=== PATIENT | female | born 1990 | race Hispanic/Latino ===

== ENCOUNTER 2020-11-09 16:56 | Emergency (ER) | payer OTHER, SELFPAY ==
--- NOTE | ~2020-11-09 | US_ITS ---
EXAMINATION: US OB <=14 wk fetus w TV EXAM DATE: 11/09/2020 18:15 INDICATION: abd pain and vag bleeding, approx 6weeks . 1st trimester. TECHNIQUE: Pelvic obstetrical transabdominal and transvaginal sonogram was performed by a technologi . There are multiple grayscale and Doppler images available for interpretation. There are no rodger ier studies of this gestation for comparison. FINDINGS: Uterus measures 10.0 x 6.0 x 5.0 cm. There is intrauterine gestation sac. pole with heart rate confirmed at 123 beats per minute. The 6 mm crown-rump length corresponds to estimated g estational age by ultrasound of 6 weeks 3 days, estimated date of confinement 07/02/2021. Yolk sac is identified. There is no sonographic evidence of subchorionic hemorrhage. The ovaries were not ident ified. IMPRESSION: Early live intrauterine gestation, age by ultrasound 6 weeks 3 days. Reviewed, dictated and finalized at location A. IMPRESSION: Early live intrauterine gestation, age by ultrasound 6 weeks 3 day sDebo
[2020-11-09 17:13] VITALS: BP 140/65; PULSE 84; RESP 16; TEMP 36.7; O2SAT 100
[2020-11-09 17:28] LABS: Basophils Percent Auto 0.4 % (0.2-1.2); Eosinophils Absolute Auto 0.2 K/mm3 (0-0.3); Eosinophils Percent Auto 1.6 % (0-4.4); Hematocrit 34.8 % (37.0-47.0); Hemoglobin 11.1 g/dL (12.0-15.0); Immature Granulocyte Absolute 0.09 K/mm3 (0.00-0.031); Immature Granulocyte Percent A 0.9 % (0-0.5); Lymphocytes Absolute Auto 2.38 K/mm3 (0.9-3.2); Lymphocytes Percent Auto 23.4 % (18.3-44.2); Mean Corpuscular HGB Conc 31.9 g/dl (32-36); Mean Corpuscular Hemoglobin 28.6 pg (26-34); Mean Corpuscular Volume 89.7 fl (80-100); Mean Platelet Volume 9.4 fl (7.4-10.4); Monocytes Absolute Auto 0.5 K/mm3 (0.1-0.6); Monocytes Percent Auto 5.2 % (2.6-8.5); Neutrophils Percent Auto 68.5 % (45.5-73.1); Platelet Count Result 239 k/mm3 (150-375); Red Blood Count 3.88 M/mm3 (4.2-5.4); Red Cell Distribution Width 13.1 % (11.5-14.5); White Blood Count 10.2 K/mm3 (4.5-10.0)
[2020-11-09 18:37] VITALS: BP 137/60; PULSE 73; RESP 18; O2SAT 100
--- NOTE | 2020-11-09 19:25 | ED.FEMALEGU ---
HPI - Female Genitourinary General Chief complaint: Vaginal Bleeding Stated complaint: ABD PAIN 6WKS PREG Time Seen by Provider: 11/09/20 19:00 Source: patient and RN notes reviewed Mode of arrival: ambulatory Limitations: no limitations History of Present Illness HPI Narrative: Patient is 30 years old female presented to the ED with lower abdominal pain, later spread all over, associated with intermittent vaginal spotting. Last bleeding was yesterday, no active bleeding today. Patient is 2, para 1, 0. Patient went to [facility] at least twice over the last 10 days, and been to [facility] 1 week ago and was diagnosed of 6 weeks patient would like to get ultrasound for confirmation. And also would like to get an OFFICE COORDINATOR. Currently patient denies any fever, chills, shortness of breath, coughing, respiratory symptoms. Patient does not smoke or drink or uses drugs. History of depression Related Data Allergies Allergy/AdvReac Type Severity Reaction Status Date / Time No Known Allergies Allergy Verified 11/09/20 18:41 Review of Systems Review of Systems: Narrative: CONSTITUTIONAL: Denies fever, chills, or sweats. EYES: Denies visual changes, redness, or discharge. ENT: Denies rhinorrhea, congestion, sore throat, or otalgia. CARDIOVASCULAR: Denies chest pain, palpitations, or edema. RESPIRATORY: Denies cough or dyspnea. GASTROINTESTINAL: Denies abdominal pain, nausea, vomiting, or diarrhea. GENITOURINARY: Denies dysuria or hematuria. SKIN: Denies rash or itching. MUSCULOSKELETAL: Denies back pain, joint pain, or myalgia. NEUROLOGIC: Denies headache, numbness, or weakness. PSYCHIATRIC: Denies anxiety or depression. Exam Narrative: Exam Narrative: General appearance: Well-developed, well-nourished Skin: Normal color Head: Normocephalic, nontraumatic Eyes: Clear conjunctiva ENT: Oropharynx normal, ears normal, nose normal Neck: Supple, nontender Chest and respiratory: Airway patent, no respiratory distress, no accessory muscle use Heart: Regular rate/rhythm Abdomen: Soft, nontender, no organomegaly, quiet bowel sounds Vascular: Normal peripheral pulses, normal capillary refill. Musculoskeletal: Normal range of motion, nontender back Neurologic: Alert and oriented ?3, SENIOR ESTIMATOR is normal as tested, no gross motor deficit Course Course Emergency Course: Stable Vital Signs Vital signs: Vital Signs Temperature 36.7 C 11/09/20 17:13 Pulse Rate 84 11/09/20 17:13 Respiratory Rate 16 11/09/20 17:13 Blood Pressure 140/65 11/09/20 17:13 Pulse Oximetry 100 11/09/20 17:13 Temperature 36.7 C 11/09/20 17:13 Pulse Rate 73 11/09/20 18:37 Respiratory Rate 18 11/09/20 18:37 Blood Pressure 137/60 11/09/20 18:37 Pulse Oximetry 100 11/09/20 18:37 MDM - Female Genitourinary Differential Diagnosis Differential diagnosis: Likely urinary tract infection, cystitis and other (Threatened , ectopic ) Lab Data Result diagrams: 11/09/20 17:21 Labs: Lab Results 11/09/20 11/09/20 11/09/20 Range/Units 17:21 17:21 17:21 WBC 10.2 H (4.5-10.0) K/mm3 RBC 3.88 L (4.2-5.4) M/mm3 Hgb 11.1 L (12.0-15.0) g/dL Hct 34.8 L (37.0-47.0) % MCV 89.7 (80-100) fl MCH 28.6 (26-34) pg MCHC 31.9 L (32-36) g/dl RDW 13.1 (11.5-14.5) % Plt Count 239 (150-375) k/mm3 MPV 9.4 (7.4-10.4) fl Immature Gran % (Auto) 0.9 H (0-0.5) % Neut % (Auto) 68.5 (45.5-73.1) % Lymph % (Auto) 23.4 (18.3-44.2) % Faulk % (Auto) 5.2 (2.6-8.5) % Eos % (Auto) 1.6 (0-4.4) % Baso % (Auto) 0.4 (0.2-1.2) % Lymph # (Auto)
[2020-11-09 19:45] LABS: Add Urine Microscopic? YES; Appearance Urine Clear (Clear); Bilirubin Urine Negative (Negative); Blood Urine Negative (Negative); Color Urine Yellow (Yellow); Glucose Urine UA Negative (Negative); Ketones Urine Negative (Negative); Leukocyte Esterase Ur Negative LEU/UL (Negative); Mucus Urine Rare /lpf; Nitrate Urine Negative (Negative); Protein Urine Negative (Negative); RBC Urine 0-2 /hpf (0-2); Specific Grav Ur 1.024 (1.001-1.035); Squamous Epithelial Cell Urine Few /hpf (Few); WBC Urine 0-3 /hpf
[2020-11-09 19:53] LABS: Alanine Aminotransferase 18 U/L (4-35); Albumin Level 3.9 g/dL (3.5-5.1); Alkaline Phosphatase 65 U/L (38-126); Anion Gap 10 mmol/L (8-16); Aspartate Amino Transferase 44 U/L (14-36); Bilirubin,Total 0.4 mg/dL (0.2-1.3); Blood Urea Nitrogen 16 mg/dL (7-17); Calcium 9.3 mg/dL (8.4-10.2); Carbon Dioxide 24 mmol/L (22-30); Chloride 103 mmol/L (98-107); Estimated CRCL calculation 196 ml/min; Estimated Glomerular Filt Rate > 60; Glucose 71 mg/dL (65-105); Lipase 50 U/L (23-300); Potassium 4.1 mmol/L (3.4-5.0); Sodium 137 mmol/L (137-145)
[2020-11-09 20:34] VITALS: BP 150/75; PULSE 78; RESP 20; O2SAT 98
== END 2020-11-09 20:32 | disposition home or self-care (01) ==
PROVIDERS: Emergency Medicine; Physician Assistant; Emergency Provider Emergency Medicine; PCP Registered Nurse
DX: O20.0 Threatened abortion (principal); Z3A.01 Less than 8 weeks gestation of pregnancy
CPT/HCPCS: 36415; 76801; 76817; 80053; 81001; 81025; 83690; 84702; 85025; 85461; 99284

== ENCOUNTER 2020-12-01 13:14 | Outpatient (CLI) | payer OTHER, SELFPAY ==
--- NOTE | ~2020-12-01 | US_ITS ---
EXAMINATION: US OB <= 14 weeks fetus DATE: 12/01/2020 13:56 INDICATION: Encounter for supervision of normal . TECHNIQUE: Real-time transabdominal pelvic ultrasound was performed. COMPARISON: Ultrasound 11/09/2020 FINDINGS: The uterus measures 12.3 x 9.1 x 7.0 cm. There is an intrauterine gestational sac. A yolk sac is iden tified. The crown rump length measures 2.7 cm, which correlates with an estimated gestational age of 9 weeks and 4 day(s) (+/-) 6 day(s). heart motion is identified measuring 161 beats per minute (bpm) by M-mode Doppler. The ovaries are not visualized. There is no free fluid in the pelvis. IMPRESSION: 1. Single living intrauterine gestation with estimated date of delivery of 07/02/2021 based on the ult rasound from 11/09/2020. Reviewed, dictated and finalized at location A. IMPRESSION: 1. Single living intrauterine gestation with estimated date of delivery of 07/02 based on the ultrasound from 11/09/2020.
== END 2020-12-01 13:15 | disposition home or self-care (01) ==
PROVIDERS: PCP Registered Nurse; Visit Provider Physician Assistant
DX: Z34.90 Encounter for supervision of normal pregnancy, unspecified, unspecified trimester (principal)
CPT/HCPCS: 76801

== ENCOUNTER 2021-05-05 19:28 | Observation (INO) | payer OTHER, SELFPAY ==
--- NOTE | 2021-05-05 19:28 | OBADM ---
This patient, Bren Lee, admitted to the OB room [facility] Post [facility] for observation. Patient/family oriented to hospital policies and general routines including ID bracelet, bed and alarms, visiting hours, pain management, procedures, bathroom and other care routines, personal items, smoking policy, room service/diet, and visiting hours. Patient/Family are encouraged to report perceived risks to care and to ask questions if they do not understand what they are told or what they should do.
--- NOTE | 2021-05-05 20:02 | PC.NURSE ---
pt reporting back pain and abdominal pain that has become more constant than earlier in the day. Pt reports having her glucose test this AM and the pain starting around 0830.
[2021-05-05 20:16] VITALS: BP 149/80; PULSE 90
[2021-05-05 20:39] VITALS: BMI 70.4
--- NOTE | 2021-05-05 20:42 | PC.NURSE ---
pt reports UTI being diagnosed yesterday at the doctors office but has not picked up her prescription yet.
[2021-05-05 20:48] LABS: Hemoglobin 10.6 g/dL (12.0-15.0); Mean Corpuscular HGB Conc 33.1 g/dl (32-36); Mean Corpuscular Hemoglobin 28.7 pg (26-34); Mean Corpuscular Volume 86.7 fl (80-100); Platelet Count Result 171 k/mm3 (150-375); Red Blood Count 3.69 M/mm3 (4.2-5.4); Red Cell Distribution Width 13.1 % (11.5-14.5); White Blood Count 5.1 K/mm3 (4.5-10.0)
--- NOTE | 2021-05-05 20:53 | PM.OBTRLD ---
OB - Triage/Final Diagnosis Visit Information Date of evaluation: 05/05/21 Reason for evaluation: other (back pain) Comments/Additional reasons for admission: I have assessed the risk for this patient, Bren Lee, and determined that she would benefit from observation care. Evaluation Vital signs: Vital Signs - 24 hr 05/05/21 20:16 Pulse Rate 90 Blood Pressure 149/80 H
[2021-05-05 20:59] LABS: Add Urine Microscopic? YES; Appearance Urine Clear (Clear); Bacteria Urine 2+ /hpf; Bilirubin Urine Negative (Negative); Blood Urine Negative (Negative); Color Urine Amber (Yellow); Glucose Urine UA Negative (Negative); Ketones Urine 2+ mg/dL (Negative); Leukocyte Esterase Ur Negative LEU/UL (NEGATIVE); Mucus Urine Rare /lpf; Nitrate Urine Negative (Negative); Protein Urine 1+ mg/dL (Negative); RBC Urine 0-2 /hpf (0-2); Specific Grav Ur 1.029 (1.001-1.035); Squamous Epithelial Cell Urine Few /hpf (Few); WBC Urine 0-3 /hpf (0-3)
[2021-05-05 21:06] VITALS: BP 147/77; PULSE 89
--- NOTE | 2021-05-05 21:14 | PC.NURSE ---
Dr. Rico updated on pt lab results and VS. Also updated on pt now stating she has UTI and hasnt started her medication yet. Order received for pt to receive 100mg of Macrobid x 1 and discharge pt home.
--- NOTE | 2021-05-05 21:23 | PC.NURSE ---
100mg Macrobid given x 1. Medication unable to be scanned. 05/05/20212122
== END 2021-05-05 21:27 | disposition home or self-care (01) ==
PROVIDERS: Admitting Provider Student in an Organized Health Care Education/Training Program; PCP Registered Nurse; Visit Provider Student in an Organized Health Care Education/Training Program
DX: O99.891 Other specified diseases and conditions complicating pregnancy (principal); M54.9 Dorsalgia, unspecified; Z3A.00 Weeks of gestation of pregnancy not specified
CPT/HCPCS: 36415; 81001; 85027; 87077; 87086; 87088; 87186; G0378; G0379

== ENCOUNTER 2022-11-01 12:13 | Emergency (ER) | payer OTHER, SELFPAY ==
[2022-11-01 12:23] VITALS: BP 143/99; PULSE 82; RESP 18; TEMP 36.6; O2SAT 99
[2022-11-01 13:22] LABS: Strep Group A RT-PCR DETECTED (Negative)
--- NOTE | 2022-11-01 13:40 | ED.EAR ---
HPI - Ear Problem General Chief complaint: Ear Stated complaint: sorethroat, ears hurting Time Seen by Provider: 11/01/22 13:03 History of Present Illness HPI Narrative: Patient is a 32-year-old female who presents ER with concerns for strep throat. Reports she has had sore throat for last 2 days. Associated with sinus congestion and cough. She is also had fever. She reports her exudates on her tonsils yesterday but no longer today. Related Data Home Medications Medication Instructions Recorded Confirmed vits no.126-ferrous fum 1 tablet PO DAILY 05/05/21 05/05/21 28 mg iron-folic acid 800 mcg tablet (Classic ) Allergies Allergy/AdvReac Type Severity Reaction Status Date / Time No Known Allergies Allergy Verified 11/01/22 12:22 Review of Systems Constitutional: Constitutional: Denies chills and Reports fever(s) ENT: Reports nasal congestion and Reports sore throat Respiratory: Respiratory: Reports cough and Denies dyspnea PMFSH Past Medical History Medical History (Updated 11/01/22 @ 18:29 by Chun Mcelroy MD) Healthy female adult Surgical History Surgical History (Updated 11/01/22 @ 18:29 by Chun Mcelroy MD) No history of previous surgery Exam Narrative: GENERAL: Well-appearing, well-nourished, and in no acute distress. HEAD: Normocephalic, atraumatic. EYES: PERRL and EOMI. ENT: Mucous membranes moist. Tonsillar hypertrophy without exudate, mild with erythema of posterior oropharynx. Neck: Tender lymphadenopathy of the anterior cervical chain. EXTREMITIES: Normal range of motion. No edema. NEURO: Alert and oriented x3. PSYCH: Normal mood and affect. Course Course Emergency Course: Patient informed of results. D/c home with augmentin. Vital Signs Vital signs: Vital Signs Temperature 98 F 11/01/22 12:23 Pulse Rate 82 11/01/22 12:23 Respiratory Rate 18 11/01/22 12:23 Blood Pressure 143/99 H 11/01/22 12:23 Pulse Oximetry 99 11/01/22 12:23 Temperature 98 F 11/01/22 12:23 Pulse Rate 82 11/01/22 12:23 Respiratory Rate 18 11/01/22 12:23 Blood Pressure 143/99 H 11/01/22 12:23 Pulse Oximetry 99 11/01/22 12:23 Medical Decision Making Vital Signs Vital Signs: Vital Signs Temperature 98 F 11/01/22 12:23 Pulse Rate 82 11/01/22 12:23 Respiratory Rate 18 11/01/22 12:23 Blood Pressure 143/99 H 11/01/22 12:23 Pulse Oximetry 99 11/01/22 12:23 Temperature 98 F 11/01/22 12:23 Pulse Rate 82 11/01/22 12:23 Respiratory Rate 18 11/01/22 12:23 Blood Pressure 143/99 H 11/01/22 12:23 Pulse Oximetry 99 11/01/22 12:23 Lab Data Labs: Lab Results 11/01/22 Range/Units 12:25 Group A Strep (PCR) Detected A (Negative) Discharge Plan Discharge Clinical Impression: Strep throat Patient Disposition: Home, Self-Care Condition: Stable Instructions: Antibiotic Form, Strep Throat (ED) Additional Instructions: Return the ER if you cannot breathe, cannot swallow, you cannot keep down food or water, you have additional concerns. Prescriptions: New amoxicillin-pot clavulanate 875-125 mg tablet 1 tablet PO Q12H Qty: 20 0RF No Action Classic 28 mg iron- 800 mcg Tablet 1 tablet PO DAILY Follow-up/Referrals: Imelda,MEME Gibson [Primary Care Provider] - 1 Week
== END 2022-11-01 13:54 | disposition home or self-care (01) ==
PROVIDERS: Emergency Provider Emergency Medicine; PCP Registered Nurse
DX: J02.0 Streptococcal pharyngitis (principal)
CPT/HCPCS: 87651; 99283

== ENCOUNTER 2024-02-05 14:39 | Emergency (ER) | payer OTHER, SELFPAY ==
--- NOTE | ~2024-02-05 | CT_ITS ---
CT abdomen pelvis w con Ordering provider: Mlaina Jones PA-C History: 34 years Female with . diffuse pain, N/V/D . Comparison: None. Technique: CT abdomen and pelvis with IV and without oral contrast. Automated exposure control and it erative reconstruction technique were employed. The dose-length product was 1742.49 mGy-cm. 100 mL Om nipaque 350 was given IV. Findings: VISUALIZED LOWER CHEST: Normal. UPPER ABDOMINAL ORGANS: Liver: Hepatomegaly. Gallbladder: Normal. Spleen: Normal. Stomach/duodenum: Slightly thickened wall of the stomach which may indicate gastritis. Pancreas: Normal. Adrenals: Normal. Kidneys: Normal. PELVIC ORGANS: The bladder is underfilled.. BOWEL AND MESENTERY: Colon: No evidence of diverticulitis. Normal appendix. Small Bowel: Normal. No obstruction. Peritoneum/mesentery: No free air or free fluid. No mesenteric lymphadenopathy. RETROPERITONEUM: Normal aorta. No retroperitoneal lymphadenopathy. MUSCULOSKELETAL: Superficial soft tissues: Thickened skin in the area of the vulva on the right side. Clinical evaluat ion advised. Small fat-containing umbilical hernia. Bilateral borderline inguinal lymph nodes are not ed Otherwise, The superficial soft tissues are normal. Bones: Age appropriate degenerative changes of the spine. Bilateral sacroiliitis. IMPRESSION: 1. No evidence of appendicitis, diverticulitis or intestinal obstruction. 2. Small fat-containing umbilical hernia. Thickened skin in the right vulva area. Clinical evaluatio n advised. 3. Slightly thickened wall of the stomach which may indicate gastritis. Clinical correlation is advi sed. 4. Hepatomegaly Reviewed, dictated and finalized at location A. IMPRESSION: 1. No evidence of appendicitis, diverticulitis or intestinal obstruction. 2. Small fat-containing umbilical hernia. Thickened skin in the right vulva ar ea. Clinical evaluation advised. 3. Slightly thickened wall of the stomach which may indicate gastritis. Clinic al correlation is advised. 4. Hepatomegaly
[2024-02-05 14:46] VITALS: BP 159/100; PULSE 104; RESP 20; TEMP 36.5; O2SAT 98
--- NOTE | 2024-02-05 17:12 | ED.NAVMDI ---
HPI - Nausea/Vomiting/Diarrhea General Chief complaint: Nausea/Vomiting/Diarrhea <JERROD Mcdonald Last Filed: 02/05/24 19:18> Stated complaint: vomiting, diarrhea <JERROD Mcdonald Last Filed: 02/05/24 19:18> Time Seen by Provider: 02/05/24 17:12 <JERROD Mcdonald Last Filed: 02/05/24 19:18> Focused HPI: Patient is a 34 y/o female who presents to the ED with c/o N/V/D. Patient reports she first developed N/V around 5pm after eating dinner on Monday. Denies any bad food exposure. She has since had persistent N/V, unable to keep down food or drink. Also reports diarrhea, diffuse pain in her abdomen, radiating through to her back. She tried taking pepto bismol today w/o improvement. Has not taken anything else for the pain. Denies fevers, rectal bleeding, melena, family members with similar sx's. GENERAL: Well-appearing, morbidly obese with BMI of 69.9, and in no acute distress. HEAD: Normocephalic, atraumatic. CHEST: Clear to auscultation. ?No respiratory distress. HEART: Regular rate and rhythm.? ABD: Diffuse nonfocal TTP, worst in epigastric region. Normoactive BS. NEURO: ?Alert and oriented x3. Patient screened in triage and initial orders placed.? ?Additional care and disposition to be based upon?diagnostic testing and treatment. <JERROD Mcdonald Last Filed: 02/05/24 19:18> Source: patient <JERROD Mcdonald Last Filed: 02/05/24 19:18> Mode of arrival: ambulatory <JERROD Mcdonald Last Filed: 02/05/24 19:18> Limitations: no limitations <JERROD Mcdonald Last Filed: 02/05/24 19:18> History of Present Illness HPI Narrative: Agree with HPI. Of note patient does report mild depression. She has been on antidepressants in the past was not been on them recently for a she is having stress because her daughter and will not listen to her home. She has no thoughts of harm to self or others. <Chun Mcelroy MD - Last Filed: 02/05/24 19:20> Related Data Home medications: Home Medications Medication Instructions Recorded Confirmed vits no.126-ferrous fum 1 tablet PO DAILY 05/05/21 05/05/21 28 mg iron-folic acid 800 mcg tablet (Classic ) <Malina Jones PA-C - Last Filed: 02/05/24 19:18> Allergies/Adverse reactions: Allergies Allergy/AdvReac Type Severity Reaction Status Date / Time No Known Allergies Allergy Verified 11/01/22 12:22 <Malina Jones PA-C - Last Filed: 02/05/24 19:18> Review of Systems Review of Systems: All systems reviewed & are unremarkable except as noted in HPI and below <Chun Mcelroy MD - Last Filed: 02/05/24 19:20> Constitutional: Constitutional: Reports no additional constitutional complaints <Chun Mcelroy MD - Last Filed: 02/05/24 19:20> Cardiovascular: Cardiovascular: Reports no additional cardiovascular complaints <Chun Mcelroy MD - Last Filed: 02/05/24 19:20> Respiratory: Respiratory: Reports no additional respiratory complaints <Chun Mcelroy MD - Last Filed: 02/05/24 19:20> Gastrointestinal: Gastrointestinal: Reports no additional gastrointestinal complaints <Chun Mcelroy MD - Last Filed: 02/05/24 19:20> Musculoskeletal: Musculoskeletal: Reports no additional musculoskeletal complaints <Chun Mcelroy MD - Last Filed: 02/05/24 19:20> Psychiatric: Psychiatric: Reports depression, Denies homicidal ideation and Denies suicidal ideation <Chun Mcelroy MD - Last Filed: 02/05/24 19:20> PMFSH Past Medical History Medical History: Medical History Healthy female adult <Malina Jones PA-C - Last Filed: 02/05/24 19:18> Surgical History Surgical History: Surgical History No history of previous surgery <Malina Jones P
[2024-02-05] MEDS: ONDANSETRON INJ 4 MG/2 ML VIAL IV PUSH (17:23)
[2024-02-05] MEDS: FAMOTIDINE 20 MG/2 ML VIAL IV PUSH (17:23)
[2024-02-05 17:26] LABS: Basophils Absolute Auto 0.1 K/mm3 (0.0-0.1); Basophils Percent Auto 0.5 % (0.2-1.2); Eosinophils Absolute Auto 0.2 K/mm3 (0-0.3); Eosinophils Percent Auto 1.4 % (0-4.4); Hematocrit 41.2 % (37.0-47.0); Hemoglobin 13.3 g/dL (12.0-15.0); Immature Granulocyte Absolute 0.06 K/mm3 (0.00-0.031); Immature Granulocyte Percent A 0.6 % (0-0.5); Mean Corpuscular HGB Conc 32.3 g/dl (32-36); Mean Corpuscular Hemoglobin 28.7 pg (26-34); Mean Corpuscular Volume 88.8 fl (80-100); Mean Platelet Volume 9.5 fl (7.4-10.4); Monocytes Absolute Auto 0.7 K/mm3 (0.1-0.6); Monocytes Percent Auto 6.2 % (2.6-8.5); Neutrophils Absolute Auto 6.3 K/mm3 (1.3-6.7); Neutrophils Percent Auto 59.3 % (45.5-73.1); Platelet Count Result 278 k/mm3 (150-375); Red Blood Count 4.64 M/mm3 (4.2-5.4); White Blood Count 10.6 K/mm3 (4.5-10.0)
[2024-02-05 17:39] LABS: BEDSIDEPREGUCG Negative (Negative)
[2024-02-05 18:01] LABS: Alanine Aminotransferase 18 U/L (6-35); Albumin Level 4.1 g/dL (3.5-5.1); Alkaline Phosphatase 81 U/L (38-126); Anion Gap 8 mmol/L (4-12); Aspartate Amino Transferase 28 U/L (14-36); Bilirubin,Total 0.3 mg/dL (0.2-1.3); Blood Urea Nitrogen 6 mg/dL (7-17); Calcium 8.9 mg/dL (8.4-10.2); Carbon Dioxide 27 mmol/L (22-30); Chloride 104 mmol/L (98-107); Estimated CRCL calculation 184 ml/min; Estimated Glomerular Filt Rate > 60; Glucose 80 mg/dL (65-110); Lipase 46 U/L (23-300); Magnesium 1.8 mg/dL (1.6-2.3); Potassium 3.9 mmol/L (3.4-5.0); Sodium 139 mmol/L (137-145)
[2024-02-05 18:08] LABS: Add Urine Microscopic? NO; Appearance Urine Clear (Clear); Bilirubin Urine Negative (Negative); Blood Urine Negative (Negative); Color Urine Yellow (Yellow); Glucose Urine UA Negative (Negative); Ketones Urine Negative (Negative); Leukocyte Esterase Ur Negative LEU/UL (Negative); Nitrate Urine Negative (Negative); Protein Urine Negative (Negative); Specific Grav Ur 1.007 (1.001-1.035); Urobilinogen Urine 0.2 mg/dL (<2.0); pH Urine 6.5 (5.0-9.0)
[2024-02-05 18:44] VITALS: BP 126/66; PULSE 88; RESP 16; TEMP 36.6; O2SAT 100
== END 2024-02-05 19:32 | disposition home or self-care (01) ==
LOC: ANHED 19:28
PROVIDERS: Physician Assistant; Emergency Provider Emergency Medicine; PCP Registered Nurse
DX: K52.9 Noninfective gastroenteritis and colitis, unspecified (principal); F32.A Depression, unspecified; E66.01 Morbid (severe) obesity due to excess calories; Z68.44 Body mass index [BMI] 60.0-69.9, adult; R16.0 Hepatomegaly, not elsewhere classified
CPT/HCPCS: 36415; 74177; 80053; 81003; 81025; 83690; 83735; 85025; 96374; 96375; 99284; J2405; Q9967

== ENCOUNTER 2024-04-27 11:01 | Emergency (ER) | payer OTHER, SELFPAY ==
[2024-04-27 11:40] VITALS: BP 149/101; PULSE 83; RESP 18; TEMP 37; O2SAT 99
[2024-04-27 14:01] VITALS: BP 147/92; PULSE 91; RESP 11; TEMP 36.8; O2SAT 99
--- NOTE | 2024-04-27 15:12 | ED_ITS ---
HPI - General Adult General Chief complaint: Eye Problems Stated complaint: eye pain Time Seen by Provider: 04/27/24 14:31 History of Present Illness HPI narrative: 34-year-old female presenting to the emergency department for evaluation for worsening pain got eye symptoms. Patient states she did have the diagnosis of pinkeye and was started on antibiotics. Patient reports that she has had improvement of the redness of the conjunctivis but states she is having increased pain in the eye. Patient denies any prior history of hypertension or pseudotumor cerebri. Related Data Home Medications ?Medication ?Instructions ?Recorded ?Confirmed ?Last Taken ?Type vits no.126-ferrous fum 1 tablet PO DAILY 05/05/21 05/05/21 Unknown History 28 mg iron-folic acid 800 mcg tablet (Classic ) Allergies Allergy/AdvReac Type Severity Reaction Status Date / Time No Known Allergies Allergy Verified 04/27/24 11:43 Review of Systems Review of Systems: All systems reviewed & are unremarkable except as noted in HPI and below PMFSH Past Medical History Medical History Healthy female adult Surgical History Surgical History No history of previous surgery Exam Narrative: APPEARANCE: Well appearing, no pain, no distress, well-nourished. HEAD: normocephalic, atraumatic. EYES: PERRLA/EOMI, conjunctivae clear. Tender pressures were 17 and 18 for left and right. Normal fundus exam. Normal cornea exam NOSE: Normal no drainage EARS:TMS clear with good light reflex. THROAT: Pharynx clear, no exudate. NECK: Supple. No adenopathy, no masses. RESPIRATORY: Airway patent, respirations nonlabored. Clear to auscultation bilaterally, no rales, rhonchi, wheezing. CARDIOVASCULAR: Regular rate and rhythm without murmurs rubs or gallops. ABDOMINAL: Soft, nontender, nondistended, normal bowel sounds MUSCULOSKELETAL: Moves all extremities. Strength/ROM intact, No edema, No calf tenderness. NEURO: Alert. Cranial nerves II through XII intact. Good gait. Good coordination SKIN: Warm, dry. Normal Color PSYCHIATRIC: Normal affect/mood. Course Vital Signs Vital signs: Vital Signs Temperature 98.6 F 04/27/24 11:40 Pulse Rate 83 04/27/24 11:40 Respiratory Rate 18 04/27/24 11:40 Blood Pressure 149/101 H 04/27/24 11:40 Pulse Oximetry 99 04/27/24 11:40 Oxygen Delivery Room Air 04/27/24 11:40 Temperature 98.3 F 04/27/24 14:01 Pulse Rate 91 04/27/24 14:01 Respiratory Rate 11 L 04/27/24 14:01 Blood Pressure 147/92 H 04/27/24 14:01 Pulse Oximetry 99 04/27/24 14:01 Oxygen Delivery Room Air 04/27/24 11:40 Medical Decision Making MDM Narrative Medical decision making narrative: 34-year-old female present to the emergency department for evaluation for eye pain after continue to use her poly my sign eye drops. Patient's conjunctivitis is resolved. She was advised to stop the eyedrops and see if this helps her symptoms. Patient did not have elevated eye pressures bilaterally. Normal fundus exam bilaterally. Patient was advised to have close follow-up with Ophthalmology. All questions concerns were addressed patient was well-appearing at time of discharge. Vital Signs Vital Signs: Vital Signs Temperature 98.6 F 04/27/24 11:40 Pulse Rate 83 04/27/24 11:40 Respiratory Rate 18 04/27/24 11:40 Blood Pressure 149/101 H 04/27/24 11:40 Pulse Oximetry 99 04/27/24 11:40 Oxygen Delivery Room Air 04/27/24 11:40 Temperature 98.3 F 04/27/24 14:01 Pulse Rate 91 04/27/24 14:01 Respiratory Rate 11 L 04/27/24 14:01 Blood Pressure 147/92 H 04/27/24 14:01 Pulse Oximetry 99 04/27/24 14:01 Oxygen Delivery Room Air 04/27/24 11:40 Discharge Plan Discharge Clinical Impression: Eye pain Patient Disposition: Home, Self-Care Condition: Stable Instructions: Antibiotic Form Additional Instructions: Stop the polymycin eyedrops. Have close follow-up with Ophthalmology. If you have any worsening symptoms please call or return to the emergency department Patient Language: French Prescriptions: No Action Classic 28 mg iron- 800 mcg Tablet 1 tablet PO DAILY amoxicillin-pot clavulanate 875-125 mg tablet 1 tablet PO Q12H Qty: 20 0RF ondansetron 4 mg tablet,disintegrating 4 mg PO Q6H PRN (Reason: nausea and vomiting) Qty: 10 0RF famotidine 20 mg tablet 20 mg PO DAILY Qty: 14 0RF Follow-up[facility]Referrals[facility]] UNKNOWN,DOCTOR [Primary Care Provider] -
[2024-04-27 15:17] VITALS: BP 136/76; PULSE 82; RESP 18; TEMP 36.6; O2SAT 98
--- OUTSIDE RECORDS SUMMARY | 2024-05-04 14:54 | XMS_ITS | Data Portability ---
Author Organization CHRISTO Thao CROWE Address [address] [place] [address] Care Team Providers Care Supervisor [employer] Anne[employer] Name Role Phone PAIGE MATIAS Primary Care Provider SHIV Nieto Circular Stuffer Assessment No assessment recorded. Plan of Treatment Reminders Order Date Submit Date Provider Last Modified By Organization Details Last Modified Time Details Appointments None recorded. Lab test, urine 2022 023 SYLVIA In-Office Order, Internal Use Only DO Not Attach Compendium DO Not Attach Compendium, Do Not Delete/merge, [id number] 3 13:32:07 prolactin, serum 2022 023 SYLVIA ARCHER, [facility], [address], [place], [address], 3 08:23:12 TSH + free T4, serum 2022 023 SYLVIA ARCHER, [address] [place] [address], [address], [place], [address], 3 08:23:11 RPR (rapid plasma reagin), serum 2022 023 SYLVIA ARCHER, [address] [place] [address], [address], [place], [address], 3 22:07:34 HIV 1 + 2, meaningful use set 2022 023 SYLVIA PETERSON, [address] [facility], [address], [place], [address], 3 22:07:35 chlamydia trachomati s + neisseria gonorrhoea e + trichomona s vaginalis DNA panel, JARRELL+probe, unspecifie d specimen 2022 023 [facility], [address] [place] [address], [address], [place], [address], 3 22:07:32 HBsAg (hepatitis B surface Ag), EIA, serum 2022 023 [facility], [address] [place] [address], [address], [place], [address], 3 22:07:33 Referral physical therapist referral 2023 024 [facility], [address] [place], [address], 4 10:53:45 Procedures None recorded. Surgeries None recorded. Imaging US, abdomen - Bulge above belly button [facility]22 [facility]23 [facility], [address] [place], [address], 4 12:31:49 US, breast, bilateral 2022 023 [facility], [address] [place], [address], 3 09:44:58 XR, ankle - L ankle pain for 4 months 2023 024 [facility], [address] [place], [address], 4 13:53:56 XR, knee, 3 view 2023 024 [facility], [address] [facility], [place], [address], 4 10:06:15 Medication Orders ibuprofen 400 mg tablet 2022 023 [facility] #[id number], [address], [place], [place], [id number], 3 13:21:11 cephalexin 500 mg capsule 2022 023 arturel[facility] #68052, [address], [place], [place], [id number], 4 17:43:29 acyclovir 400 mg tablet 2022 023 [facility] #62603, [address], [place], [place], [id number], 3 13:13:37 meloxicam 15 mg tablet 2023 024 [facility] #02230, [address], [place], [place], [id number], 4 12:33:06 Medrol (Ry) 4 mg tablets in a dose pack 2023 024 [facility] #27497, [address], [place], [place], [id number], 4 17:34:14 meloxicam 15 mg tablet 2023 024 [facility] #[id number], [address], [place], [place], [id number], 4 17:44:52 Patient TargetsNo targets recorded. Patient Instructions Encounter Date Encounter Id Patient Instructions Last Modified By Organization Details Last Modified Time 06/08/2022 [id number] When You Want to Lose Weight: Care Instructions juan a Not available 06/08/2022 11:59:10 A healthy lifestyle: care instructions yarauz Not available 06/08/2022 11:59:10 continue fluoxetine and f/u as directed yarauz Not available 06/08/2022 16:54:41 get abd u/s as directed possible hernia yarauz Not available 06/08/2022 16:55:04 06/16/2022 [id number] galactorrhea: care instructions yarauz Not available 06/16/2022 13:23:32 When You Want to Lose Weight: Care Instructions yarauz Not available 06/16/2022 13:21:05 A healthy lifestyle: care instructions yarauz Not available 06/16/2022 13:21:05 get breast u/s yarauz Not available 0 06/16/2022 13:20:56 08/30/2022 [id number] genital herpes: care instructions yarauz Not available 08/30/2022 13:13:30 std risks condoms with every sexual act no sex during treatment yarauz Not available 08/30/2022 13:12:23 09/01/2023 [id number] ankle sprain: rehab exercises yarauz Not available 09/01/2023 14:28:14 learning about rice (rest, ice, compression, and elevation) yarauz Not available 09/01/2023 14:28:14 When You Want to Lose Weight: Care Instructions yarauz Not available 09/01/2023 12:35:21 Prop up your alfred t on pillows as much as possible for the next 3 days. Try to keep your ankle above the level of your heart. This will help reduce the swelling. Follow your doctor's directions for wearing a splint or elastic bandage. Wrapping the ankle may help reduce or prevent swelling. Your doctor may give you a splint, a brace, an air stirrup, or another form of ankle support to protect your ankle until it is healed. Wear it as directed while your ankle is healing. Do not remove it unless your doctor tells you to. After your ankle has healed, ask your doctor whether you should wear the brace when you exercise. Put ice or cold packs on your injured ankle for 10 to 20 minutes at a time. Try to do this every 1 to 2 hours for the next 3 days (when you are awake) or until the swelling goes down. Put a thin cloth between the ice and your skin. You may need to use crutches until you can walk without pain. If you do use crutches, try to bear some weight on your injured ankle if you can do so without pain. This helps the ankle heal. Take pain medicines exactly as directed. Do ROM ankle exercises to do at home, do them exactly as instructed. These can promote healing and help prevent lasting weakness. juan a Not available 09/01/2023 14:27:52 01/31/2024 [id number] When You Want to Lose Weight: Care Instructions juan a Not available 01/31/2024 17:34:07 ? ? Rest your leg while you have pain, and avoid standing for long periods of time. ? ? Prop up your leg at or above the level of your heart when possible. ? ? Make sure you are eating a balanced diet that is rich in calcium, potassium, and magnesium, especially if you are . ? ? Put ice or a cold pack on the area for 10 to 20 minutes at a time. Put a thin cloth between the ice and your skin. ? ? Your leg may be in a splint, a brace, or an elastic bandage, and you may have crutches to help you walk. juan a Not available 01/31/2024 17:33:27 Reason for Referral Physical Therapist Referral for Osteoarthritis of knee Referring Physician: Paige Matias, Family Medicine, Encounter Date: 01/31/2024 Results Created Date Observation Date Name Description Value Unit Range Abnormal Flag Note LastModifiedBy Organization Detail LastModifiedTime 06/16/1906/17/2022 TSH+F REE T4 TSH 1.750 uIU/m L 0.450- 4.500 Not Available [facility] ([facility]) [address] [place], [address], 06/17/2022 08:23:11 06/16/1906/17/2022 TSH+F REE T4 T4,free(dire ct) 1.39 NG/dL 0.82-1 .77 Not Available [facility] ([facility]) [address] [place], [address], 06/17/2022 08:23:11 06/16/19 23 06/17/2022 PROLA CTIN prolactin 8.0 NG/mL 4.8-23 .3 Not Available [facility] ([facility]) [address] [place], [address], 06/17/2022 08:23:12 06/16/19 23 06/16/2022 pregn kimmie test, urine HCG negati ve Not Available In-Office Order Internal Use Only DO Not Attach Compendium DO Not Attach Compendium, Do Not Delete/merge, [id number] 06/16/2022 13:23:26 08/31/19 23 08/31/2022 CT, NG, TRICH VAG BY JARRELL chlamydia by JARRELL Negati ve negati ve Not Available [facility] ([facility]) [address] [place], [address], 08/31/2022 22:07:32 08/31/19 23 08/31/2022 CT, NG, TRICH VAG BY JARRELL gonococcus by JARRELL Negati ve negati ve Not Available [facility] ([facility]) [address] [place], [address], 08/31/2022 22:07:32 08/31/19 23 08/31/2022 CT, NG, TRICH VAG BY JARRELL trich vag by JARRELL Negati ve negati ve Not Available [facility] ([facility]) [address] [place], [address], 08/31/2022 22:07:32 08/31/19 23 08/31/2022 HBSAG SCREE N HBsAg screen Negati ve negati ve Not Available [facility] ([facility]) [address] [place], [address], 08/31/2022 22:07:33 08/31/19 23 08/31/2022 RPR, RFX QN RPR/C ONFIR M TP RPR Non Reacti ve nonrea ctive Not Available [facility] ([facility]) [address] [facility], [place], [address], 08/31/2022 22:07:34 08/31/19 23 08/31/2022 HIV AB/P2 4 AG WITH REFLE X HIV Ab/P24 Ag screen Non Reacti ve nonrea ctive HIV Negat yessy HIV-1 /HIV- 2 antib odies and HIV-1 p24 antig en were NOT detec bisi. There is no labor atory evide nce of HIV infec tion. Not Available [facility] ([facility]) [address] [facility], [place], [address], 08/31/2022 22:07:35 09/08/19 24 09/08/2023 XR, ankle No observ ation record ed. [facility] [address] [place], [address], 01/31/2024 17:29:21 12/21/19 24 12/20/2023 XR, chest , 2 view No observ ation record ed. [facility] [address] [place], [address], 01/31/2024 17:29:21 02/05/20 24 02/05/2024 CT, abdom en + pelvi s, w/ contr ast No observ ation record ed. [facility] [address], [place], [address], 02/06/2024 14:23:17 04/28/20 24 04/28/2024 imagi ng/di agnos tic resul t No observ ation record ed. [facility] [address] [place], [address], 04/28/2024 15:44:40 Result Notes None recorded. Problems Name Problem SNOMED Code Status Onset Date Resolution Date Notes Provider Name and Address Organization Details Recorded Time Axillary hidraden itis suppurat roger 194765570 Active 2017 Dena Blevins [place] [facility], [place] - [facility] 1 12:26:44 Degenera tion of lumbar interver tebral disc 40077033 Active 2015 [facility] Attn: Michael jones,[address] [facility], [place], [address], [place] [facility] 2 13:37:43 Genital herpes simplex 40537127 Active 2019 Will need order for suppress yessy therapy. KEANU Patel Attn: Michael jones,[address] [facility], [place], [address], [place] [facility] 2 13:37:27 Migraine without aura 91875652 Active 2020 [facility] Attn: Michael jones,[address] [facility], [place], [address], [place] [facility] 2 13:37:43 Initial prescrip tion of oral contrace ption Completed 202011/03/2021 [facility] Attn: Michael jones,[address] [facility], [place], [address], [place] [facility] 2 13:37:05 Abnormal progeste rebekah 558422654 Active 2020 [facility] Attn: iMchael jones,[address] [facility], [place], [address], [place] [facility] 2 13:37:42 Pregnanc y 73857409 Completed 202007/12/2021 Vangie Lawrence LPN null, [place] [facility] 2 12:36:01 Morbid obesity 742014326 Completed Transfer of care initiate d by previous provider in process. Vangie [place] LPN [place], [place] [facility] 2 12:35:53 Depressi ve disorder 43100053 Completed 2020 Vangie [place] LPN [place], [place] [facility] 2 12:35:53 Genital herpes simplex 62172960 Completed 2019 Will need order for suppress yessy therapy. 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 Will need 3rd tri testing. 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 2nd recurren ce - plans for suppress yessy therapy to follow. Vangie Lawrence LPN [place], [place] [facility] 2 12:35:53 Anemia 676526584 Completed 202001/31/2024 Hgb 10.2 05/05/21. Oral iron encourag ed. KEANU Patel Attn: Michael jones,[address] [facility], [place], [address], [place] [facility] 4 17:31:34 Anemia 208006650 Completed 2020 Hgb 10.2 05/05/21. Oral iron encourag ed. 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 KEANU Patel Attn: Michael jones,[address] [facility], [place], [address], [place] [facility] 2 13:36:53 Subcutan eous contrace ptive implant present 426950060 Completed 2020 Plans for removal attempt at next appointm ent. Vangie [place] LPN [place] [facility] 2 12:35:53 Urinary tract infectio n in pregnanc y 840102372 Completed Polo Bowman naveen [place], [place] [facility] 2 13:21:08 Postpart um depressi on 87537287 Completed 202101/31/2024 [facility] Attn: Michael jones,[address] [place], [address], [place] [facility] 4 17:31:34 Obesity 718750126 Completed 09/25/2018 Sheri Arevalo RN null, [place] [facility] 9 10:11:35 Upper respirat ory infectio n 14241387 Completed 07/21/2016 Sheri Areval[place] RN [place] [facility] 7 11:52:23 Depressi ve disorder 28382167 Completed 09/12/2019 Sheri Areval[place] RN [place] [facility] 2 10:17:24 Morbid obesity 029481855 Active Transfer of care initiate d by previous provider in process. [facility] Attn: Michael jones,[address] [facility], [place], [address], [place] [facility] 2 13:37:43 Group B Streptoc occus carrier [id number] 03 Completed 201607/21/2016 Sheri [place] [facility] 2 10:16:06 Bacteria l vaginosi s 905692472 Completed 201607/21/2016 Sheri [place]val[place] [facility] 7 11:52:18 Cholelit hiasis without obstruct ion 49833605 Completed 201609/12/2019 Sheri Arevalo RN [place], [place] 0 16:22:55 Hyperlip idemia 63820633 Active 2016 KEANU Patel Attn: Michael jones,[address], [place], [address], [place] - [place] 2 13:37:43 Problem Notes None recorded. Procedures Surgical History Date Name Laterality Status Provider Name and Address Organization Details Recorded Time 06/28/19 22 delivery completed Ailyn Cota [place] 12/01/2021 11:13:56 05/13/19 22 Control Implant Removal completed Polo Cristobal [place] 05/23/2021 17:41:06 08/19/19 21 Date of Last Pap Smear completed Merari Ferreira [place] 11/19/2020 08:59:02 07/16/19 16 Control Implant Removal completed KEANU Patel Attn: Sally,[address] [facility], [place], [address], [facility] - [place] 07/17/2015 12:51:33 05/22/19 13 Caesarean Section completed Sheri Arevalo RN [place] - [place] 06/01/2015 12:02:09 Imaging Results Imaging Date Name Status LastModified by Organiz ation Details LastModified Time 09/08/2023 XR, ankle completed [facility] [address] [place], [address], 01/31/2024 17:29:21 12/20/2023 XR, chest, 2 view completed [facility] [address] [place], [address], 01/31/2024 17:29:21 02/05/2024 CT, abdomen + pelvis, w/ contrast completed [address] [place] [address], [address], 02/06/2024 14:23:17 04/28/2024 imaging/diagn ostic result active [facility] [address] [place], [address], 04/28/2024 15:44:40 Procedure Notes None recorded. Medical Equipment None Reported. Allergies No known drug allergies Medications Name Sig Start Date Stop Date Status Note LastModified by Organization Details LastModified Time smz/tmp ds tab 800-160su lfamethox azole/tri methoprim ds 06/24 completed Not Available Not Available Not Available metronida zol tab 500mgmetr onidazole 06/24 completed Not Available Not Available Not Available but/apap/ caf tabbutalb ital/acet aminophen /caffeine 03/30 completed Not Available Not Available Not Available tramadol hcl tab 50mgtrama dol hcl 03/10 completed Not Available Not Available Not Available tetracycl ine 500 mg capsule TAKE 1 CAPSULE BY MOUTH TWICE DAILY 06/24 completed Not Available Not Available Not Available cyclobenz aprine 10 mg tablet 08/11 completed Not Available Not Available Not Available amoxicill in 500 mg capsule Take 2 capsules every 12 hours by oral route for 10 days. 09/20 completed Not Available Not Available Not Available hydrocodo ne 7.5 mg-ibupro fen 200 mg tablet 06/20 completed Not Available Not Available Not Available bupropion HCl SR 150 mg tablet,12 hr sustained -release TAKE ONE TABLET BY MOUTH TWICE DAILY 06/20 completed Not Available Not Available Not Available neomycin- polymyxin -hydrocor t 3.5 mg/mL-10, 000 unit/mL-1 % ear solution 08/11 completed Not Available Not Available Not Available prednison e 10 mg tablet 06/20 completed Not Available Not Available Not Available Vitamin B-6 25 mg tablet TAKE 1 TABLET BY MOUTH THREE TIMES DAILY NEEDED 11/03 completed Not Available Not Available Not Available clindamyc in HCl 300 mg capsule TAKE 1 CAPSULE BY MOUTH EVERY 6 HOURS FOR 10 DAYS 08/30 completed Not Available Not Available Not Available albuterol sulfate 2.5 mg/3 mL (0.083 %) solution for nebulizat ion Inhale 3 mL 3 times a day by nebuliza tion route. 07/15 completed 98% before treatmen t 99% after treatmen t Not Available Not Available Not Available citalopra m 40 mg tablet TAKE 1 TABLET BY MOUTH EVERY DAY active Not Available Not Available No t Available cetirizin e 10 mg tablet TAKE 1 TABLET BY MOUTH EVERY DAY 11/03 completed Not Available Not Available Not Available azithromy nabila 250 mg tablet 09/25 completed Not Available Not Available Not Available ibuprofen 800 mg tablet 08/11 completed Not Available Not Available Not Available tizanidin e 4 mg tablet 08/11 completed Not Available Not Available Not Available fluconazo le 150 mg tablet Take 1 tablet every day by oral route for 1 day. 04/12 completed Not Available Not Available Not Available clarithro mycin 500 mg tablet Take 1 tablet every 12 hours by oral route for 10 days. 09/20 completed Not Available Not Available Not Available hydrocodo ne 5 mg-acetam inophen 325 mg tablet TAKE 1 TABLET BY MOUTH EVERY 6 HOURS NEEDED FOR PAIN 09/15 completed Not Available Not Available Not Available meloxicam 15 mg tablet TAKE 1 TABLET BY MOUTH DAILY FOR KNEE PAIN active Not Available Not Available No t Available phenazopy ridine 200 mg tablet Take 1 tablet 3 times a day by oral route. 04/12 completed Not Available Not Available Not Available polysacch aride iron complex 150 mg iron capsule TAKE 1 CAPSULE BY MOUTH EVERY DAY 12/01 completed Not Available Not Available Not Available sumatript an 25 mg tablet Take one tablet at onset of headache , may repeat if no relief in one hour. Max 4 tabs in one week. 08/11 completed Not Available Not Available Not Available metronida zole 0.75 % (37.5 mg/5 gram) vaginal gel Insert 1 applicat orful every day by vaginal route. 10/29 completed Not Available Not Available Not Available ondansetr on HCl 4 mg tablet TAKE 1 TABLET BY MOUTH EVERY 8 HOURS 02/11 completed 02/11/21 Makes patient sleepy, Would like salud quinteros. DG RMA Not Available Not Available Not Available clindamyc in HCl 150 mg capsule TAKE 1 CAPSULE BY MOUTH EVERY 6 HOURS FOR 10 DAYS 08/30 completed Not Available Not Available Not Available penicilli n V potassium 500 mg tablet Take 1 tablet twice a day by oral route for 10 days. 07/21 completed Not Available Not Available Not Available topiramat e 25 mg tablet Take one tablet by mouth daily for one week, then increase to twice daily. 09/25 completed Not Available Not Available Not Available metronida zole 500 mg tablet Take 1 tablet twice a day by oral route for 10 days. 07/21 completed Not Available Not Available Not Available acyclovir 400 mg tablet TAKE 1 TABLET BY MOUTH TWICE DAILY active Not Available Not Available No t Available sulfameth oxazole 800 mg-trimet hoprim 160 mg tablet Take 1 tablet every 12 hours by oral route for 10 days. 09/11 completed Not Available Not Available Not Available aspirin 81 mg tablet,de layed release TAKE 1 TABLET BY MOUTH EVERY DAY 04/12 completed Not Available Not Available Not Available tramadol 50 mg tablet 09/25 completed Not Available Not Available Not Available Vitamin tablet Take 1 tablet every day by oral route as directed for 90 days. 04/12 completed Not Available Not Available Not Available meloxicam 7.5 mg tablet TAKE 2 TABLETS BY MOUTH ONCE DAILY 05/19 completed Not Available Not Available Not Available amoxicill in 875 mg tablet Take 1 tablet every 12 hours by oral route. 07/15 completed Not Available Not Available Not Available citalopra m 20 mg tablet Take 1 tablet every day by oral route. 07/21 completed Not Available Not Available Not Available famotidin e 20 mg tablet TAKE 1 TABLET BY MOUTH DAILY active Not Available Not Available No t Available clindamyc in 1 % topical gel APPLY THIN LAYER EXTERNAL LY TO THE AFFECTED AREA TWICE DAILY 08/11 completed Not Available Not Available Not Available dicyclomi ne 20 mg tablet 09/20 completed Not Available Not Available Not Available hydrocodo ne 7.5 mg-acetam inophen 325 mg tablet 06/20 completed Not Available Not Available Not Available cephalexi n 500 mg capsule Take 1 capsule 4 times a day by oral route for 10 days. 01/30 completed Not Available Not Available Not Available cyanocoba flor (vit B-12) 1,000 mcg/mL injection solution Inject 1 mL every month by subcutan eous route. 11/03 completed Not Available Not Available Not Available ranitidin e 150 mg tablet Take 1 tablet twice a day by oral route. 06/20 completed Not Available Not Available Not Available ibuprofen 400 mg tablet Take 1 tablet 3 times a day by oral route. active Not Available Not Available No t Available progester one micronize d 200 mg capsule TAKE 1 CAPSULE BY MOUTH TWICE DAILY active Not Available Not Available No t Available fluoxetin e 10 mg capsule TAKE ONE CAPSULE BY MOUTH EVERY DAY FOR 30 DAYS 06/08 completed Not Available Not Available Not Available gabapenti n 300 mg capsule Take 1 capsule 3 times a day by oral route. 08/11 completed Not Available Not Available Not Available omeprazol e 20 mg capsule,d elayed release Take 1 capsule twice a day by oral route for 10 days. 06/20 completed 11/21/14: called refill x1 into [facility] . Not Available Not Available Not Available Banophen 25 mg capsule 06/20 completed Not Available Not Available Not Available folic acid 1 mg tablet TAKE 2 TABLETS BY MOUTH TWICE DAILY DIRECTED active Not Available Not Available No t Available gabapenti n 100 mg capsule TAKE 1 CAPSULE BY MOUTH THREE TIMES DAILY active Not Available Not Available No t Available ibuprofen 600 mg tablet TAKE 1 TABLET BY MOUTH EVERY 6 HOURS NEEDED FOR PAIN 12/01 completed Not Available Not Available Not Available scopolami ne 1 mg over 3 days transderm al patch APPLY 1 PATCH TOPICALL Y TO THE SKIN EVERY 72 HOURS 11/03 completed Not Available Not Available Not Available methylpre dnisolone 4 mg tablets in a dose pack FOLLOW PACKAGE DIRECTIO NS active Not Available Not Available No t Available albuterol sulfate HFA 90 mcg/actua tion aerosol inhaler INHALE 2 PUFFS BY MOUTH EVERY 4 HOURS NEEDED active Not Available Not Available No t Available SSD 1 % topical cream APPLY A 1/16 INCH (1.5 MM) THICK LAYER TO ENTIRE BURN AREA BY TOPICALR OUTE 2 TIMES PER DAY 11/03 completed Not Available Not Available Not Available ondansetr on 4 mg disintegr ating tablet DISSOLVE 1 TABLET UNDER THE TONGUE EVERY 6 HOURS NEEDED active Not Available Not Available No t Available fluoxetin e 20 mg capsule Take 1 capsule every day by oral route. 2022 active Not Available Not Available Not Avai lable fluticaso ne propionat e 50 mcg/actua tion nasal spray,yeny pension 06/20 completed Not Available Not Available Not Available loratadin e 10 mg tablet 06/20 completed Not Available Not Available Not Available naproxen 500 mg tablet TAKE 1 TABLET BY MOUTH TWICE DAILY 08/18 completed Not Available Not Available Not Available amoxicill in 875 mg-potass ium clavulana te 125 mg tablet TAKE 1 TABLET BY MOUTH EVERY 12 HOURS 01/30 completed Not Available Not Available Not Available oxycodone 5 mg tablet TAKE 1 TABLET BY MOUTH EVERY 6 HOURS NEEDED FOR PAIN 12/01 completed Not Available Not Available Not Available escitalop alondra 10 mg tablet TAKE 1 TABLET BY MOUTH EVERY DAY 04/12 completed Not Available Not Available Not Available escitalop alondra 20 mg tablet TAKE 1 TABLET BY MOUTH EVERY DAY 04/12 completed Not Available Not Available Not Available guaifenes in 400 mg tablet Take 1 tablet every 4 hours by oral route. 07/15 completed Not Available Not Available Not Available nitrofura ntoin monohydra te/macroc rystals 100 mg capsule TAKE 1 CAPSULE BY MOUTH EVERY DAY 04/12 completed Not Available Not Available Not Available apple cider vinegar 300 mg tablet Take by oral route. 05/19 completed Not Available Not Available Not Available FeroSul 325 mg (65 mg iron) tablet TAKE 1 TABLET BY MOUTH EVERY DAY active Not Available Not Available No t Available omeprazol e 20 mg tablet,de layed release Take 1 tablet every day by oral route as needed. 06/20 completed Not Available Not Available Not Available Antisepti c Skin Cleanser (chlorhex idine) 4 % liquid Apply 1 applicat ion every day by topical route. 09/25 completed Not Available Not Available Not Available OneTouch Verio test strips TEST BLOOD GLUCOSE FOUR TIMES DAILY. FASTING AND 1 HOUR AFTER MEALS 12/01 completed Not Available Not Available Not Available calcium 600 mg (as carbonate )-vitamin D3 20 mcg (800 unit) tablet TAKE 1 TABLET BY MOUTH TWICE DAILY 11/19 completed Not Available Not Available Not Available Contrave 8 mg-90 mg tablet,ex tended release Take 2 tablets twice a day by oral route. 06/20 completed Not Available Not Available Not Available OneTouch Delica Plus Lancet 33 gauge 12/01 completed Not Available Not Available Not Available Aurovela Fe 1.5/30 (28) 1.5 mg-30 mcg (21)/75 mg (7) tablet TAKE 1 TABLET BY MOUTH EVERY DAY 11/03 completed Not Available Not Available Not Available Se-Tayla- 19 29 mg iron-1 mg tablet TAKE 1 TABLET BY MOUTH EVERY DAY 12/01 completed Not Available Not Available Not Available BinaxNOW COVID-19 Ag Self Test kit TEST DIRECTED TODAY active Not Available Not Available No t Available Vitals Date Recorded Body height Body mass index (BMI) Body weight Body temperature Oxygen saturation Oxygen saturation in Arterial blood by Pulse oximetry Heart rate Systolic blood pressure Diastolic blood pressure Provider Name and Address Organization Details Last Updated DateTime 3 163.83 cm 62.1 kg/m2 013267. 2 g 98.3 [degF] 98 % 98 % 68 /min 130 mm[Hg] 90 mm[Hg] Janene monroy MA [facility] 3 11:41:39 Date Recorded Body height Provider Name an d Address Organization Details Last Updated DateTime 06/16/2022 163.83 cm Ailyn farris MA [facility] 06/16/2022 12:38:13 Date Recorded Body mass index (BMI) Body weight Body temperature Heart rate Oxygen saturation Oxygen saturation in Arterial blood by Pulse oximetry Systolic blood pressure Diastolic blood pressure Provider Name and Address Organization Details Last Updated DateTime 3 62 kg/m2 014537. 4 g 98.1 [degF] 70 /min 98 % 98 % 128 mm[Hg] 86 mm[Hg] Janene monroy MA [facility] 3 12:45:36 Date Recorded Body height Provider Name an d Address Organization Details Last Updated DateTime 08/30/2022 163.83 cm Sheri Arevalo RN [facility] 2022 12:06:46 Date Recorded Body mass index (BMI) Body weight Oxygen saturation Oxygen saturation in Arterial blood by Pulse oximetry Heart rate Body temperature Systolic blood pressure Diastolic blood pressure Provider Name and Address Organization Details Last Updated DateTime 3 63 kg/m2 647644. 95 g 99 % 99 % 72 /min 98.2 [degF] 126 mm[Hg] 82 mm[Hg] Janene monroy MA [facility] 3 12:24:06 Date Recorded Body weight Body mass index (BMI) Body height Provider Name and Address Organization Details Last Updated DateTime 09/01/2023 138581.5 g 68.6 kg/m2 163.83 cm KEANU Patel Attn: Accounting,[address] [place] [address], [address], [facility] 09/01/2023 12:33:38 Date Recorded Heart rate Systolic blood pressure Diastolic blood pressure Provider Name and Address Organization Details Last Updated DateTime 09/01/2023 72 /min 110 mm[Hg] 77 mm[Hg] Sheri Arevalo RN [facility] 09/01/2023 12:38:14 Date Recorded Body height Body mass index (BMI) Body weight Oxygen saturation Oxygen saturation in Arterial blood by Pulse oximetry Heart rate Body temperature Systolic blood pressure Diastolic blood pressure Provider Name and Address Organization Details Last Updated DateTime 4 163.83 cm 66.1 kg/m2 794990. 62 g 98 % 98 % 88 /min 98.6 [degF] 114 mm[Hg] 80 mm[Hg] Jaenne monroy MA [facility] 4 17:17:37 Social History Question Answer Notes LastModified by Organizat ion Details LastModified Time Tobacco Smoking Status Never Smoker Not Available [facility] 03/03/2020 03:43:22 Do You Have An Advance Directive? No [id number] Information not available 03/03/2020 What Is Your Level Of Alcohol Consumption? None Information not available 06/24/2020 Are You Blind Or Do You Have Difficulty Seeing? No Information not available 06/24/2020 Is Blood Transfusion Acceptable In An Emergency? Yes [id number] Information not available 03/03/2020 What Is Your Level Of Caffeine Consumption? Occasional Information not available 06/24/2020 How Much Tobacco Do You Chew? None [id number] Information not available 03/03/2020 In The 14 Days Before Symptom Onset, Have You Had Close Contact With A Laboratory-confir med COVID-19 While That Case Was Ill? No Information not available 06/24/2020 In The 14 Days Before Symptom Onset, Have You Had Close Contact With A Person Who Is Under Investigation For COVID-19 While That Person Was Ill? No Information not available 06/24/2020 Have You Been To An Area Known To Be High Risk For COVID-19? No Information not available 06/24/2020 Are You Currently Employed? No [id number] Information not available 03/03/2020 Are You Deaf Or Do You Have Serious Difficulty Hearing? No Information not available 06/24/2020 What Type Of Diet Are You Following? REGULAR [id number] Information not available 03/03/2020 Which Illicit Or Recreational Drugs Have You Used? None [id number] Information not available 03/03/2020 Do You Or Have You Ever Used E-cigarettes Or Vape? Never Used Electronic Cigarettes [id number] Information not available 03/03/2020 Education 10 Information no t available 06/01/2015 What Is Your Occupation? Unemployed [id number] Information not available 03/03/2020 Are There Any Guns Present In Your Home? No [id number] Information not available 03/03/2020 Hard Of Hearing Or Deaf In One Or Both Ears? No Information not available 06/01/2015 Legally Blind In One Or Both Eyes? No Information no t available 06/01/2015 Live Alone Or With Others? With Others [email or web address] Information not available 06/09/2016 Marital Status Single Informatio n not available 06/01/2015 What Was The Date Of Your Most Recent Tobacco Screening? 01/31/2024 [email or web address] Information not available 01/31/2024 How Many Children Do You Have? 1 [id number] Information not available 03/03/2020 Performs Monthly Self-breast Exam? No Information no t available 06/01/2015 Do You Use Protection During Sex? Always [id number] Information not available 03/03/2020 What Is Your Relationship Status? Single [id number] Information not available 03/03/2020 Do You Use Your Seat Belt Or Car Seat Routinely? Yes Information not available 06/24/2020 Seat Belts Used Routinely Yes Information not available 06/01/2015 Are You Sexually Active? Yes [id number] Information not available 03/03/2020 Smoke Alarm In Home Yes Information not available 06/01/2015 Do You Have Smoke And Carbon Monoxide Detectors In Your Home? Yes Information not available 06/24/2020 Are You Passively Exposed To Smoke? No Information no t available 06/24/2020 Do You Or Have You Ever Used Smokeless Tobacco? Never Used Smokeless Tobacco [id number] Information not available 03/03/2020 How Much Tobacco Do You Smoke? No [id number] Information not available 03/03/2020 General Stress Level High Information not available 06/01/2015 Do You Feel Stressed (tense, Restless, Nervous, Or Anxious, Or Unable To Sleep At Night)? [id number] Information not available 06/24/2020 Do You Use Any Illicit Or Recreational Drugs? No Information not available 06/24/2020 Do You Use Sunscreen Routinely? Yes [id number] Information not available 03/03/2020 Has Tobacco Cessation Counseling Been Provided? No [email or web address] Information not available 12/17/2020 Do You Or Have You Ever Used Any Other Forms Of Tobacco Or Nicotine? No Information not available 06/24/2020 Sex: Female Functional Status Question Answer Note LastModified by Organizat ion Details LastModified Time Are you able to care for yourself? Yes Information not available 06/24/2020 What is your exercise level? Occasional [id number] Information not available 03/03/2020 Mental Status None recorded. Family History Relationship Description Onset Age of this Age Resolved Age Notes LastModified by Organization Details LastModified Time Mother Diabetes mellitus 41 [email or web address] Not available 11:13:34 Mother Chronic renal failure 41 [email or web address] Not available 11:13:34 Mother Hypertensive disorder [email or web address] Not available 2016 11:08:04 Mother Malignant tumor of breast [email or web address] Not available 2016 11:08:30 Father Alive [email or web address] Not availab le 07/16/2015 11:13:34 Sister Diabetes mellitus 21 [email or web address] Not available 2018 15:09:45 Sister Diabetes mellitus 24 [email or web address] Not available 2018 15:10:04 Sister Hypertensive disorder [email or web address] Not available 2018 15:10:18 Sister Allergic rhinitis [email or web address] Not available 2018 15:10:44 Medical History Condition Response Other N High Blood Pressure N Breast Cancer N Thyroid Problems N Kidney or Bladder Problems N GI Problems N Lung Disease N Depression Y Blood Clots N Acne N Breast Problem N Skin Problems Y Eating Disorder N Anemia N Anesthesia Complications N Headaches/Migraines Y Anxiety Disorder N Diabetes N Ovarian Cancer N Muscle, Joint, or Bone Problems N Blood Transfusions N Seizures/Epilepsy N Polyps N Infertility N Acid Reflux (GERD) Y Cancer N Abuse/Domestic Violence N Asthma N Allergies Y Endometriosis N High Cholesterol N Hepatitis N Liver Disease N Heart Disease N Headaches Y Pre-Eclampsia N Osteoporosis N Gynecological History Statement/Question Response Abnormal Pap N Date of LMP 12/31/2023 On BCP's at Conception? N STIs/STDs Y HPV Vaccine Y Duration of Flow (days) 5 Age at Menarche 12 Current Control Method None Age at First Child 22 Sexually Active? Y Menses Monthly N Date of Last Pap Smear 08/18/2020 Sexual Problems? N LMP Approximate Desired Control Method BCPs Obstetrics History GPAL:G 2 P 2 0 0 2 Type Value Multiple Births 0 Full Term 2 Induced 0 Spontaneous 0 Premature 0 Living 2 Ectopics 0 Total 2 Immunizations Vaccine Type Date Status Note Provider Nam e and Address Organization Details Recorded Time Tdap 3 completed Not Available [facility] 07/22/[facility]22 17:32:02 COVID-19, mRNA, LNP-S, PF, 30 mcg/0.3 mL dose 1 completed Not Available [facility] 07/22/2022 17:32:02 COVID-19, mRNA, LNP-S, PF, 30 mcg/0.3 mL dose 1 completed Not Available [facility] 07/22/2022 17:32:02 HPV, quadrivalent 8 completed Not Available [facility] 07/22/2022 17:32:02 Tdap 7 completed Not Available [facility] 07/22/2022 17:32:02 Hep B, adolescent or pediatric 7 completed Not Available [facility] 07/22/2022 17:32:02 DTaP 3 completed Not Available [facility] 07/22/2022 17:32:03 IPV 3 completed Not Available [facility] 07/22/2022 17:32:02 DTaP 2 completed Not Available [facility] 07/22/2022 17:32:03 IPV 5 completed Not Available [facility] 07/22/2022 17:32:02 DTaP 2 completed Not Available [facility] 07/22/2022 17:32:03 IPV 2 completed Not Available [facility] 07/22/2022 17:32:02 MMR 7 completed Not Available [facility] 07/22/2022 17:32:02 Hib (PRP-T) 3 completed Not Available [facility] 07/22/2022 17:32:02 DTaP 5 completed Not Available [facility] 07/22/2022 17:32:03 Hep B, adolescent or pediatric 9 completed Not Available [facility] 07/22/2022 17:32:02 MMR 7 completed Not Available [facility] 07/22/2022 17:32:02 meningococcal MCV4, unspecified formulation 7 completed Not Available [facility] 07/22/2022 17:32:03 IPV 2 completed Not Available [facility] 07/22/2022 17:32:02 IPV 8 completed Not Available [facility] 07/22/2022 17:32:02 Hep B, adolescent or pediatric 7 completed Not Available [facility] 07/22/2022 17:32:02 DTaP 7 completed Not Available [facility] 07/22/2022 17:32:03 IPV 7 completed Not Available [facility] 07/22/2022 17:32:02 HPV, quadrivalent 7 completed Not Available [facility] 07/22/2022 17:32:02 Hib (PRP-T) 2 completed Not Available [facility] 07/22/2022 17:32:03 Influenza, split virus, quadrivalent, preservative 0 completed KATE Moss null, [place] - [facility] 02/28/2020 16:11:26 HPV9 1 completed Paige Matias [facility] Attn: Accounting,[address] [facility], [place], [address], [facility] - [facility] 08/19/2020 12:18:48 Influenza, split virus, quadrivalent, preservative 1 completed Merari Ferreira [place] null, [place] - [facility] 02/11/2021 18:09:05 Tdap 2 completed Polo Cristobal null, [place] - [facility] 05/04/2021 18:30:00 Past Encounters Encounter ID Performer Location Encounter Start Date Encounter Closed Date Diagnosis/Indication Diagnosis SNOMED-CT Code Diagnosis ICD10 Code [id number] Paige Matias [facility] [address] [place] [address] 06/01/2015 11:38:10 06/03/2015 16:58:35 Adult health examination 303166710 Z00.00 Obesity 081894719 E66.9 Upper resp iratory infection 63412047 J06.9 Depressive disorder 3548 9007 F32.9 Subcutaneo us contraceptive implant present 237534326 Z30.42 [id number] Paige Matias [facility] [address] [place] [address] 07/16/2015 10:45:37 07/16/2015 17:01:14 Subcutaneous contraceptive implant present 038523196 Z97.8 Family sophia nning surveillance 134587831 Z30.09 Morbid obesity 921900029 E66.01 [id number] Killian Gill (CONTINUOUS IMPROVEMENT CONSULTANT) [address] [place] [address] 06/09/2016 10:38:20 06/09/2016 16:12:01 Gynecologic examination 41746228 Z01.419 Morbid obesity 650673238 E66.01 Subcutaneo us contraceptive implant palpable 407309511 Z30.49 Depressive disorder 3548 9007 F32.9 Family sophia nning surveillance 896351170 Z30.09 [id number] [facility] [address] [place] [address] 4 07/21/2016 11:42:44 08/02/2016 15:53:27 Chronic abdominal pain 179902517 R10.9 Morbid obesity 212053156 E66.01 [id number] [facility] [address] [place] [address] 4 07/28/2016 16:04:15 07/31/2016 15:09:34 Helicobacter pylori gastrointestinal tract infection 814800598 B96.81 Upper resp iratory infection 93751958 J06.9 Axillary h idradenitis suppurativa 500180480 L73.2 [id number] [facility] [address] [place], [place] [address] 09/20/2016 15:56:30 09/23/2016 15:02:49 Chronic abdominal pain 302926831 R10.9 Morbid obesity 759244944 E66.01 Helicobact er pylori gastrointestinal tract infection 242404305 B96.81 Cholelithi asis without obstruction 13423065 K80.20 Hyperlipidemia 00066684 E78.5 Chronic gastritis 725637 9 K29.50 [id number] [facility] [address] [place] [address] 4 06/20/2017 12:22:42 06/21/2017 12:25:05 Pain in left knee 3460585169 08050 M25.562 Pain in lower limb 51458 006 M79.605 Follow-up visit 59395965 9 Z09 [id number] [facility] [address] [place] [address] 08/07/2017 13:57:27 08/10/2017 12:29:55 Migraine 11367930 G43.909 Anirudh 592932508 L70.0 Body mass index 40+ - severely obese 423611439 Z68.44 [id number] MACHO MONTGOMEYR [facility] [address] [place] [address] 08/15/2017 10:42:37 08/17/2017 17:52:03 Axillary hidradenitis suppurativa 033263096 L73.2 [id number] Paige Matias [facility] [address] [place] [address] 01/09/2018 12:34:10 01/10/2018 17:34:43 Follow-up visit 618778434 Z09 Axillary h idradenitis suppurativa 394685053 L73.2 Hidradenit is suppurativa 47420359 L73.2 [id number] Paige Matias [facility] [address] [place] [address] 09/25/2018 10:07:18 09/26/2018 09:34:59 Axillary hidradenitis suppurativa 947867114 L73.2 Subcutaneo us contraceptive implant present 299834542 Z97.8 [facility] 393747653 Z30.09 Morbid obesity 172425405 E66.01 Degenerati on of lumbar intervertebral disc 00087293 M51.36 [id number] [facility] [address] [place] [address] 08/12/2019 12:09:18 08/14/2019 15:37:26 Discharge from nipple 32891681 N64.52 Unilateral mastalgia 315 139115 N64.4 Subcutaneo us contraceptive implant present 746478281 Z97.8 Morbid obesity 877753402 E66.01 [id number] [facility] [address] [place] [address] 09/12/2019 15:53:40 09/13/2019 08:05:11 Discharge from nipple 31443158 N64.52 Unilateral mastalgia 315 975356 N64.4 Morbid obesity 965846295 E66.01 Mass of right breast 392 9439914 2737432 N63.10 Secondary amenorrhea 156 801325 N91.1 [id number] [place] [address] [place] [address] 01/15/2020 11:53:34 01/16/2020 06:47:14 Venereal disease screening 292866390 Z11.3 High risk sexual behavior 916649569 Z72.51 Morbid obesity 217639901 E66.01 [id number] [facility] [place] [address] [place] [address] 01/21/2020 12:03:49 01/22/2020 07:01:28 Genital herpes simplex 12774040 A60.9 [id number] [place] [address] [address] 02/28/2020 15:10:03 03/02/2020 06:47:15 Genital herpes simplex 16897945 A60.9 Administra tion of influenza vaccine 99304914 Z23 [id number] SHIV CORDOVA [facility] [address] [place] [address] 05/19/2020 10:04:38 05/20/2020 15:33:55 Family planning surveillance 667842380 Z30.09 Subcutaneo us contraceptive implant present 569382830 Z97.8 Morbid obesity 509941019 E66.01 [id number] [facility] [address] [place] [address] 08/18/2020 12:10:25 08/19/2020 18:39:48 Gynecologic examination 74840256 Z01.419 Morbid obesity 393466037 E66.01 Depressive disorder 3548 9007 F32.9 Family sophia nning surveillance 386935223 Z30.09 Genital he rpes simplex 24489502 A60.9 Initial pr escription of oral contraception 006623709 Z30.011 Administra tion of viral vaccine 69390003 Z23 Migraine without aura 56 855845 G43.473 [id number] [facility] [address] [place] [address] 08/26/2020 15:17:04 08/27/2020 15:45:06 Bacterial vaginosis 715988505 N76.0 [id number] [facility] [address] [place] [address] 09/15/2020 11:36:45 09/16/2020 15:24:14 Depressive disorder 96071377 F32.9 [id number] ANU MATTA (CONTINUOUS IMPROVEMENT CONSULTANT) [address] [place] [address] 11/19/2020 08:36:23 11/26/2020 14:46:11 Genital herpes simplex 50868328 A60.9 Depressive disorder 3548 9007 F32.9 Morbid obesity 140530650 E66.01 Routine an tenatal care 069332854 Z34.90 Venereal d isease screening 516388185 Z11.3 screening 2437 88218 Z36.85 Past pregn kimmie history of section 644006413 Z98.890 Subcutaneo us contraceptive implant present 035742501 Z97.8 [id number] ANU MATTA (CONTINUOUS IMPROVEMENT CONSULTANT) [address] [place] [address] 12/17/2020 13:57:15 12/30/2020 13:07:26 Routine care 572727029 Z34.90 Morbid obesity 513578647 E66.01 Genital he rpes simplex 63829038 A60.9 Depressive disorder 3548 9007 F32.9 Past pregn kimmie history of section 952076873 Z98.890 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 Anxiety 26324753 F41.9 [id number] ANU MATTA (CONTINUOUS IMPROVEMENT CONSULTANT) [address] [place] [address] 01/14/2021 12:11:44 01/18/2021 08:25:29 Routine care 051503071 Z34.92 screening 2437 78964 Z36.0 Homozygous methylenetetrahydrofo late reductase mutation 6285653913 95367 E72.12 Morbid obesity 409143238 E66.01 Past pregn kimmie history of section 950368315 Z98.890 Viral syndrome 150709811 B34.9 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 [id number] ANU MATTA [facility] (CONTINUOUS IMPROVEMENT CONSULTANT) [address] [place] [address] 02/11/2021 11:15:05 02/15/2021 09:19:24 Routine care 185019590 Z34.92 Homozygous methylenetetrahydrofo late reductase mutation 0643050525 56892 E72.12 Administra tion of influenza vaccine 87398518 Z23 Depressive disorder 3548 9007 F32.9 Morbid obesity 322653911 E66.01 Nausea and vomiting 1693 1999 R11.2 Pain of le ft shoulder joint 6917624733 3373318 M25.697 [id number] Killian Gill (CONTINUOUS IMPROVEMENT CONSULTANT) [address] [place] [address] 02/25/2021 10:27:39 02/26/2021 09:20:23 Routine care 118802842 Z34.92 Homozygous methylenetetrahydrofo late reductase mutation 9750027022 34297 E72.12 Past pregn kimmie history of section 380887555 Z98.[address] reptococcus carrier 5893705085 103 Z22.330 Depressive disorder 3548 9007 F32.9 Nausea and vomiting 1693 1999 R11.2 Burn of skin 180299799 T 30.0 [id number] Polo Gill (CONTINUOUS IMPROVEMENT CONSULTANT) [address] [place] [address] 05/04/2021 16:54:12 05/10/2021 08:15:41 Routine care 641563069 Z34.83 Urinary tr act infection in 560106987 O23.43 [id number] Polo Gill (CONTINUOUS IMPROVEMENT CONSULTANT) [address] [place] [address] 05/13/2021 17:10:39 05/24/2021 08:23:17 Normal 53762752 Z34.90 [id number] Jayy Mercado MD [facility] [address] [place] [address] 11/03/2021 13:10:03 11/04/2021 15:18:24 depression 62343925 F53.0 Morbid obesity 910402556 E66.01 [id number] [facility] [address] [place] [address] 12/01/2021 11:03:18 12/02/2021 14:22:44 depression 95585607 F53.0 Morbid obesity 446142245 E66.01 Pain of le ft shoulder joint 4586540980 7677335 M25.512 Cervical radiculopathy 27736607 M54.12 Venereal d isease screening 009302623 Z11.3 Adult heal th examination 703833429 Z00.01 Lumbosacra l radiculopathy 5554657 M54.17 [id number] [facility] [address] [place] [address] 01/11/2022 12:24:04 01/12/2022 09:14:39 Vaginitis 30948809 N76.0 Acute urin mayra tract infection 423987871 N39.0 [id number] ANU ZHONG [facility] [address] [place] [address] 04/12/2022 10:09:19 04/15/2022 11:43:42 depression 27821817 F53.0 Morbid obesity 336216868 E66.01 [id number] Paige Matias [facility] [address] [place] [address] 05/30/2022 11:20:08 05/31/2022 11:47:03 depression 78659088 F53.0 Morbid obesity 586335666 E66.01 Depression screening 171 974004 Z13.31 Mental hea lth screening 373437529 Z13.39 [id number] [facility] [address] [address] 4 06/08/2022 11:16:03 06/09/2022 14:10:33 Morbid obesity 950263700 E66.01 Mass of ariza bcutaneous tissue of abdominal wall 9033920776 8123181 R22.2 Depression screening 171 865678 Z13.31 Mental hea lth screening 559856933 Z13.39 [id number] [facility] [address] [place] [address] 4 06/16/2022 12:28:05 06/17/2022 14:31:37 Morbid obesity 519118208 E66.01 Mass of right breast 691 4127925 3275430 N63.10 Galactorrh ea not associated with childbirth 74100806 N64.3 [id number] [facility] [address] [place] [address] 4 08/30/2022 12:01:06 08/31/2022 11:56:06 Venereal disease screening 925308971 Z11.3 Genital he rpes simplex 15393711 A60.9 Depression screening 171 976468 Z13.31 Mental hea lth screening 643736860 Z13.39 [id number] [facility] [address] [address] [address] 4 09/01/2023 12:24:47 09/04/2023 15:48:41 Pain of left ankle joint [id number] M25.572 Morbid obesity 974720596 E66.01 Depression screening 171 197204 Z13.31 Mental hea lth screening 882820736 Z13.39 [id number] [facility] [address] [address] 01/31/2024 17:05:01 02/02/2024 14:48:43 Osteoarthritis of knee 477519412 M17.12 Morbid obesity 788702429 E66.01 Degenerati on of lumbar intervertebral disc 47552241 M51.369 Health Concerns Section Related Observation LastModified by Organization Detai ls LastModified Time None Recorded Concern Status LastModified by Organization Details LastModified Time None Recorded Advance Directives Directive N: Payers Encounter Date Sequence Insurance Name Policy Number Policy Quach Covered Member ID Quach Member ID Guarantor Name 06/08/2022 1 [facility] ON OR AFTER 10/29/20 (MEDICAID REPLACEMENT - HMO) Bren [place] [id number] Bren Jesus 06/16/2022 1 [facility] ON OR AFTER 10/29/20 (MEDICAID REPLACEMENT - HMO) Bren Jesus [id number] Bren Jesus 08/30/2022 1 [facility] ON OR AFTER 10/29/20 (MEDICAID REPLACEMENT - HMO) Bren Jesus [id number] Bren Jesus 09/01/2023 1 [facility] ON OR AFTER 10/29/20 (MEDICAID REPLACEMENT - HMO) Bren [place] [id number] Bren Jesus 01/31/2024 1 [facility] ON OR AFTER 10/29/20 (MEDICAID REPLACEMENT - HMO) Bren [place] [id number] Bren Jesus Notes Date Note Type Note Provider Name and Address Organization Details Recorded Time 06/08/2022 text/html Abdominal PainReported bypatient.Location:[facility] Quality:aching Severity:moderate Duration:intermittent ; started: Onset/Timing:better; sudden Modifying Factors:nothing gives relief; nothing makes it worse Associated Symptoms:no fever; no chills; no blood in the urine; no heartburn; no shortness of breath Other:denies possible ; sexually active; LMP05/26/2022nxiety/ DepressionReported bypatient.Quality:sym ptoms improved Severity:denies suicidal ideations; able to maintain relationships;interfe rence with sleep Duration:symptoms lasting over 2 weeks Onset/Timing:sudden Context:major life stressors;family problems;relationship stress Modifying Factors:medications as directed Associated Symptoms:denies homicidal ideations; no significant weight gain; no significant weight loss; no visual/auditory hallucinations; no delusions; no shortness of breath; mood good; no anxiety; no crying spells; no panic; no isolation; appetite good; energy good; no apathy; maintaining functionality;sleep disturbances 32 y/o HF HF presents for c/o upper umbilical area mass tender to touch. She reports tenderness worse with straining. She is taking her fluoxetine for her mood disorder feels a little better.Currently gets 2-3 hours per night. was not sleeping well on medication. It did help me come down and stop worrying. endorses low energy, motivation, mood is down 2-3 days of the week.she has been exercising more but has not last two weeks due to sick baby. KEANU Patel Attn: Accounting[address] [place], [address], [facility] 06/08/2022 16:57:25 06/16/2022 text/html Breast MassRepor bisi bypatient.Location:[facility] Onset/Timin-2 weeks Quality:size 1 cm; painful; localized; soft Severity:moderate Duration:persistent Context:performs breast self examination; 0 prior biopsies Modifying Factors:touch; pressure Associated Symptoms:no fever; no skin redness; no breast swelling; no arm pain; no arm swelling; no chest pain;nipple discharge; Has milky discharge from L breast 32 y/o HF presents for c/o R breast mass behind nipple and very tender-noted for 5 daysBehind R nipple tender mass approx 1 cm no nipple discharge noted with palpationHas noted for 5 daysvery tender to touchno family history of breast cancerAlso voices L breast nipple milky discharge-had baby a year ago not breast feeding KEANU Patel Attn: Accounting[address] [place], [address], [facility] 06/16/2022 13:27:49 08/30/2022 text/html Vaginal/Vulvar ProblemReported bypatient.Location[facility] Onset/Timing:started: ; after unprotected intercourse; abrupt Duration:present for 1-7 days Quality:itching; irritation Severity:moderate Context:sexually active; multiple sexual partners; condom use: inconsistent; premenopausal; history of STD/PID; history of recurrent vaginal infections; recent antibiotic use Alleviating Factors:none Associated Symptoms:no vaginal pain; no vulvar swelling/erythema; no vulvar pain; no vulvar lesions; no pelvic pain; no dyspareunia; no dyruria; no fever; no abdominal pain;vaginal itching;vaginal irritation;vulvar itching/irritation 32 y/o HF with c/o vaginal irritation, itching and burning no discharge. Patient just completed antibiotic for uti infection. KEANU Patel Attn: Accounting[address] [place], [address], [facility] 08/30/2022 17:30:28 09/01/2023 text/html 33 y/o HF presen for walk in appointment for ankle pain for 4 months on . She denies injury. She has been taking a friend's hydrocodone which helps with pain but symptoms return. She voices no numbness or tingling. She has gained quite a lot of weight since last visit. KEANU Patel Attn: Accounting[address] [place], [address], [facility] 09/01/2023 14:29:55 01/31/2024 text/html KneeReported bypatient.Location:le ft; medial; deep Quality:aching; sharp; deep; constant; worsening Severity:severe; pain level 7/10; worst pain 10/10 Duration:2 years Timing:chronic; gradual; morning; nighttime; recurrent; intermittent episodes lasting: (it lasts 1-2 hours) Context:fall (fell on L ankle 3 years ago); overuse Alleviating Factors:ice; rest; limited weight bearing Aggravating Factors:walking; weight bearing; getting out of bed; going from sit to stand; upstairs; downstairs; daytime; nighttime; cold weather Associated Symptoms:no weakness; no numbness; no tingling; no swelling; no redness; no warmth; no ecchymosis; no radiation down leg; no drainage; no fever; no chills; no weight loss; no change in bowel/bladder habits;catching/locki ng;popping/clicking;b uckling;grinding;inst ability Previous Surgery:none Prior Imaging:none Previous Injections:none 34 y/o HF presents for c/o bad knee pain for a few years progressively getting worse. SHe has been seen at [facility] and has been told her knee pain is secondary to her obesity. However, the patient voices that her knee locks sometimes with dorsiflexion or extension. Paige Matias, [employer]- Attn: Accounting[address] [facility], [place], [address], [place] [facility] 02/01/2024 16:22:21 OBGyn Episode Ob Episode Information Episode Created Date Number of Fetuses Patient Bloodtype Patient rh Status Prepregnancy Weight lbs Domestic Partner Domestic Partner Phone Father Name Lumber Sorter Machine Status 11/20/19 21 1 O Positive 396 CLOSED Fetus Data First Name Last Name Admitted to NICU Weight (g) Sex Living Outcome Pediatric Complications Fetus ID Race Codes Race Delivery Type false 3430.28 95 F Full Term : 7/9 77075 2106-3 White Repeat Problems Problem Notes plan undecided, undeci ded on circum if boy, breast and bottle feed, PPBC undecided, has patent leather sorter - girl per labs Problem Name Start Date End Date Resolution Snomed Code Not e Genital herpes simplex 02/28/2020 [id number] Will need order for suppressive therapy. Depressive disorder 08/18/2020 58222729 Requires varicella vaccination 11/25/2020 950346587 Past history of section 11/19/2020 979687716 Morbid obesity 706143745 Trans lisa of care initiated by previous provider in process. Group B Streptococcus carrier 11/25/2020 [id number] Early test com plete by previous provider. Will need 3rd tri testing. Subcutaneous contraceptive implant present 12/17/2020 937242508 Plans for remov al attempt at next appointment. Anemia 11/25/2020 769255657 Hgb 10.2 05/05/21. Oral iron encouraged. Acute urinary tract infection 11/25/2020 [id number] 05/05/21 Treating with Macrobid. 2nd recurrence - plans for suppressive therapy to follow. Alyssa Calculation ALYSSA Calculation Method Initial Alyssa Date Initial Exam Date Initial Exam Provider Initial Ultrasound Date Last Menstrual Period Date Ultra Sound Weeks Gestation Conception by IVF Embryo Age at Transfer Date of Transfer 07/03/1911/20/19 21 [email or web address] 12/01/2020 09/14/2020 9 Eighteen To Twenty Week Alyssa Update Ultra Sound Date Fundal Height At Umbil Quickening Date Ultra Sound Latest Weeks Gestation Final Alyssa Confirmed By Final Alyssa Confirmed Date Final Alyssa Date Ultra Sound Latest Days Gestation 12/02/19 21 9 [email or web address] 12/04/2020 07/03/19 22 4 Pre- Flowsheet Flowsheet Date 11/19/2020 Cramer Score Blood Edema Fundus Height Fundus Units Glucose Ketones Leukocytes Nitrite Labor Signs Protein Cervic Dilation Cervic Effacement Cervic Station neg none 8 wks none negative neg Type Weight in lbs Pre/Post Dialysis Refused With clothes 396.518178634896 BP Diastolic BP Location Tested BP Systolic BP Type 70 120 sitting Fetus Heart Rate Present A Absent Fetus Movement Comments 30yo F presents for NOB at approx 9w3d. complicated by HSV, depression, and morbid obesity, possible Nexplanon implant retained in LUE (inserted 2012). NOB labs today. OB educational packet reviewed and provided to patient. Order for first trimester US given. Referral to MFM. Flowsheet Date 12/17/2020 Cramer Score Blood Edema Fundus Height Fundus Units Glucose Ketones Leukocytes Nitrite Labor Signs Protein Cervic Dilation Cervic Effacement Cervic Station neg none 11 wks none negative none neg Type Weight in lbs Pre/Post Dialysis Refused With clothes 406.49161985657 BP Diastolic BP Location Tested BP Systolic BP Type 78 124 sitting Fetus Heart Rate Present Fetus Movement Comments SHAHRZAD at 11w6d. US 12/01/20 with viable IUP, EDC 07/02/20. Has not followed up with MFM yet. Flowsheet Date 01/14/2021 Cramer Score Blood Edema Fundus Height Fundus Units Glucose Ketones Leukocytes Nitrite Labor Signs Protein Cervic Dilation Cervic Effacement Cervic Station neg none 16 wks none negative none neg Type Weight in lbs Pre/Post Dialysis Refused With clothes 405.759098512657 BP Diastolic BP Location Tested BP Systolic BP Type 76 122 sitting Fetus Heart Rate Present A 161 Present Fetus Movement Comments SHAHRZAD at 15w6d. NIPT and AFP d rawn. anatomy US ordered. B12 updated. Referred for COVID testing due to mild URI symptoms (she is vaccinated). Flowsheet Date 02/11/2021 Cramer Score Blood Edema Fundus Height Fundus Units Glucose Ketones Leukocytes Nitrite Labor Signs Protein Cervic Dilation Cervic Effacement Cervic Station neg none 19 wks trace trace none trace Type Weight in lbs Pre/Post Dialysis Refused With clothes 407.929167261583 BP Diastolic BP Location Tested BP Systolic BP Type 68 112 sitting Fetus Heart Rate Present A 143 Present Fetus Movement A Yes Comments SHAHRZAD at 19w6d. Has US schedul ed with [facility] on 02/17. B12 updated. Flowsheet Date 02/25/2021 Cramer Score Blood Edema Fundus Height Fundus Units Glucose Ketones Leukocytes Nitrite Labor Signs Protein Cervic Dilation Cervic Effacement Cervic Station neg none 21 cm none negative Cramping neg Type Weight in lbs Pre/Post Dialysis Refused With clothes 405.604167729070 BP Diastolic BP Location Tested BP Systolic BP Type 70 120 sitting 72 120 sitting Fetus Heart Rate Present A 135 Present Fetus Movement A Yes Comments Apply Silvadene cream to abd omen. Start scopolamine patch.Discussed - would need to be done in [place]. Referral to [facility]. Flowsheet Date 05/04/2021 Cramer Score Blood Edema Fundus Height Fundus Units Glucose Ketones Leukocytes Nitrite Labor Signs Protein Cervic Dilation Cervic Effacement Cervic Station 40 none Type Weight in lbs Pre/Post Dialysis Refused With clothes 420.928095751410 BP Diastolic BP Location Tested BP Systolic BP Type Fetus Heart Rate Present A 145 Fetus Movement Comments Patient has not been seen fo r 9 weeks. No VB, VD, LOF, regular contractions, or decreased movement. Seen multiple times at [facility] since 02/17. Records requested. BMI 71 today. [facility] referral/transfer of care previously placed by another provider. Nexplanon In-situ since 2012. Possibly able to palpate. Patient amenable to attempted removal in office next week. Given Patient's BMI and possible consideration of , plans to follow through with complete transfer of care to [facility]. RTC tomorrow for 24-28 week labs. RTC in 1 week for SHAHRZAD and Nexplanon removal attempt. TDAP today. Treating recurrent UTI today with suppressive therapy to follow. Flowsheet Date 05/13/2021 Cramer Score Blood Edema Fundus Height Fundus Units Glucose Ketones Leukocytes Nitrite Labor Signs Protein Cervic Dilation Cervic Effacement Cervic Station neg none 41 none trace none trace Type Weight in lbs Pre/Post Dialysis Refused Weight 415.11470336401 BP Diastolic BP Location Tested BP Systolic BP Type 86 134 sitting Fetus Heart Rate Present A 155 Fetus Movement A Yes Comments No VB, VD, LOF, regular cont ractions, or decreased movement. Nexplanon removed today with two stitches placed to close extended incision needed for device location and removal. Reiterated plans for complete transfer care of patient due to BMI and desire for attempted TOLAC. Documentation given for clinic location and phone number given limited comprehension of this in the past. Patient expressed understanding today. Patient to RTC in 1 week for stitch removal. Menstrual History Last Menstrual Date Menses Monthly On Bcp Conception Prior Menses Frequency Hcg Plus Date Menarche Onset Age 0509/14/2020 false false 10 Genetic Screening And Infection History Question Response Note Patient's Age Will Be 35 Years Or Older At Estim ated Date of Delivery false Thalassemia (Azerbaijani, Haitian, Mediterranean, Or Background): MCV < 80 false Neural Tube Defect (Meningomyelocele, Spina Bifi da, Or Anencephaly) false Congenital Heart Defect false Down Syndrome false Lane-Sachs (eg, Methodist, Cajun, Urdu-Puerto Rican) f alse Pia Disease false Sickle Cell Disease Or Trait () false Hemophilia Or Other Blood Disorders false Muscular Dystrophy false Cystic Fibrosis false [place]'s Chorea false Mental Retardation/Autism false If Yes, Was Person Tested For Fragile X? false Other Inherited Genetic Or Chromosomal Disorder false Maternal Metabolic Disorder (eg, Type 1 Diabetes , PKU) false Patient Or Baby's Father Had A Child With Defects Not Listed Above false Recurrent Loss, Or A Stillbirth false Medications (including Suppl ements, Vitamins, Herbs, OTC Drugs), Illicit/Recreational Drugs, Alcohol false If Yes, Agent(s) And Strength/Dosage false Any Other Genetic History false Live With Someone With TB Or Exposed To TB false Patient Or Partner Has History Of Genital Herpes true pt Rash Or Viral Illness Since Last Menstrual Perio d false History Of STD, Gonorrhea, Chlamydia, HPV, Syphi lis false Other Infection History false History of HIV false History of Hepatitis false Prior GBS-infected child false Plans and Education First Trimester Discussed Date Discussion Item Discussion Note Discuss ed By 11/19/2020 Anticipated course of care [email or web address] 11/19/2020 Alcohol [email or web address] 11/19/2020 Intimate partner violence jorge alberto [email or web address] 11/19/2020 [facility] Screening for aneuploidy jco [email or web address] 11/19/2020 Nutrition counseling ; special diet; dietary precautions (mercury, listeriosis) [facility] 11/19/2020 [facility] classes/[facility] facilities [facility] 11/19/2020 [place] [address] 11/19/2020 Risk factors identif ied by history [email or web address] 11/19/2020 Weight gain counseling jcort [email or web address] 11/19/2020 [facility] 11/19/2020 Teratogens [place] [address] 11/19/2020 Use of any medicatio ns (including supplements, vitamins, herbs, or OTC drugs) [place] [address] 11/19/2020 [facility] 11/19/2020 Sexual [place] [address] 11/19/2020 Tobacco/smoking cess ation counseling (ask, advise, assess, assist, and arrange) [place] [address] 11/19/2020 Illicit/recreational drugs [place] [address] 11/19/2020 Dental care [place] [address] 11/19/2020 Travel [place] [address] 11/19/2020 [facility]at belt [facility] 11/19/2020 Indications for ultrasonography [place] [address] 11/19/2020 Avoidance of saunas or hot tubs [place] [address] 11/19/2020 Toxoplasmosis precautions (cats/raw meat) [place] [address] Second Trimester Discussed Date Discussion Item Discussion Note Discuss ed By 01/14/2021 [facility]ing a care provider [facility] 01/14/[address] anning/tubal sterilization [email or web address] 01/14/2021 Depression screening (when indicated) [facility] 01/14/2021 Abnormal lab values [facility]ortopa [facility] 01/14/2021 Signs and symptoms of labor [email or web address] 01/14/2021 Intimate partner violence jorge alberto [email or web address] 01/14/2021 Tobacco/smoking cess ation counseling (ask, advise, assess, assist, and arrange) [email or web address] Third Trimester Discussed Date Discussion Item Discussion Note Discuss ed By Delivery Information Delivery Date Delivery Type Labor Anesthesia Weeks Gestation Incision Type Labor Labor Length Hrs Delivered By Post Complications Tubal Sterilization Discharge Date Comments 2 None Regional-Sp inal 39.3 Low Transvers e false Azra Dewitt None false 07/01/2021 Discharge Information Feeding Method Contraceptive Method Maternal HG B and HCT Levels Combination PPBC Undecided 10.3/32.9 Ob Episode Information Episode Created Date Number of Fetuses Patient Bloodtype Patient rh Status Prepregnancy Weight lbs Domestic Partner Domestic Partner Phone Father Name Lumber Sorter Machine Status 06/01/19 16 1 CLOSED Fetus Data First Name Last Name Admitted to NICU Weight (g) Sex Living Outcome Pediatric Complications Fetus ID Race Codes Race Delivery Type 2579.57 7704 F Full Term [id number] Alyssa Calculation ALYSSA Calculation Method Initial Alyssa Date Initial Exam Date Initial Exam Provider Initial Ultrasound Date Last Menstrual Period Date Ultra Sound Weeks Gestation Conception by IVF Embryo Age at Transfer Date of Transfer 0 Eighteen To Twenty Week Alyssa Update Ultra Sound Date Fundal Height At Umbil Quickening Date Ultra Sound Latest Weeks Gestation Final Alyssa Confirmed By Final Alyssa Confirmed Date Final Alyssa Date Ultra Sound Latest Days Gestation 0 0 Menstrual History Last Menstrual Date Menses Monthly On Bcp Conception Prior Menses Frequency Hcg Plus Date Menarche Onset Age Delivery Information Delivery Date Delivery Type Labor Anesthesia Weeks Gestation Incision Type Labor Labor Length Hrs Delivered By Post Complications Tubal Sterilization Discharge Date Comments 3 Regional-Ep idural 37 false Discharge Information Feeding Method Contraceptive Method Maternal HG B and HCT Levels
--- OUTSIDE RECORDS SUMMARY | 2024-05-04 14:55 | XMS_ITS | Encounter Summary ---
Author Organization [facility] Health Address [address] [place] [address] Care Team Providers Care Quarry Manager Name Role Phone Unavailable Primary Care Provider Unavailabl e Reason for Visit * Reason Comments Scheduled C Section * Auth/Cert Specialty Diagnoses / Procedures Referred By Contac t Referred To Contact Referral ID Status Reason Start Date Expiration Date Visits Re quested Visits Authorized [id number] 1 1 Encounter Details Date Type Department Care Team (Late st Contact Info) Description 06/28/2021 2:30 PM POWERSAW SUPERVISOR - 06/28/2021 4:20 PM [facility] Surgery [facility] [address] [place] [address] Meir Reese DO [address] [address] SECTION (EMERGENCY) Surgery Details Date/Time Status Location OR Service Patient Class Case Class Case Type Trauma Case? 06/28/2021 2:30 PM Posted [facility] LABOR AND DELIVERY LD OR 2 Obstetrics Inpatient Panel 1 Procedure LRB Anes Op Region Wound Class Comments SECTION (EMERGENCY) N/A Epidural Abdomen C lean Contaminated Surgeon Surgeon Role Service Panel Azra Dewitt MD Resident - Assisting Obstetri cs 1 eMir Reese DO Primary Obstetrics 1 Twila Rodriguez MD Fellow Obstetrics 1 Melody Dyer MD Resident - Assisting Obstetrics 1 documented in this encounter Social History Tobacco Use Types Packs/Day Years Used Date Smoking Tobacco: Never Smokeless Tobacco: Never Alcohol Use Standard Drinks/Week Comments No 0 (1 standard drink = 0.6 oz pur e alcohol) Sex and Gender Information Value Date Recorded Sex Assigned at Not on file Gender Identity Not on file Sexual Orientation Not on file documented as of this encounter Last Filed Vital Signs Vital Sign Reading Time Taken Comments Blood Pressure 121/58 06/28/2021 4:20 PM POWERSAW SUPERVISOR Pulse - - Temperature 36.8 ??C (98.3 ??F) 06/28/2021 4:20 PM CS T Respiratory Rate 16 06/28/2021 4:20 PM POWERSAW SUPERVISOR Oxygen Saturation 99% 06/28/2021 4:20 PM POWERSAW SUPERVISOR Inhaled Oxygen Concentration - - Weight 189.1 kg (417 lb) 06/28/2021 12:42 PM POWERSAW SUPERVISOR Height 163.8 cm (5' 4.5 ) 06/28/2021 12:42 PM CS T Body Mass Index 70.47 06/28/2021 12:42 PM POWERSAW SUPERVISOR documented in this encounter Functional Status Functional Status Response Date of Assess ment Is person deaf or have serious hearing difficult y? No 06/28/2021 Is person blind or have serious difficulty seein g? No 06/28/2021 Does person have serious dif ficulty walking/climbing stairs? No 06/28/2021 Does person have difficulty dressing/bathing? No 06/28/2021 Does person have difficulty doing errands alone? No 06/28/2021 Cognitive Status Response Date of Assessm ent Does person have difficulty concentrating/remembering/making decisions? No 06/28/2021 documented as of this encounter Discharge Summaries * Gloria Thacker, FRACISCO-MANAGER PEST - 07/01/2021 12:49 PM CST performance reporter Discharge Summary 07/01/2021, 12:47 PM Date of Admission: 06/28/2021 Date of Discharge: 07/01/2021 Admission Diagnosis: 31 year old at 39w3d for section Discharge Diagnosis: s/p Section Service: Maternal Medicine Consults: social work HPI: Jackie Lee is a 31 year old at 39w3d who received her care with high risk [facility]. She presented for repeat section in the setting of breech presentation. was complicated by: Patient Active Problem List Diagnosis Date Noted ??? Hyperlipidemia 05/24/2021 Priority: Not Prioritized ??? Meralgia paresthetica 05/24/2021 Priority: Not Prioritized ??? Depression Priority: Not Prioritized Denies SI/HI ??? Migraine Priority: Not Prioritized ??? Previous delivery, antepartum condition or complication 02/24/2021 Priority: Not Prioritized Desires repeat. ??? Genital herpes simplex 02/16/2021 Priority: Not Prioritized Is on acyclovir currently, will change to TID for remainder of ??? Morbid obesity with body mass index (BMI) of 60.0 to 69.9 in adult 02/15/2021 Priority: Not Prioritized BPP 12/06 today ??? 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 Orthopnea 05/24/2021 Echo ordered Heart and lung exam today Plan: consider PP sleep study ??? Abnormal O'Juarez glucose challenge test, antepartum 05/24/2021 GCT 130 Met with diabetes education today. Plan: Will try to measure her blood sugars 4x per day for 1 week. If unable to keep up with this will call clinic and ask to 3hr GTT lab. Hospital Course: Patient was admitted for repeat section. She had suspected GDM - normal glucose levels were noted upon spot accuchecks x2. Delivery: For full details of delivery, please refer to operative note or delivery summary. Delivery Type: Section Information for the patient's : Jesus, Baby Girl Jackie [[id number]] Date of 06/28/2021 Time of : 3:29 PM Sex: Female Weight: 3430 g (7 lb 9 oz) (1 min): 7 (5 min): 9 (10 min): Course: Her course was uncomplicated. She had a provena wound vac placed intraoperatively which remained in place and on during her course. She was started on weight based Lovenox during her course due to BMI of 70. She continued her Lexapro during her course and per patient mood was good upon discharge day. She was diagnosed with gHTN duringher hospitalization. She did not require any antihypertensive medications. She was discharged home with BP cuff. Patient is breast and bottle feeding. Disposition: Home on day # 3. To follow up 3/ for blood pressure and mood check and removal of provena wound vac/incision check. Results: Recent Labs Component Name 06/28/21 1405 ABORH O POS Recent Labs Component Name 06/29/21 0421 06/28/21 1326 05/24/21 1039 WBC 8.6 8.3 10.1 HGB 10.3* 11.6* 11.7* HCT 32.9* 36.9 36.6 PLTCOUNT 203 239 250 Discharge Vitals: BP 147/78 Pulse 91 Temp 98.6 ??F (37 ??C) (Oral) Resp 18 Ht 5' 4.5 (1.638 m) Wt 417 lb (189.1 kg) SpO2 98% BMI 70.47 kg/m2 Continue these medications at home: Current Discharge Medication List START taking these medications Instructions Authorizing Provider docusate sodium 100 MG capsule Commonly known as: Colace Quantity Dispensed: 45 capsule Take 1 (one) capsule by mouth 2 times daily as needed for Constipation RACHELLE Mauricio ibuprofen 600 MG tablet Commonly known as: Motrin Quantity Dispensed: 45 tablet Take 1 (one) tablet by mouth every 6 hours as needed for Pain RACHELLE Mauricio iron polysaccharides 150 MG capsule Commonly known as: Niferex 150 Quantity Dispensed: 30 capsule Take 1 (one) capsule by mouth once daily RACHELLE Mauricio oxyCODONE (immediate release) 5 MG tablet Commonly known as: Roxicodone Quantity Dispensed: 10 tablet Take 1 (one) tablet by mouth every 6 hours as needed for Pain Astrid Antonio MD CONTINUE taking these medications which have NOT CHANGED Instructions Authorizing Provider acyclovir 400 MG tablet Commonly known as: Zovirax Quantity Dispensed: 90 tablet Take 1 (one) tablet by mouth 3 times daily Alanna Andrea MD cetirizine 10 MG tablet Commonly known as: ZyrTEC Take 10 mg by mouth once daily Reasons: Hayfever cyanocobalamin injection Commonly known as: Vitamin B-12 Inject 1,000 mcg into muscle every 30 days escitalopram 10 MG tablet Commonly known as: Lexapro Take 10 mg by mouth once daily vitamin with iron tablet Take 1 tablet by mouth once daily STOP taking these medications aspirin 81 MG chew tablet Commonly known as: Aspirin ferrous sulfate 325 (65 FE) MG tablet folic acid 1 MG tablet Commonly known as: Folvite ondansetron 4 MG tablet Commonly known as: Zofran ONETOUCH DELICA PLUS 33G EXTRA FINE LANCET OneTouch Verio test strip Generic drug: blood glucose Progesterone 100 MG capsule Discharge Instructions: Discharge Instructions for: Jackie Lee Discharge Procedure Orders Why you were hospitalized Order Specific Question Answer Comments Your discharge diagnosis is: care following delivery [[id number]] No special diet needed Resume your normal home diet as tolerated. Eat well-balanced meals that include foods from all of the food groups. Drink plenty of fluids It is important that you stay well hydrated. You should drink at least eight to ten 8-ounce glassesof water per day. Nothing per vagina For 6 weeks Light activity While on narcotics (Percocet or [place]) Do not drive Until able to slam on the brakes comfortably and completely off narcotic pain medication (Percocet or [place]) No heavy lifting Do not lift anything over 15 pounds (i.e your baby in a carrier) until cleared by your OBGYN. When to call your provider and patient information Depression (PPD): This is a type of depression that occurs after childbirth. PPD can occur as early as one week up toone year after giving . Signs could include: -Thinking of hurting yourself or your baby -Feeling out of control, unable to care for self or baby -Feeling depressed or sad most of the day every day -Having trouble sleeping or sleeping too much -Having trouble bonding with your baby Call 911 or go to the nearest emergency room if you feel you might harm yourself or your baby. Callclinic immediately for other signs of depression (sadness, withdrawn, difficulty coping with parenting) Venous Thromboembolism: Development of a blood clot usually in your leg (calf area). Signs can include: -Leg pain, tender to touch, burning or redness, particularly in the calf area -Swelling of one leg more than the other Infection: An infection is an invasion of bacteria or viruses that enter and spread through your body, making you ill. Signs can include: -Temp>/= 100.4 F (>/= 38 C) -Bad smelling blood or discharge from vagina -Increase in redness or discharge from episiotomy or open wound not healing Call clinic immediately for above signs. If symptoms worsen or no response from provider/clinic, call 911 or go to the nearest emergency room. Preeclampsia and High Blood Pressure: Hypertension is when your blood pressure is much higher than it should be. A severe and constant headache that does not respond to over the counter medications could be something more serious. Preeclampsia is a complication of that includes high blood pressures and signs of damage to other organs. Eclampsia is the compulsive phase of preeclampsia, characterized by seizures. Worrisome signs include: -Severe constant headache that does not respond to pain medications -Changes in vision, seeing spots or flashing lights -Pain in the upper right abdominal area -Swelling of face, hands and or legs more than what you would expect -Changes in level of consciousness Call 911 for seizures. Call the clinic immediately for any other signs. If symptoms worsen or no response from clinic, call 911 or go to the nearest emergency room. Obstetric Hemorrhage: Obstetric hemorrhage is when you have an excessive amount of bleeding after you have delivered yourbaby. Signs include: -Bleeding through more than 1 sanitary pad per hour -Passing 1 or more clots the size of an egg or bigger -Character of clots goes from dark red/brown with clots to bright red bleeding Call clinic immediately for signs of hemorrhage. If symptoms worsen, call 911 or go to the nearest emergency room. Cardiac (Heart) Disease: Cardiac disease is when your heart is not working well. Signs can include: -Shortness of breath, or difficulty breathing -Feeling that your heart is racing -Chest pain or pressure You must obtain immediate care by calling 911 or going to the nearest emergency room RIGHT AWAY. Shower and bathing instructions May shower any time. May have tub bath after 4 weeks if cleared by OBGYN. For relief of pain Take ibuprofen 600mg every 6 hours as needed for relief of pain or discomfort. If additional help is needed you can take Percocet 5-325mg every 6 hours as needed. Stool softeners Take Colace for relief of difficult bowel movements. For relief of constipation Take Miralax for relief of constipation. For relief of itching Take Benadryl for relief of itching. Hrgn-tho-fqgiuze medication Use an abdominal binder or belly band for comfort as needed and use compression stockings (available at pharmacies or online) for leg swelling. Follow up instructions Hypertension, Preeclampsia and Eclampsia - Prior to Discharge, please make a follow up appointment with your OB Provider Monday07/05/21 Follow up with provider Order Specific Question Answer Comments Follow Up Instructions: follow up with high risk clinic on Monday07/05/21 for BP check, Provena removal and incision check and mood check, and 6 weeks for routine visit RACHELLE Mauricio 07/01/2021 12:47 PM RSAW SUPERVISOR documented in this encounter Discharge Instructions * Discharge Instructions* Mary Jane Hudson RN - 07/01/2021 1:45 PM POWERSAW SUPERVISOR DELIVERED MOTHER DISCHARGE INSTRUCTIONS Refer to the Booklet given during your stay for more information. Please contact your operations manager/coordinator for the followin. Any burning or itching when urinating. . 2. Any significant increase or change in color or odor of vaginal discharge and/or any pus drainingfrom vaginal area 3. Any significant increase in pain, tenderness, or redness in vaginal area 4. Any increased vaginal bleeding that may contain clots. 5. Temperature greater than 101 degrees or as instructed by your care provider. 6. Any pus or blood draining from nipples. Remember to collect all your belongings kept at the bedside, for example: your cell phone and cell phone forming process worker. PLEASE REMEMBER: 1. Always place your on his/her back to sleep. 2. Always use a car safety seat when transporting your child. RSAW SUPERVISOR documented in this encounter Medications at Time of Discharge Medication Sig Dispensed Refills Start Date End Date acyclovir (ZOVIRAX) 400 MG tablet Take 1 (one) tablet by mouth 3 times daily 90 tablet 2 05/24/2021 cetirizine (ZYRTEC) 10 MG tabletIndications:Season al Allergic Rhinitis Take 10 mg by mouth once daily Reasons: Hayfever cyanocobalamin (VITAMIN B-12) injection Inject 1,000 mcg into muscle every 30 days docusate sodium (COLACE) 100 MG capsule Take 1 (one) capsule by mouth 2 times daily as needed for Constipation 45 capsule 07/01/2021 escitalopram (LEXAPRO) 10 MG tablet Take 10 mg by mouth once daily ibuprofen (MOTRIN) 600 MG tablet Take 1 (one) tablet by mouth every 6 hours as needed for Pain 45 tablet 07/01/2021 iron polysaccharides (NIFEREX 150) 150 MG capsule Take 1 (one) capsule by mouth once daily 30 capsule 07/02/2021 oxyCODONE, immediate release, (ROXICODONE) 5 MG tablet Take 1 (one) tablet by mouth every 6 hours as needed for Pain 10 tablet 07/01/2021 Vit-DSS-Fe Fum-FA ( VITAMIN WITH IRON) tablet Take 1 tablet by mouth once daily documented as of this encounter Progress Notes * Mary Jane Hudson RN - 07/01/2021 4:20 PM CST Discharge summary: Patient discharged home today after being seen by attending. Assessment WNL. Ambulating without difficulty. Lochia WNL, pain controlled. Discharge instructions given to and reviewed with the patient. She was also given a blood pressure cuff and shown how to use it. All questions answered and concerns addressed. Reviewed with patient s/s of pre-e to immediately report to physician. Save your life handout given to patient to take home. Extra supplies given. Paper work for certificate filled out and turned in. She will follow up with provider on Monday for blood pressure check. RSAW SUPERVISOR * Mary Jane Hudson RN - 07/01/2021 2:52 PM CST Problem: Fall Risk Goal: Fall risk and fall related injury risk are minimized (Interventions related to the fall risk can be found in the flowsheet documentation) 07/01/20211451 by Mary Jane Hudson RN Outcome: Completed 07/01/2021746 by Mary Jane Hudson RN Outcome: Progressing Problem: Goal: Maternal assessment is within expected range. 07/01/20211451 by Mary Jane Hudson RN Outcome: Completed 07/01/2021746 by Mary Jane Hudson RN Outcome: Progressing Goal: Patient will return to baseline GI status Description: As evidenced by: a) Tolerating preoperative diet without nausea or vomiting b) Passing flatus without difficulty c) Free from signs & symptoms of post-operative ileus formation 07/01/20211451 by Mary Jane Hudson RN Outcome: Completed 07/01/2021746 by Mary Jane Hudson RN Outcome: Progressing Goal: Respiratory effort without distress or complications 07/01/20211451 by Mary Jane Hudson RN Outcome: Completed 07/01/2021746 by Mary Jane Hudson RN Outcome: Progressing Goal: Incision site is free of redness, swelling and/or warmth and is well approximated 07/01/20211451 by Mary Jane Hudson RN Outcome: Completed 07/01/2021746 by Mary Jane Hudson RN Outcome: Progressing Problem: Pain/Discomfort Goal: Patient exhibits reduced pain/discomfort as evidenced by pain scores Outcome: Completed Goal: Patient uses pharmacological and non-pharmacological pain management strategies. Outcome: Completed Goal: Patient verbalizes acceptable level of pain relief and ability to engage in desired activity. Outcome: Completed Problem: Infection Goal: Signs and symptoms of infections are decreased or avoided Outcome: Completed Problem: Potential for Urinary Catheter-Associated Infection Goal: Signs and Symptoms of urinary catheter-associated infection are avoided Outcome: Completed Goal: Normal urinary patterns are established within parameters of age and disease process Outcome: Completed Problem: Emotional Well-Being Goal: Patient participates in decision-making and choices for care. Outcome: Completed Goal: Parent- bonding occurs Outcome: Completed RSAW SUPERVISOR * Gloria Thacker, FRACISCO-LINDSAY - 07/01/2021 11:50 AM CST [facility] Progress Note Subjective: Patient without complaints. Resting in bed holding baby. Pain is controlled with PO meds. Lochia isnormal in amount. Patient has passed flatus, is tolerating a regular diet, without nausea/vomiting.She denies headache, fever, chest pain, shortness of breath, and leg pain. She has ambulated and denies light- headedness. Huang is absent. Patient is voiding without difficulty. Desires discharge home today. Agreeable to going home with BP cuff to follow up on Monday07/05/21. Objective: Temp (36hrs) Max:98.8 ??F (37.1 ??C) Patient Vitals for the past 24 hrs: Temp Pulse Resp BP SpO2 06/30/21 2310 98 ??F (36.7 ??C) -- 18 150/74 98 % 06/30/21 1505 98.8 ??F (37.1 ??C) 82 18 150/88 98 % 06/30/21 0930 98.6 ??F (37 ??C) 85 16 135/83 97 % No intake or output data in the 24 hours ending 07/01/21 0837 Patient Active Problem List: Morbid obesity with body mass index (BMI) of 60.0 to 69.9 in adult Second Genital herpes simplex Previous delivery, antepartum condition or complication Depression Migraine Positive GBS test Hyperlipidemia Orthopnea Abnormal O'Juarez glucose challenge test, antepartum Nausea and vomiting Meralgia paresthetica PE: General: alert, cooperative in no acute distress Lungs: nonlabored respirations, clear to auscultation Heart: regular rate and rhythm Abdomen: Soft, appropriately tender; fundus firm below umbilicus. Incision: provena wound vac in place and on Lower Extremities: no calf tenderness, trace bilateral LE edema Data: Recent Labs Component Name 06/29/21 0421 06/28/21 1326 05/24/21 1039 WBC 8.6 8.3 10.1 HGB 10.3* 11.6* 11.7* HCT 32.9* 36.9 36.6 PLTCOUNT 203 239 250 Recent Labs Component Name 06/28/21 1405 ABORH O POS Assessment/Plan: 31 year old year old S/p section, POD # 3 1. complicated by: 1. rCS, breech presentation 2. Provena wound vac in place and on, to be removed at office visit 07/05/21 3. Morbid obesity 1. BMI 70.47 2. Continue PP weight based pLov while inpatient 4. Depression 1. Continue Lexapro 10mg daily 2. Reports mood is good today, denies any HI/SI 3. S/p financial services professional consult 5. Hx HSV 6. gHTN 1. 24 hour BP range: 135-150/74-88 2. 3/1: AST/ALT 36/34, Cr 0.62, platelets 203 3. Will d/c home with BP cuff and packet, to follow up in clinic 07/05/21 7. Elevated GCT of 130, GTT not performed 1. Spot accucheck 06/28: 74, 70 2. AFVSS 3. Pain is well controlled with current medications 4. : Urinary output is spontaneous 5. GI: tolerating regular diet, passed flatus 6. MOF/MOC: breast and bottle feeding/to be discussed at 6 week PP visit 7. Hematologic: acute blood loss anemia 1. Asymptomatic 2. Continue PO iron upon discharge home 8. Blood type: O+ 9. girl at bedside 10. DVT/PE prophylaxis 1. Risk Factors: major surgery, Body mass index is 70.47 kg/m??., state 2. No worrisome physical exam findings; VSS 3. SCD's while in bed until ambulating, encourage ambulation 4. Continue pLov 0.5mg/kg BID while inpatient 11. Disposition: continue routine post- care; anticipate discharge home POD 3; follow up 07/05/21 for BP, mood and incision check and 6 weeks for routine care. RACHELLE Mauricio 07/01/21 8:37 AM RSAW SUPERVISOR * Mary Jane Hudson RN - 07/01/2021 7:47 AM CST Problem: Fall Risk Goal: Fall risk and fall related injury risk are minimized (Interventions related to the fall risk can be found in the flowsheet documentation) Outcome: Progressing Problem: Goal: Maternal assessment is within expected range. Outcome: Progressing Goal: Patient will return to baseline GI status Description: As evidenced by: a) Tolerating preoperative diet without nausea or vomiting b) Passing flatus without difficulty c) Free from signs & symptoms of post-operative ileus formation Outcome: Progressing Goal: Respiratory effort without distress or complications Outcome: Progressing Goal: Incision site is free of redness, swelling and/or warmth and is well approximated Outcome: Progressing RSAW SUPERVISOR * Vangie Weinstein LPN - 07/01/2021 4:33 AM CST Vital signs stable. Pain controlled with motrin and tylenol. Bonding well with baby. RSAW SUPERVISOR * Vangie Weinstein LPN - 06/30/2021 10:06 PM CST Problem: Fall Risk Goal: Fall risk and fall related injury risk are minimized (Interventions related to the fall risk can be found in the flowsheet documentation) Outcome: Progressing Problem: Goal: Maternal assessment is within expected range. Outcome: Progressing Goal: Patient will return to baseline GI status Description: As evidenced by: a) Tolerating preoperative diet without nausea or vomiting b) Passing flatus without difficulty c) Free from signs & symptoms of post-operative ileus formation Outcome: Progressing Goal: Respiratory effort without distress or complications Outcome: Progressing Goal: Incision site is free of redness, swelling and/or warmth and is well approximated Outcome: Progressing Problem: Pain/Discomfort Goal: Patient exhibits reduced pain/discomfort as evidenced by pain scores Outcome: Progressing Goal: Patient uses pharmacological and non-pharmacological pain management strategies. Outcome: Progressing Goal: Patient verbalizes acceptable level of pain relief and ability to engage in desired activity. Outcome: Progressing RSAW SUPERVISOR * Mary Jane Hudson RN - 06/30/2021 7:56 PM CST Shift summary: VSS. Fundus and lochia WDL. Assessment WDL. Voiding spontaneously. Ambulating ad amanda. Tolerating regular diet. Reports adequate pain control with scheduled medications. See MAR. Infantrooming in. Safe sleep reviewed. Formula feeding per mothers informed decision. Also breastfeeds. Call light within reach. Will continue to monitor. RSAW SUPERVISOR * Mary Jane Hudson RN - 06/30/2021 11:01 AM CST Problem: Fall Risk Goal: Fall risk and fall related injury risk are minimized (Interventions related to the fall risk can be found in the flowsheet documentation) Outcome: Progressing Problem: Goal: Maternal assessment is within expected range. Outcome: Progressing Goal: Patient will return to baseline GI status Description: As evidenced by: a) Tolerating preoperative diet without nausea or vomiting b) Passing flatus without difficulty c) Free from signs & symptoms of post-operative ileus formation Outcome: Progressing RSAW SUPERVISOR * Gloria Thacker APRN-LINDSAY - 06/30/2021 8:20 AM CST [facility] Progress Note Subjective: Patient without complaints. Pain is controlled with PO meds. Lochia is normal in amount. Patient has passed flatus, is tolerating a regular diet, without nausea/vomiting. She denies headache, fever, chest pain, shortness of breath, and leg pain. She has ambulated and denies light-headedness. Huang is absent. Patient is voiding without difficulty. Objective: Temp (36hrs) Max:98.7 ??F (37.1 ??C) Patient Vitals for the past 24 hrs: Temp Pulse Resp BP SpO2 06/29/21 2315 98 ??F (36.7 ??C) 75 18 146/94 100 % 06/29/21 1725 98.6 ??F (37 ??C) 69 20 132/90 97 % 06/29/21 1200 98.6 ??F (37 ??C) 65 18 140/92 -- 06/29/21 0815 98.7 ??F (37.1 ??C) 70 20 121/87 98 % No intake or output data in the 24 hours ending 06/30/21 0716 Patient Active Problem List: Morbid obesity with body mass index (BMI) of 60.0 to 69.9 in adult Second Genital herpes simplex Previous delivery, antepartum condition or complication Depression Migraine Positive GBS test Hyperlipidemia Orthopnea Abnormal O'Juarez glucose challenge test, antepartum Nausea and vomiting Meralgia paresthetica PE: General: alert, cooperative in no acute distress Lungs: nonlabored respirations, clear to auscultation Heart: regular rate and rhythm Abdomen: Soft, appropriately tender; fundus firm below umbilicus. Incision: provena wound vac in place Lower Extremities: no calf tenderness, trace bilateral LE edema Data: Recent Labs Component Name 06/29/21 0421 06/28/21 1326 05/24/21 1039 WBC 8.6 8.3 10.1 HGB 10.3* 11.6* 11.7* HCT 32.9* 36.9 36.6 PLTCOUNT 203 239 250 Recent Labs Component Name 06/28/21 1405 ABORH O POS Assessment/Plan: 31 year old year old S/p section, POD # 2 1. complicated by: 1. rCS, breech presentation 2. Morbid obesity 1. BMI 70.47 2. Continue PP weight based pLov 3. Depression 1. Continue Lexapro 10mg daily 2. Reports mood is better today, denies any HI/SI 3. S/p financial services professional consult 4. Hx HSV 5. gHTN 1. 24 hour BP range: 121-146/84-94 2. 3/1: AST/ALT 36/34, Cr 0.62, platelets 203 6. Elevated GCT of 130, GTT not performed 1. Spot accucheck 06/28: 74, 70 2. AFVSS 3. Pain is well controlled with current medications 4. : Urinary output is spontaneous 5. GI: tolerating regular diet, passed flatus 6. MOF/MOC: breast and bottle feeding/to be discussed at 6 week PP visit 7. Hematologic: acute blood loss anemia 1. Asymptomatic 2. Continue PO iron 8. Blood type: O+ 9. girl infant at bedside 10. DVT/PE prophylaxis 1. Risk Factors: major surgery, Body mass index is 70.47 kg/m??., state 2. No worrisome physical exam findings; VSS 3. SCD's while in bed until ambulating, encourage ambulation 4. Continue pLov 0.5mg/kg BID 11. Disposition: continue routine post- care; anticipate discharge home POD 3-4; follow up 48-72 hours for BP, mood and incision check and 6 weeks for routine care. RACHELLE Mauricio 06/30/21 7:16 AM RSAW SUPERVISOR * Jojo Baker RN - 06/30/2021 5:06 AM CST Shift Summary: VSS and assessments WNL. Fundal/lochia checks WNL. Up ad amanda. Voiding without difficulty. Vacuum dressing remains WNL. Pain managed. Breast and formula feeding per informed choice. Rooming in and bonding with . Call light in reach. No further concerns. RSAW SUPERVISOR * Jojo Baker RN - 06/29/2021 8:27 PM CST Problem: Fall Risk Goal: Fall risk and fall related injury risk are minimized (Interventions related to the fall risk can be found in the flowsheet documentation) Outcome: Progressing Problem: Goal: Maternal assessment is within expected range. Outcome: Progressing Goal: Patient will return to baseline GI status Description: As evidenced by: a) Tolerating preoperative diet without nausea or vomiting b) Passing flatus without difficulty c) Free from signs & symptoms of post-operative ileus formation Outcome: Progressing Goal: Respiratory effort without distress or complications Outcome: Progressing Goal: Incision site is free of redness, swelling and/or warmth and is well approximated Outcome: Progressing Problem: Pain/Discomfort Goal: Patient exhibits reduced pain/discomfort as evidenced by pain scores Outcome: Progressing Goal: Patient uses pharmacological and non-pharmacological pain management strategies. Outcome: Progressing Goal: Patient verbalizes acceptable level of pain relief and ability to engage in desired activity. Outcome: Progressing Problem: Infection Goal: Signs and symptoms of infections are decreased or avoided Outcome: Progressing Problem: Potential for Urinary Catheter-Associated Infection Goal: Signs and Symptoms of urinary catheter-associated infection are avoided Outcome: Progressing Goal: Normal urinary patterns are established within parameters of age and disease process Outcome: Progressing Problem: Emotional Well-Being Goal: Patient participates in decision-making and choices for care. Outcome: Progressing Goal: Parent- bonding occurs Outcome: Progressing Note: Rooming in with , skin to skin, , active in infants care, bonding occurring. RSAW SUPERVISOR * Danay Boston RN - 06/29/2021 5:57 PM CST VSS, assessment WNL, pain well controlled with medication. Patient encouraged to move around room and sit up in chair. RSAW SUPERVISOR * Danay Boston RN - 06/29/2021 12:25 PM CST Jhon Thacker [employer] notified of depression screen and recent B/P, order placed for SS Consult. RSAW SUPERVISOR * Gloria Thacker APRN-MANAGER PEST - 06/29/2021 12:15 PM CST [facility] Progress Note Subjective: Patient without complaints. Sitting up in bed holding during my visit. Pain is controlled with ordered meds. Lochia is normal in amount. Patient has passed flatus, is tolerating a regular diet, without nausea/vomiting. She denies headache, fever, chest pain, shortness of breath, and leg pain. She has ambulated and denies light-headedness. Huang is absent. Patient is voiding without difficulty. Objective: Temp (36hrs) Max:98.7 ??F (37.1 ??C) Patient Vitals for the past 24 hrs: Temp Pulse Resp BP SpO2 06/29/21 0815 98.7 ??F (37.1 ??C) 70 20 121/87 98 % 06/29/21 0326 98.2 ??F (36.8 ??C) 72 17 145/84 100 % 06/28/21 2305 97.9 ??F (36.6 ??C) 73 18 139/64 98 % 06/28/21 1930 98.3 ??F (36.8 ??C) 76 18 122/62 99 % 06/28/21 1830 97.5 ??F (36.4 ??C) -- 18 124/56 100 % 06/28/21 1820 97.3 ??F (36.3 ??C) -- 16 129/57 -- 06/28/21 1805 -- -- -- -- 99 % 06/28/21 1750 -- -- 16 110/56 98 % 06/28/21 1735 -- -- 17 110/56 98 % 06/28/21 1720 -- -- 15 108/55 98 % 06/28/21 1705 -- -- 15 125/55 98 % 06/28/21 1650 -- -- 14 123/55 100 % 06/28/21 1635 -- -- 17 130/56 100 % 06/28/21 1620 98.3 ??F (36.8 ??C) -- 16 121/58 99 % 06/28/21 1241 97.9 ??F (36.6 ??C) -- 15 136/83 -- 06/28/21 1237 -- -- -- -- 97 % Intake/Output Summary (Last 24 hours) at 06/29/2021 1050 Last data filed at 06/29/2021 0605 Gross per 24 hour Intake 5900 ml Output 1895 ml Net 4005 ml Patient Active Problem List: Morbid obesity with body mass index (BMI) of 60.0 to 69.9 in adult Second Genital herpes simplex Previous delivery, antepartum condition or complication Depression Migraine Positive GBS test Hyperlipidemia Orthopnea Abnormal O'Juarez glucose challenge test, antepartum Nausea and vomiting Meralgia paresthetica PE: General: alert, cooperative in no acute distress Lungs: nonlabored respirations, clear to auscultation Heart: regular rate and rhythm Abdomen: Soft, appropriately tender; fundus firm below umbilicus. Incision: provena wound vac in place Lower Extremities: no calf tenderness, trace bilateral LE edema Data: Recent Labs Component Name 06/29/21 0421 06/28/21 1326 05/24/21 1039 WBC 8.6 8.3 10.1 HGB 10.3* 11.6* 11.7* HCT 32.9* 36.9 36.6 PLTCOUNT 203 239 250 Recent Labs Component Name 06/28/21 1405 ABORH O POS Assessment/Plan: 31 year old year old S/p section, POD # 1 1. complicated by: 1. rCS, breech presentation 2. Morbid obesity 1. BMI 70.47 2. Continue PP weight based pLov 3. Depression 1. Continue Lexapro 10mg daily 2. Reports some anxiety this morning but dealing with issues at home, denies HI/SI, encouraged to notify if she desires to increase Lexapro 3. financial services professional consult placed 4. Hx HSV 5. gHTN 1. Two mild range BP greater than 4 hours apart since admission 2. 24 hour BP range: 108-145/55-92 3. CMP ordered 6. Elevated GCT of 130, GTT not performed 1. Spot accucheck 06/28: 74, 70 2. AFVSS 3. Pain is well controlled with current medications 4. : Urinary output is spontaneous 5. GI: tolerating regular diet, passed flatus 6. MOF/MOC: breast and bottle feeding/to be discussed at 6 week PP visit 7. Hematologic: acute blood loss anemia 1. Asymptomatic 2. PO iron ordered this AM 8. Blood type:O+ 9. girl at bedside 10. DVT/PE prophylaxis 1. Risk Factors: major surgery, Body mass index is 70.47 kg/m??., state 2. No worrisome physical exam findings; VSS 3. SCD's while in bed until ambulating, encourage ambulation 4. Continue pLov 0.5mg/kg BID 11. Disposition: continue routine post- care; anticipate discharge home POD 3-4; follow up 48-72 hours for BP, mood and incision check and 6 weeks for routine care. RACHELLE Mauricio 06/29/21 10:50 AM RSAW SUPERVISOR * Chelita Arias I - 06/29/2021 10:39 AM CST CLINICAL NUTRITION Pt screened per nutrition Leveling of Care protocol: delivery by and BMI >40 . Body mass index is 70.47 kg/m??. Pt is screened 2/2 BMI >40 a potential health risk , she could benefit from weight loss and diet education once she is no longer . She had a repeat C- sectionand could benefit from Darian to promote wound healing 2/2 MO. Darian (Wound Healing Supplement) provides 90 calories, 14 grams amino acid (7 gm L-arginine & 7 gm L- glutamine), 2.5 grams protein (hydrolyzed collagen), 8 grams of carb per serving along with 9.5mg Zinc, 300mg Vit C, 15 mg Vitamin E, and 1.2 mcg Vitamin B12 ,a low calorie , low carb and high protein drink. Diet was advanced to Regular diet , no flatus post op yet , BM yesterday . Bowel regimen Colace andMiralax . She has an elevated GCT and no GTT , accu-checks WNL. Low H&H , agree with PNV + and could benefit from adding Niferex. She is breast and bottle feeding . She agreed to try both flavorsof Darian to promote wound healing , sending Darian vary flavors on L&D trays. Gestational Age: 39w3d Med/Surg History and Clinical Diagnoses: POD # 1 s/p Repeat , MO , breast and bottle feeding Height: 5' 4.5 (163.8 cm) Weight: (!) 417 lb (189.1 kg) Pre- Weight: (unknown ) Patient Vitals for the past 30 hrs: Glucose Bedside (mg/dL) 06/28/21 1308 70 mg/dL Recent Labs Component Name 06/29/21 0421 06/28/21 1326 05/24/21 1039 HGB 10.3* 11.6* 11.7* HCT 32.9* 36.9 36.6 Agree with supplementation of PNV + and could benefit from Niferex. A woman admitted at 39w3d with Estimated Date of Delivery: 07/02/21. Weight gain of unknown amount , ideal for GA and BMI is 11-20 # Prepregnancy BMI indicates : Mo class 3 currently . Appetite : good per pt no meals documented Diet Order:Current diet order: Regular Food Allergies: No known food allergies P.O.intake for past 48 hours: No data recorded Skin/Wound: incison Stools: no flatus yet post op, BM yesterday Last BM (Date): 06/28/21 Nutrition recommendation: agree with current nutrition order Education needed: ;Supplements;Wound Healing Education provided: Education was provided on nutrition and wound healing. Discussed protein, vitamin A and vitamin C food sources to include at meal times. Reviewed importance of good BG control & adequate hydration. Educated patient on the benefits of Darian and wound healing and encouraged toconsume 2 servings daily. Darian nutrition supplement contains conditionally essential nutrients to support wound healing by enhancing collagen production. Darian (Wound Healing Supplement) provides 90calories, 14 grams amino acid (7 gm L- arginine & 7 gm L-glutamine), 2.5 grams protein (hydrolyzed collagen), 8 grams of carb per serving along with 9.5mg Zinc, 300mg Vit C, 15 mg Vitamin E, and 1.2 mcg Vitamin B12. Pt encouraged to continue with Darian BID for 28 days post discharge to optimize healing. Reviewed Darian can be purchased at [facility] for a reduced cost by calling [phone] (this can be delivered to bedside or to the home). Provided pt with [facility] Your [facility] Nutrition Plan handout. Encouraged for 6 months to 1 year and discussed benefits to mother and baby. Discussed requirement for an additional 500 kcal daily compared to non- intake for adequate milk supply. Encouraged obtaining additional kcal from whole grains, fruits, vegetables, proteins, and dairy. Additionally encouraged adequate fluid intake for milk supply - potentially8-12 or more cups of fluid daily. Encouraged obtaining fluid from non-carbohydrate sources including water and sugar free beverages. Discussed importance of eating 3-4 servings of calcium rich foods to prevent bone density loss and reviewed high calcium food options. Encouraged choosing nutrient rich foods and continuing vitamin use while if indicated. Expected level of compliance: Good Will follow per low nutritional risk protocol. Chelita Lazaro DTR 06/29/2021 10:45 AM Ascom [id number] RSAW SUPERVISOR * Danay Boston RN - 06/29/2021 10:15 AM CST Problem: Fall Risk Goal: Fall risk and fall related injury risk are minimized (Interventions related to the fall risk can be found in the flowsheet documentation) Outcome: Progressing Problem: Goal: Maternal assessment is within expected range. Outcome: Progressing Goal: Patient will return to baseline GI status Description: As evidenced by: a) Tolerating preoperative diet without nausea or vomiting b) Passing flatus without difficulty c) Free from signs & symptoms of post-operative ileus formation Outcome: Progressing Goal: Respiratory effort without distress or complications Outcome: Progressing Goal: Incision site is free of redness, swelling and/or warmth and is well approximated Outcome: Progressing Problem: Pain/Discomfort Goal: Patient exhibits reduced pain/discomfort as evidenced by pain scores Outcome: Progressing Goal: Patient uses pharmacological and non-pharmacological pain management strategies. Outcome: Progressing Goal: Patient verbalizes acceptable level of pain relief and ability to engage in desired activity. Outcome: Progressing Problem: Infection Goal: Signs and symptoms of infections are decreased or avoided Outcome: Progressing Problem: Potential for Urinary Catheter-Associated Infection Goal: Signs and Symptoms of urinary catheter-associated infection are avoided Outcome: Progressing Goal: Normal urinary patterns are established within parameters of age and disease process Outcome: Progressing Problem: Emotional Well-Being Goal: Patient participates in decision-making and choices for care. Outcome: Progressing Goal: Parent- bonding occurs Outcome: Progressing RSAW SUPERVISOR * Azra Dewitt MD - 06/29/2021 6:40 AM CST PGY2 OB Post- Note 06/29/2021, 6:40 AM Subjective: Pain is controlled. Lochia is normal in amount. She reports no flatus passed. Tolerating regular diet. She denies headache, fever, chest pain, shortness of breath, and leg pain. She has ambulated anddenies light-headedness. Huang is absent. Patient is voiding spontaneously. Reports back pain which she believes is related to how she slept - improving with her scheduled motrin/tylenol. Objective: Temp (36hrs) Max:98.3 ??F (36.8 ??C) Patient Vitals for the past 24 hrs: Temp Pulse Resp BP SpO2 06/29/21 0326 98.2 ??F (36.8 ??C) 72 17 145/84 100 % 06/28/21 2305 97.9 ??F (36.6 ??C) 73 18 139/64 98 % 06/28/21 1930 98.3 ??F (36.8 ??C) 76 18 122/62 99 % 06/28/21 1830 97.5 ??F (36.4 ??C) -- 18 124/56 100 % 06/28/21 1820 97.3 ??F (36.3 ??C) -- 16 129/57 -- 06/28/21 1805 -- -- -- -- 99 % 06/28/21 1750 -- -- 16 110/56 98 % 06/28/21 1735 -- -- 17 110/56 98 % 06/28/21 1720 -- -- 15 108/55 98 % 06/28/21 1705 -- -- 15 125/55 98 % 06/28/21 1650 -- -- 14 123/55 100 % 06/28/21 1635 -- -- 17 130/56 100 % 06/28/21 1620 98.3 ??F (36.8 ??C) -- 16 121/58 99 % 06/28/21 1241 97.9 ??F (36.6 ??C) -- 15 136/83 -- 06/28/21 1237 -- -- -- -- 97 % Intake/Output Summary (Last 24 hours) at 06/29/2021 0640 Last data filed at 06/29/2021 0605 Gross per 24 hour Intake 5900 ml Output 1895 ml Net 4005 ml PE: General: alert, cooperative in no acute distress Lungs: nonlabored respirations, clear to auscultation Heart: regular rate and rhythm Abdomen: BS+. Soft, appropriately tender; fundus firm below umbilicus. Incision: incision clean/dry/intact - prevena wound vac in place with no output Lower Extremities: no calf tenderness, trace edema Data: Recent Labs Component Name 06/29/21 0421 06/28/21 1326 05/24/21 1039 WBC 8.6 8.3 10.1 HGB 10.3* 11.6* 11.7* HCT 32.9* 36.9 36.6 PLTCOUNT 203 239 250 Recent Labs Component Name 06/28/21 1405 ABORH O POS Assessment/Plan: 31 year old year old S/p repeat section, POD # 1 1. complicated by: 1. rCS #2 - breech presentation 2. MO - BMI 70.4; PP pLov ordered 3. Hx HSV 4. Depression - continue lexapro, mood stable 5. UTI in , s/p treatment 6. Elevated GCT: 130, blood glucose appropriate on spot checks 7. Mild range BP x1 2. AFVSS 3. Pain is well controlled with current medications. 4. : Urinary output is adequate, 0.48ml/kg/hr 5. GI: tolerating regualar diet, no flatus, continue to monitor 6. MOF/MOC: breast and bottle/IUD 7. Hematologic: Hgb pre-op 11.6 > Post-op Hgb 10.3 8. O+/I/-/-, HIV NR 9. DVT/PE prophylaxis: 1. Risk factors: major surgery, Body mass index is 70.47 kg/m??., state, 2. No worrisome physical exam findings; VSS 3. SCDs in bed until ambulating, encourage ambulation 4. pLov 0.5mg/kg BID Dispo: continue routine post- care, d/c POD 3-4 after seen by attending, follow up in 2 weeksfor mood check. The patient had a female . Arza Dewitt MD 06/29/2021 6:40 AM RSAW SUPERVISOR * Jojo Baker RN - 06/29/2021 5:15 AM CST Shift Summary: VSS and assessments WNL. Patient fundal/lochia checks WNL. Pain managed. Huang removed. Voiding without difficulty. Up ad amanda. Prevena wound vac dressing remains in place. Patient reported that sleeping on her arm made her IV come out. Residents notified and ordered that Toradol could be switched to motrin and another IV did not need to be placed at this time. and formula feeding infant per informed choice. Rooming in and bonding with . Call light within reach. No further concerns. RSAW SUPERVISOR * Jojo Baker RN - 06/28/2021 8:39 PM CST Problem: Fall Risk Goal: Fall risk and fall related injury risk are minimized (Interventions related to the fall risk can be found in the flowsheet documentation) Outcome: Progressing Problem: Goal: Maternal assessment is within expected range. Outcome: Progressing Goal: Patient will return to baseline GI status Description: As evidenced by: a) Tolerating preoperative diet without nausea or vomiting b) Passing flatus without difficulty c) Free from signs & symptoms of post-operative ileus formation Outcome: Progressing Goal: Respiratory effort without distress or complications Outcome: Progressing Goal: Incision site is free of redness, swelling and/or warmth and is well approximated Outcome: Progressing Problem: Pain/Discomfort Goal: Patient exhibits reduced pain/discomfort as evidenced by pain scores Outcome: Progressing Goal: Patient uses pharmacological and non-pharmacological pain management strategies. Outcome: Progressing Goal: Patient verbalizes acceptable level of pain relief and ability to engage in desired activity. Outcome: Progressing Problem: Infection Goal: Signs and symptoms of infections are decreased or avoided Outcome: Progressing Problem: Potential for Urinary Catheter-Associated Infection Goal: Signs and Symptoms of urinary catheter-associated infection are avoided Outcome: Progressing Goal: Normal urinary patterns are established within parameters of age and disease process Outcome: Progressing Problem: Emotional Well-Being Goal: Patient participates in decision-making and choices for care. Outcome: Progressing Goal: Parent- bonding occurs Outcome: Progressing Note: Rooming in with , doing skin to skin, well, bonding occurring. RSAW SUPERVISOR * Gloria Haider RN - 06/28/2021 6:55 PM CST Problem: Fall Risk Goal: Fall risk and fall related injury risk are minimized (Interventions related to the fall risk can be found in the flowsheet documentation) Outcome: Progressing Problem: Goal: Maternal assessment is within expected range. Outcome: Progressing Goal: Patient will return to baseline GI status Description: As evidenced by: a) Tolerating preoperative diet without nausea or vomiting b) Passing flatus without difficulty c) Free from signs & symptoms of post-operative ileus formation Outcome: Progressing Goal: Respiratory effort without distress or complications Outcome: Progressing Goal: Incision site is free of redness, swelling and/or warmth and is well approximated Outcome: Progressing Problem: Pain/Discomfort Goal: Patient exhibits reduced pain/discomfort as evidenced by pain scores Outcome: Progressing Goal: Patient uses pharmacological and non-pharmacological pain management strategies. Outcome: Progressing Goal: Patient verbalizes acceptable level of pain relief and ability to engage in desired activity. Outcome: Progressing Problem: Infection Goal: Signs and symptoms of infections are decreased or avoided Outcome: Progressing Problem: Potential for Urinary Catheter-Associated Infection Goal: Signs and Symptoms of urinary catheter-associated infection are avoided Outcome: Progressing Goal: Normal urinary patterns are established within parameters of age and disease process Outcome: Progressing Problem: Emotional Well-Being Goal: Patient participates in decision-making and choices for care. Outcome: Progressing Goal: Parent- bonding occurs Outcome: Progressing RSAW SUPERVISOR * Lazara Dang RN - 06/28/2021 6:39 PM CST Pt. Is resting in bed. VSS and afebrile. Fundus is firm, midline, and at U-1 with a small amount ofbleeding. Baby is with mom. Baby's VSS and afebrile. Report given to ANA Farmer; all questions answered. Care relinquished at this time. Lazara Dang RN 06/28/2021 6:39 PM RSAW SUPERVISOR * Lazara Dang RN - 06/28/2021 4:39 PM CST Images from the original note were not included. Patient Name: Jackie Lee Patient Age: [age] year old Today's Date: 06/28/2021 DELIVERY SUMMARY Estimated Date of Delivery: 07/02/21 Delivery Summary Patient Information Patient Name Jackie Lee ([id number]) Legal Sex Female OB History 2 Para 2 Term 2 AB Living 2 SAB IAB Ectopic Multiple 0 Live Births 2 1 Outcome: Term Date: 05/22/12 GA: 37w0d Sex: F Delivery: CS-Unspec Living: GARCÍA Weight: 2580 g (5 lb 11 oz) 2 Outcome: Term Date: 06/28/21 GA: 39w3d Sex: F Delivery: Living: GARCÍA Name: HELADIO LEE Weight: 3430 g (7 lb 9 oz) Anes: Spinal PTL: N A1: 7 A5: 9 Location: [facility] Delivering Clinician: Meir Reese DO Transcribed Labs Row Name 06/28/21 1424 RH (Manually Reproduced) Positive Blood Type (Manually Reproduced) O Syphilis Serology (Manually Reproduced) Negative HIV (Manually Reproduced) Negative Date of HIV Lab 11/19/20 Hepatitis B Surface Antigen (Manually Reproduced) Negative Rubella Status ( Manually Reproduced) Immune Labor Length 3rd stage: 0h 02m Blood Loss Admission (Current) from 06/28/2021 in [facility] 5 LDR Estimated Blood Loss -- Quantitated Blood Loss 600 ml Venous Cord Blood Gas Results pH PCO2 PO2 HCO3 BE O2 Sat 06/28/21 1539 7.37 41 26 24 -1.5 65 Arterial Cord Blood Gas Results pH pCO2 pO2 HCO3 BE O2 Sat 06/28/21 1539 7.29 57 <7 Comment: <^Outside Reportable Range 27.4 -0.3 15 Heladio Lee [[id number]] Patient Information Patient Name Heladio Lee ([id number]) Legal Sex Female Anesthesia Method: Spinal Labor Events labor?: No steroids: None GBS Status: unknown Antibiotic: cefazolin Number of Antibiotic Doses: 1 Rupture Date: Time: Rupture type: Fluid color: Fluid odor: Labor complications: None Delivery Details Forceps attempted?: No Vacuum extractor attempted?: No Presentation: Breech Delivery (Maternal) Placenta Date/time: 06/28/2021 1531 Disposition: Discarded Other Delivery Procedures/Provider Comments Delivery - Physician I was present at delivery (physician name): Counts [place] [employer] Lap Pads Sponges Initial counts Added to counts Final counts Delivery ([place]) Delivery Date: 06/28/21 Delivery Time: 3:29 PM Delivery type: Trial of labor?: No categorization: Repeat priority: Routine Indications for : Breech presentation Incision type: Low Transverse Apgars Living status: Living Apgars: 1 min.: 5 min.: 10 min.: 15 min.: 20 min.: Skin color: 0 1 Heart rate: 2 2 Reflex irritability: 2 2 Muscle tone: 2 2 Respiratory effort: 1 2 Total: 7 9 Apgars assigned by: Estevan ALVARENGA APRN Delivery [place] Stabilization Equipment Checked by: NICU staff Vigorous at ? (Heart rate greater than 100, normal respirations and normal muscle tone): Yes Suction Method: Bulb Secretions (Amount in Comment): Thin, Red Requires more than warming, stimulation, and suction?: No Cord Vessels: 3 Vessels Delayed cord clamping?: Yes Time delayed: 60 seconds or greater Cord blood disposition: Lab Gases sent?: Yes, Venous, Arterial Stem cell collection (by MD)?: No [place] Measurements Weight: 3430 g Pounds and Ounces: 7 lb 9 oz Length: 20.28 Head circumference: 13.39 Chest circumference: Disposition: With Mother Feeding and Elimination Mother's Feeding Choice During Stay ( Core Measure PC05): Human Milk and Formula Voided in Delivery Room?: No Stooled in Delivery Room?: Yes . RSAW SUPERVISOR * Lazara Dang RN - 06/28/2021 2:46 PM CST Problem: Pain/Discomfort Goal: Patient exhibits reduced pain/discomfort as evidenced by pain scores Outcome: Progressing Goal: Patient uses pharmacological and non-pharmacological pain management strategies. Outcome: Progressing Goal: Patient verbalizes acceptable level of pain relief and ability to engage in desired activity. Outcome: Progressing Problem: Pre-operative Phase Goal: Maternal BP, heart rate & temperature within expected range for patient Outcome: Progressing Goal: Fetus demonstrates a normal heart rate by auscultation or demonstrates a reactive non-stress test if electronic monitoring used Description: A. FHR baseline 110-160 beats/min B. FHR accelerations C. Presence of FHR variability Outcome: Progressing Goal: Patient verbalizes understanding of procedure Outcome: Progressing Goal: Pre-op checklist completed Outcome: Progressing Problem: Intraoperative Phase Goal: Maternal & vital signs will remain stable, and safe environment will be maintained throughout procedure Outcome: Progressing RSAW SUPERVISOR documented in this encounter H&P Notes * Twila Rodriguez MD - 06/28/2021 1:11 PM CST PGY2 Obstetric H&P Note 06/28/2021, 1:25 PM CC: Here for HPI: 31 year old at gestation Dating: LMP c/w 1st trimester ultrasound Estimated Date of Delivery: 07/02/21 care: is with high risk [facility] Patient's is complicated by: Patient Active Problem List Diagnosis Date Noted ??? Hyperlipidemia 05/24/2021 Priority: Not Prioritized ??? Meralgia paresthetica 05/24/2021 Priority: Not Prioritized ??? Depression Priority: Not Prioritized Denies SI/HI ??? Migraine Priority: Not Prioritized ??? Positive GBS test Priority: Not Prioritized Positive in media 11/19/20 ??? Previous delivery, antepartum condition or complication 02/24/2021 Priority: Not Prioritized Desires repeat. ??? Genital herpes simplex 02/16/2021 Priority: Not Prioritized Is on acyclovir currently, will change to TID for remainder of ??? Morbid obesity with body mass index (BMI) of 60.0 to 69.9 in adult 02/15/2021 Priority: Not Prioritized BPP 12/06 today ??? 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 Orthopnea 05/24/2021 Echo ordered Heart and lung exam today Plan: consider PP sleep study ??? Abnormal O'Juarez glucose challenge test, antepartum 05/24/2021 GCT 130 Met with diabetes education today. Plan: Will try to measure her blood sugars 4x per day for 1 week. If unable to keep up with this will call clinic and ask to 3hr GTT lab. ??? Nausea and vomiting 05/24/2021 Appears comfortable. Has nasal congestion too. Plan: COVID test Patient presents without complaints. Here for section. negative Ctx. negative LOF. negative VB. positive FM. Review of Symptoms: A comprehensive review of systems was negative except as stated above Constitutional: Negative for fevers Eyes: Negative visual changes Respiratory: Negative shortness of breath Cardiovascular: Negative for chest pain Hematologic/lymphatic: Negative for vaginal bleeding GI: negative for vomiting, diarrhea, or constipation Neurological: Negative for severe headaches Psychiatric: mood stable, denies SI HI Integument: Denies skin changes Obstetrical History: OB History Para Term AB Living 2 1 1 1 SAB IAB Ectopic Multiple Live Births 1 # Outcome Date GA Lbr Bin/2nd Weight Sex Delivery Anes PTL Lv 2 Current 1 Term 05/22/12 37w0d 2580 g (5 lb 11 oz) F CS-Unspec GARCÍA Obstetric Comments Gynecologic History: Patient denies history of abnormal pap smears. Yes long time ago but doesn't remember results denies biopsy, last pap normal 07/2020 NILM with negative HPV (in media) Denies history of cervical procedures. STIs: herpes, but denies others Gynecologic History: History of abnormal pap smear: denies History of procedure on cervix: denies STI History: Denies gonorrhea, chlamydia, trichomonas, HIV, syphilis +HSV2 Medical History: Past Medical History: Diagnosis Date ??? Depression SI/HI ??? Herpes ??? Migraine ??? Morbid obesity ??? Positive GBS test ??? Suppurative hidradenitis currently under left arm and went to ER, it's spontaneously draining ??? UTI (urinary tract infection) taking macrobid, not compliant She denies history of hypertension, asthma or bleeding disorders. +suspected GDM Psych History: Depression: Yes Anxiety: No Bipolar disorder: No Schizophrenia: No Surgeries: Past Surgical History: Procedure Laterality Date ??? Section Current Medications: Prior to Admission medications Medication Sig Start Date End Date Taking? Authorizing Provider acyclovir (ZOVIRAX) 400 MG tablet Take 1 (one) tablet by mouth 3 times daily 05/24/21 Alanna Andrea MD aspirin (ASPIRIN) 81 MG chew tablet Take 81 mg by mouth once daily Vonda Nelson MD blood glucose (ONETOUCH VERIO) test strip To monitor blood glucose (sugar) 4x daily- fasting and 1 hour after meals 05/24/21 Jake Jc MD cetirizine (ZYRTEC) 10 MG tablet Take 10 mg by mouth once daily Reasons: Hayfever Vonda Nelson MD cyanocobalamin (VITAMIN B-12) injection Inject 1,000 mcg into muscle every 30 days Vonda Nelson MD escitalopram (LEXAPRO) 10 MG tablet Take 10 mg by mouth once daily Vonda Nelson MD ferrous sulfate 325 (65 FE) MG tablet Take 325 mg by mouth once daily Vonda Nelson MD folic acid (FOLVITE) 1 MG tablet Take 4 mg by mouth once daily Reasons: Defects of the NeuralTube Vonda Nelson MD Lancets (ONETOUCH DELICA PLUS 33G EXTRA FINE LANCET) To monitor blood glucose (sugar) 4x daily- fasting and 1 hour after meals 05/24/21 Jake Jc MD ondansetron (ZOFRAN) 4 MG tablet Take 4 mg by mouth every 6 hours as needed for Nausea/Vomiting Vonda Nelson MD Vit-DSS-Fe Fum-FA ( VITAMIN WITH IRON) tablet Take 1 tablet by mouth once daily Vonda Nelson MD Progesterone 100 MG capsule Take 100 mg by mouth 2 times daily Patient not taking: Reported on 06/28/2021 Vonda Nelson MD Allergies: No Known Allergies Social History: Social History Smoking status: Never Smoker Smokeless tobacco: Never Used Alcohol use: No Drug use: No Sexual activity: Not Currently Family History: Family History Problem Relation Name Age of Onset ??? Diabetes Mother ??? Renal Disease Mother ??? Hypertension Mother ??? Cancer - Breast Mother ??? Cancer - Uterine Neg Hx ??? Cancer - Ovarian Neg Hx ??? Phlebitis/Blood Clot Neg Hx ??? Other - Defects Neg Hx No history of infants born with defects No history of family members with bleeding disorders or history of blood clots. No history of breast, ovarian, or uterine cancer Objective: Patient Vitals for the past 24 hrs: Temp Resp BP 06/28/21 1241 97.9 ??F (36.6 ??C) 15 136/83 Assessment/ Non-Stress Test Baseline: 120 beats/minute moderate variability Reactive Decelerations: none Contractions: none Physical Exam General: no acute distress, alert and oriented x3 HEENT: extra-occular movements intact Heart: regular rate and rhythm, no rubs/murmurs/gallops Lungs: clear to auscultation bilaterally, no wheezing/crackles Abdomen: gravid, soft, non-tender Extremities: non-tender bilaterally, trace edema bilaterally Neuro: cranial nerves grossly intact Psych: appropriate affect Leopolds: not performed Sterile speculum exam: deferred Cervical Exam deferred Pelvimetry: not assessed given section Bedside ultrasound: Presentation: breech Current Lab Review: No results found for this visit on 06/28/21. Assessment/Plan: 31 year old at 39w3d gestation repeat section -hx CS x1, desires rCS -PNL: O+/I/-/-, NR -GBS negative -Hbg pending, most recent 11.7 (05/24) -breech presentation on formal US today; EFW 3580g (57%) -The section has been fully reviewed with the patient/family and written informed consent has been obtained. Risks including, but not limited to infection, bleeding and/or hemorrhage requiring transfusion (and its inherent risks of acquiring HIV, hepatitis B/C or other infections) or possible hysterectomy, damage to bowel, damage to bladder, damage to baby, blood clot, or were discussed. The patient wishes to proceed. All questions were answered. Suspected GDM -GCT 130 -has not been doing glucose checks -accucheck today 74 -will monitor PP MO -BMI 70.47 Plan to proceed with rCS. Discussed with Dr. Dyer, Dr. Michael Dewitt MD 06/28/2021 1:25 PM MFM Fellow Addendum I have reviewed and agree with the resident documentation. My changes/additions are as follows: Briefly, this is a 31 yo at 39w3d who presents for rCS. c/b CS x1 for malpresentation, morbid obesity (BMI 70), and suspected GDM (GCT 130 with no GTT). Pt reports care with 3 other providers this , late transfer of care to [facility]. Fetus confirmed breech at clinic visit today and given maternal co-morbidities of morbid obesity and suspected GDM, delivery was recommended via rCS. Consents signed. Twila Rodriguez MD Maternal Medicine Fellow, PGY-5 RSAW SUPERVISOR Associated attestation - Meir Reese DO - 06/28/2021 4:48 PM POWERSAW SUPERVISOR MFAimee attending: Patient seen and examined with resident and fellow. Agree with assessment and plan. She is a 31-year-old 2 para 1-0-0-1 at 39 weeks and 3 days ALYSSA 07/02/2021 who presents today as transfer careto [place] she was initially being seen in [facility] by [place] however her primary OB provider has left the practice and was seen by 2 other practitioners who advised her to have care at our institution due to her increased BMI and history of prior section. She had ultrasound today that showed estimated weight 3580 g 57th percentile but breech presentation with a ABRAHAM 12.9 cm maximum vertical pocket 5.1 it is breech presentation with a posterior placenta which is normal. On prior ultrasounds no evidence of an accreta. Due to the fact that she is term with poor care and breech presenting fetus decision was made to proceed with repeat section. Preop was done consent was obtained. Due to the fact she had previous section is an activetype and screen in the event of hemorrhage requiring blood transfusion or other surgical interventions not limited to a hysterectomy. She understands increased risk with anesthesia etc. Due to her increased BMI we will also initiate Lovenox prophylaxis in the period and shemay continue until discharged home. She is at increased risk for thromboembolic events. Please notify of the section along with anesthesia. The above was discussed with Jesus who understood all questions answered and she was reassured. DO MARIELLA Stevens documented in this encounter Consult Notes * Eva Ha MSW - 06/29/2021 1:50 PM CSTAssociated Order(s): IP CONSULT TO SUPERVISOR INSTRUMENT MECHANICS; IP CONSULT TO SUPERVISOR INSTRUMENT MECHANICS SOCIAL SERVICE CONSULT - BRIEF Reason for Referral: Discharge planning for OB concerns; Depression Score IP CONSULT TO SUPERVISOR INSTRUMENT MECHANICS Comments: Depression Assessment/Interventions/Plan: convention worker, Eva Ha, received consult and will follow up with RN and patient/family as needed. SW met with MOB bedside. MOB was in bed and gave SWpermission to meet. Completed Psychosocial Assessment, discussed PPD, provided PPD information and [facility] Women & Infants Resource Guide. WETLANDS CONSERVATION LABORER CASE MANAGEMENT PSYCHOSOCIAL ASSESSMENT 06/28/21 3:29PM 7lb 9oz 20.28 Reason for Referral: Hx of dep Patient diagnosis and relevant medical history: DX: The encounter diagnosis was Previous delivery, antepartum condition or complication. Father of baby: MOB did not give father of baby's name. MOB currently , but (not FOB). Language Barriers: n Cultural Barriers: n Ethnicity: White/ Lang: INDONESIAN Patient's Address: [address] [place] [address] [place] [address] Pt's phone number: [phone] (home) Family Support (name and phone) Extended Emergency Contact Information Primary Emergency Contact: Vimal Cueva Mobile Relation: Spouse Alternative Digital Imaging Specialist Family Strengths: MYRTLE is () to Vimal Cueva. MOB stated that she has support at home and the community and feels that he is her biggest support. Family Dynamic/Household Composition/Other children: MYRTLE lives with her 9 year old daughter. Infantwill d/c to this home. Alcohol/Drug/Smoking History (including history of tx): No hx. Psychiatric History: Hx of depression, MOB stated that she believes that she is currently on medication, but does not remember the name. Per chart review, pt is taking Lexapro. She said that she feels that her mood has been a little depressed lately. Discussed PPD and provided information and resources. Encourage MOB to remain in contact with her doctor regarding her current mood and medications.Provided MOMS helpline information. Employment: MYRTLE not employed Education: 9th grade Government assistance TANF (Temporary Assistance to Needy Families)-n Food [place]-y WIC-y SSI-n Insurance: Payor/Plan Subscriber Name Rel Member # Group # [employer] * JACKIE LEE Self [id number] [address] Community Resources Utilized: KRISTIN provided W&I Resource Guide. Designated Lithopress Operator: Dr. Hartley (sp?), at [facility] in [place], [place]. KRISTIN reminded pt to schedule appt prior to d/c Referrals: [facility] for New[facility]-[place], [place] resident Child protection referral-n DFS/DCFS-Name of worker: Phone number: Other- Does the family have the following basic discharge needs? Utilities-y Telephone-y Car seat-y Crib-y Baby clothing-y Tool Machine Shop Supervisor/School: MYRTLE stated that she has natural resources that can provide childcare when needed. Transportation: MYRTLE has transportation and transportation home from the hospital. Family planning: The pt and her WETLANDS CONSERVATION LABORER have discussed family planning. Recommended discharge plan for : Infant will discharge home with mother when medically ready. CHRISTIANO Dc [phone] Disk Operator RSAW SUPERVISOR documented in this encounter Nursing Notes * Cleo Ceja RN - 07/01/2021 11:00 AM CST Jackie continues to mostly formula feed. The last time she breast fed was almost 24 hours ago. Cautioned her that if she does not start more frequently, her milk supply will decrease or her milk may dry up. She plans to use a hand pump to establish her milk supply at home, as well as continue to latch the baby occasionally. Referred her to [employer]'s website to order an electric breast pump through her insurance. Jackie is hoping to be discharged home today. Reminded her to call office phone number provided to her yesterday if she has any questions or concerns. RSAW SUPERVISOR * Janene Crain RN - 06/30/2021 3:39 PM CST This note was copied from a baby's chart. Jackie states baby is latching on well. Assisted with correct hold in cradle position. Encouraged mother to obtain a deep comfortable latch. Discussed the delayed use of bottles and pacifiers recommended to increase her milk supply. Encouraged to latch baby to breast as much as possible. Demonstratedhand expression for the presence of colostrum available to baby. Mother is hoping for early discharge home with baby. Discharge diary reviewed with instructions to monitor output and feeding times over the next few days. Reviewed the expected color and consistency of the stools to note that baby ishaving adequate milk transfer and hydration. Encouraged to call if baby is not having a minimum of 6 wet diapers and 4 stools by day 5. office phone number given to call with concerns or questionsafter discharge.Information given to mother and encouraged to come to the support group meeting on Wednesdays from 10-noon for further support after discharge. Janene Rivas RN., IBCLC RSAW SUPERVISOR * Cleo Ceja RN - 06/29/2021 10:10 AM CST Jackie has been occasionally and giving formula bottles to her baby. She states she breast fed her first baby for about 2 months. She is planning to both breast and formula feed, and states the baby is latching well. Encouraged her to make sure she is prior to every formula bottle so the baby can learn to latch and she can establish her milk supply. Discussed the possible risks that unnecessary formula supplementation can have on success, including her ability to make a full milk supply. Discussed normal sleep/wake patterns for the first 24-48 hours of life. Reviewed feeding on demand and the baby's feeding cues. Discussed the volume and composition of her breastmilk, and assured her that she has all that the baby needs. Discussed signs of an effective latch and adequate hydration to expect over the next few days. Provided phone number, and encouraged her to call for assistance as needed, or with any questions or concerns. RSAW SUPERVISOR documented in this encounter OR Notes * Operative - Azra Dewitt MD - 06/28/2021 4:20 PM CST 06/28/2021 4:20 PM PGY2 Section Operative Report Indications: history of section x1, breech presentation Pre-operative Diagnosis: 31 year old female at 39w3d IUP, indications as above, plus morbidobesity Post-operative Diagnosis: same Procedure: Low Transverse Repeat Section Surgeon: Meir Reese MD Assistants: Azra Dewitt MD; Twila Rodriguez MD; Melody Dyer MD Anesthesia: Spinal Antibiotics: Ancef 3 gm IV Complications: none Findings: Normal appearing gravid uterus, tubes and ovaries. Minimal intrafascial disease. No evidence of intraabdominal adhesions. Information for the patient's : Heladio Lee [[id number]] Date of 06/28/2021 Time of : 3:29 PM Sex: Female Weight: 3430 g (7 lb 9 oz) (1 min): 7 (5 min): 9 (10 min): Cord Blood Gas, Arterial: pH 7.29, Base excess -0.3 Cord Blood Gas, Venous: pH 7.37, Base excess -1.5 Measured Blood Loss: 600 mL Drains: Huang catheter Total IV Fluids: 2000 mL UOP: 100 mL Procedure: The patient was taken to the operating room after informed consent was given. After induction of spinal anesthesia, patient was placed in dorsal supine position with left lateral tilt. heart tones were doppled and were noted to be around 130 bpm. The patient was prepped and draped in the usual sterile manner. A time out was held and the patient's name and the procedure was confirmed. Adequacy of anesthesia was confirmed. A Pfannenstiel incision was made and carried down through the subcutaneous tissue to the fascia. Fascial incision was made and extended transversely with the Tyson scissors. Kochers were used to graspthe superior aspect of the incision which was tented upward and the underlying rectus muscles dissected off bluntly and sharply. Attention was then turned to the inferior aspect of the incision whichin a similar fashion was tented upward and the underlying rectus muscles dissected off bluntly and sharply. Midline of the rectus muscles were identified and the peritoneum entered bluntly and the muscles laterally manually. Peritoneal incision was extended longitudinally. The bladder blade was inserted and the lower uterine segment identified. Peon clamp used to grasp the vesicouterineperitoneum which was incised with Metzenbaum scissors and the bladder flap bluntly freed from the lower uterine segment. Bladder blade was then reinserted. A low transverse uterine incision was made. A 3430 gram infant delivered from a breech presentation: Posterior hip spontaneously delivered followed by anterior hip and legs. bony pelvis was grasped with both hands using a sterile towel (fingers resting on the superior iliac crest and thumbs on the sacrum). Gentle downward traction applied until level of the scapula were visible. The first axilla was visible and the anterior shoulder and arm were delivered, the fetus was rotated to deliverthe other shoulder and arm. The head was then delivered by maintaining flexion with pressure on the maxilla by the bullet slug casting machine operator (Xmujmyssl-Bsyxuqe-Iodt maneuver). Infant delivered with scoresof 7 at one minute and 9 at five minutes. After the umbilical cord was doubly clamped and cut, cordblood was obtained for evaluation. The placenta was removed intact and appeared normal. The uterus was exteriorized and cleaned of all clots and debris. The uterine outline, tubes and ovaries appeared normal. The uterine incision was closed with running locked sutures of 0-vicryl. An imbricating lay er was added using 0-monocryl. The uterus was internalized. Hemostasis was observed. The fascia wasthen reapproximated with running sutures of 0-looped PDS. Subcutaneous adipose tissue was reapproximated and closed with 2 layers of running sutures of 2-0 plain gut. The skin was reapproximated with4-0 monocryl in a running subcuticular fashion. Prevena wound vac was applied over incision. Instrument, sponge, and needle counts were correct prior the abdominal closure and at the conclusion of the case. Patient was taken to the recovery room in a stable condition. Dr. Reese was presentand scrubbed for all mcneal portions of the procedure. Azra Dewitt MD 06/28/2021 4:20 PM RSAW SUPERVISOR Associated attestation - Meir Reese DO - 06/28/2021 4:43 PM POWERSAW SUPERVISOR MARIELLA attending: I was present during the entire procedure. She underwent a successful repeat LTCS via pfannenstiel skin incision. No complications nor difficulties. Good hemostasis. Meir Reese DO MFM on service documented in this encounter Plan of Treatment Not on file documented as of this encounter Procedures Procedure Name Priority Date/Time Associated Diagnosis Comments COMPREHENSIVE METABOLIC PANEL Routine 06/29/2021 1:53 PM POWERSAW SUPERVISOR CBC W/O DIFFERENTIAL AM Draw 06/29/2021 4:21 AM POWERSAW SUPERVISOR BLOOD GASES CORD HECTOR RT STAT 06/28/2021 3:39 PM POWERSAW SUPERVISOR BLOOD GASES CORD ARTERIAL RT STAT 06/28/2021 3:39 PM POWERSAW SUPERVISOR SECTION (EMERGENCY) 06/28/2021 2:45 PM POWERSAW SUPERVISOR BLOOD TYPE VERIFICATION Routine 06/28/2021 2:05 PM POWERSAW SUPERVISOR SYPHILIS ANTIBODY CASCADING REFLEX Routine 06/28/2021 1:26 PM POWERSAW SUPERVISOR TYPE + SCREEN PANEL STAT 06/28/2021 1 :26 PM POWERSAW SUPERVISOR CBC W AUTO DIFFERENTIAL STAT 06/28/2021 1:26 PM POWERSAW SUPERVISOR Previous delivery, antepartum condition or complication (HCC) GLUCOSE - POINT OF CARE Routine 06/28/2021 1:08 PM POWERSAW SUPERVISOR documented in this encounter Results * (ABNORMAL) COMPREHENSIVE METABOLIC PANEL (06/29/2021 1:53 PM POWERSAW SUPERVISOR) Glucose 62(L) 70 - 105 mg/dL 06/29/2021 2:21 PM POWERSAW SUPERVISOR [facility] Sodium 136 136 - 145 mmol/L 06/29/2021 2:21 PM POWERSAW SUPERVISOR [facility] Potassium 4.1 3.5 - 5.1 mmol/L 06/29/2021 2:21 PM POWERSAW SUPERVISOR [facility] Chloride 108(H) 98 - 107 mmol/L 06/29/2021 2:21 PM POWERSAW SUPERVISOR [facility] CO2 20(L) 23 - 31 mmol/L 06/29/2021 2:21 PM POWERSAW SUPERVISOR [facility] Calcium 8.5 8.4 - 10.4 mg/dL 06/29/2021 2:21 PM POWERSAW SUPERVISOR [facility] Anion Gap 8 8 - 18 mmol/L 06/29/2021 2:[address] [facility] BUN 6(L) 7 - 18.7 mg/dL 06/29/2021 2:[address] [facility] Creatinine 0.62 0.57 - 1.11 mg/dL 06/29/2021 2:[address] [facility] eGFR by CKD-EPI >90 >=90 mL/min/1.7 3 m2 06/29/2021 2:[address] [facility] Alkaline Phosphatase 129 40 - 150 U/L 06/29/2021 2:[address] [facility] ALT 34 0 - 61 U/L 06/29/2021 2:[address] [facility] AST 36(H) 5 - 34 U/L 06/29/2021 2:[address] [facility] Protein Total 6.6 6.4 - 8.3 gm/dL 06/29/2021 2:[address] [facility] Albumin 2.8(L) 3.5 - 5.2 gm/dL 06/29/2021 2:[address] [facility] Bilirubin Total 0.5 0.2 - 1.2 mg/dL 06/29/2021 2:[address] [facility] Blood BLOOD SPECIMEN / Unknown Lab Venipuncture / Unknown 06/29/2021 1:53 PM [employer]W [employer]PER[employer] 06/29/2021 2:00 PM [employer]W SUPER[employer] [facility] - 06/29/2021 2:21 PM [employer]W SUPERVISOR eGFR result was calculated using the updated CKD-EPI Creatinine Equations (2020). Prior to go live 2021 the eGFR was calculated using the MDRD calculation. Please note Reference Range change. Gloria Thacker APRN-MANAGER [facility] LAB - CHEMISTRY OR DERABLES [facility] [address] [place] [address] * (ABNORMAL) CBC W/O DIFFERENTIAL (06/29/2021 4:21 AM POWERSAW SUPERVISOR) [facility] WBC 8.6 4.4 - 10.7 x10E9/L 06/29/2021 5:[address] [facility] RBC 3.71(L) 3.80 - 5.20 x10E12/L 06/29/2021 5:[address] [facility] Hemoglobin 10.3(L) 12.0 - 15.6 gm/dL 06/29/2021 5:[address] [facility] Hematocrit 32.9(L) 35.9 - 45.5 % 06/29/2021 5:[address] [facility] MCV 88.7 80.7 - 98.3 fl 06/29/2021 5:[address] [facility] MCH 27.8 26.7 - 34.0 pg 06/29/2021 5:[address] [facility] MCHC 31.3 30.8 - 35.9 gm/dL 06/29/2021 5:[address] [facility] Platelet Count 203 153 - 416 x10E9/L 06/29/2021 5:[address] [facility] RDW-CV 13.2 12.1 - 14.9 % 06/29/2021 5:[address] [facility] MPV 10.4 9.4 - 12.9 fl 06/29/2021 5:[address] [facility] Blood BLOOD SPECIMEN / Unknown Lab Venipuncture / Unknown 06/29/2021 4:21 AM P[employer]W SUPER[employer]OR 06/29/2021 5:13 AM [employer]W SUPERVISOR Meir Reese DO LAB - HEMATOLOGY ORD ERABLES Performing Organization Address City/State/[facility] Co de Phone Number [facility] [address] [place] [address] * BLOOD GASES CORD HECTOR (06/28/2021 3:39 PM POWERSAW SUPERVISOR) pH Cord Venous 7.37 7.28 - 7.40 pH 06/28/2021 3:48 PM POWER[employer]W SUPERVISOR [facility] pCO2 Cord Venous 41 35 - 45 mm hg 06/28/2021 3:48 PM P[employer]W SUPER[employer]OR [facility] pO2 Cord Venous 26 22 - 33 mm hg 06/28/2021 3:48 PM POWER[employer]W SUPERVISOR [facility] HCO3 Cord Venous 24 22 - 24 mmol/L 06/28/2021 3:48 PM POWER[employer]W SUPERVISOR [facility] BE Cord Venous -1.5 mmol/L 06/28/2021 3:48 PM POWER[employer]W SUPER[employer]OR [facility] O2 Saturation Cord Venous 65 % 06/28/2021 3:48 PM POWERSAW SUPERVISOR [facility] Cotton Factor ID SeverianoelianaPal 06/28/2021 3:48 PM POWERSAW SUPERVISOR [facility] Blood CORD BLOOD SPECIMEN / Unknown 06/28/2021 3:39 PM P[employer]W SUPERVISOR 06/28/2021 3:39 PM POWER[employer]W SUPERVISOR Meir Reese DO LAB - BLOOD GASES OR DERABLES [facility] [address] [phone] * (ABNORMAL) BLOOD GASES CORD ARTERIAL (06/28/2021 3:39 PM POWERSAW SUPERVISOR) pH Cord Arterial 7.29 7.20 - 7.34 pH 06/28/2021 3:45 PM POWERSAW SUPERVISOR [facility] pCO2 Cord Arterial 57(H) 45 - 55 mm hg 06/28/2021 3:45 PM POWER[employer]W SUPERVISOR [facility] pO2 Cord Arterial <7(LL) 12 - 25 mm hg 06/28/2021 3:45 PM POWERSAW SUPERVISOR [facility] Comment:<^Outside Reportable Range HCO3 Cord Arterial 27.4(H) 22.0 - 24.0 mmol/L 06/28/2021 3:45 PM POWERSAW SUPERVISOR [facility] BE Cord Arterial -0.3 mmol/L 06/28/19 3:45 PM POWERSAW SUPERVISOR [facility] O2 Saturation Cord Arterial 15 % 06/28/2021 3:45 PM POWER[employer]W SUPERVISOR [facility] Sample Site UMB 06/28/2021 3:45 PM POWERSAW SUPERVISOR [facility] Cotton Factor ID Aimee Ritchie celestino 06/28/2021 3:45 PM POWER[employer]W SUPERVISOR [facility] Notified Who CHELITA SMART RN 06/28/2021 3:45 PM POWERSAW SUPERVISOR [facility] Notification Time 1624 022 3:45 PM POWERSAW SUPERVISOR [facility] Notified By NADEGE 06/28/2021 3:45 PM POWERSAW SUPERVISOR [facility] Blood, arterial CORD BLOOD SPECIMEN / Unknown 06/28/2021 3:39 PM POWERSAW SUPERVISOR 06/28/2021 3:39 PM POWER[employer]W SUPERVISOR Meir Reese DO LAB - BLOOD GASES OR DERABLES Performing Organization Address [facility] Co de Phone Number [facility] [address] [place] [address] * BLOOD TYPE VERIFICATION (06/28/2021 2:05 PM POWERSAW SUPERVISOR) Pathologist [facility] ABO Rh O POS 06/28/2021 2:33 PM POWERSAW SUPERVISOR [facility] Comment:History checked. Blood Bank BLOOD SPECIMEN / Unknown Venipuncture / Unknown 06/28/2021 2:05 PM POWERSAW SUPERVISOR 06/28/2021 2:12 PM POWER[employer]W SUPERVISOR Meir Reese DO LAB - BLOOD BANK ORD ERABLES Performing Organization Address [facility] Co de Phone Number [facility] [address] [place] [address] * SYPHILIS ANTIBODY CASCADING REFLEX (06/28/2021 1:26 PM POWERSAW SUPERVISOR) Pathologist [facility] Treponema pallidum Antibody Non Reactive Non Reactive 06/28/2021 2:25 PM POWERSAW SUPERVISOR [facility] Comment: No Laboratory evidence of syphilis infection. ?? Note: ??Circulating antibodies may be low or undetectable in early infection. ??If recent exposure is suspected, re-draw sample in 2-4 weeks and repeat testing. Blood BLOOD SPECIMEN / Unknown Venipuncture / Unknown 06/28/2021 1:26 PM POWERSAW SUPERVISOR 06/28/2021 1:34 PM POWERSAW SUPERVISOR Meir Reese DO LAB - SEROLOGY ORDER JOSIAH Performing Organization Address [facility] Co de Phone Number [facility] [address] [place] [address] * (ABNORMAL) CBC W AUTO DIFFERENTIAL (06/28/2021 1:26 PM POWERSAW SUPERVISOR) Pathologist [facility] WBC 8.3 4.4 - 10.7 x10E9/L 06/28/2021 1:48 PM POWERSAW SUPERVISOR [facility] WBC Corrected 06/28/2021 1:48 PM POWERSAW SUPERVISOR [facility] RBC 4.21 3.80 - 5.20 x10E12/L 06/28/2021 1:[address] [facility] Hemoglobin 11.6(L) 12.0 - 15.6 gm/dL 06/28/2021 1:[address] [facility] Hematocrit 36.9 35.9 - 45.5 % 06/28/2021 1:[address] [facility] MCV 87.6 80.7 - 98.3 fl 06/28/2021 1:[address] [facility] MCH 27.6 26.7 - 34.0 pg 06/28/2021 1:[address] [facility] MCHC 31.4 30.8 - 35.9 gm/dL 06/28/2021 1:[address] [facility] Platelet Count 239 153 - 416 x10E9/L 06/28/2021 1:[address] [facility] RDW-CV 13.1 12.1 - 14.9 % 06/28/2021 1:[address] [facility] MPV 10.4 9.4 - 12.9 fl 06/28/2021 1:[address] [facility] Neutrophils % 70.6 44.0 - 73.0 % 06/28/2021 1:[address] [facility] Lymphocytes % 23.7 20.0 - 43.0 % 06/28/2021 1:[address] [facility] Monocytes % 4.2(L) 5.0 - 13.0 % 06/28/2021 1:[address] [facility] Eosinophils % 0.7 0.0 - 6.0 % 06/28/2021 1:[address] [facility] Basophils % 0.4 0.0 - 2.0 % 06/28/2021 1:[address] [facility] Immature Granulocytes 0.4 0 - 1 % 06/28/2021 1:[address] [facility] Neutrophil Absolute 5.87 2.01 - 7.14 x10E9/L 06/28/2021 1:[address] [facility] Lymphocytes Absolute 1.97 1.07 - 3.94 x10E9/L 06/28/2021 1:[address] [facility] Monocytes Absolute 0.35 0.26 - 1.07 x10E9/L 06/28/2021 1:48 PM POWERSAW SUPERVISOR [facility] Eosinophils Absolute 0.06 0 - 0.47 x10E9/L 06/28/2021 1:48 PM POWERSAW SUPERVISOR [facility] Basophils Absolute 0.03 0 - 0.08 x10E9/L 06/28/2021 1:48 PM POWERSAW SUPERVISOR [facility] Immature Granulocytes Absolute 0.03 0.00 - 0.06 x10E9/L 06/28/2021 1:48 PM POWERSAW SUPERVISOR [facility] nRBC Auto 0 /100 WBC 06/28/2021 1:48 PM POWERSAW SUPERVISOR [facility] Blood BLOOD SPECIMEN / Unknown Venipuncture / Unknown 06/28/2021 1:26 PM POWERSAW SUPERVISOR 06/28/2021 1:34 PM POWERSAW SUPERVISOR Meir Reese LAB - HEMATOLOGY ORD ERABLES [facility] [address] [place] [address] * TYPE + SCREEN PANEL (All SS except [facility]) (06/28/2021 1:26 PM POWERSAW SUPERVISOR) ABO Rh O POS 06/28/2021 2:18 PM POWERSAW SUPERVISOR [facility] Comment:No history; collect retype. Antibody Screen NEG 2:18 PM POWERSAW SUPERVISOR [facility] Blood Bank BLOOD SPECIMEN / Unknown Venipuncture / Unknown 06/28/2021 1:26 PM POWERSAW SUPERVISOR 06/28/2021 1:34 PM POWERSAW SUPERVISOR Meir Reese DO LAB - BLOOD BANK ORD ERABLES [facility] [address] [place] [address] * GLUCOSE - POINT OF CARE (06/28/2021 1:08 PM POWERSAW SUPERVISOR) Glucose WB/POC 70 70 - 106 mg/dL 06/28/2021 1:31 PM POWERSAW SUPERVISOR [facility] Specimen Type Venous 06/28/2021 1:31 PM POWERSAW SUPERVISOR [facility] Blood BLOOD SPECIMEN / Unknown 06/28/2021 1:08 PM POWERSAW SUPERVISOR 06/28/2021 1:31 PM POWERSAW SUPERVISOR Meir Reese DO LAB - POINT OF CARE ORDERABLES [facility] [address] [place] [address] documented in this encounter Visit Diagnoses Not on filedocumented in this encounter Administered Medications Inactive Administered Medications - up to 3 most recent administrations Medication Order MAR Action Action Date Dose Rate Site acetaminophen (Tylenol) tablet 650 mg 650 mg, Oral, EVERY 6 HOURS, First dose on Mon06/28/21 at 1845, Until Discontinued, Patient preference for lesser PRN pain meds may be honored when the patient requests a less strong medication, a lower dose, or a less intrusive route of administration when the lesser drug, dose and route have been ordered for the patient. This patient request must be documented in the MAR., $ Given 07/01/2021 9:42 AM POWERSAW SUPERVISOR 650 mg $ Given 07/01/2021 2:37 AM POWERSAW SUPERVISOR 650 mg $ Given 06/30/2021 8:30 PM POWERSAW SUPERVISOR 650 mg docusate sodium (Colace) capsule 100 mg 100 mg, Oral, 2 TIMES DAILY, First dose on Mon06/28/21 at 2100, Until Discontinued, $ Given 07/01/2021 9:42 AM POWERSAW SUPERVISOR 100 mg $ Given 06/30/2021 9:22 PM POWERSAW SUPERVISOR 100 mg $ Given 06/30/2021 9:39 AM POWERSAW SUPERVISOR 100 mg enoxaparin (Lovenox) injection 90 mg 90 mg (rounded from 94.6 mg = 0.5 mg/kg ? 189.2 kg), Subcutaneous, EVERY 12 HOURS, First dose (after last modification) on Mon06/29/21 at 0900, Until Discontinued, Antepartum/Intrapartum: Minimum time periods between discontinuing antepartum anticoagulation and performing neuraxial blockade. - Wait at least 12 hours post last dose prior to neuraxial blockade : Minimum time periods between neuraxial block or epidural catheter removal and first dose of anticoagulant - After neuraxial blockade: Wait at least 12 hours before first dose - for patients receiving post- epidural analgesia: Wait at least 4 hours after catheter removal (provided that 12 hours has elapsed since section) Remind Patient to not rub injection site. Could cause hematoma., $ Given 07/01/2021 9:42 AM POWERSAW SUPERVISOR 90 mg Abd Right Lower Quadrant $ Given 06/30/2021 9:23 PM POWERSAW SUPERVISOR 90 mg Ab dominal Tissue $ Given 06/30/2021 9:39 AM POWERSAW SUPERVISOR 90 mg Ab d Left Lower Quadrant escitalopram (Lexapro) tablet 10 mg 10 mg, Oral, DAILY, First dose on Mon06/28/21 at 1345, Until Discontinued $ Given 07/01/2021 9:42 AM POWERSAW SUPERVISOR 10 mg $ Given 06/30/2021 9:39 AM POWERSAW SUPERVISOR 10 mg $ Given 06/29/2021 8:40 AM POWERSAW SUPERVISOR 10 mg ibuprofen (Motrin) tablet 600 mg 600 mg, Oral, EVERY 6 HOURS, First dose on Mon06/29/21 at 0330, Until Discontinued, Maximum allowable amount = 3200 mg / 24 hours. Patient preference for lesser PRN pain meds may be honored when the patient requests a less strong medication, a lower dose, or a less intrusive route of administration when the lesser drug, dose and route have been ordered for the patient. This patient request must be documented in the MAR. $ Given 07/01/2021 1:27 PM POWERSAW SUPERVISOR 600 mg $ Given 07/01/2021 6:32 AM POWERSAW SUPERVISOR 600 mg $ Given 07/01/2021 1:01 AM POWERSAW SUPERVISOR 600 mg iron polysaccharides (Niferex 150) capsule 150 mg 150 mg, Oral, DAILY, First dose on Mon06/29/21 at 1100, Until Discontinued $ Given 07/01/2021 9:42 AM POWERSAW SUPERVISOR 150 mg $ Given 06/30/2021 9:39 AM POWERSAW SUPERVISOR 150 mg $ Given 06/29/2021 12:22 PM POWERSAW SUPERVISOR 150 mg oxyCODONE (immediate release) (Roxicodone) tablet 10 mg 10 mg, Oral, EVERY 4 HOURS PRN, Severe Pain, Starting on Mon06/28/21 at 1835, Until Mon07/01/21 at 1943, Patient preference for lesser PRN pain meds may be honored when the patient requests a less strong medication, a lower dose, or a less intrusive route of administration when the lesser drug, dose and route have been ordered for the patient. This patient request must be documented in the MAR., $ Given 06/30/2021 9:33 PM POWERSAW SUPERVISOR 10 mg $ Given 06/29/2021 1:53 PM POWERSAW SUPERVISOR 10 mg $ Given 06/29/2021 6:04 AM POWERSAW SUPERVISOR 10 mg vitamin with iron tablet 1 tablet 1 tablet, Oral, DAILY, First dose on Mon06/28/21 at 1845, Until Discontinued, $ Given 07/01/2021 9:42 AM POWERSAW SUPERVISOR 1 tablet $ Given 06/30/2021 9:39 AM POWERSAW SUPERVISOR 1 tablet $ Given 06/29/2021 8:40 AM POWERSAW SUPERVISOR 1 tablet documented in this encounter Active and Recently Administered Medications Times are shown in POWERSAW SUPERVISOR. Scheduled Medication Order 06/29/2021 06/30/2021 07/01/2021 *Hold/Avoid Anticoagulants and Antiplatelet agents EVERY 12 HOURS (08 and 20), First dose on Mon06/28/21 at 2000, Until Discontinued, SPINAL/EPIDURAL ANTIPLATELET/ANTICOAGULA NT PRECAUTIONS: Hold/avoid antiplatelet agents. Give NO anticoagulants in the first 4 hours after spinal analgesia or epidural catheter placement or removal. If an epidural catheter is in place and has been in place for 4 or more hours, prophylactic doses of anticoagulants (enoxaparin 30mg or 40mg once daily or subcutaneous heparin 5,000 units twice daily) may be given. IF PATIENT IS RECEIVING AN ANTICOAGULANT, CONTACT ANESTHESIA PRIOR TO REMOVING EPIDURAL CATHETER. 725 (*Reviewed - Provider: Danay Boston RN)1942 (*Reviewed - Provider: Jojo Baker RN) 0938 (*Reviewed - Provider: Mary Jane Hudson RN)2030 (*Reviewed - Provider: Vangie Weinstein LPN) 0940 (*Reviewed - Provider: Mary Jane Hudson RN) *Hold/Avoid Medication EVERY 12 HOURS (08 and 20), First dose on Mon06/28/21 at 2000, Until Discontinued, SPINAL/EPIDURAL NEURAXIAL NARCOTIC ANALGESIA PRECAUTIONS: Hold/avoid sedatives (including benzodiazepines) and narcotics except as ordered by anesthesia. 07 (*Reviewed - Provider: Danay Boston RN)1942 (*Reviewed - Provider: Jojo Baker RN) 0938 (*Reviewed - Provider: Mary Jane Hudson RN)2031 (*Reviewed - Provider: Vangie Weinstein LPN) 0940 (*Reviewed - Provider: Mary Jane Hudson RN) acetaminophen (Tylenol) tablet 650 mg 650 mg, Oral, EVERY 6 HOURS, First dose on Mon06/28/21 at 1845, Until Discontinued, Patient preference for lesser PRN pain meds may be honored when the patient requests a less strong medication, a lower dose, or a less intrusive route of administration when the lesser drug, dose and route have been ordered for the patient. This patient request must be documented in the MAR., 0237 ($ Given - Provider: Jojo Baker RN)0840 ($ Given - Provider: Danay Boston RN)1513 ($ Given - Provider: Danay Boston RN)205 ($ Given - Provider: Jojo Baker RN) 0258 ($ Given - Provider: Jojo Baker RN)0939 ($ Given - Provider: Mary Jane Hudson RN)1712 (Not Administered - Provider: Mary Jane Hudson RN - Reason: Refused-Patient)2030 ($ Given - Provider: Vangie Weinstein LPN) 0237 ($ Given - Provider: Vangie Weinstein LPN)0942 ($ Given - Provider: Mary Jane Hudson RN)1548 (Not Administered - Provider: Mary Jane Hudson RN - Reason: Refused-Patient) docusate sodium (Colace) capsule 100 mg 100 mg, Oral, 2 TIMES DAILY, First dose on Mon06/28/21 at 2100, Until Discontinued, 0840 ($ Given - Provider: Danay Boston RN)205 ($ Given - Provider: Jojo Baker RN) 0939 ($ Given - Provider: Mary Jane Hudson RN)2122 ($ Given - Provider: Vangie Weinstein LPN) 0942 ($ Given - Provider: Mary Jane Hudson RN) enoxaparin (Lovenox) injection 90 mg 90 mg (rounded from 94.6 mg = 0.5 mg/kg ? 189.2 kg), Subcutaneous, EVERY 12 HOURS, First dose (after last modification) on Mon06/29/21 at 0900, Until Discontinued, Antepartum/Intrapartum: Minimum time periods between discontinuing antepartum anticoagulation and performing neuraxial blockade. - Wait at least 12 hours post last dose prior to neuraxial blockade : Minimum time periods between neuraxial block or epidural catheter removal and first dose of anticoagulant - After neuraxial blockade: Wait at least 12 hours before first dose - for patients receiving post- epidural analgesia: Wait at least 4 hours after catheter removal (provided that 12 hours has elapsed since section) Remind Patient to not rub injection site. Could cause hematoma., 09 ($ Given - Provider: Danay Boston RN)2053 ($ Given - Provider: Jojo Baker RN) 0939 ($ Given - Provider: Mary Jane Hudson RN)2123 ($ Given - Provider: Vangie Weinstein LPN) 0942 ($ Given - Provider: Mary Jane Hudson RN) escitalopram (Lexapro) tablet 10 mg 10 mg, Oral, DAILY, First dose on Mon06/28/21 at 1345, Until Discontinued 0840 ($ Given - Provider: Danay Boston RN) 0939 ($ Given - Provider: Mary Jane Hudson RN) 0942 ($ Given - Provider: Mary Jane Hudson RN) ibuprofen (Motrin) tablet 600 mg 600 mg, Oral, EVERY 6 HOURS, First dose on Mon06/29/21 at 0330, Until Discontinued, Maximum allowable amount = 3200 mg / 24 hours. Patient preference for lesser PRN pain meds may be honored when the patient requests a less strong medication, a lower dose, or a less intrusive route of administration when the lesser drug, dose and route have been ordered for the patient. This patient request must be documented in the MAR. 0326 ($ Given - Provider: Jojo Baker RN)0939 ($ Given - Provider: Danay Boston RN)1513 ($ Given - Provider: Danay Boston RN)2053 ($ Given - Provider: Jooj Baker RN) 0258 ($ Given - Provider: Jojo Baker RN)0939 ($ Given - Provider: Mary Jane Hudson RN)1916 ($ Given - Provider: Mary Jane Hudson RN) 0101 ($ Given - Provider: Vangie Weinstein LPN)0632 ($ Given - Provider: Vangie Weinstein LPN)1327 ($ Given - Provider: Mary Jane Hudson RN) iron polysaccharides (Niferex 150) capsule 150 mg 150 mg, Oral, DAILY, First dose on Mon06/29/21 at 1100, Until Discontinued 1222 ($ Given - Provider: Danay Boston RN) 0939 ($ Given - Provider: Mary Jane Hudson RN) 0942 ($ Given - Provider: Mary Jane Hudson RN) vitamin with iron tablet 1 tablet 1 tablet, Oral, DAILY, First dose on Mon06/28/21 at 1845, Until Discontinued, 0840 ($ Given - Provider: Danay Boston RN) 0939 ($ Given - Provider: Mary Jane Hudson RN) 0942 ($ Given - Provider: Mary Jane Hudson RN) Continuous Medication Order 06/29/2021 06/30/2021 07/01/2021 lactated ringers infusion at 125 mL/hr, Intravenous, CONTINUOUS, Starting on Mon06/28/21 at 1845, Until Lexi 07/01/21 at 1943, May discontinue IV when taking PO and afebrile., PRN Medication Order 06/29/2021 06/30/2021 07/01/2021 HYDROmorphone (Dilaudid) injection 0.5 mg 0.5 mg, Intravenous, EVERY 3 HOURS PRN, Moderate Pain, moderate pain, Starting on Mon06/28/21 at 1517, Until Lexi 07/01/21 at 1943, Patient preference for lesser PRN pain meds may be honored when the patient requests a less strong medication, a lower dose, or a less intrusive route of administration when the lesser drug, dose and route have been ordered for the patient. This patient request must be documented in the MAR. lanolin topical Topical, PRN, Sore or cracked nipples., Starting on Mon06/28/21 at 1835, Until Lexi 07/01/21 at 1943, Apply purified Lanolin to sore or cracked nipples, if needed. May keep at bedside., morphine injection 2 mg 2 mg, Intravenous, EVERY 4 HOURS PRN, Severe Pain, Starting on Mon06/28/21 at 1835, Until Lexi 07/01/21 at 1943, If oral route is unavailable Patient preference for lesser PRN pain meds may be honored when the patient requests a less strong medication, a lower dose, or a less intrusive route of administration when the lesser drug, dose and route have been ordered for the patient. This patient request must be documented in the MAR., naloxone (Narcan) injection 0.2 mg 0.2 mg, Intravenous, PRN, Other, respiratory rate less than 8 OR difficult to arouse, Starting on Mon06/28/21 at 1517, Until Leix 07/01/21 at 1943, For respiratory rate LESS than 8 per minute OR difficult to arouse ondansetron (disintegrating) (Zofran ODT) tablet 4 mg 4 mg, Oral, EVERY 6 HOURS PRN, Nausea/Vomiting, Starting on Mon06/28/21 at 1835, Until Lexi 07/01/21 at 1943, Dissolved orally on tongue Dissolved orally on tongue, oxyCODONE (immediate release) (Roxicodone) tablet 10 mg 10 mg, Oral, EVERY 4 HOURS PRN, Severe Pain, Starting on Mon06/28/21 at 1835, Until Lexi 07/01/21 at 1943, Patient preference for lesser PRN pain meds may be honored when the patient requests a less strong medication, a lower dose, or a less intrusive route of administration when the lesser drug, dose and route have been ordered for the patient. This patient request must be documented in the MAR., 0604 ($ Given - Provider: Jojo Baker RN)1353 ($ Given - Provider: Danay Boston RN) 2133 ($ Given - Provider: Vangie Weinstein LPN) oxyCODONE (immediate release) (Roxicodone) tablet 5 mg 5 mg, Oral, EVERY 4 HOURS PRN, Moderate Pain, Starting on Mon06/28/21 at 1835, Until Lexi 07/01/21 at 1943, Patient preference for lesser PRN pain meds may be honored when the patient requests a less strong medication, a lower dose, or a less intrusive route of administration when the lesser drug, dose and route have been ordered for the patient. This patient request must be documented in the MAR., polyethylene glycol 3350 (Miralax) packet 17 g 17 g, Oral, DAILY PRN, Constipation, Starting on Mon06/28/21 at 1835, Until Lexi 07/01/21 at 1943, Mix in 8 ounces of water, juice, soda, coffee or tea prior to administration, simethicone (Mylicon) chew tablet 160 mg 160 mg, Oral, QID PRN (after meals and at bedtime), Gas Pain, Starting on Mon06/28/21 at 1835, Until Lexi 07/01/21 at 1943, tranexamic acid (Cyklokapron) injection 1,000 mg 1,000 mg, Intravenous, ONCE PRN, OB Hemorrhage, 1 dose, Starting on Mon06/28/21 at 1323, Until Lexi 07/01/21 at 1943, Given by Anesthesia if available otherwise nurse may give IV push over 10 minutes., Pre-op tranexamic acid (Cyklokapron) injection 1,000 mg 1,000 mg, Intravenous, ONCE PRN, OB Hemorrhage, 1 dose, Starting on Mon06/28/21 at 1835, Until Lexi 07/01/21 at 1943, Given by Anesthesia if available otherwise nurse may give IV push over 10 minutes., documented in this encounter
--- OUTSIDE RECORDS SUMMARY | 2024-05-04 14:55 | XMS_ITS | Encounter Summary ---
Author Organization [facility] Address [address] [place] [address] Care Team Providers Care Driver Merchandiser Name Role Phone Unavailable Primary Care Provider Unavailabl e Reason for Visit * Reason Onset Date Comments Diabetes Focus Follow-up 05/31/2021 Encounter Details Date Type Department Care Team (Late st Contact Info) Description 05/31/2021 Telephone [facility] MATERNAL/ EVALUATION UNIT [address] [place] [address]/LD Diabetes Focus Follow-up Social History Tobacco Use Types Packs/Day Years Used Date Smoking Tobacco: Never Smokeless Tobacco: Never Alcohol Use Standard Drinks/Week Comments No 0 (1 standard drink = 0.6 oz pur e alcohol) Sex and Gender Information Value Date Recorded Sex Assigned at Not on file Gender Identity Not on file Sexual Orientation Not on file documented as of this encounter Miscellaneous Notes * Telephone Encounter - Kayleigh Denny RD/LD - 05/31/2021 2:58 PM CST Patient was scheduled for HROB visit today- she did not show. E-mailed patient requesting for her to send in blood glucose logs for review with [facility] provider. Awaiting reply. 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
--- OUTSIDE RECORDS SUMMARY | 2024-05-04 14:55 | XMS_ITS | Encounter Summary ---
Author Organization [facility] Address [address] [place] [address] Care Team Providers Care Weight Trainer Name Role Phone Unavailable Primary Care Provider Unavailabl e Reason for Visit * Reason Comments Ultrasound * Auth/Cert Specialty Diagnoses / Procedures Referred By Contac t Referred To Contact Referral ID Status Reason Start Date Expiration Date Visits Re quested Visits Authorized [id number] 1 1 Encounter Details Date Type Department Care Team (Latest Contact Info) Description 06/28/2021 9:50 AM SKOOG MACHINE OPERATOR - 06/28/2021 12:32 PM SKOOG MACHINE OPERATOR Hospital Encounter [facility] MATERNAL/ EVALUATION UNIT [address] [place] [address] Kelle Brown MD [address] [facility] [place] [address] Discharge Disposition: Home or Self Care Social History Tobacco Use Types Packs/Day Years Used Date Smoking Tobacco: Never Smokeless Tobacco: Never Alcohol Use Standard Drinks/Week Comments No 0 (1 standard drink = 0.6 oz pur e alcohol) Sex and Gender Information Value Date Recorded Sex Assigned at Not on file Gender Identity Not on file Sexual Orientation Not on file documented as of this encounter Functional Status Functional Status Response [...] No 06/28/2021 documented as of this encounter Medications at Time of Discharge Medication Sig Dispensed Refills Start Date End Date acyclovir (ZOVIRAX) 400 MG tablet Take 1 (one) tablet by mouth 3 times daily 90 tablet 2 05/24/2021 cetirizine (ZYRTEC) 10 MG tabletIndications:Seaso nal Allergic Rhinitis Take 10 mg by mouth [...] Take 1 tablet by mouth once daily aspirin (ASPIRIN) 81 MG chew tablet Take 81 mg by mouth once daily 07/01/2021 blood glucose (ONETOUCH VERIO) test strip To monitor blood glucose (sugar) 4x daily- fasting and 1 hour after meals 150 strip 5 05/24/2021 07/01/2021 ferrous sulfate 325 (65 FE) MG tablet Take 325 mg by mouth once daily 07/01/2021 folic acid (FOLVITE) 1 MG tabletIndications:Neura l Tube Defect Take 4 mg by mouth once daily Reasons: Defects of the Neural Tube 07/01/2021 Lancets (ONETOUCH DELICA PLUS 33G EXTRA FINE LANCET) To monitor blood glucose (sugar) 4x daily- fasting and 1 hour after meals 100 Each 5 05/24/2021 07/01/2021 ondansetron (ZOFRAN) 4 MG tablet Take 4 mg by mouth every 6 hours as needed for Nausea/Vomiting 07/01/2021 Progesterone 100 MG capsule Take 100 mg by mouth 2 times daily 07/01/2021 documented as of this encounter Plan of Treatment Not on file documented as of this encounter Procedures Procedure Name Priority Date/Time Associated Diagnosis Comments SONOGRAM - COMPLETE Routine 06/28/2021 1 0:41 AM SKOOG MACHINE OPERATOR Morbid obesity with body mass index (BMI) of 60.0 to 69.9 in adult (HCC) documented in this encounter Results * SONOGRAM - COMPLETE (06/28/2021 10:41 AM SKOOG MACHINE OPERATOR) Anatomical Region Laterality Modality Other 06/28/2021 10:4 1 AM SKOOG MACHINE OPERATOR Narrative 06/28/2021 11:12 AM SKOOG MACHINE OPERATOR ? [facility] ?PHONE: ??FAX: Pat. Name: ?JACKIE BETTENCOURT. No: ?[id number] Study Date: ?? 06/28/2021 ??10:41am , Age: ? 1990, 31 Pregnancies: ?? 2, Para 1 Height: ? 64 in Weight: ? 407 lb LMP: ?Unknown GA by Base: ?? 39w3d ?? ALYSSA: 07/02/2021 GA by US: ? 37w3d ?? ALYSSA: 07/16/2021 GA Selected: ??39w3d (From [facility]) ALYSSA: ?07/02/2021 Referring MD: MD Rudi, [facility] Complaint Inspector: ??Nancy Barboza RDMS CPT4: ? 82549,[id number] BMI: ?69.85 Hist/Ind: ? Class IV obesity (BMI 66.6) ?Incomplete anatomic survey ?Prior ?GCT 130 MEASUREMENTS & AGE ? GROWTH EVALUATION Measurement ??GA ? Range ? Srce %for GA Ratios ----- ---- ------- BPD ??8.7 cm 35w2d (66y4r-30n0y) Hadl BPD 2% FL/BPD 0.85 (0.71 - 0.87) HC ??33.0 cm 37w4d (71e2v-40j4d) Hadl HC ??8% FL/AC ??0.20 (0.20 - 0.24) AC ??36.3 cm 40w1d (72z0u-94d5q) Hadl AC ??89% HC/AC ??0.91 (0.89 - 1.08) FL ?? 7.4 cm 38w0d (40c6g-77w0t) Hadl FL ??26% CI ? 0.73 (0.70 - 0.86) HL ?? 6.3 cm 36w2d (67a6e-43h4r) Neville HL ??<05 GA for sonogram 37w3d (89d7d-66h8f) ?? Weight Estimate: based on (BPD,HC,AC,FL) Hadlock ?Weight: 3580 gm (3058-4103gm) Had ? : 7lbs, 14oz ? Normal: 3509 gm (2631- 4386gm) Had ? Wt% ? 57% for 39w3d Heart Rate: 132 bpm Amniotic Fluid Index: 12.9cm (07.2-22.1) Q1: 2.0cm ??Q2: 3.2cm ??Q3: 5.1cm ??Q4: 2.6cm ?? Biophysical Profile: 12/06 Breathin ?? Tone: 2 ?? Movement: ??2 ?? AFV: ??2 EVAL, PLACENTA Presentation: breech Umbilical Cord: 3 Vessels Placenta: posterior Heart Rate: 132 bpm Amniotic Fluid Volume: normal Anatomy!Normal!Abnormal!Suboptimal!Prev. Seen!Comments Cranium ?! ?! ?! ?! ? x ?! Mdl (CSP/Thal! ?! ?! ?! ? x ?! Ventricles ?? ! ?! ?! ?! ? x ?! Choroid Plexu! ?! ?! ?! ? x ?! Cerebellum ?? ! ?! ?! ?! ? x ?! Cerebellar Ve! ?! ?! ?! ? x ?! Cisterna M. ??! ?! ?! ?! ? x ?! Nuchal Fold ??! ?! ?! ?! ? x ?! Orbits ? ! ?! ?! ?! ? x ?! Profile ?! ?! ?! ?! ? x ?! Nasal Bone ?? ! ?! ?! ?! ? x ?! Lip ?! ?! ?! ?! ? x ?! Maxilla ?! ?! ?! ?! ? x ?! Mandible ? ! ?! ?! ?! ? x ?! Neck ? ! ?! ?! ?! ? x ?! Spine ?! ?! ?! ?! ? x ?! Lungs ?! ?! ?! ?! ? x ?! 4 Chamber Hea! ?! ?! ?! ? x ?! LVOT ? ! ?! ?! ?! ? x ?! RVOT ? ! ?! ?! ?! ? x ?! 3 Vessel View! ?! ?! ?! ? x ?! 3 Vessel Trac! ?! ?! ?! ? x ?! Cross-over ?? ! ?! ?! ?! ? x ?! Ductal Arch ??! ?! ?! ? x ?! ?! Aortic Arch ??! ?! ?! ?! ? x ?! Caval View ?? ! ?! ?! ?! ? x ?! Situs ?! ?! ?! ?! ? x ?! Diaphragm ?! ?! ?! ?! ? x ?! Stomach ?! ?? x ??! ?! ?! ? x ?! Liver ?! ?! ?! ?! ? x ?! Bowel ?! ?! ?! ?! ? x ?! Kidneys ?! ?? x ??! ?! ?! ? x ?! Bladder ?! ?? x ??! ?! ?! ? x ?! 3 Vessel Cord! ?! ?! ?! ? x ?! Cord In! ?! ?! ?! ? x ?! Upper Extremi! ?! ?! ?! ? x ?! Hands ?! ?! ?! ?! ? x ?! Lower Extremi! ?! ?! ?! ? x ?! Feet ? ! ?! ?! ?! ? x ?! External Tana! ?! ?! ?! ? x ?! Placental Cor! ?! ?! ?! ? x ?! CLINICAL SUMMARY Study Number: 5 ?? A single fetus is seen in BREECH presentation. ??The measurements today are consistent with appropriate growth. ??The ALYSSA is based on prior ultrasound examination. ??The amniotic fluid volume is within normal limits. ?? IMPRESSION: BREECH presentationa Single, live, intrauterine at 39w3d ?? Amniotic fluid volume: within normal limits ?? Biophysical profile: Reassuring ?? size is within normal limits RECOMMEND: Based on patient's significant non-compliance with care and uncertain diabetes status delivery is recommended Will sent patient to L&D Thank you for allowing us the opportunity to care for your patient Jake Jc MD <Electronic Signature> ??06/28/2021 11:12am Meir MEYER ORDERABLES documented in this encounter Visit Diagnoses Diagnosis Morbid obesity with body mass index (BMI) of 60.0 to 69.9 in adult (HCC)- Primary Previous delivery, antepartum condition or complication (HCC) Previous delivery, antepartum condition or complication Genital herpes simplex, unspecified site Second ([facility]) state, incidental 39 weeks gestation of ([facility]) state, incidental Supervision of high-risk of young multigravida ([facility]) Supervision of high-risk of young multigravida documented in this encounter
--- OUTSIDE RECORDS SUMMARY | 2024-05-04 14:55 | XMS_ITS | Encounter Summary ---
Author Organization [facility] Address [address] [facility] [place] [address] Care Team Providers Care Entry Level Business Analyst Name Role Phone Unavailable Primary Care Provider Unavailabl e Reason for Visit * Reason Onset Date Comments Refill Request 01/14/2022 Encounter Details Date Type Department Care Team (Late st Contact Info) Description 01/14/2022 Telephone [facility] MATERNAL/ EVALUATION UNIT [facility] [facility] [address] [place] [address] Nanci Ortiz, RN Refill Request Social History Tobacco Use Types Packs/Day Years [...] No 06/28/2021 documented as of this encounter Miscellaneous Notes * Telephone Encounter - Nanci Ortiz RN - 01/14/2022 8:55 AM CDT This RN received a refill request for patient's Acyclovir. This RN called patient to verify need. Patient reports that she is having an outbreak - This RN reaching out to clinic physicians to see if she should be moved to valtrex or if Acyclovir 800mg PO BIDx 5 days is for reoccurrence is sufficient. documented in this encounter Plan of Treatment Not on file documented as of this encounter Visit Diagnoses Not on filedocumented in this encounter
--- OUTSIDE RECORDS SUMMARY | 2024-05-04 14:55 | XMS_ITS | Encounter Summary ---
Author Organization [facility] Address [address] [facility] [place] [address] Care Team Providers Care Family Literacy Coordinator Name Role Phone Unavailable Primary Care Provider Unavailabl e Reason for Visit * Reason Onset Date Comments UTI 06/08/2021 Encounter Details Date Type Department Care Team (Late st Contact Info) Description 06/08/2021 Telephone [facility] MATERNAL/ EVALUATION UNIT [facility] [facility] [place] [address] Janet Hanson RN UTI Social History Tobacco Use Types Packs/Day Years [...] encounter Miscellaneous Notes * Telephone Encounter - Janet Hanson RN - 06/08/2021 2:09 PM CST Linda @ [facility] called to follow up on E coli UTI. When patient was seen on 05/04/2021, patient given prescription for Macrobid BID x7days then instructed to continue Macobid daily for supression. Linda inquiring if patient had been compliant with medication. Patient no showed to last appointment, will contact patient to schedule patient. MBLER FOR PULLER OVER MACHINE documented in this encounter Plan of Treatment Not on file documented as of this encounter Visit Diagnoses Not on filedocumented in this encounter
--- OUTSIDE RECORDS SUMMARY | 2024-05-04 14:55 | XMS_ITS | Encounter Summary ---
Author Organization [facility] Address [address] [facility] [place] [address] Care Team Providers Care Railroad Yard Worker Name Role Phone Unavailable Primary Care Provider Unavailabl e Reason for Visit * Reason Comments Care C/S 06/28/21 girl 7# breast/bottle Encounter Details Date Type Department Care Team (Late st Contact Info) Description 07/05/2021 8:30 AM BIOLOGY RESEARCH ASSISTANT - 07/05/2021 11:59 PM BIOLOGY RESEARCH ASSISTANT Hospital Encounter [facility] MATERNAL/ EVALUATION UNIT [address] [place] [address] Michael Saxena MD [address] [facility] [address] [place] [address] Discharge Disposition: Home or Self Care Social [...] Sign Reading Time Taken Comments Blood Pressure 135/85 07/05/2021 9:08 AM BIOLOGY RESEARCH ASSISTANT Pulse 75 07/05/2021 9:08 AM BIOLOGY RESEARCH ASSISTANT Temperature - - Respiratory Rate - - Oxygen Saturation - - Inhaled Oxygen Concentration - - Weight 184.6 kg (407 lb) 07/05/2021 9:08 AM BIOLOGY RESEARCH ASSISTANT Height - - Body Mass Index 68.78 06/28/2021 12:42 PM BIOLOGY RESEARCH ASSISTANT documented in this encounter Functional Status Functional [...] Sig Dispensed Refills Start Date End Date acetaminophen (TYLENOL) 500 MG tablet Take 500 mg by mouth every 4 hours as needed for Fever or Pain Maximum allowable Acetaminophen amount = 4 Grams (4000 mg) / 24 hours. acyclovir (ZOVIRAX) 400 MG tablet Take 1 [...] by mouth once daily 30 capsule 07/02/2021 lidocaine (LIDODERM) 5 % patch Apply 1 (one) patch to skin once daily 10 patch 1 07/05/2021 oxyCODONE, immediate release, (ROXICODONE) 5 MG tablet Take 1 (one) tablet by mouth every 6 hours as needed for Pain 10 tablet 07/01/2021 Vit-DSS-Fe Fum-FA ( VITAMIN WITH IRON) tablet Take 1 tablet by mouth once daily documented as of this encounter Progress Notes * Shanti Tadeo MD - 07/05/2021 9:38 AM CST R2 Post Clinic Note Subjective: Patient doing well today, c/o mild back pain. Low back pain at site of spinal placement, fine at rest but bothersome with quick turning motion. She states that her mood has been stable and denies SI/HI. Lochia is light and intermittent. She is breast and bottle feeding. Baby doing well.Desires IUD - knows this will be placed after 6 wk PP. Has not resumed sexual activity. Denies chest pain, SOB, or leg pain. Denies lightheadedness or dizziness. Objective: BP 135/85 Pulse 75 Wt 407 lb (184.6 kg) BMI 68.78 kg/m2 Overall: Alert and oriented x3 with no apparent signs of distress Heart: regular rate, appears well perfused Lungs: breathing comfortably on room air Abdomen: Soft and non tender, non-distended Incision: Prevena removed. Edges well approximated. Clean dry and intact. There are no signs of infection, no drainage, no erythema, no edema noted. Pelvic: Uterus involuted, cervix closed. Adnexa without masses. Vagina wnl. Episiotomy/laceration healed. Extremities: WNL, no edema, normal size & shape. Pap reviewed: NILM, HPV neg at NOB Assessment/Plan: Bren Dale Lee is a s/p repeat cs #2 for breech, week # 1 1. PP week 1 follow up 1. Mood: Stable, denies SI/HI 1. continue Lexapro 10mg QD 2. Baby: Doing well 3. Breast: without complaints 4. Breast and bottle feeding 5. Bleeding: lochia light 6. Incision: Prevena removed. Incision healing well. Dressed with ABD and tape. Interdry given to use at home 7. Contraception: desires IUD 8. Has not had intercourse. 2. gHTN 1. BP 135/85 today 2. Asx 3. No meds, BP cuff at home 4. WEU precautions discussed 3. Back pain 1. appropriate for 1 week out from 2. c/w post-spinal 3. no headache 4. Lidocaine patches Rx'd Education: Signs and symptoms of PP depression, infection, care of the incision, and when to returnto clinic. [facility] form completed for IUD RTC in 5 wk Seen and discussed with Dr. Odessa Tadeo MD 07/05/2021 9:39 AM * Emma Grossman, ANA - 07/05/2021 9:11 AM CST [employer] form completed. Diapers given. 07/05/2021 OGY RESEARCH ASSISTANT documented in this encounter Plan of Treatment Not on file documented as of this encounter Visit Diagnoses Not on filedocumented in this encounter
--- OUTSIDE RECORDS SUMMARY | 2024-05-04 14:55 | XMS_ITS | Encounter Summary ---
Author Organization [facility] Health Address [address] [place] [address] Care Team Providers Care Journalists And Other Writers Name Role Phone Unavailable Primary Care Provider Unavailabl e Reason for Visit * Reason Comments Scheduled C Section * Auth/Cert Specialty Diagnoses / Procedures Referred By Contac t Referred To Contact Referral ID Status Reason Start Date Expiration Date Visits Re quested Visits Authorized [id number] 1 1 Encounter Details Date Type Department Care Team (Latest Contact Info) Description 06/28/2021 12:33 PM TIN CAN FEEDER - 07/01/2021 4:00 PM TIN CAN FEEDER Hospital Encounter HC 6W MOTHER/BABY [address] [place] [address] Meir Reese DO [address] [place] [id number] HUMAN RESOURCES BENEFITS SPECIALIST Discharge Disposition: Home or Self Care Social [...] Sign Reading Time Taken Comments Blood Pressure 147/78 07/01/2021 9:25 AM TIN CAN FEEDER Pulse 91 07/01/2021 9:25 AM TIN CAN FEEDER Temperature 37 ??C (98.6 ??F) 07/01/2021 9:25 AM TIN CAN FEEDER Respiratory Rate 18 07/01/2021 9:25 AM TIN CAN FEEDER Oxygen Saturation 98% 07/01/2021 9:25 AM TIN CAN FEEDER Inhaled Oxygen Concentration - - Weight 189.1 kg (417 lb) 06/28/2021 12:42 PM TIN CAN FEEDER Height 163.8 cm (5' 4.5 ) 06/28/2021 12:42 PM CS T Body Mass Index 70.47 06/28/2021 12:42 PM TIN CAN FEEDER documented in this encounter Functional Status Functional [...] of this encounter Discharge Summaries * Gloria Thacker APRN-LINDSAY - 07/01/2021 12:49 PM CST primary care md Discharge Summary 07/01/2021, 12:47 PM Date of Admission: 06/28/2021 Date of Discharge: 07/01/2021 Admission Diagnosis: 31 year old at 39w3d for section Discharge Diagnosis: s/p Section Service: Maternal Medicine Consults: social work HPI: Jackie Lee is a 31 year old at 39w3d who received her care with high risk [facility]. She presented for repeat section in the [...] Type: Section Information for the patient's : Heladio Lee [[id number]] Date of 06/28/2021 Time of : 3:29 [...] on day # 3. To follow up 3/7 for blood pressure and mood check and [...] Your discharge diagnosis is: care following delivery [[id number]] No special diet needed Resume your normal home diet as tolerated. Eat well-balanced meals that include foods from all of the food groups. Drink plenty of fluids It is important that you stay well hydrated. You should drink at least eight to ten 8-ounce glassesof water per day. Nothing per vagina For 6 weeks Light activity While on narcotics (Percocet or Castana) Do not drive Until able to slam on the brakes comfortably and completely off narcotic pain medication (Percocet or Castana) No heavy lifting Do not lift anything [...] itching Take Benadryl for relief of itching. [id number]-[id number] medication Use an abdominal binder or belly [...] routine visit RACHELLE Mauricio 07/01/2021 12:47 PM CAN FEEDER documented in this encounter Discharge Instructions * Discharge Instructions* Mary Jane Hudson RN - 07/01/2021 1:45 PM TIN CAN FEEDER DELIVERED MOTHER DISCHARGE INSTRUCTIONS Refer to the Booklet given during your stay for more information. Please contact your incinerator attendant for the followin. Any burning or itching [...] example: your cell phone and cell phone supercharger mechanic. PLEASE REMEMBER: 1. Always place your on his/her back to sleep. 2. Always use a car safety seat when transporting your child. CAN FEEDER documented in this encounter Medications at Time [...] provider on Monday for blood pressure check. CAN FEEDER * Mary Jane Hudson RN - 07/01/2021 [...] Completed Goal: Parent- bonding occurs Outcome: Completed CAN FEEDER * Gloria Thacker APRN-LINDSAY - 07/01/2021 11:50 AM CST RUDY [facility] [...] good today, denies any HI/SI 3. S/p student services rep consult 5. Hx HSV 6. gHTN 1. [...] home 8. Blood type: O+ 9. girl infant [...] routine care. RACHELLE Mauricio 07/01/21 8:37 AM CAN FEEDER * Mary Jane Hudson RN - 07/01/2021 [...] warmth and is well approximated Outcome: Progressing CAN FEEDER * Vangie Weinstein LPN - 07/01/2021 4:33 AM CST Vital signs stable. Pain controlled with motrin and tylenol. Bonding well with baby. CAN FEEDER * Vangie Weinstein LPN - 06/30/2021 10:06 [...] to engage in desired activity. Outcome: Progressing CAN FEEDER * Mary Jane Hudson RN - 06/30/2021 7:56 PM CST Shift summary: VSS. Fundus and lochia WDL. Assessment WDL. Voiding spontaneously. Ambulating ad amanda. Tolerating regular diet. Reports adequate pain control with scheduled medications. See MAR. Infantrooming in. Safe sleep reviewed. Formula feeding per mothers informed decision. Also breastfeeds. Call light within reach. Will continue to monitor. CAN FEEDER * Mary Jane Hudson RN - 06/30/2021 [...] symptoms of post-operative ileus formation Outcome: Progressing CAN FEEDER * Gloria Thacker APRN-CNP - 06/30/2021 8:20 AM CST [facility] [place] Progress Note Subjective: Patient without complaints. Pain [...] better today, denies any HI/SI 3. S/p student services rep consult 4. Hx HSV 5. gHTN 1. [...] routine care. RACHELLE Mauricio 06/30/21 7:16 AM CAN FEEDER * Jojo Baker RN - 06/30/2021 5:06 AM CST Shift Summary: VSS and assessments WNL. Fundal/lochia checks WNL. Up ad amanda. Voiding without difficulty. Vacuum dressing remains WNL. Pain managed. Breast and formula feeding per informed choice. Rooming in and bonding with . Call light in reach. No further concerns. CAN FEEDER * Jojo Baker RN - 06/29/2021 8:27 [...] occurs Outcome: Progressing Note: Rooming in with infant, skin to skin, , active in infants care, bonding occurring. CAN FEEDER * Danay Boston RN - 06/29/2021 5:57 PM CST VSS, assessment WNL, pain well controlled with medication. Patient encouraged to move around room and sit up in chair. CAN FEEDER * Danay Boston RN - 06/29/2021 12:25 PM CST Jhon Thacker ANIMAL SHELTER MANAGER notified of depression screen and recent B/P, order placed for SS Consult. CAN FEEDER * Gloria Thacker APRN-LINDSAY - 06/29/2021 12:15 PM CST RUDY [facility] Progress Note Subjective: Patient without complaints. Sitting up in bed holding infant during my visit. Pain is controlled with [...] (36.4 ??C) -- 18 124/56 100 % 02/28/22 1820 97.3 ??F (36.3 ??C) -- 16 [...] if she desires to increase Lexapro 3. student services rep consult placed 4. Hx HSV 5. gHTN [...] routine care. RACHELLE Mauricio 06/29/21 10:50 AM CAN FEEDER * Chelita Arias I - 06/29/2021 10:39 [...] healing. Reviewed Darian can be purchased at [facility] for a reduced cost by calling [phone] (this can be delivered to bedside or [...] Lazaro DTR 06/29/2021 10:45 AM Ascom [id number] CAN FEEDER * Danay Boston RN - 06/29/2021 10:15 [...] Progressing Goal: Parent- bonding occurs Outcome: Progressing CAN FEEDER * Azra Dewitt MD - 06/29/2021 6:40 AM CST PGY2 OB Post- Note 06/29/2021, 6:40 AM Subjective: Pain is controlled. Lochia is normal in amount. She reports no flatus passed. Tolerating regular diet. She denies headache, fever, chest pain, shortness of breath, and leg pain. She has ambulated anddenies light-headedness. Huang is absent. Patient is voiding spontaneously. Reports back pain whichshe believes is related to how she slept [...] mood check. The patient had a female infant. Azra Dewitt MD 06/29/2021 6:40 AM CAN FEEDER * Jojo Baker RN - 06/29/2021 5:15 [...] informed choice. Rooming in and bonding with infant. Call light within reach. No further concerns. CAN FEEDER * Jojo Baker RN - 06/28/2021 8:39 [...] occurs Outcome: Progressing Note: Rooming in with infant, doing skin to skin, well, bonding occurring. CAN FEEDER * Gloria Haider RN - 06/28/2021 6:55 [...] Progressing Goal: Parent- bonding occurs Outcome: Progressing CAN FEEDER * Lazara Dang RN - 06/28/2021 6:39 PM CST Pt. Is resting in bed. VSS and afebrile. Fundus is firm, midline, and at U-1 with a small amount ofbleeding. Baby is with mom. Baby's VSS and afebrile. Report given to ANA Farmer; all questions answered. Care relinquished at this time. Lazara Dang RN 06/28/2021 6:39 PM CAN FEEDER * Lazara Dang RN - 06/28/2021 4:39 PM CST Images from the original note were not included. Patient Name: Jackie Lee Patient Age: [age] year old Today's Date: 06/28/2021 DELIVERY SUMMARY Estimated Date of Delivery: 07/02/21 Delivery Summary Patient Information Patient Name Jackie Lee ([id number]) Legal Sex Female OB History 2 Para [...] PTL: N A1: 7 A5: 9 Location: [facility] Delivering Clinician: Meir Reese DO Transcribed Labs Row Name 06/28/21 1424 RH (Manually Reproduced) Positive Blood Type (Manually Reproduced) O Syphilis Serology (Manually Reproduced) Negative HIV (Manually Reproduced) Negative Date of HIV Lab 11/19/20 Hepatitis B Surface Antigen (Manually Reproduced) Negative Rubella Status ( Manually Reproduced) Immune Labor Length 3rd stage: 0h 02m Blood Loss Admission (Current) from 06/28/2021 in [facility] 5 LDR Estimated Blood Loss -- Quantitated Blood Loss 600 ml Venous Cord Blood Gas Results pH PCO2 PO2 HCO3 BE O2 Sat 06/28/21 1539 7.37 41 26 24 -1.5 65 Arterial Cord Blood Gas Results pH pCO2 pO2 HCO3 BE O2 Sat 06/28/21 1539 7.29 57 <7 Comment: <^Outside Reportable Range 27.4 -0.3 15 Heladio Lee [[id number]] Patient Information Patient Name Heladio Lee ([id number]) Legal Sex Female Anesthesia Method: Spinal Labor Events labor?: No steroids: None GBS Status: unknown Antibiotic: cefazolin Number of Antibiotic Doses: 1 Rupture Date: Time: Rupture type: Fluid color: Fluid odor: Labor complications: None [place] Delivery Details Forceps attempted?: No Vacuum extractor attempted?: No Presentation: Breech Delivery (Maternal) Placenta Date/time: 06/28/2021 1531 Disposition: Discarded Other Delivery Procedures/Provider Comments Delivery - Physician I was present at delivery (physician name): Counts [place] Instruments Lap Pads Sponges Initial counts Added to counts Final counts Delivery () Delivery Date: 06/28/21 Delivery Time: 3:29 PM [...] Apgars assigned by: Estevan ALVARENGA APRN Delivery Stabilization Equipment Checked by: NICU staff Vigorous [...] Arterial Stem cell collection (by MD)?: No Measurements Weight: 3430 g Pounds and Ounces: 7 lb 9 oz Length: 20.28 Head circumference: 13.39 Chest circumference: Disposition: With Mother [place] Feeding and Elimination Mother's Feeding Choice During Stay ( Core Measure PC05): Human Milk and Formula Voided in Delivery Room?: No Stooled in Delivery Room?: Yes . CAN FEEDER * Lazara Dang RN - 06/28/2021 2:46 [...] will be maintained throughout procedure Outcome: Progressing CAN FEEDER documented in this encounter H&P Notes * Twila Rodriguez MD - 06/28/2021 1:11 PM CST PGY2 Obstetric H&P Note 06/28/2021, 1:25 PM CC: Here for HPI: 31 year old at gestation Dating: LMP c/w 1st trimester ultrasound Estimated Date of Delivery: 07/02/21 care: is with high risk [facility] Patient's is complicated by: Patient Active Problem [...] this , late transfer of care to [facility]. Fetus confirmed breech at clinic visit today and given maternal co-morbidities of morbid obesity and suspected GDM, delivery was recommended via rCS. Consents signed. Twila Rodriguez MD Maternal Medicine Fellow, PGY-5 CAN FEEDER Associated attestation - Meir Reese DO - 06/28/2021 4:48 PM TIN CAN FEEDER MFM attending: Patient seen and examined with resident and fellow. Agree with assessment and plan. She is a 31-year-old 2 para 1-0-0-1 at 39 weeks and 3 days ALYSSA 07/02/2021 who presents today as transfer careto [place] she was initially being seen in [facility] by [place] however her primary OB provider [...] with anesthesia. The above was discussed with Debo Jesus who understood all questions answered and she was reassured. DO MARIELLA Stevens documented in this encounter Consult Notes * Eva Ha, CHRISTIANO - 06/29/2021 1:50 PM CSTAssociated Order(s): IP CONSULT TO ROUGH CARPENTER; IP CONSULT TO ROUGH CARPENTER SOCIAL SERVICE CONSULT - BRIEF Reason for Referral: Discharge planning for OB concerns; Depression Score IP CONSULT TO ROUGH CARPENTER Comments: Depression Assessment/Interventions/Plan: pole frame construction worker, Eva Ha, received consult and will follow up with RN and patient/family as needed. SW met with MOB bedside. MOB was in bed and gave SWpermission to meet. Completed Psychosocial Assessment, discussed PPD, provided PPD information and [facility] Women & Infants Resource Guide. HUMAN RESOURCES BENEFITS SPECIALIST CASE MANAGEMENT PSYCHOSOCIAL ASSESSMENT 06/28/21 3:29PM 7lb 9oz 20.28 Reason for Referral: Hx of dep Patient diagnosis and relevant medical history: DX: The encounter diagnosis was Previous delivery, antepartum condition or complication. Father of baby: MOB did not give father of baby's name. MOB currently , but (not FOB). Language Barriers: n Cultural Barriers: n Ethnicity: White/ Lang: FRENCH Patient's Address: [address] [place] [address] [place] [address] Pt's phone number: [phone] (home) Family Support (name and phone) Extended Emergency Contact Information Primary Emergency Contact: Vimal Cueva Mobile Relation: Spouse Alternative Ordering Machine Operator Family Strengths: MYRTLE is () to Vimal [...] TANF (Temporary Assistance to Needy Families)-n Food [place]-y WIC-y SSI-n Insurance: Payor/Plan Subscriber Name Rel Member # Group # [employer] * JACKIE LEE Self [id number] [address] Community Resources Utilized: KRISTIN provided W&I Resource Guide. Designated Financial Wellness Coach: Dr. Hartley (sp?), at [facility] in [place], [place]. KRISTIN reminded pt to schedule appt prior to d/c Referrals: Nurses for Newborns-n, [place] resident Child protection referral-n DFS/DCFS-Name of worker: Phone number: Other- Does the family have the following basic discharge needs? Utilities-y Telephone-y Car seat-y Crib-y Baby clothing-y Intensive Care Unit Registered Nurse/School: MYRTLE stated that she has natural resources that can provide childcare when needed. Transportation: MYRTLE has transportation and transportation home from the hospital. Family planning: The pt and her HUMAN RESOURCES BENEFITS SPECIALIST have discussed family planning. Recommended discharge plan for infant: will discharge home with mother when medically ready. CHRISTIANO Dc [phone] Outdoor Studies Director CAN FEEDER documented in this encounter Nursing Notes * [...] latch the baby occasionally. Referred her to [employer] website to order an electric breast pump through her insurance. Jackie is hoping to be discharged home today. Reminded her to call office phone number provided to her yesterday if she has any questions or concerns. CAN FEEDER * Janene Crain RN - 06/30/2021 3:39 [...] support after discharge. Janene Rivas RN., IBCLC CAN FEEDER * Cleo Ceja RN - 06/29/2021 10:10 [...] needed, or with any questions or concerns. CAN FEEDER documented in this encounter OR Notes * [...] Information for the patient's : Heladio Lee [[id number]] Date of 06/28/2021 Time of : 3:29 [...] uterine incision was made. A 3430 gram delivered from a breech presentation: Posterior hip [...] with pressure on the maxilla by the pyrometer operator (Xqoclkjaf-Bjwvcjt-Zdwj maneuver). delivered with scoresof 7 at one minute [...] procedure. Azra Dewitt MD 06/28/2021 4:20 PM CAN FEEDER Associated attestation - Meir Reese DO - 06/28/2021 4:43 PM TIN CAN FEEDER MFM attending: I was present during the entire procedure. She underwent a successful repeat LTCS via pfannenstiel skin incision. No complications nor difficulties. Good hemostasis. DO MARIELLA Stevens on service documented in this encounter Plan of Treatment Not on file documented as of this encounter Procedures Procedure Name Priority Date/Time Associated Diagnosis Comments COMPREHENSIVE METABOLIC PANEL Routine 06/29/2021 1:53 PM TIN CAN FEEDER CBC W/O DIFFERENTIAL AM Draw 06/29/2021 4:21 AM TIN CAN FEEDER BLOOD GASES CORD HECTOR RT STAT 06/28/2021 3:39 PM TIN CAN FEEDER BLOOD GASES CORD ARTERIAL RT STAT 06/28/2021 3:39 PM TIN CAN FEEDER SECTION (EMERGENCY) 06/28/2021 2:45 PM TIN CAN FEEDER BLOOD TYPE VERIFICATION Routine 06/28/2021 2:05 PM TIN CAN FEEDER SYPHILIS ANTIBODY CASCADING REFLEX Routine 06/28/2021 1:26 PM TIN CAN FEEDER TYPE + SCREEN PANEL STAT 06/28/2021 1 :26 PM TIN CAN FEEDER CBC W AUTO DIFFERENTIAL STAT 06/28/2021 1:26 PM TIN CAN FEEDER Previous delivery, antepartum condition or complication (HCC) GLUCOSE - POINT OF CARE Routine 06/28/2021 1:08 PM TIN CAN FEEDER documented in this encounter Results * (ABNORMAL) COMPREHENSIVE METABOLIC PANEL (06/29/2021 1:53 PM TIN CAN FEEDER) Glucose 62(L) 70 - 105 mg/dL 06/29/2021 2:21 PM TIN CAN FEEDER [facility] Sodium 136 136 - 145 mmol/L 06/29/2021 2:21 PM TIN CAN FEEDER [facility] Potassium 4.1 3.5 - 5.1 mmol/L 06/29/2021 2:21 PM TIN CAN FEEDER [facility] Chloride 108(H) 98 - 107 mmol/L 06/29/2021 2:21 PM TIN CAN FEEDER [facility] CO2 20(L) 23 - 31 mmol/L 06/29/2021 2:21 PM TIN CAN FEEDER [facility] Calcium 8.5 8.4 - 10.4 mg/dL 06/29/2021 2:21 PM TIN CAN FEEDER [facility] Anion Gap 8 8 - 18 mmol/L 06/29/2021 2:21 PM TIN CAN FEEDER [facility] BUN 6(L) 7 - 18.7 mg/dL 06/29/2021 2:21 PM TIN CAN FEEDER [facility] Creatinine 0.62 0.57 - 1.11 mg/dL 06/29/2021 2:21 PM TIN CAN FEEDER [facility] eGFR by CKD-EPI >90 >=90 mL/min/1.7 3 m2 06/29/2021 2:21 PM TIN CAN FEEDER [facility] Alkaline Phosphatase 129 40 - 150 U/L 06/29/2021 2:21 PM TIN CAN FEEDER [facility] ALT 34 0 - 61 U/L 06/29/2021 2:21 PM TIN CAN FEEDER [facility] AST 36(H) 5 - 34 U/L 06/29/2021 2:21 PM [facility] Protein Total 6.6 6.4 - 8.3 gm/dL 06/29/2021 2:21 PM TIN CAN FEEDER [facility] Albumin 2.8(L) 3.5 - 5.2 gm/dL 06/29/2021 2:21 PM [facility] Bilirubin Total 0.5 0.2 - 1.2 mg/dL 06/29/2021 2:21 PM [facility] Blood BLOOD SPECIMEN / Unknown Lab Venipuncture / Unknown 06/29/2021 1:53 PM TIN CAN FEEDER 06/29/2021 2:00 PM TIN CAN FEEDER [facility] - 06/29/2021 2:21 PM TIN CAN FEEDER eGFR result was calculated using the updated CKD-EPI Creatinine Equations (2020). Prior to go live 2021 the eGFR was calculated using the MDRD calculation. Please note Reference Range change. Gloria Thacker APRN-FLIGHT SURVEYOR LAB - CHEMISTRY OR DERABLES [facility] [address] [place] [address] * (ABNORMAL) CBC W/O DIFFERENTIAL (06/29/2021 4:21 AM TIN CAN FEEDER) WBC 8.6 4.4 - 10.7 x10E9/L 06/29/2021 5:22 AM [facility] RBC 3.71(L) 3.80 - 5.20 x10E12/L 06/29/2021 5:22 AM [facility] Hemoglobin 10.3(L) 12.0 - 15.6 gm/dL 06/29/2021 5:22 AM [facility] Hematocrit 32.9(L) 35.9 - 45.5 % 06/29/2021 5:22 AM TIN CAN FEEDER [facility] MCV 88.7 80.7 - 98.3 fl 06/29/2021 5:22 AM [facility] MCH 27.8 26.7 - 34.0 pg 06/29/2021 5:22 AM TIN CAN FEEDER [facility] MCHC 31.3 30.8 - 35.9 gm/dL 06/29/2021 5:22 AM [facility] Platelet Count 203 153 - 416 x10E9/L 06/29/2021 5:22 AM [facility] RDW-CV 13.2 12.1 - 14.9 % 06/29/2021 5:22 AM [facility] MPV 10.4 9.4 - 12.9 fl 06/29/2021 5:22 AM TIN CAN FEEDER [facility] Blood BLOOD SPECIMEN / Unknown Lab Venipuncture / Unknown 06/29/2021 4:21 AM TIN CAN FEEDER 06/29/2021 5:13 AM TIN CAN FEEDER Meir Reese DO LAB - HEMATOLOGY ORD ERABLES Performing Organization Address City/[facility]/ZIP Co de Phone Number [facility] [address] [place] [address] * BLOOD GASES CORD HECTOR (06/28/2021 3:39 PM TIN CAN FEEDER) pH Cord Venous 7.37 7.28 - 7.40 pH 06/28/2021 3:48 PM TIN CAN FEEDER [facility] pCO2 Cord Venous 41 35 - 45 mm hg 06/28/2021 3:48 PM TIN CAN FEEDER [facility] pO2 Cord Venous 26 22 - 33 mm hg 06/28/2021 3:48 PM TIN CAN FEEDER [facility] HCO3 Cord Venous 24 22 - 24 mmol/L 06/28/2021 3:48 PM TIN CAN FEEDER [facility] BE Cord Venous -1.5 mmol/L 06/28/2021 3:48 PM TIN CAN FEEDER [facility] O2 Saturation Cord Venous 65 % 06/28/2021 3:48 PM TIN CAN FEEDER [facility] Bread Pan Greaser ID Pal Ritchie 06/28/2021 3:48 PM TIN CAN FEEDER [facility] Blood CORD BLOOD SPECIMEN / Unknown 06/28/2021 3:39 PM TIN CAN FEEDER 06/28/2021 3:39 PM TIN CAN FEEDER Meir Reese DO LAB - BLOOD GASES OR DERABLES [facility] [address] [phone] * (ABNORMAL) BLOOD GASES CORD ARTERIAL (06/28/2021 3:39 PM TIN CAN FEEDER) pH Cord Arterial 7.29 7.20 - 7.34 pH 06/28/2021 3:45 PM TIN CAN FEEDER [facility] pCO2 Cord Arterial 57(H) 45 - 55 mm hg 06/28/2021 3:45 PM TIN CAN FEEDER [facility] pO2 Cord Arterial <7(LL) 12 - 25 mm hg 06/28/2021 3:45 PM TIN CAN FEEDER [facility] Comment:<^Outside Reportable Range HCO3 Cord Arterial 27.4(H) 22.0 - 24.0 mmol/L 06/28/2021 3:45 PM TIN CAN FEEDER [facility] BE Cord Arterial -0.3 mmol/L 06/28/19 3:45 PM TIN CAN FEEDER [facility] O2 Saturation Cord Arterial 15 % 06/28/2021 3:45 PM TIN CAN FEEDER [facility] Sample Site [facility] 06/28/2021 3:45 PM TIN CAN FEEDER [facility] Bread Pan Greaser ID Aimee Ritchie [email or web address] 06/28/2021 3:45 PM TIN CAN FEEDER [facility] Notified Who CHELITA SMART RN 06/28/2021 3:45 PM TIN CAN FEEDER [facility] Notification Time 1624 022 3:45 PM TIN CAN FEEDER [facility] Notified By NADEGE 06/28/2021 3:45 PM TIN CAN FEEDER [facility] Blood, arterial CORD BLOOD SPECIMEN / Unknown 06/28/2021 3:39 PM TIN CAN FEEDER 06/28/2021 3:39 PM TIN CAN FEEDER Meir eRese DO LAB - BLOOD GASES OR DERABLES [facility] [address] [place] [address] * BLOOD TYPE VERIFICATION (06/28/2021 2:05 PM TIN CAN FEEDER) ABO Rh O POS 06/28/2021 2:33 PM TIN CAN FEEDER [facility] Comment:History checked. Blood Bank BLOOD SPECIMEN / Unknown Venipuncture / Unknown 06/28/2021 2:05 PM TIN CAN FEEDER 06/28/2021 2:12 PM TIN CAN FEEDER Meir Reese DO LAB - BLOOD BANK ORD ERABLES Performing Organization Address City/[facility]/ZIP Co de Phone Number [facility] [address] [place], [place] [id number] [place] [address] * SYPHILIS ANTIBODY CASCADING REFLEX (06/28/2021 1:26 PM TIN CAN FEEDER) Treponema pallidum Antibody Non Reactive Non Reactive 06/28/2021 2:25 PM TIN CAN FEEDER [facility] Comment: No Laboratory evidence of syphilis infection. ?? Note: ??Circulating antibodies may be low or undetectable in early infection. ??If recent exposure is suspected, re-draw sample in 2-4 weeks and repeat testing. Blood BLOOD SPECIMEN / Unknown Venipuncture / Unknown 06/28/2021 1:26 PM TIN CAN FEEDER 06/28/2021 1:34 PM TIN CAN FEEDER Meir Reese DO LAB - SEROLOGY ORDER JOSIAH Performing Organization Address City/[facility]/ZIP Co de Phone Number [facility] [address] [place] [address] * (ABNORMAL) CBC W AUTO DIFFERENTIAL (06/28/2021 1:26 PM TIN CAN FEEDER) WBC 8.3 4.4 - 10.7 x10E9/L 06/28/2021 1:48 PM TIN CAN FEEDER [facility] WBC Corrected 06/28/2021 1:48 PM TIN CAN FEEDER [facility] RBC 4.21 3.80 - 5.20 x10E12/L 06/28/2021 1:48 PM TIN CAN FEEDER [facility] Hemoglobin 11.6(L) 12.0 - 15.6 gm/dL 06/28/2021 1:48 PM TIN CAN FEEDER [facility] Hematocrit 36.9 35.9 - 45.5 % 06/28/2021 1:48 PM TIN CAN FEEDER [facility] MCV 87.6 80.7 - 98.3 fl 06/28/2021 1:48 PM TIN CAN FEEDER [facility] LABORATORY MCH 27.6 26.7 - 34.0 pg 06/28/2021 1:48 PM [facility] MCHC 31.4 30.8 - 35.9 gm/dL 06/28/2021 1:48 PM [facility] Platelet Count 239 153 - 416 x10E9/L 06/28/2021 1:48 PM [facility] RDW-CV 13.1 12.1 - 14.9 % 06/28/2021 1:48 PM [facility] MPV 10.4 9.4 - 12.9 fl 06/28/2021 1:48 PM [facility] Neutrophils % 70.6 44.0 - 73.0 % 06/28/2021 1:48 PM [facility] Lymphocytes % 23.7 20.0 - 43.0 % 06/28/2021 1:48 PM [facility] Monocytes % 4.2(L) 5.0 - 13.0 % 06/28/2021 1:48 PM [facility] Eosinophils % 0.7 0.0 - 6.0 % 06/28/2021 1:48 PM [facility] Basophils % 0.4 0.0 - 2.0 % 06/28/2021 1:48 PM [facility] Immature Granulocytes 0.4 0 - 1 % 06/28/2021 1:48 PM [facility] Neutrophil Absolute 5.87 2.01 - 7.14 x10E9/L 06/28/2021 1:48 PM [facility] Lymphocytes Absolute 1.97 1.07 - 3.94 x10E9/L 06/28/2021 1:48 PM [facility] Monocytes Absolute 0.35 0.26 - 1.07 x10E9/L 06/28/2021 1:48 PM [facility] Eosinophils Absolute 0.06 0 - 0.47 x10E9/L 06/28/2021 1:48 PM [facility] Basophils Absolute 0.03 0 - 0.08 x10E9/L 06/28/2021 1:48 PM [facility] Immature Granulocytes Absolute 0.03 0.00 - 0.06 x10E9/L 06/28/2021 1:48 PM [facility] nRBC Auto 0 /100 WBC 06/28/2021 1:48 PM TIN CAN FEEDER [facility] Blood BLOOD SPECIMEN / Unknown Venipuncture / Unknown 06/28/2021 1:26 PM [employer]IN [employer] 06/28/2021 1:34 PM [employer] FE[employer]ER Meir Reese DO LAB - HEMATOLOGY ORD ERABLES Performing Organization Address [facility] Co de Phone Number [facility] [address] [place] [phone] * TYPE + SCREEN PANEL (All [facility] except [facility]) (06/28/2021 1:26 PM TIN CAN FEEDER) ABO Rh O POS 06/28/2021 2:18 PM [employer] [facility] Comment:No history; collect retype. Antibody Screen NEG 2:18 PM [employer]IN [employer] FEEDER [facility] Blood Bank BLOOD SPECIMEN / Unknown Venipuncture / Unknown 06/28/2021 1:26 PM TIN CAN FEEDER 06/28/2021 1:34 PM TIN CAN FEEDER Meir Reese [facility] - BLOOD BANK ORD ERABLES Performing Organization Address [facility] Co de Phone Number [facility] [address] [place] [address] * GLUCOSE - POINT OF CARE (06/28/2021 1:08 PM TIN CAN FEEDER) Glucose WB/POC 70 70 - 106 mg/dL 06/28/2021 1:31 PM TIN CAN FEEDER [facility] Specimen Type Venous 06/28/2021 1:31 PM TIN CAN FEEDER [facility] Blood BLOOD SPECIMEN / Unknown 06/28/2021 1:08 PM TIN CAN FEEDER 06/28/2021 1:31 PM TIN CAN FEEDER Meir Reese LAB - POINT OF CARE ORDERABLES Performing Organization Address [facility]/ZIP Co de Phone Number [facility] [address] [place] [phone] documented in this encounter Visit Diagnoses Diagnosis Previous delivery, antepartum condition or complication (HCC)- Primary Previous delivery, antepartum condition or complication Previous delivery, antepartum condition or complication (HCC) Previous delivery, antepartum condition or complication documented in this encounter Administered Medications Inactive Administered Medications - up to 3 most recent administrations Medication Order MAR Action Action Date Dose Rate Site 0.9% NaCl injection 3 mL 3 mL, Intracatheter, EVERY 8 HOURS, First dose on Mon06/28/21 at 1400, Until Discontinued, Flush peripheral IV catheter with 3 mL of normal saline every 8 hours., Pre-op $ Given 06/28/2021 1:05 PM TIN CAN FEEDER 3 mL 0.9% NaCl injection 3 mL 3 mL, Intracatheter, EVERY 8 HOURS, First dose on Mon06/28/21 at 2200, Until Discontinued, $ Given 06/28/2021 9:37 PM TIN CAN FEEDER 3 mL acetaminophen (Tylenol) tablet 1,000 mg 1,000 mg, Oral, ONCE, 1 dose, On Mon06/28/21 at 1330, 30 minutes prior to transfer to OR or at the time decision is made for section Patient preference for lesser PRN pain meds may be honored when the patient requests a less strong medication, a lower dose, or a less intrusive route of administration when the lesser drug, dose and route have been ordered for the patient. This patient request must be documented in the MAR., Pre-op $ Given 06/28/2021 1:41 PM TIN CAN FEEDER 1,000 mg acetaminophen (Tylenol) tablet 650 mg 650 mg, [...] the MAR., $ Given 07/01/2021 9:42 AM TIN CAN FEEDER 650 mg $ Given 07/01/2021 2:37 AM TIN CAN FEEDER 650 mg $ Given 06/30/2021 8:30 PM TIN CAN FEEDER 650 mg acyclovir (Zovirax) capsule 400 mg 400 mg, Oral, 3 TIMES DAILY, First dose on Mon06/28/21 at 1415, Until Discontinued, Indication for anti-infective therapy: Chronic prophylaxis $ Given 06/28/2021 8:58 PM TIN CAN FEEDER 400 mg docusate sodium (Colace) capsule 100 mg 100 mg, Oral, 2 TIMES DAILY, First dose on Mon06/28/21 at 2100, Until Discontinued, $ Given 07/01/2021 9:42 AM TIN CAN FEEDER 100 mg $ Given 06/30/2021 9:22 PM TIN CAN FEEDER 100 mg $ Given 06/30/2021 9:39 AM TIN CAN FEEDER 100 mg enoxaparin (Lovenox) injection 40 mg 40 mg, Subcutaneous, EVERY 12 HOURS, First dose on Mon06/28/21 at 2100, Until Discontinued, Antepartum/Intrapartum: Minimum time periods between [...] injection site. Could cause hematoma., $ Given 06/28/2021 8:58 PM TIN CAN FEEDER 40 mg Right Leg enoxaparin (Lovenox) injection 90 mg 90 mg [...] cause hematoma., $ Given 07/01/2021 9:42 AM TIN CAN FEEDER 90 mg Abd Right Lower Quadrant $ Given 06/30/2021 9:23 PM TIN CAN FEEDER 90 mg Ab dominal Tissue $ Given 06/30/2021 9:39 AM TIN CAN FEEDER 90 mg Ab d Left Lower Quadrant escitalopram (Lexapro) tablet 10 mg 10 mg, Oral, DAILY, First dose on Mon06/28/21 at 1345, Until Discontinued $ Given 07/01/2021 9:42 AM TIN CAN FEEDER 10 mg $ Given 06/30/2021 9:39 AM TIN CAN FEEDER 10 mg $ Given 06/29/2021 8:40 AM TIN CAN FEEDER 10 mg ibuprofen (Motrin) tablet 600 mg [...] the MAR. $ Given 07/01/2021 1:27 PM TIN CAN FEEDER 600 mg $ Given 07/01/2021 6:32 AM TIN CAN FEEDER 600 mg $ Given 07/01/2021 1:01 AM TIN CAN FEEDER 600 mg iron polysaccharides (Niferex 150) capsule 150 mg 150 mg, Oral, DAILY, First dose on Mon06/29/21 at 1100, Until Discontinued $ Given 07/01/2021 9:42 AM TIN CAN FEEDER 150 mg $ Given 06/30/2021 9:39 AM TIN CAN FEEDER 150 mg $ Given 06/29/2021 12:22 PM TIN CAN FEEDER 150 mg ketorolac (Toradol) injection 30 mg 30 mg, Intravenous, EVERY 6 HOURS, 3 doses, First dose on Mon06/28/21 at 1845, Last dose on Mon06/29/21 at 0645, $ Given 06/28/2021 9:37 PM TIN CAN FEEDER 30 mg lactated ringers infusion ADS Med 1 dose, Starting on Mon06/28/21 at 1329, Until Mon06/28/21 at 1448, Created by cabinet override $ Bolus New Bag 06/28/2021 2:48 PM TIN CAN FEEDER $ Bolus New Bag 06/28/2021 2:11 PM TIN CAN FEEDER $ New Bag/Syringe 06/28/2021 1:34 PM TIN [employer] FE[employer]ER 1,000 mL oxyCODONE (immediate release) (Roxicodone) tablet 10 mg [...] the MAR., $ Given 06/30/2021 9:33 PM TIN CAN FEEDER 10 mg $ Given 06/29/2021 1:53 PM TIN CAN FEEDER 10 mg $ Given 06/29/2021 6:04 AM TIN CAN FEEDER 10 mg vitamin with iron tablet 1 tablet 1 tablet, Oral, DAILY, First dose on Mon06/28/21 at 1845, Until Discontinued, $ Given 07/01/2021 9:42 AM TIN CAN FEEDER 1 tablet $ Given 06/30/2021 9:39 AM TIN CAN FEEDER 1 tablet $ Given 06/29/2021 8:40 AM TIN CAN FEEDER 1 tablet sodium citrate-citric acid 500-334 mg/5 mL oral solution 30 mL, Oral, ONCE, 1 dose, On Mon06/28/21 at 1330, 10 minutes prior to transfer to OR or at the time decision is made for section. SHAKE WELL BEFORE USING, Pre-op $ Given 06/28/2021 2:38 PM TIN CAN FEEDER 30 mL documented in this encounter Active and Recently Administered Medications Times are shown in TIN CAN FEEDER. Scheduled Medication Order 06/29/2021 06/30/2021 07/01/2021 *Hold/Avoid [...] CONTACT ANESTHESIA PRIOR TO REMOVING EPIDURAL CATHETER. 07 (*Reviewed - Provider: Danay Boston RN)1942 [...] and narcotics except as ordered by anesthesia. 0726 (*Reviewed - Provider: Danay Boston RN)194 (*Reviewed - Provider: Jojo Baker RN) 0938 (*Reviewed - Provider: Mary Jane Hudson RN)203 (*Reviewed - Provider: Vangie Weinstein LPN) 0940 [...] RN)1513 ($ Given - Provider: Danay Boston RN)2054 ($ Given - Provider: Jojo Baker RN) [...] 0840 ($ Given - Provider: Danay Boston RN)2054 ($ Given - Provider: Jojo Baker RN) [...] ($ Given - Provider: Mary Jane Hudson RN)212 ($ Given - Provider: Vangie Weinstein LPN) [...] RN)1513 ($ Given - Provider: Danay Boston RN)2054 ($ Given - Provider: Jojo Baker RN) [...] arouse, Starting on Mon06/28/21 at 1517, Until Lexi 07/01/21 at 1943, For respiratory rate LESS [...]
--- OUTSIDE RECORDS SUMMARY | 2024-05-04 14:55 | XMS_ITS | Encounter Summary ---
Author Organization [facility] Health Address [address] [place] [address] Care Team Providers Care Inspector Scales Name Role Phone Unavailable Primary Care Provider Unavailabl e Encounter Details Date Type Department Care Team (Latest Contact Info) Description 06/28/2021 Travel Social History Tobacco Use Types Packs/Day Years [...] No 06/28/2021 documented as of this encounter Plan of Treatment Not on file documented as of this encounter Visit Diagnoses Not on filedocumented in this encounter
--- OUTSIDE RECORDS SUMMARY | 2024-05-04 14:55 | XMS_ITS | Encounter Summary ---
Author Organization [facility] Health Address [address] [place] [address] Care Team Providers Care Senior Front End Developer Name Role Phone Unavailable Primary Care Provider Unavailabl e Encounter Details Date Type Department Care Team (Latest Contact Info) Description 07/05/2021 Travel Social History Tobacco Use Types Packs/Day [...]
--- OUTSIDE RECORDS SUMMARY | 2024-05-04 14:55 | XMS_ITS | Encounter Summary ---
Author Organization [facility] Health Address [address] [place] [address] Care Team Providers Care Lead Programmer Analyst Name Role Phone Unavailable Primary Care Provider Unavailabl e Encounter Details Date Type Department Care Team (Latest Contact Info) Description 05/24/2021 Travel Social History Tobacco Use Types Packs/Day Years Used Date Smoking Tobacco: Never Smokeless Tobacco: Never Alcohol Use Standard Drinks/Week Comments No 0 (1 standard drink = 0.6 oz pur e alcohol) Sex and Gender Information Value Date Recorded Sex Assigned at Not on file Gender Identity Not on file Sexual Orientation Not on file documented as of this encounter Plan of Treatment Not on file documented as of this encounter Visit Diagnoses Not on filedocumented in this encounter Additional Health Concerns Infection Onset Date Last Indicated Resolved Time COVID-19 Under Investigation 05/24/2021 05/24/2021 05/24/2021 4:07 PM IT SALES REPRESENTATIVE documented as of this encounter
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
--- OUTSIDE RECORDS SUMMARY | 2024-05-04 14:55 | XMS_ITS | Encounter Summary ---
Author Organization [facility] Health Address [address] [place] [address] Care Team Providers Care Grain Grader Name Role Phone Unavailable Primary Care Provider Unavailabl e Reason for Visit * Reason Comments FAD NST * Auth/Cert Specialty Diagnoses / Procedures Referred By Contac t Referred To Contact Referral ID Status Reason Start Date Expiration Date Visits Re quested Visits Authorized [id number] 1 1 Encounter Details Date Type Department Care Team (Latest Contact Info) Description 06/28/2021 9:15 AM CHARGE COORDINATOR - 06/28/2021 9:48 AM CHARGE COORDINATOR Hospital Encounter HC MATERNAL/ EVALUATION UNIT [address] [place] [address] Jake Jc MD [address] [facility] [address] [place] [id number] Discharge Disposition: Home or Self Care Social [...]
--- OUTSIDE RECORDS SUMMARY | 2024-05-04 14:55 | XMS_ITS | Encounter Summary ---
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 - 03/19/2021 11:59 PM [facility] Hospital Encounter [facility] [address] [place] [id number] Maria R Gunter MD [address] [address] Discharge Disposition: Home or Self Care Social History Tobacco Use Types Packs/Day Years Used Date Smoking Tobacco: Never Smokeless Tobacco: Never Alcohol Use Standard Drinks/Week Comments No 0 (1 standard drink = 0.6 oz pur e alcohol) Comments Yes Sex and Gender Information Value Date Recorded Sex Assigned at Not on file Gender Identity Not on file Sexual Orientation Not on file documented as of this encounter Medications at Time of Discharge Medication Sig Dispensed Refills Start Date End Date cetirizine (ZYRTEC) 10 MG tabletIndications:Season al Allergic Rhinitis Take 10 mg by mouth once daily Reasons: Hayfever cyanocobalamin (VITAMIN B-12) injection Inject 1,000 mcg into muscle every 30 days escitalopram (LEXAPRO) 10 MG tablet Take 10 mg by mouth once daily Vit-DSS-Fe Fum-FA ( VITAMIN WITH IRON) tablet Take 1 tablet by mouth once daily acyclovir (ZOVIRAX) 400 MG tabletIndications:Genita l Herpes Simplex Take 400 mg by mouth 2 times daily Reasons: Genital Herpes 05/24/2021 aspirin (ASPIRIN) 81 MG chew tablet Take 81 mg by mouth once daily 07/01/2021 ferrous sulfate 325 (65 FE) MG tablet Take 325 mg by mouth once daily 07/01/2021 folic acid (FOLVITE) 1 MG tabletIndications:Neural Tube Defect Take 4 mg by mouth once daily Reasons: Defects of the Neural Tube 07/01/2021 ondansetron (ZOFRAN) 4 MG tablet Take 4 mg by mouth every 6 hours as needed for Nausea/Vomiting 07/01/2021 Progesterone 100 MG capsule Take 100 mg by mouth 2 times daily 07/01/2021 documented as of this encounter Plan of Treatment Not on file documented as of this encounter Procedures Procedure Name Priority Date/Time Associated Diagnosis Comments SONOGRAM - COMPLETE Routine 03/19/2021 1 0:21 AM 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 [facility] ?PHONE: ??FAX: Pat. Name: ?RUT, JACKIE Dale Knapp. No: ?[id number] Study Date: ?? 03/19/2021 ??10:21am , Age: ? 1990, 31 Pregnancies: ?? 2, Para 1 Height: ? 64 in Weight: ? 388 lb LMP: ?Unknown GA by Base: ?? 25w0d ?? ALYSSA: 07/02/2021 GA by US: ? 24w3d ?? ALYSSA: 07/06/2021 GA Selected: ??25w0d ([facility]) ALYSSA: ?07/02/2021 Referring MD: Killian Vela MD Bioassayist: ??Naya Sarah RDMS CPT4: ? 22335 BMI: ?66.59 Hist/Ind: ? Class IV obesity (BMI 66.6) ?Incomplete anatomic survey ?Prior MEASUREMENTS & AGE ? GROWTH EVALUATION Measurement ??GA ? Range ? Srce %for GA Ratios ----- ---- ------- BPD ??6.1 cm 24w5d (30l6h-68x2z) Hadl BPD 30% FL/BPD 0.74 (0.71 - 0.87) HC ??22.8 cm 24w6d (76s2z-61h3i) Hadl HC ??25% FL/AC ??0.23 (0.20 - 0.24) AC ??19.6 cm 24w2d (38p1b-78q2y) Hadl AC ??20% HC/AC ??1.16 (1.02 - 1.21) FL ?? 4.5 cm 24w6d (77p5j-51u4m) Hadl FL ??33% CI ? 0.74 (0.70 - 0.86) HL ?? 4.3 cm 25w4d (96n3y-81m0i) Neville HL ??60% GA for sonogram 24w3d (44l8e-13u1c) ?? Weight Estimate: based on (BPD,HC,AC,FL) Hadlock ?Weight: 711 gm (607-815gm) Hadloc ? : 1lbs, 9oz ? Normal: 782 gm (587-977gm) Hadloc ? Wt% ? 24% for 25w0d Heart Rate: 156 bpm EVAL, PLACENTA Presentation: cephalic Placenta: posterior Heart Rate: 156 bpm Amniotic Fluid Volume: normal Anatomy!Normal!Abnormal!Suboptimal!Prev. Seen!Comments [...] ?! ? x ?! Orbits ? ! ?? x ??! ?! ?! ? x ?! Profile ?! ?! ?! ?! ? x ?! Nasal Bone ?? ! ?! ?! ?! ? x ?! Lip ?! ?? x ??! ?! ?! ? x ?! Maxilla ?! ?! ?! ?! ? x ?! Mandible ? ! ?! ?! ?! ? x ?! Neck ? ! ?! ?! ?! ? x ?! Spine ?! ?! ?! ?! ? x ?! Lungs ?! ?! ?! ?! ? x ?! 4 Chamber Hea! ?! ?! ?! ? x ?! LVOT ? ! ?? x ??! ?! ?! ?! RVOT ? ! ?! ?! ? x ?! ?! 3 Vessel View! ?! ?! ?! [...] ?! ?! ? x ?! Hands ?! ?? x ??! ?! ?! ?!Left is ?unremarkable, ?right previously ?imaged Lower Extremi! ?! ?! ?! ? x ?! Feet ? ! ?! ?! ?! ? x ?! External Tana! ?! ?! ?! ? x ?! Placental Cor! ?! ?! ?! ? x ?! CLINICAL SUMMARY Study Number: 2 ?? IMPRESSION: 1) [place]aca gestation, 25w0d 2) Biometry is consistent with appropriate growth 3) No abnormalities have been detected on anatomic survey 4) Imaging of the RVOT and ductal arch was again suboptimal, secondary to maternal acoustic properties and positioning NOTE: The patient was advised that ultrasound does not allow detection of all structural or chromosomal abnormalities. ?? RECOMMEND: ?? Follow up ultrasound in 4 weeks to complete the anatomic survey and reevaluate growth Thank you for allowing us the opportunity to care for your patient. Maria R Gunter MD <Electronic Signature> ??03/19/2021 10:58am Meir MEYER ORDERABLES documented in this encounter Visit Diagnoses Diagnosis 24 weeks gestation of (HCC)- Primary state, incidental Previous delivery, antepartum condition or complication (HCC) Previous delivery, antepartum condition or complication H/O gastroesophageal reflux (GERD) Personal history of other diseases of digestive system Morbid obesity with body mass index (BMI) of 60.0 to 69.9 in adult ([facility]) Second ([facility]) state, incidental Encounter for ultrasound to assess growth ([facility]) 25 weeks gestation of ([facility]) state, incidental documented in this encounter
--- OUTSIDE RECORDS SUMMARY | 2024-05-04 14:55 | XMS_ITS | Encounter Summary ---
Author Organization [facility] Address [address] [place] [address] Care Team Providers Care Vat Skimmer Name Role Phone Unavailable Primary Care Provider Unavailabl e Reason for Referral * Consult, Test & Treat (Routine) - Closed Specialty Diagnoses / Procedures Referred By Contac t Referred To Contact Diagnoses Second (HCC) Morbid obesity with body mass index (BMI) of 60.0 to 69.9 in adult (HCC) Procedures MATERNAL MEDICINE CONSULT Killian Vela MD [address] [place] [address] Referral ID Status Reason Start Date Expiration Date Visits Re quested Visits Authorized [id number] Closed 02/15/2021 02/15/2022 1 1 Reason for Visit * Reason Comments Consultation Ultrasound Encounter Details Date Type Department Care Team (Latest Contact Info) Description 02/17/2021 9:00 AM CDT - 02/17/2021 11:59 PM CDT Hospital Encounter [facility] [address] [place] [address] Meir Reese DO [address] [address] [place] [id number] Discharge Disposition: Home or Self Care Social [...] Sign Reading Time Taken Comments Blood Pressure 126/76 02/17/2021 10:53 AM CDT manual b/p per RN with thigh cuff Pulse 80 02/17/2021 10:10 AM CDT Temperature - - Respiratory Rate - - Oxygen Saturation - - Inhaled Oxygen Concentration - - Weight 184.6 kg (407 lb) 02/17/2021 10: 10 AM CDT Height 163.8 cm (5' 4.5 ) 02/17/2021 10 :10 AM CDT Body Mass Index 68.78 02/17/2021 10:10 AM CDT documented in this encounter Medications at Time [...] daily 07/01/2021 documented as of this encounter Progress Notes * Azra Trevino RN - 02/17/2021 10:17 AM CDT New patient here for consult with Dr. Reese due to obesity in Patient reports she is starting to feel movement. Denies cramping, contractions, bleeding, and leakage of fluid. Patient denies headache, epigastric pain and visual changes. VS per flow sheet. See note/letter per Dr. Reese. Azra Trevino RN 02/17/2021 10:18 AM documented in this encounter Consult Notes * Meir Reese DO - 02/17/2021 10:34 AM CDTAssociated Order(s): AMB CONSULT TO MATERNAL MEDICNE Maternal- Medicine Consultation Note Patient: Jackie Bettencourt Referral physician: Dr. Killian Vela (OBGYN) Date: 02/17/2021 GA: 20w5d Estimated Date of Delivery: 07/02/21 Reason for Consultation: Increased BMI (66.5) class [address] Vela I had the pleasure of seeing Jackie Bettencourt in consultation today at our [facility] office [place], [place]. As you may recall, she is a 31 year old at 20w5d who was referred to our office for class 3 obesity. She has no complaints today and report reported occasional movements.She also states that she had prior section but unsure for reason of delivery. But delivered at term of a SGA weighing 5 lb 11 oz. She also has strong family history of diabetes type unknown both mother and her sister mother of renal complications most likely secondary to her diabetes. This was an unintended but wanted . OB History Para Term AB Living 2 1 1 1 SAB IAB Ectopic Multiple Live Births 1 # Outcome Date GA Lbr Bin/2nd Weight Sex Delivery Anes PTL Lv 2 Current 1 Term 05/22/12 37w0d 2580 g (5 lb 11 oz) F CS-Unspec GARCÍA Genetics and Teratology: No children born with special needs: no mental retardation, Down syndrome, autism spectrum, cystic fibrosis, sickle cell disease or chromosomal aberrancies/anomalies. No exposure to known teratogens, chemical or ionizing radiation. Family History: Family History Problem Relation Name Age of Onset ??? Diabetes Mother ??? Renal Disease Mother ??? Hypertension Mother ??? Cancer - Breast Mother ??? Renal Disease Sister ??? Hypertension Sister Past Medical History: Diagnosis Date ??? Depression Past Surgical History: Procedure Laterality Date ??? Section Social History Socioeconomic History ??? Marital status: Single Spouse name: Not on file ??? Number of children: Not on file ??? Years of education: Not on file ??? Highest education level: Not on file Occupational History ??? Not on file Tobacco Use ??? Smoking status: Never Smoker ??? Smokeless tobacco: Never Used Vaping Use ??? Vaping Use: Never used Substance and Sexual Activity ??? Alcohol use: No ??? Drug use: No ??? Sexual activity: Not on file Other Topics Concern ??? Not on file Social History Narrative ??? Not on file Social Determinants of Health Financial Resource Strain: Not on file Food Insecurity: Not on file Transportation Needs: Not on file Physical Activity: Not on file Stress: Not on file Social Connections: Not on file Intimate Partner Violence: Not on file Housing Stability: Not on file - No Known Allergies Current Outpatient Medications on File Prior to Encounter Medication Sig Dispense Refill ??? acyclovir (ZOVIRAX) 400 MG tablet Take 400 mg by mouth 2 times daily Reasons: Genital Herpes ??? aspirin (ASPIRIN) 81 MG chew tablet Take 81 mg by mouth once daily ??? cetirizine (ZYRTEC) 10 MG tablet Take 10 mg by mouth once daily Reasons: Hayfever (Patient not taking: Reported on 02/17/2021) ??? cyanocobalamin (VITAMIN B-12) injection Inject 1,000 mcg into muscle every 30 days ??? escitalopram (LEXAPRO) 10 MG tablet Take 10 mg by mouth once daily ??? ferrous sulfate 325 (65 FE) MG tablet Take 325 mg by mouth once daily (Patient not taking: Reported on 02/17/2021) ??? folic acid (FOLVITE) 1 MG tablet Take 4 mg by mouth once daily Reasons: Defects of the Neural Tube ??? ondansetron (ZOFRAN) 4 MG tablet Take 4 mg by mouth every 6 hours as needed for Nausea/Vomiting ??? Vit-DSS-Fe Fum-FA ( VITAMIN WITH IRON) tablet Take 1 tablet by mouth once daily ??? Progesterone 100 MG capsule Take 100 mg by mouth 2 times daily No current facility-administered medications on file prior to encounter. Review of Systems: General ROS: Negative she denies any vaginal bleeding leakage of fluid rupture membranes or vaginaldischarge. Denies any abdominal pain cramping or contractions. No vaginal or pelvic pressure. Exam: BP 146/72 (BP SITE: RIGHT ARM, BP POSITION: SITTING, BP CUFF SIZE: 12) Pulse 80 Wt 407 lb (184.6 kg) BMI 65.72 kg/m2 General: Alert, cooperative, No acute distress HEENT - Normocephalic, atraumatic; EOMI Lungs - Non-labored respirations Heart: Regular rate and rhythm Abd - Soft and nontender; gravid Ext - BLE NTTP Neuro - CN 2-12 Grossly intact, no gross deficits Skin: Dry and intact Psych: appropriate mood and affect Ultrasound: Today the biometry is consistent with her established dates at 20 weeks 5 days. Vertex presentation normal amniotic fluid fundal placenta normal appearing no evidence of previa or accreta. The anatomical survey showed no gross abnormalities however limited by maternal acoustics and positioning. *Please see separate report for further details dated today. Labs: Pending at the time of our visit she had recently started care with her primary OB provider. Assessment: IUP at 20w5d gestation 1. Class 3 Obesity (BMI 66.5) 2. Prior section x1 3. Family hx of DM (mother/sister) 4. Migraine BRYSON no medications 5. Lumbar degenerative Disc ds-no active medication 6. History of SGA infant at term Counseling - Increased BMI so she will BC has been shown to increase the morbidity mortality in . There is increased risk for poor outcome and such metabolic disorders as gestational diabetes, hypertensive disorders of such as a gestational hypertension or preeclampsia there is also increased risk for low weight infants and section. Therefore due to the fact she has a strong familial history of diabetes along with increased BMI recommend early glucose screen if negative would repeat at 24-28 weeks. Will also recommend serial growth ultrasounds starting at 24 weeks and weekly BPP starting at 34 weeks sooner if clinically warranted. Under associated complications may be DEYSI (obstructive sleep apnea) and if remains undiagnosed of untreated can lead to metabolic syndromes due to lack of sleep and increased cortisol levels. At thistime she denies any issues with sleeping and tiredness during the day or snoring with sleep. However if she were to become symptomatic than would recommend a complete his sleep study workup. -Prior section x1 at term. Patient is not sure if she would prefer to have a TOLAC for versus a repeat Caesarean section. Due to prior section there is also increased risk for placental abnormalities such as placenta accreta spectrum or placenta previa neither of which have been noted. Placental abnormalities can increase the risk for hemorrhage requiring an blood transfusion/other blood products surgical interventions not limited to a hysterectomy along with . -History of SGA at term therefore will also recommend due to other comorbidities as noted above serial growth ultrasounds as stated. -She has history of lower back lumbar degenerative discs disorder however at this time is asymptomatic and is currently under no medical care for the condition nor any pain medication or treatments. Will observe closely as gestation advances and with change of center of gravity may elicited lower back pain or discomfort and will monitor closely over the next several weeks or months. At this time there is no need for Ob anesthesia consultation but may be warranted in the 3rd trimester if this were to become an issue along with her increased BMI. -Migraine BRYSON: No recent history of migraines and is currently on no medication now or in the past and has been treated stirrups report of Mariann with Tylenol. Migraines and headaches may remain the sameworsen or improve depending on the type of migraine. Recommendations: - Due to increased BMI>40 will initiate monthly growth ultrasounds at 24 weeks and weekly BPP starting at 34 weeks sooner if clinically warranted. - Early glucose screen if negative repeat at 28 weeks - OB anesthesia consultation in 3rd trimester as clinically warranted concerning class 3 obesity and possible lumbar degenerative disc disease - Recommend DVT prophylaxis during post while hospitalized. - Recommend flu and COVID vaccines. - To return as clinically warranted by primary OB provider. The above was discussed with Ms. Bettencourt and her sister who understood all questions were answered and they were reassured. She will continue to see you for routine care and emergencies, including delivery as indicated. If you have any questions or concerns in the interim, please contact myself, our office or oneof my partners. Thank you again for allowing us to partake in Jackei Bettencourt care. A total of 50 minutes was spent on today's visit including [id number] counseling, coordination ofcare, preparation and documentation, separate from any additional procedures. Sincerely, Meir Reese DO Division of Maternal- Medicine Department of Obstetrics, Gynecology, and Women's Health [facility] documented in this encounter Plan of Treatment Not on file documented as of this encounter Procedures Procedure Name Priority Date/Time Associated Diagnosis Comments SONOGRAM - COMPLETE Routine 02/17/2021 9 :12 AM CDT Second (HCC) Morbid obesity with body mass index (BMI) of 60.0 to 69.9 in adult (HCC) documented in this encounter Results * SONOGRAM - COMPLETE (02/17/2021 9:12 AM CDT) Anatomical Region Laterality Modality Other 02/17/2021 9:12 AM CDT Narrative 02/17/2021 11:20 AM CDT ? [facility] ? [facility] Care Center ?PHONE: ??FAX: Pat. Name: ?JACKIE BETTENCOURT Pat. No: ?[id number] Study Date: ?? 02/17/2021 ??9:12am , Age: ? 1990, 31 Pregnancies: ?? 2, Para 1 Height: ? 64 in Weight: ? 388 lb LMP: ?Unknown GA by US: ? 20w4d ?? ALYSSA: 07/03/2021 GA Selected: ??20w5d (Outside Scan) ALYSSA: ?07/02/2021 Referring MD: Killian Vela MD Personal Computer Specialist: ??Lazara Villarreal, FELIX, RDCS CPT4: ? 98072,81258 BMI: ?66.59 Hist/Ind: ? Hx ?Class 3 Obesity (BMI>66) MEASUREMENTS & AGE ? GROWTH EVALUATION Measurement ??GA ? Range ? Srce %for GA Ratios ----- ---- ------- BPD ??5.0 cm 21w1d (02x0s-49i5q) Hadl BPD 65% FL/BPD 0.70 HC ??18.1 cm 20w4d (58n7t-77o2i) Hadl HC ??34% FL/AC ??0.23 AC ??15.5 cm 20w4d (04t4r-37y1i) Hadl AC ??42% HC/AC ??1.17 (1.06 - 1.24) FL ?? 3.5 cm 21w1d (59b2u-92v1y) Hadl FL ??55% CI ? 0.79 (0.70 - 0.86) HL ?? 3.4 cm 21w3d (80x4w-57m6u) Neville HL ??63% Cere 2.1 cm 20w1d (21p8v-17s2c) Hill Cere38% GA for sonogram 20w4d (25l2n-53h5h) ?? Weight Estimate: based on (BPD,HC,AC,FL) Hadlock ?Weight: 379 gm (324-435gm) Hadloc ? : 0lbs, 13oz ? Normal: 378 gm (283-472gm) Hadloc ? Wt% ? 53% for 20w5d Cervix: ??Length: 3.5 cm ??Approach: transvaginal ??Funneling: not present Heart Rate: 149 bpm Amniotic Fluid Index: 06.4cm (Deepest Pocket) EVAL, PLACENTA Presentation: cephalic Umbilical Cord: 3 Vessels Placenta: fundal Previa: no previa seen Heart Rate: 149 bpm Amniotic Fluid Volume: normal Anatomy!Normal!Abnormal!Suboptimal!Prev. Seen!Comments Cranium ?! ?? x ??! ?! ?! ?! Mdl (CSP/Thal! ?? x ??! ?! ?! ?! Ventricles ?? ! ?? x ??! ?! ?! ?! Choroid Plexu! ?? x ??! ?! ?! ?! Cerebellum ?? ! ?? x ??! ?! ?! ?! Cerebellar Ve! ?? x ??! ?! ?! ?! Cisterna M. ??! ?? x ??! ?! ?! ?! Nuchal Fold ??! ?? x ??! ?! ?! ?! Orbits ? ! ?? x ??! ?! ?! ?! Profile ?! ?? x ??! ?! ?! ?! Nasal Bone ?? ! ?? x ??! ?! ?! ?! Lip ?! ?? x ??! ?! ?! ?! Maxilla ?! ?? x ??! ?! ?! ?! Mandible ? ! ?? x ??! ?! ?! ?! Neck ? ! ?? x ??! ?! ?! ?! Spine ?! ?? x ??! ?! ?! ?! Lungs ?! ?? x ??! ?! ?! ?! 4 Chamber Hea! ?? x ??! ?! ?! ?! LVOT ? ! ?! ?! ? x ?! ?! RVOT ? ! ?! ?! ? x ?! ?! 3 Vessel View! ?? x ??! ?! ?! ?! 3 Vessel Trac! ?? x ??! ?! ?! ?! Cross-over ?? ! ?? x ??! ?! ?! ?! Ductal Arch ??! ?! ?! ? x ?! ?! Aortic Arch ??! ?? x ??! ?! ?! ?! Caval View ?? ! ?? x ??! ?! ?! ?! Situs ?! ?? x ??! ?! ?! ?! Diaphragm ?! ?? x ??! ?! ?! ?! Stomach ?! ?? x ??! ?! ?! ?! Liver ?! ?? x ??! ?! ?! ?! Bowel ?! ?? x ??! ?! ?! ?! Kidneys ?! ?? x ??! ?! ?! ?! Bladder ?! ?? x ??! ?! ?! ?! 3 Vessel Cord! ?? x ??! ?! ?! ?! Cord In! ?? x ??! ?! ?! ?! Upper Extremi! ?? x ??! ?! ?! ?! Hands ?! ?! ?! ? x ?! ?!unremarkable ?right, suboptimal ?left Lower Extremi! ?? x ??! ?! ?! ?! Feet ? ! ?? x ??! ?! ?! ?! External Tana! ?! ?! ?! ?!Demonstrated, ?family does not ?wish to know ?gender Placental Cor! ?? x ??! ?! ?! ?! CLINICAL SUMMARY Study Number: 1 ?? Here today for anatomical survey. ??She has recently started care with Dr. Vela. ??No screening noted. A single fetus is seen in cephalic presentation. ??The measurements today are consistent with appropriate interval growth. ??The ALYSSA is based on a prior outside ultrasound (confirmed). ??The amniotic fluid volume is within normal limits. ?? Fundal normal-appearing placenta. ??No evidence of an accreta. ?? However ultrasound is not always diagnostic for an accreta and would recommend clinical correlation in light of prior section. The anatomy was limited by challenging maternal acoustic properties and gestational age. ?? IMPRESSION: Single, live intrauterine at 20w5d ?? size is consistent with established ALYSSA ?? Amniotic fluid volume: within normal limits ?? Normal transvaginal cervical length: cervix measures 3.5 cm. ??No funneling. No major malformations were seen within the limitations of ultrasound. ?But certain structures remains suboptimally visualized due to maternal acoustics and positioning. The above was discussed with Debo Jesus who also understood the limitations of ultrasound and screening in detecting all congenital anomalies and chromosome abnormalities/inherited disorders or genetic syndromes. RECOMMEND: Due to increased BMI greater than 40 and prior child SGA at term will recommend serial monthly growth ultrasounds starting at 24 weeks and weekly BPP at 34 weeks sooner if clinically warranted. ?? To complete anatomical survey at the next visit. Please also refer to M consultation dated today for further details and management. Thank you for allowing us the opportunity to care for your patient. ?? Meir Polcaro, DO <Electronic Signature> ??02/17/2021 11:20am Revised Killian WOLFF ORDERABLES documented in this encounter Visit Diagnoses Diagnosis Second (HCC)- Primary state, incidental Morbid obesity with body mass index (BMI) of 60.0 to 69.9 in adult (HCC) Previous delivery, antepartum condition or complication (HCC) Previous delivery, antepartum condition or complication documented in this encounter
--- OUTSIDE RECORDS SUMMARY | 2024-05-04 14:55 | XMS_ITS | Encounter Summary ---
Author Organization [facility] Health Address [address] [place] [address] Care Team Providers Care Accredited Pharmacy Technician Name Role Phone Unavailable Primary Care Provider Unavailabl e Reason for Visit * Reason Comments Ultrasound Encounter Details Date Type Department Care Team (Latest Contact Info) Description 04/19/2021 10:30 AM ELECTRICIAN MACHINE SHOP - 04/19/2021 11:59 PM [facility] Hospital Encounter [facility] Maternal & Care [address] [place] [id number] Robert Aburto MD Discharge Disposition: Home or Self Care Social [...] Associated Diagnosis Comments SONOGRAM - COMPLETE Routine 04/19/2021 1 0:34 AM ELECTRICIAN MACHINE SHOP Morbid obesity with body mass index (BMI) of 60.0 to 69.9 in adult (HCC) Second (HCC) 29 weeks gestation of (HCC) documented in this encounter Results * SONOGRAM - COMPLETE (04/19/2021 10:34 AM ELECTRICIAN MACHINE SHOP) Anatomical Region Laterality Modality Other 04/19/2021 10:3 4 AM ELECTRICIAN MACHINE SHOP Narrative 04/19/2021 11:43 AM ELECTRICIAN MACHINE SHOP ? [facility] ?PHONE: ??FAX: Pat. Name: ?JACKIE BETTENCOURT Dale Pat. No: ?[id number] Study Date: ?? 04/19/2021 ??10:34am , Age: ? 1990, 31 Pregnancies: ?? 2, Para 1 Height: ? 64 in Weight: ? 388 lb LMP: ?Unknown GA by Base: ?? 29w3d ?? ALYSSA: 07/02/2021 GA by US: ? 29w0d ?? ALYSSA: 07/05/2021 GA Selected: ??29w3d (From [facility]) ALYSSA: ?07/02/2021 Referring MD: Killian Vela MD Credit Operations Processor: ??Lazara Villarreal, RDMD, RDCS CPT4: ? 12884 BMI: ?66.59 Hist/Ind: ? Class IV obesity (BMI 66.6) ?Incomplete anatomic survey ?Prior MEASUREMENTS & AGE ? GROWTH EVALUATION Measurement ??GA ? Range ? Srce %for GA Ratios ----- ---- ------- BPD ??7.1 cm 28w4d (64a2p-91n2n) Hadl BPD 15% FL/BPD 0.78 (0.71 - 0.87) HC ??27.5 cm 30w1d (65n0l-21q3g) Hadl HC ??35% FL/AC ??0.22 (0.20 - 0.24) AC ??25.1 cm 29w2d (04q8w-90p3q) Hadl AC ??41% HC/AC ??1.10 (0.98 - 1.17) FL ?? 5.5 cm 29w0d (61j1e-17a5b) Hadl FL ??26% CI ? 0.71 (0.70 - 0.86) HL ?? 5.0 cm 29w1d (12o6v-49y7e) Neville HL ??46% GA for sonogram 29w0d (66v3m-77n0j) ?? Weight Estimate: based on (BPD,HC,AC,FL) Hadlock ?Weight: 1361 gm (1162-1559gm) Had ? : 2lbs, 15oz ? Normal: 1451 gm (1088- 1814gm) Had ? Wt% ? 32% for 29w3d Heart Rate: 147 bpm Amniotic Fluid Index: 15.2cm (09.1-23.2) Q1: 5.2cm ??Q2: 0.0cm ??Q3: 4.6cm ??Q4: 5.4cm ?? EVAL, PLACENTA Presentation: variable Placenta: posterior Heart Rate: 147 bpm Amniotic Fluid Volume: normal Anatomy!Normal!Abnormal!Suboptimal!Prev. Seen!Comments [...] ?! ? x ?! RVOT ? ! ?? x ??! ?! ?! ?! 3 Vessel View! ?! ?! [...] ? x ?! CLINICAL SUMMARY Study Number: 3 ??A single fetus is seen in variable presentation. ?? The measurements today are consistent with appropriate interval growth. ??The ALYSSA is based on a prior ultrasound. ??The amniotic fluid volume is within normal limits. ?? anatomy was limited by challenging maternal acoustic properties and position. ??No major malformations were seen within the limitations of ultrasound. ?? IMPRESSION: Single, live, intrauterine at 29w3d ?? size is within normal limits ?? Amniotic fluid volume: within normal limits ?? RECOMMEND: Ultrasound in 4 weeks for growth assessment Thank you for allowing us the opportunity to care for your patient Robert Aburto MD <Electronic Signature> ??04/19/2021 11:33am Robert Aburto MD [facility] ORDERABLES documented in this encounter Visit Diagnoses Diagnosis 29 weeks gestation of (HCC)- Primary state, incidental 25 weeks gestation of (HCC) state, incidental Previous delivery, antepartum condition or complication (HCC) Previous delivery, antepartum condition or complication H/O gastroesophageal reflux (GERD) Personal history of other diseases of digestive system Morbid obesity with body mass index (BMI) of 60.0 to 69.9 in adult (HCC) Second (HCC) state, incidental documented in this encounter
--- OUTSIDE RECORDS SUMMARY | 2024-05-04 14:55 | XMS_ITS | Encounter Summary ---
Author Organization [facility] Health Address [address] [facility] [place] [address] Care Team Providers Care Roll Wrapper Name Role Phone Pcp, Unknown Primary Care Provider Unavailabl e Reason for Visit * Reason Onset Date Comments Follow-up 05/22/2012 Encounter Details Date Type Department Care Team (Late st Contact Info) Description 05/22/2012 Telephone HC PHYS OB [address] [place] [address] Felix Esteves Jr., MD [facility] [place] [address] Follow-up Social History Tobacco Use Types Packs/Day [...] encounter Miscellaneous Notes * Telephone Encounter - Felix Esteves Jr., MD - 05/22/2012 7:05 PM MANAGER ENGINE R3 On-Call Ob Progress Note Attempted to call patient and remind her of the scheduled C/S on at 10:30am for Dr. Fay. [phone] currently not in service. [phone] ([facility] contact# is incorrect). Will inform Dr. Fay of the unsuccessful attempt. Cricket Alves??kary Jiménez MD 05/22/2012 7:07 PM GER ENGINE documented in this encounter Plan of Treatment Not on file documented as of this encounter Visit Diagnoses Not on filedocumented in this encounter Care Teams Roll Wrapper Relationship Specialty Start Date End Date Pcp, Unknown [place] [address] PCP - General 12/05/09 3 documented as of this encounter
--- OUTSIDE RECORDS SUMMARY | 2024-05-04 14:55 | XMS_ITS | Encounter Summary ---
Author Organization [facility] Health Address [address] [facility] [place] [address] Care Team Providers Care Merry Go Round Operator Name Role Phone Unavailable Primary Care Provider Unavailabl e Reason for Visit * Auth/Cert Specialty Diagnoses / Procedures Referred By Contac t Referred To Contact Referral ID Status Reason Start Date Expiration Date Visits Re quested Visits Authorized [id number] 1 1 Encounter Details Date Type Department Care Team (Latest Contact Info) Description 06/28/2021 9:49 AM GASTROENTEROLOGY TEACHER Hospital Encounter [facility] MATERNAL/ EVALUATION UNIT [address] [facility] [place] [address] Jake Jc MD [address] [facility] [address] [place] [address] Discharge Disposition: Home or Self Care Social [...] by mouth once daily 07/01/2021 blood glucose (Talento al Aula VERIO) test strip To monitor blood glucose [...]
--- OUTSIDE RECORDS SUMMARY | 2024-05-04 14:55 | XMS_ITS | Encounter Summary ---
Author Organization [facility] Health Address [address] [place] [address] Care Team Providers Care Patient Intake Coordinator Name Role Phone Unavailable Primary Care Provider Unavailabl e Reason for Visit * Reason Onset Date Comments Scheduling 08/23/2021 Encounter Details Date Type Department Care Team (Late st Contact Info) Description 08/23/2021 Telephone [facility] MATERNAL/ EVALUATION UNIT [address] [facility] [place] [address] Antonieta Tao Scheduling Social History Tobacco Use Types Packs/Day Years [...] encounter Miscellaneous Notes * Telephone Encounter - Antonieta Tao - 08/23/2021 11:00 AM CDT Palacio dpatient to reschedule there was no answer so left a message for patient to return my call toreschedule. documented in this encounter Plan of Treatment Not on file documented as of this encounter Visit Diagnoses Not on filedocumented in this encounter
--- OUTSIDE RECORDS SUMMARY | 2024-05-04 14:55 | XMS_ITS | Encounter Summary ---
Author Organization [facility] Address [address] [place] [address] Care Team Providers Care Jack Frame Tender Name Role Phone Imelda Gibson Primary Care Provider [phone] Reason for Visit * Reason Comments POST-OP PROBLEM Reports she had stap les removed today from , and today she is having increased bleeding and drainage. Encounter Details Date Type Department Care Team (Late st Contact Info) Description 06/08/2012 8:35 PM SERVICES REP - 06/08/2012 9:51 PM SERVICES REP Emergency ER at [address] [address] Chad Salcedo MD [address] [place] [id number] Open abdominal incision with drainage Discharge Disposition: Other Facility Not Defined Elsewhere Social History Tobacco Use Types Packs/Day Years [...] Sign Reading Time Taken Comments Blood Pressure 152/90 06/08/2012 8:35 PM SERVICES REP Pulse 94 06/08/2012 8:35 PM SERVICES REP Temperature 37.1 ??C (98.8 ??F) 06/08/2012 8:35 PM CS T Respiratory Rate 16 06/08/2012 8:35 PM SERVICES REP Oxygen Saturation 99% 06/08/2012 8:35 PM SERVICES REP Inhaled Oxygen Concentration - - Weight 166.9 kg (368 lb) 06/08/2012 8:35 PM SERVICES REP Height - - Body Mass Index 59.43 05/15/2011 2:03 AM SERVICES REP documented in this encounter Discharge Instructions * Discharge Instructions* Lupis Chaidez NP - 06/08/2012 9:28 PM SERVICES REP Bren Lee should be transferred out to [facility] via personal transportation. Stable ICES REP documented in this encounter Medications at Time of Discharge Medication Sig Dispensed Refills Start Date End Date hydrocodone-acetaminophen (NORCO) 5-325 MG tablet Take 1-2 Tabs by mouth every 4 hours as needed. 30 Tab no 05/16/2011 02/16/2021 documented as of this encounter ED Notes * Lupis Chaidez NP - 08/01/2012 10:21 PM CDT Lupis Chaidez NP (Nurse Practitioner) 08/01/2012 9:41 PM EMERGENCY DEPARTMENT 06/08/[address] Silveira Pcp We had the pleasure of caring for your patient, Bren Lee in our emergency department on 06/08/2012. A note from the provider(s) who cared for your patient is attached. Should you wish to access any laboratory results, please call . Should you wish to access any radiology results, please call , option 3. In addition, you can access patient information 24 hours a day, from any computer, through [employer], the online version of our electronic medical record. If you would like to use this service, please call Gabriela Rojas, Connectivity Coordinator, at . We appreciate the opportunity to care for your patients. If you would like additional information, please call the emergency department directly at . Sincerely, Lupis Chaidez NP Division of Emergency Medicine [facility], [place] [facility] [place] I DESIGNATED EMERGENCY DEPARTMENT Provider contact with the patient: 06/08/2012 20:44 Bren Lee [id number] [facility] EMERGENCY DEPT History Chief Complaint Patient presents with ??? POST-OP PROBLEM Reports she had sandy removed today from , and today she is having increased bleeding and drainage. HPI Comments: Mother presents with her 2 week old daughter from OSH for evaluation after 7 year oldcousin had stepped on infants face while wearing boots. While social work was doing her evaluation mother complained of dripping blood from her site. Motehr states that OBYN removed sandy today and placed seristrips, noted saturated bloody underwear while here in ED at [facility] after using the restroom. No fever, vomiting, nausea, dizziness, and or other symptoms to report. Wound/Incision Check The history is provided by the patient. Body Location: incision.Wound type: incision. Thewound was closed with steri-strips.The wound occurred 2 weeks ago.She was treated in the ED today (delivered 2 weeks ago and OBGYN took out sandy today). Prior ED Treatment: pressure drsg applied. The maximum temperature noted was no fever. There has been bloody discharge from the wound. There isno redness present. There is no swelling present. Pain course: slight pain to left side of incision. She has no difficulty moving the affected extremity or digit. No past medical history on file. No past surgical history on file. History Social History ??? Marital Status: Single Spouse Name: N/A Number of Children: N/A ??? Years of Education: N/A Occupational History ??? Not on file. Social History Main Topics ??? Smoking status: Never Smoker ??? Smokeless tobacco: Never Used ??? Alcohol Use: No ??? Drug Use: No ??? Sexually Active: Not on file Other Topics Concern ??? Not on file Social History Narrative ??? No narrative on file Medications Current Outpatient Prescriptions Medication Sig Dispense Refill ??? hydrocodone-acetaminophen (NORCO) 5-325 MG tablet Take 1-2 Tabs by mouth every 4 hours as needed. 30 Tab no Review of Systems Review of Systems Skin: Positive for wound. All other systems reviewed and are negative. BP 152/90 Pulse 94 Temp 98.8 ??F Resp 16 Wt 368 lb (166.924 kg) SpO2 99% Physical Exam Physical Exam Nursing note and vitals reviewed. Constitutional: She is oriented to person, place, and time. She appears well- developed and well-nourished. No distress. Patient morbidly obese HENT: Head: Normocephalic and atraumatic. Right Ear: External ear normal. Left Ear: External ear normal. Nose: Nose normal. Mouth/Throat: Oropharynx is clear and moist. No oropharyngeal exudate. Eyes: Conjunctivae and EOM are normal. Pupils are equal, round, and reactive to light. Right eye exhibits no discharge. Left eye exhibits no discharge. No scleral icterus. Neck: Normal range of motion. Neck supple. No JVD present. No tracheal deviation present. No thyromegaly present. Cardiovascular: Normal rate, regular rhythm, normal heart sounds and intact distal pulses. Exam reveals no gallop and no friction rub. No murmur heard. Pulmonary/Chest: Effort normal and breath sounds normal. No stridor. No respiratory distress. She has no wheezes. She has no rales. She exhibits no tenderness. Abdominal: Soft. Bowel sounds are normal. She exhibits no distension. There is no tenderness. Thereis no rebound. Musculoskeletal: Normal range of motion. Lymphadenopathy: She has no cervical adenopathy. Neurological: She is alert and oriented to person, place, and time. Skin: Skin is warm and dry. No rash noted. She is not diaphoretic. Psychiatric: She has a normal mood and affect. Her behavior is normal. Judgment and thought contentnormal. Procedures Procedures Placed a gauze and pressure tape dressing over incision. Lab/SPO2 Interpretation Progress Notes EMS being arranged to take patient to [facility] for further evaluation. 2 week old infant being taken home by family members while mother is transferred to [facility]. Contacted admitting physician at [facility], Dr Andino will be accepting patient; report given. ED Course Medical Decision Making I have reviewed the: Nursing Notes and Vitals. I have discussed the case with Pediatrics (Dr Salcedo at bedside to examine patient and agrees to apply pressure dressing and send patient by EMS to [facility] where she delivered) and Family/Caregiver. Clinical Impression Final diagnoses: Open abdominal incision with drainage incision draining fluid, possible dehisce of incision Bren Lee should be transferred out to [facility] via personal transportation. Stable for transfer documented in this encounter Miscellaneous Notes * Miscellaneous Scans - Document, Scanned - 07/13/2012 11:02 AM CDT * Miscellaneous Scans - Document, Scanned - 07/02/2012 11:15 AM CST ICES REP documented in this encounter Plan of Treatment Not on file documented as of this encounter Visit Diagnoses Diagnosis Open abdominal incision with drainage Open wound of abdominal wall, anterior, without mention of complication documented in this encounter Care Teams Jack Frame Tender Relationship Specialty Start Date End Date Imelda Gibson [address] [address] PCP - General 06/08/12 02/09/21 documented as of this encounter
--- OUTSIDE RECORDS SUMMARY | 2024-05-04 14:55 | XMS_ITS | Encounter Summary ---
Author Organization [facility] Health Address [address] [facility] [place] [address] Care Team Providers Care Ssrs Report Developer Name Role Phone Unavailable Primary Care Provider Unavailabl e Reason for Visit * Reason Onset Date Comments Future Appointment 05/11/2021 Encounter Details Date Type Department Care Team (Late st Contact Info) Description 05/11/2021 Telephone [facility] MATERNAL/ EVALUATION UNIT [facility] [facility] [address] [place] [address] Janet Hanson RN Future Appointment Social History Tobacco Use Types Packs/Day Years [...] Telephone Encounter - Janet Hanson RN - 05/11/2021 3:12 PM CST Referral received from Vangie @ [facility]. Vangie notified of appointment date and time and will reach out to patient. EY PRESS OPERATOR documented in this encounter Plan of Treatment Not on file documented as of this encounter Visit Diagnoses Not on filedocumented in this encounter
--- OUTSIDE RECORDS SUMMARY | 2024-05-04 14:55 | XMS_ITS | Encounter Summary ---
Author Organization [facility] Health Address [address] [place] [address] Care Team Providers Care Professional Development Instructor Name Role Phone Unavailable Primary Care Provider Unavailabl e Encounter Details Date Type Department Care Team (Latest Contact Info) Description 05/24/2021 8:33 AM GLUE MILL OPERATOR Hospital Encounter [facility] MATERNAL/ EVALUATION UNIT [address] [facility] [place] [address] Jake Jc MD [address] [facility] [address] [place] [address] Discharge Disposition: Home or Self Care Social [...]
--- OUTSIDE RECORDS SUMMARY | 2024-05-04 14:55 | XMS_ITS | Encounter Summary ---
Author Organization [facility] Health Address [address] [place] [address] Care Team Providers Care Associate Professor Of Art Name Role Phone Unavailable Primary Care Provider Unavailabl e Encounter Details Date Type Department Care Team (Latest Contact Info) Description 05/24/2021 8:34 AM GEAR ROOM KEEPER - 05/24/2021 11:59 PM GEAR ROOM KEEPER Hospital Encounter [facility] MATERNAL/ EVALUATION UNIT [address] [facility] [place] [address] Jaek Jc MD [address] [facility] [address] [place] [address] Discharge Disposition: Home or Self Care Social [...] Procedure Name Priority Date/Time Associated Diagnosis Comments URINALYSIS - POCT (IP) BEAKER INTERFACE Routine 05/24/2021 9:43 AM GEAR ROOM KEEPER documented in this encounter Results * (ABNORMAL) URINALYSIS - POCT (IP) BEAKER INTERFACE (05/24/2021 9:43 AM GEAR ROOM KEEPER) Color UA POCT Yellow Straw, Yellow, Dark Yellow, Light Yellow 05/24/2021 9:44 AM GEAR ROOM KEEPER [facility] Clarity UA POCT Clear Clear 9:44 AM GEAR ROOM KEEPER [facility] Specific Max UA POCT 1.020 1.005 - 1.030 05/24/2021 9:44 AM GEAR ROOM KEEPER [facility] pH UA POCT 7.0 5.0 - 8.0 pH 05/24/2021 9:44 AM GEAR ROOM KEEPER [facility] Protein UA POCT Negative Negative 9:44 AM GEAR ROOM KEEPER [facility] Blood UA POCT Negative Negative 05/24/2021 9:44 AM GEAR ROOM KEEPER [facility] Leukocyte UA POCT 2+(A) Negative 05/24/2021 9:44 AM GEAR ROOM KEEPER [facility] Nitrite UA POCT Negative Negative 9:44 AM GEAR ROOM KEEPER [facility] Glucose UA POCT Negative Negative 9:44 AM GEAR ROOM KEEPER [facility] Ketone UA POCT Negative Negative 05/24/2021 9:44 AM GEAR ROOM KEEPER [facility] Bilirubin UA POCT Negative Negative 05/24/2021 9:44 AM GEAR ROOM KEEPER [facility] Urobilinogen UA POCT 2.0(H) 0.1 - 1.0 EU/dL 05/24/2021 9:44 AM GEAR ROOM KEEPER [facility] Urine URINE / Unknown 05/24/2021 9 :43 AM GEAR ROOM KEEPER 05/24/2021 9:44 AM GEAR ROOM KEEPER Jake Jc MD LAB - POINT OF CARE ORDERABLES Performing Organization Address City/State/[facility] Co de Phone Number [facility] [address] [place], [place] [id number] documented in this encounter Visit Diagnoses Not on filedocumented in this encounter Additional Health Concerns Infection Onset Date Last Indicated Resolved Time COVID-19 Under Investigation 05/24/2021 05/24/2021 05/24/2021 4:07 PM GEAR ROOM KEEPER documented as of this encounter
--- OUTSIDE RECORDS SUMMARY | 2024-05-04 14:55 | XMS_ITS | Encounter Summary ---
Author Organization [facility] Health Address [address] [place] [address] Care Team Providers Care Dukey Rider Name Role Phone Pcp, Unknown Primary Care Provider Unavailabl e Reason for Visit * Reason Comments Pain Abdominal pt c/o of generalize d abd pain x 1 month - with intermittent n/v - pt states she she had a temp of 101.3 last night denies diarrhea Encounter Details Date Type Department Care Team (Latest Contact Info) Description 05/14/2011 7:02 PM BROKERAGE OFFICE MANAGER - 05/16/2011 12:30 PM [facility] Hospital Encounter [facility] [address] [place] [address] Felix Onofre MD [address] [facility] [place]ERGENCY [place] [address] Maico Cuevas MD RETIRED Jorje Overton MD RETIRED Medical Inpatient Discharge Disposition: Home or Self Care Social [...] Sign Reading Time Taken Comments Blood Pressure 127/57 05/16/2011 8:54 AM BROKERAGE OFFICE MANAGER Pulse 76 05/16/2011 8:54 AM BROKERAGE OFFICE MANAGER Temperature 36.5 ??C (97.7 ??F) 05/16/2011 8:54 AM CS T Respiratory Rate 18 05/16/2011 8:54 AM BROKERAGE OFFICE MANAGER Oxygen Saturation 97% 05/16/2011 8:54 AM BROKERAGE OFFICE MANAGER Inhaled Oxygen Concentration - - Weight 162.2 kg (357 lb 8 oz) 05/15/2011 2:03 AM BROKERAGE OFFICE MANAGER Height 167.6 cm (5' 5.98 ) 05/15/2011 2:03 AM CS T Body Mass Index 57.73 05/15/2011 2:03 AM BROKERAGE OFFICE MANAGER documented in this encounter Discharge Summaries * Jorje Overton MD - 05/16/2011 9:[address] [facility] [place] [address] DISCHARGE SUMMARY PATIENT NAME: JACKIE LEE [facility]#: [id number] ADMISSION DATE: 05/14/2011CCT#: [id number] DISCHARGE DATE: : 1990 ATTENDING: MAICO CUEVAS MD PRIMARY DIAGNOSES: 1.Symptomatic cholelithiasis. 2.Morbid obesity. BRIEF HISTORY: This is a 21-year-old female, morbidly obese presenting with biliary colic in the emergency department with normal liver, normal labs, and she was admitted for pain control and surgical consultation. HOSPITAL COURSE: Ms. Lee was seen with the above history. She has had recurrent biliary colic over the past month. She is morbidly obese with a weight of 360 pounds. She has no medical insurance and is unemployed. Family history is positive for gallbladder disease. Gallbladder ultrasound confirmed cholelithiasis without evidence of acute cholecystitis, ductal dilatation, fluid around the gallbladder or wall thickening. She was seen and felt not to need an urgent operation. Her biliary colic was abated with pain medication. She was started on low fat diet. She is recommended to be seen by wood pattern maker for low-fat diet and social service consult for [employer] financials consultant. She is given my card and certainly I would be glad to consider her for laparoscopic cholecystectomy in the future. DISCHARGE MEDICATIONS: She was discharged home on [place] 5 mg 1-2 every 4 hours p.r.n. pain. DIET: Low fat diet. FOLLOWUP: Return to see me in the future as needed. MD FRANTZ Arizmendi/Gabrielle /[id number] cc:Felix Onofre DISCHARGE SUMMARY - ERAGE OFFICE MANAGER * Jorje Overton MD - 05/16/2011 9:22 AM CST Discharge Summary dicated ERAGE OFFICE MANAGER documented in this encounter Discharge Instructions * Discharge Instructions* Maria R Sears RN - 05/16/2011 11:18 AM BROKERAGE OFFICE MANAGER If you have any questions regarding your home medications/prescriptions, please contact your primary physician. Discharge Procedure Orders PRESCRIPTIONS GIVEN TO PATIENT/FAMILY MEDICATION INSTRUCTIONS Take prescribed pain medications as needed. Exercise caution when walking, driving, or climbing stairs. SPECIAL DIET INSTRUCTIONS LOW FAT diet at home ACTIVITY TOLERATED NO FOLLOW UP APPOINTMENT NEEDED Please avoid smoking and second hand smoke. The following belongings have been returned to you: Equipment At Home: None .WEIGHT MONITORING - If you have heart failure, weigh yourself every morning. Contact your physician if your weight increases by 3 pounds in 1 day OR 5 pounds in 1 week. WHAT TO DO IF SYMPTOMS WORSEN - Contact your physician if you have shortness of breath/difficulty breathing, or any swelling of your legs, ankles or feet. The discharge and medication instructions have been reviewed with me and my questions have been answered. I have received a copy of the discharge instructions. 05/16/2011 ERAGE OFFICE MANAGER * Discharge Instructions* Document, Scanned - 05/17/2011 3:06 PM BROKERAGE OFFICE MANAGER ERAGE OFFICE MANAGER documented in this encounter Medications at Time of Discharge Medication Sig Dispensed Refills Start Date End Date hydrocodone-acetaminophen (NORCO) 5-325 MG tablet Take 1-2 Tabs by mouth every 4 hours as needed. 30 Tab no 05/16/2011 02/16/2021 documented as of this encounter Progress Notes * Maria R Sears RN - 05/16/2011 12:30 PM CST Patient was instructed on low fat diet by wood pattern maker and seen by financial assistance case-worker. She was given copies of discharge instructions with printed script for [place]. The patient's father and family were here and with her permission, the discharge instructions were reviewed with him also. She signed the instructions and gave verbal understanding. The patient was assisted to the exit by Flory Cole. ERAGE OFFICE MANAGER * Jorje Overton MD - 05/16/2011 9:13 AM CST General Surgery Progress Note [facility] Medical Group Jorje Overton MD, FACS Admit Date: 05/14/2011 7:02 PM Hospital Day: 2 Subjective Chief Complaint: No complaints today History of Present Illness: Morbidly obese female with biliary colic. She is doing well now. No pain, N/V. Tolerating low fat diet. Objective Physical Exam: BP: 127/57 Pulse: 76 Temp: 97.7 ??F Resp: 18 Wt: 357 lb 8 oz (162.161 kg) BMI: 57.73 kg/m2 SpO2: 97% FiO2: Chest: Normal respiratory effort, clear to auscultation without wheezes or rales. Heart: Heart is regular in rate and rhythm, no murmur, normal S1 and S2. Abdomen: soft without mass, non-tender, with normal bowel sounds Extremities: no clubbing, cyanosis or edema Lab Data: Component Name 05/15/11 0501 05/14/11 2140 WBC 7.62 9.38 RBC 4.28 4.60 HGB 11.9* 13.0 HCT 36.9 39.5 PLTCOUNT 236 252 GRANABS 3.55 6.17 Component Name 05/15/11 0501 05/14/11 2140 SODIUM 143 144 POTASSIUM 3.8 3.8 CHLORIDE 108* 107 BUN 12 14 CREATININE 0.52 0.50 GLUCOSE 77 93 CALCIUM 8.3* 8.8 ALT 88* 95* AST 83* 178* TBIL 0.3 0.3 TPROT 6.7 7.6 EGFR >60 >60 Assessment Stable, no further biliary colic Plan Discharge today Needs counseling on low fat diet and financial assist prior to Discharge Would benefit from elective Lap Yesi in future. She was given my card. Office: [phone] Pager: [phone] Exchange: [phone] ERAGE OFFICE MANAGER * Elen Antoine RD/JACKLYN - 05/16/2011 9:12 AM CST BMI Nutrition Note Height: 5' 5.98 (167.6 cm) Weight: 357 lb 8 oz (162.161 kg) BMI (Calculated): 57.85 BMI Range: Morbidly Obese Class 3 Nutrition consult ordered for Low fat diet educ - will provide nutrition educ prior to d/x and encourage wt loss at that time. Elen Antoine RD/JACKLYN ERAGE OFFICE MANAGER * Evelyn Aaron, ANA - 05/15/2011 6:21 PM CST Shift Notes: Dr Overton in to see increased to clear liquids. IV hydration continued Afebrile. C/o headache today. Improved with oral rx. ERAGE OFFICE MANAGER * Veronika Person RN - 05/15/2011 3:18 AM CST Admitted from the ED per stretcher. Alert and oriented x 4. Claims of having abdominal pain at 01/08. Cooperative with admission. Oriented to unit and room set up. Also claims of feeling nauseated. Denies any medical history. BP is elevated , denies any symptoms. VSS. Monitored for safety and changes in condition. Pain medication given as ordered. Slept fairly. NPO instructed. Encouraged to verbalize needs. For more care. ERAGE OFFICE MANAGER documented in this encounter H&P Notes * Jorje Overton MD - 05/15/2011 1:31 PM CST Inpatient General Surgery Consult Note [facility] Medical Group Jorje Overton MD, FACS Date of Encounter: 05/15/2011 Referring Physician: Dr. Onofre, ED Primary Care Physician: Unknown Pcp, Chief Complaint/HPI 21 year old female I am seeing Jackie Lee in consultation for evaluation of upper abdominal pain. This has been ongoing for one month, but quite severe the past day. She has been having post prandial bilary colic and has been trying to watch her fat intake. She denies fever, chills or jaundice. Her GB US this AM shows cholelithiasis without signs of cholecystitis. No past medical history on file. No past surgical history on file. No Known Allergies Prior to Admission medications Medication Sig Start Date End Date Taking? Authorizing Provider acetaminophen (TYLENOL) 325 MG tablet Take 650 mg by mouth every 4 hours as needed. Maximum allowable Acetaminophen amount = 4 Grams (4000 mg) / 24 hours. Yes Historical Provider, Current Facility-Administered Medications Medication Dose Route Frequency Provider Last Rate Last Dose ??? 0.9% NaCl infusion Intravenous Continuous Felix Onofre MD 125 mL/hr at 05/15/11 0231 ??? acetaminophen (TYLENOL) tablet 650 mg 650 mg Oral q4h PRN Felix Onofre MD ??? hydrocodone-acetaminophen (NORCO) 5-325 MG tablet 1 Tab 1 Tab Oral q6h PRN Felix Onofre MD ??? morphine injection 4 mg 4 mg Intravenous q4h PRN Felix Onofre MD 4 mg at 05/15/11 0818 ??? ondansetron (ZOFRAN) injection 4 mg 4 mg Intravenous q4h PRN Felix Onofre MD 4 mg at 05/15/11 0250 ??? ondansetron (ZOFRAN) injection 4 mg 4 mg Intravenous Once Felix Onofre MD 4 mg at 05/14/11 2240 ??? morphine injection 4 mg 4 mg Intravenous Once Felix Onofre MD 4 mg at 05/14/11 2240 History Social History ??? Marital Status: Single [...] History Narrative ??? No narrative on file she in unemployed and uninsured. Family History Problem Relation Age of Onset ??? Diabetes Mother Review of Systems Constitutional: Denies fever or malaise Respiratory: Negative for shortness of breath Cardiovascular: Negative for chest pain Gastrointestinal: see HPI Genitourinary: Negative for difficulty with urination Hematologic/lymphatic: Negative for bleeding disorder, blood clots Neurological: Negative for seizures and strokes Endocrine: Negative for diabetes and thyroid problems Anaesthesia: No problems in the past Psychiatric: Denies history of depression and suicidal Physical Exam BP: 123/76 Pulse: 71 Temp: 97.9 ??F Resp: 18 Wt: 357 lb 8 oz (162.161 kg) BMI: 57.73 kg/m2 SpO2: 97% FiO2: General Appearance: Alert, cooperative, no distress, oriented to person, place, and time. She is morbidly obese. Skin: No notable rashes, lesions or ulcers over exposed areas; no notable induration or subcutaneous nodules over exposed areas HEENT: Normocephalic. Conjunctiva without erythema. PERRLA. TMs normal. Pharynx clear. Chest: Breath sounds normal and symmetric; no rales or wheezes Heart: Regular rhythm, normal S1 and S2, without murmurs, gallops or rubs Abdomen: Soft without mass, non-tender, with normal bowel sounds, soft, normal bowel sounds, no hepatomegaly Lymphatics: Negative Extremities: Normal strength, tone, and muscle mass, normal ROM of all joints, Non tender, no edema, no clubbing, no cyanosis Neuro: CN III-XII intact, gross motor/sensory exam intact Lab Data Component Name 05/15/11 0501 05/14/11 2140 WBC 7.62 9.38 RBC 4.28 4.60 HGB 11.9* 13.0 HCT 36.9 39.5 PLTCOUNT 236 252 GRANABS 3.55 6.17 Component Name 05/15/11 05005/14/11 2140 SODIUM 143 144 POTASSIUM 3.8 3.8 CHLORIDE 108* 107 BUN 12 14 CREATININE 0.52 0.50 GLUCOSE 77 93 CALCIUM 8.3* 8.8 ALT 88* 95* AST 83* 178* TBIL 0.3 0.3 TPROT 6.7 7.6 EGFR >60 >60 Clinical Impression Symptomatic Cholelithiasis Morbid Obesity Recommendation Start liquids and advance to low fat diet Dietary consult for low fat diet Social service consult for financial help Jorje Overton MD, FACS [facility] Medical Group Pager [phone] Exchange [phone] Office [phone] & [phone] ERAGE OFFICE MANAGER documented in this encounter Consult Notes * Adela Reid RD/JACKLYN - 05/16/2011 2:26 PM CSTAssociated Order(s): IP CONSULT TO NUTRITIONAL SERV Consult Note Pt consult provided on low fat diet instruction. Pt reports eating salads and some fruits on a regular basis. Does eat mainly vincentian food. Diet history suggests includes a lot of saturated fat on a regular basis. Discussed typical diet at home and made recommendations based on what she usually eats at home. Pt took interest in the instruction. Some compliance is expected Discussed low fat diet guidelines: ?? limit foods high in saturated fat ?? Avoid transfats which are present in stick margarine, shortening, some fried foods and packaged foods made with hydrogenated oils ?? Use healthier food preparation methods such as baking broiling and roasting in place of frying ?? monitoring portion sizes ?? how to interpret the food label ?? How to substitute typical fats in vincentian meals with healthier options ?? Developed a sample menu with patient's preferences ?? Increasing intake of fresh fruits and vegetables Provided appropriate education materials with contact information for any future questions or concerns. MARITZA Flores ERAGE OFFICE MANAGER * Nazia Miranda RN - 05/16/2011 2:03 PM CSTAssociated Order(s): IP CONSULT TO CASE MANAGEMENT Patient was discharged before I could see. Nazia Miranda RN, BSN [phone] ERAGE OFFICE MANAGER documented in this encounter ED Notes * Felix Onofre MD - 05/14/2011 10:19 PM CST Provider contact with the patient: 05/14/2011 10:19 PM Jackie Lee [id number] [facility] EMERGENCY DEPARTMENT History Chief Complaint Patient presents with ??? Pain Abdominal pt c/o of generalized abd pain x 1 month - with intermittent n/v - pt states she she had a temp of 101.3 last night denies diarrhea HPI Comments: Patient has had about a one month's history of intermittent and worsening right upperquadrant abdominal pain that has been worse with eating. Pain Abdominal The history is provided by the patient. This is a new problem. The current episode started more than 1 week ago. The problem occurs intermittent. The problem has been gradually worsening. The pain isassociated with eating. The pain is located in the RUQ and generalized abdominal region. The pain is severe. Associated symptoms include a fever.Pertinent negatives include no diarrhea, no nausea, novomiting, no dysuria, no frequency, no hematuria, no headaches or no myalgias.The pain is worsened by eating. The pain is relieved by nothing. Risk factors for an abdominal aortic aneurysm include none. Risk factors for an ectopic include none. No past medical history on file. No past surgical history on file. Family History Problem Relation Age of Onset ??? Diabetes Mother History Social History ??? Marital Status: Single [...] History Narrative ??? No narrative on file Review of Systems Review of Systems Constitutional: Positive for fever. Negative for chills. HENT: Negative for hearing loss and neck pain. Eyes: Negative for blurred vision and double vision. Respiratory: Negative for cough, shortness of breath and stridor. Cardiovascular: Negative for chest pain and leg swelling. Gastrointestinal: Positive for abdominal pain. Negative for nausea, vomiting and diarrhea. Genitourinary: Negative for dysuria, urgency, frequency and hematuria. Musculoskeletal: Negative for myalgias. Neurological: Negative for dizziness, speech change, focal weakness, weakness and headaches. All other systems reviewed and are negative. Physical Exam BP 144/95 Pulse 77 Temp 98.1 ??F Resp 16 Ht 5' 6 (1.676 m) Wt 355 lb (161.027 kg) BMI 57.30 kg/m2 SpO2 99% Physical Exam Nursing note and vitals reviewed. Constitutional: She is oriented to person, place, and time and well-developed, well-nourished, and in no distress. HENT: Head: Normocephalic and atraumatic. Neck: Normal range of motion. Neck supple. Cardiovascular: Normal rate, regular rhythm and normal heart sounds. Pulmonary/Chest: Effort normal and breath sounds normal. No respiratory distress. Abdominal: Soft. Bowel sounds are normal. She exhibits no distension and no mass. Tenderness is present. She has no rebound and no guarding. Right upper quadrant abdominal tenderness without rebound. Neurological: She is alert and oriented to person, place, and time. No cranial nerve deficit. Coordination normal. GCS score is 15. Skin: Skin is warm and dry. Psychiatric: Mood, memory, affect and judgment normal. Medications Current Outpatient Prescriptions Medication Sig Dispense Refill ??? acetaminophen (TYLENOL) 325 MG tablet Take 650 mg by mouth every 4 hours as needed. Maximum allowable Acetaminophen amount = 4 Grams (4000 mg) / 24 hours. Procedures Procedures EKG Interpretation Lab Interpretation Normal Labs:normal Chemistry and normal CBC Amylase:,Lipase:Liver Function:non-obstructive Serum B-Hcg:,Urine Hcg:negative Oxygen Saturation Interpretation The oxygen saturation level is: 99%. The patient was on Room Air for the saturation measurement. Oxygen saturation interpretation is Normal. Intervention(s) used: None. Results for orders placed during the hospital encounter of 05/14/11 HCG URINE QUALITATIVE - POINT OF CARE Component Value Range HCG Qual Urine negative Low:Negative QC Verified yes Low:Yes CBC W AUTO DIFFERENTIAL Component Value Range WBC 9.38 4.0 - 11.0 (X(10)9/L) RBC 4.60 3.8 - 5.3 (X(10)12/L) Hgb 13.0 12.0 - 16.0 (gm/dl) Hct 39.5 36 - 47 (%) MCV 85.9 80.0 - 99.0 (fl) MCH 28.3 26 - 34 (pg) MCHC 32.9 32.0 - 37.0 (gm/dl) RDW 13.1 11.5 - 14.5 (%) Plt Ct K/CUMM 252 150 - 400 (X(10)9/L) MPV 10.4 9.2 - 12.2 (fl) Gran 65.9 43 - 70 (%) Gran Abs 6.17 1.7 - 6.7 (X(10)3) Lymph 23.1 22 - 41 (%) Lymph Abs 2.17 0.9 - 3.2 (X(10)3) Lanier 7.1 2.0 - 11.0 (%) Lanier Abs 0.67 0.2 - 0.9 (X(10)3) Eos 3.5 0.0 - 5.0 (%) Eos Abs 0.33 0.0 - 0.4 (X(10)3) Baso 0.4 0 - 2 (%) Baso Abs 0.04 0.0 - 0.2 (X(10)3) Manual Diff Comment Manual Diff Not Indicated COMPREHENSIVE METABOLIC PANEL Component Value Range Glucose 93 65 - 105 (mg/dl) BUN 14 7.0 - 21.0 (mg/dl) Creatinine 0.50 0.5 - 1.3 (mg/dl) SODIUM 144 136 - 145 (mmol/L) Potassium 3.8 3.5 - 5.1 (mmol/L) Chloride 107 98 - 107 (mmol/L) CO2 27 22 - 30 (mmol/L) Calcium 8.8 8.5 - 10.1 (mg/dl) Bili Total 0.3 0.2 - 1.0 (mg/dl) Alk Phos 94 38 - 126 (U/L) AST/SGOT 178 (*) 5.0 - 40.0 (U/L) ALT/SGPT 95 (*) 12.0 - 78.0 (U/L) Protein Total 7.6 6.4 - 8.2 (gm/dl) Albumin 3.6 3.4 - 5.0 (gm/dl) eGFR By MDRD >60 >60 URINALYSIS ROUTINE W/REFLEX TO CULTURE Component Value Range Color UA ORANGE Character UA CLEAR Glucose UA 250 (*) Negative Bili UA NEGATIVE Negative Ketone UA 15 Negative (mg/dl) Spec Ringling UA 1.015 1.003 - 1.030 pH Units 6.5 4.5 - 8.0 (pH Units) Protein UA 100 (*) Negative Urobilinogen UA >=8.0 <1.0 (Nick Units) Nitrite UA POSITIVE (*) Negative (mg/dl) Blood UA NEGATIVE Negative (mg/dl) Leukocyte UA SMALL (*) Negative WBC UA 0-5 0 - 5 ( /HPF) RBC UA 0-5 0 - 5 ( /HPF) Epithelial Cell UA 0-5 0 - 5 ( /LPF) Bacteria UA Trace Microscopy Urine Urine Micro Done UA Culture Reflex to culture Comment Value: probable color interference, evalulate results accordingly. LIPASE BLOOD Component Value Range Lipase 94 73 - 393 (U/L) AMYLASE BLOOD Component Value Range Amylase 44 15 - 115 (U/L) Progress Notes Bedside ultrasound by me shows a positive ultrasonic Grossman's sign. Admitting for further care. ED Course Medical Decision Making I have reviewed the: Nursing Notes and Vitals. I have interpreted the following results: Labs, Ultrasound and Oxygen Saturation. I have discussed the case with Surgery. Clinical Impression Encounter Diagnosis Name Primary? Biliary colic ERAGE OFFICE MANAGER * Heladio Munoz RN - 05/14/2011 9:09 PM CST Pt having epigastric pain x 1 month, pt denies N/V currently ERAGE OFFICE MANAGER documented in this encounter Miscellaneous Notes * Miscellaneous Scans - Document, Scanned - 05/17/2011 11:52 AM CST ERAGE OFFICE MANAGER documented in this encounter Plan of Treatment Not on file documented as of this encounter Procedures Procedure Name Priority Date/Time Associated Diagnosis Comments IP CONSULT TO NUTRITIONAL SERV Routine 05/16/2011 2:41 PM BROKERAGE OFFICE MANAGER IP CONSULT TO CASE MANAGEMENT Routine 05/16/2011 2:04 PM BROKERAGE OFFICE MANAGER US ABDOMEN LIMITED Routine 05/15/2011 8: 53 AM BROKERAGE OFFICE MANAGER Biliary colic CBC W AUTO DIFFERENTIAL Routine 05/15/2011 5:01 AM BROKERAGE OFFICE MANAGER COMPREHENSIVE METABOLIC PANEL Routine 05/15/2011 5:01 AM BROKERAGE OFFICE MANAGER HCG URINE QUALITATIVE - POINT OF CARE STAT 05/14/2011 10:02 PM BROKERAGE OFFICE MANAGER URINALYSIS REFLEX MICROSCOPIC REFLEX CULTURE STAT 05/14/2011 10:00 PM BROKERAGE OFFICE MANAGER CULTURE URINE STAT 05/14/2011 10:00 PM BROKERAGE OFFICE MANAGER CBC W AUTO DIFFERENTIAL STAT 05/14/2011 9:40 PM BROKERAGE OFFICE MANAGER COMPREHENSIVE METABOLIC PANEL STAT 05/14/2011 9:40 PM BROKERAGE OFFICE MANAGER LIPASE BLOOD STAT 05/14/2011 9:40 PM BROKERAGE OFFICE MANAGER AMYLASE BLOOD STAT 05/14/2011 9:40 PM BROKERAGE OFFICE MANAGER documented in this encounter Results * IP CONSULT TO NUTRITIONAL SERV (05/16/2011 2:41 PM BROKERAGE OFFICE MANAGER) Adela Randolph RD/LD - 05/16/2011 2:41 PM BROKERAGE OFFICE MANAGER ROBERT Cruz ? 05/16/2011 ??2:41 PM Consult Note Pt consult provided on low fat diet instruction. Pt reports eating salads and some fruits on a regular basis. Does eat mainly vincentian food. Diet history suggests includes a lot of saturated fat on a regular basis. Discussed typical diet at home and made recommendations based on what she usually eats at home. Pt took interest in the instruction. Some compliance is expected Discussed low fat diet guidelines: ?? limit foods high in saturated fat ?? Avoid transfats which are present in stick margarine, shortening, some fried foods and packaged foods made with hydrogenated oils ?? Use healthier food preparation methods such as baking broiling and roasting in place of frying ?? monitoring portion sizes ?? how to interpret the food label ?? How to substitute typical fats in vincentian meals with healthier options ?? Developed a sample menu with patient's preferences ?? Increasing intake of fresh fruits and vegetables ??Provided appropriate education materials with contact information for any future questions or concerns. MARITZA Flores Procedure Note Adela Reid RD/JACKLYN - 05/16/2011 2:26 PM CST Consult Note Pt consult provided on low fat diet instruction. Pt reports eating saladsand some fruits on a regular basis. Does eat mainly vincentian food. Diethistory suggests includes a lot of saturated fat on a regular basis.Discussed typical diet at home and made recommendations based on what sheusually eats at home. Pt took interest in the instruction. Some complianceis expected Discussed low fat diet guidelines: ?? limit foods high in saturated fat ?? Avoid transfats which are present in stick margarine, shortening, somefried foods and packaged foods made with hydrogenated oils ?? Use healthier food preparation methods such as baking broiling androasting in place of frying ?? monitoring portion sizes ?? how to interpret the food label ?? How to substitute typical fats in vincentian meals with healthier options ?? Developed a sample menu with patient's preferences ?? Increasing intake of fresh fruits and vegetables Provided appropriate education materials with contact information forany future questions or concerns. MARITZA Flores Jorje Overton MD INPATIENT ANCILLARY CONSULT * IP CONSULT TO CASE MANAGEMENT (05/16/2011 2:04 PM BROKERAGE OFFICE MANAGER) Narrative Nazia Miranda RN - 05/16/2011 2:04 PM BROKERAGE OFFICE MANAGER Nazia Miranda RN ? 05/16/2011 ??2:04 PM Patient was discharged before I could see. Nazia Miranda RN, BSN [phone] Procedure Note Nazia Miranda RN - 05/16/2011 2:03 PM CST Patient was discharged before I could see. Nazia Miranda RN, BSN [phone] Jorje Overton MD INPATIENT ANCILLARY CONSULT * US ABDOMEN LIMITED (05/15/2011 8:53 AM BROKERAGE OFFICE MANAGER) Anatomical Region Laterality Modality Abdomen Ultrasound 05/15/2011 10:0 6 AM BROKERAGE OFFICE MANAGER Impressions 05/15/2011 11:00 AM BROKERAGE OFFICE MANAGER Cholelithiasis Fatty infiltration of the liver Narrative 05/15/2011 11:00 AM BROKERAGE OFFICE MANAGER ULTRASOUND ABDOMEN LIMITED INDICATION: Abdominal pain FINDINGS: Ultrasound without prior shows increased echotexture to the liver consistent with fatty infiltration. Layering small stones are seen in the gallbladder. No pericholecystic fluid is present. The common bile duct measures 0.61 cm. The pancreas is only partially visualized. The right kidney measures 11.05 x 4.53 x 5.84 cm. There is no hydronephrosis. Procedure Note Jus Pichardo MD - 05/15/2011 ULTRASOUND ABDOMEN LIMITED INDICATION: Abdominal pain FINDINGS: Ultrasound without prior shows increased echotexture to the liver consistent with fatty infiltration. Layering small stones are seen in the gallbladder. No pericholecystic fluid is present. The common bile duct measures 0.61 cm. The pancreas is only partially visualized. The right kidney measures 11.05 x 4.53 x 5.84 cm. There is no hydronephrosis. IMPRESSION Cholelithiasis Fatty infiltration of the liver Felix Onofre MD ORDERABLES * (ABNORMAL) COMPREHENSIVE METABOLIC PANEL (05/15/2011 5:01 AM BROKERAGE OFFICE MANAGER) Glucose 77 65 - 105 mg/dl [facility] BUN 12 7.0 - 21.0 mg/dl [facility] Creatinine 0.52 0.5 - 1.3 mg/dl [facility] Sodium 143 136 - 145 mmol/L [facility] Potassium 3.8 3.5 - 5.1 mmol/L [facility] Chloride 108(H) 98 - 107 mmol/L [facility] CO2 26 22 - 30 mmol/L [facility] Calcium 8.3(L) 8.5 - 10.1 mg/dl [facility] Bilirubin Total 0.3 0.2 - 1.0 mg/dl [facility] Alkaline Phosphatase 69(DE) 38 - 126 U/L [facility] AST 83(DH) 5.0 - 40.0 U/L [facility] ALT 88(H) 12.0 - 78.0 U/L [facility] Protein Total 6.7 6.4 - 8.2 gm/dl [facility] Albumin 3.2(L) 3.4 - 5.0 gm/dl [facility] eGFR By MDRD >60 >60 [facility] Blood specimen (specimen) BLOOD SPECIMEN / Unknown 05/15/2011 5:01 AM BROKERAGE OFFICE MANAGER 05/15/2011 5:32 AM BROKERAGE OFFICE MANAGER Felix Onofre MD LAB - CHEMISTRY ORD ERABLES [facility] [address] [address] * (ABNORMAL) CBC W AUTO DIFFERENTIAL (05/15/2011 5:01 AM BROKERAGE OFFICE MANAGER) WBC 7.62 4.0 - 11.0 X(10)9/L [facility] RBC 4.28 3.8 - 5.3 X(10)12/L [facility] Hemoglobin 11.9(L) 12.0 - 16.0 gm/dl [facility] Hematocrit 36.9 36 - 47 % [facility] MCV 86.2 80.0 - 99.0 fl [facility] MCH 27.8 26 - 34 pg [facility] MCHC 32.2 32.0 - 37.0 gm/dl [facility] RDW 13.3 11.5 - 14.5 % [facility] Platelet Count 236 150 - 400 X(10)9/L [facility] MPV 10.5 9.2 - 12.2 fl [facility] Granulocytes % 46.6(DE) 43 - 70 % [facility] Granulocytes Absolute 3.55 1.7 - 6.7 X(10)3 [facility] Lymphocytes % 37.8(DE) 22 - 41 % [facility] Lymphocytes Absolute 2.88 0.9 - 3.2 X(10)3 [facility] Monocytes % 8.4 2.0 - 11.0 % [facility] Monocytes Absolute 0.64 0.2 - 0.9 X(10)3 [facility] Eosinophils % 6.7(H) 0.0 - 5.0 % [facility] Eosinophils Absolute 0.51(H) 0.0 - 0.4 X(10)3 [facility] Basophils % 0.5 0 - 2 % [facility] Basophils Absolute 0.04 0.0 - 0.2 X(10)3 [facility] Comment Manual Diff Manual Diff Not Indicated [facility] Blood specimen (specimen) BLOOD SPECIMEN / Unknown 05/15/2011 5:01 AM BROKERAGE OFFICE MANAGER 05/15/2011 5:32 AM BROKERAGE OFFICE MANAGER Felix Onofre MD LAB - HEMATOLOGY OR DERABLES Performing Organization Address [facility] Co de Phone Number [facility] [address] [place] [address] * HCG URINE QUALITATIVE - POINT OF CARE (05/14/2011 10:02 PM BROKERAGE OFFICE MANAGER) HCG Qual Urine negative Negative [facility] POCT TESTING QC Verified yes Yes [facility] POC T TESTING Urine specimen (specimen) URINE / Unknown 05/14/2011 10:02 PM BROKERAGE OFFICE MANAGER Felix Onofre MD LAB - POINT OF CARE ORDERABLES Performing Organization Address [facility] de Phone Number [facility] PO[facility] [address] [facility] [place] [address] * CULTURE URINE (05/14/2011 10:00 PM BROKERAGE OFFICE MANAGER) Result [facility] Comment: Final CULTURE >10,000 CFU/mL of multiple ?? bacterial morphotypes ?? present. Suggest appropriate ?? recollection with timely transportation to the ?? laboratory if clinically ?? indicated. URINE SPECIMEN OBTAINED BY CLEAN CATCH PROCEDURE / Unknown 05/14/2011 10:00 PM BROKERAGE OFFICE MANAGER 05/14/2011 10:15 PM BROKERAGE OFFICE MANAGER Narrative Resulting Agency Comment Performed By [facility];[address];[place] [address] Md Mercedes LAB - MICROBIOLOGY O RDERABLES Performing Organization Address [facility] de Phone Number [facility] [address] [place] [address] * (ABNORMAL) URINALYSIS ROUTINE W/REFLEX TO CULTURE (05/14/2011 10:00 PM BROKERAGE OFFICE MANAGER) Color UA ORANGE [facility] Character UA CLEAR [facility] Glucose UA 250(H) Negative [facility] Bilirubin UA NEGATIVE Negative [facility] Ketone UA 15 Negative mg/dl [facility] Specific Ringling UA 1.015 1.003 - 1.030 [facility] pH UA 6.5 4.5 - 8.0 pH Units [facility] Protein UA 100(H) Negative [facility] Urobilinogen UA >=8.0 <1.0 Nick Units [facility] Nitrite UA POSITIVE(H) Negative mg/dl [facility] Blood UA NEGATIVE Negative mg/dl [facility] Leukocyte UA SMALL(H) Negative [facility] WBC UA 0-5 0 - 5 /HPF [facility] RBC UA 0-5 0 - 5 /HPF [facility] Epithelial Cell UA 0-5 0 - 5 /LPF [facility] Bacteria UA Trace [facility] Microscopy Examination Urine Urine Micro Done [facility] Culture Urine Reflex to culture [facility] Comment probable color interference , evalulate results accordingly. [facility] Urine specimen (specimen) URINE SPECIMEN OBTAINED BY CLEAN CATCH PROCEDURE / Unknown 05/14/2011 10:00 PM BROKERAGE OFFICE MANAGER 05/14/2011 10:12 PM BROKERAGE OFFICE MANAGER Felix Onofre MD LAB - URINALYSIS OR DERABLES Performing Organization Address City/[facility]/ZIP Co de Phone Number [facility] [address] [place] [address] * AMYLASE BLOOD (05/14/2011 9:40 PM BROKERAGE OFFICE MANAGER) Amylase 44 15 - 115 U/L [facility] Blood specimen (specimen) BLOOD SPECIMEN / Unknown 05/14/2011 9:40 PM BROKERAGE OFFICE MANAGER 05/14/2011 9:44 PM BROKERAGE OFFICE MANAGER Narrative [facility] - 05/14/2011 10:03 PM BROKERAGE OFFICE MANAGER Perform for patients with UPPER abd* Felix Onofre MD LAB - CHEMISTRY ORD ERABLES Performing Organization Address City/[facility]/ZIP Co de Phone Number [facility] [address] [facility] [place] [address] * LIPASE BLOOD (05/14/2011 9:40 PM BROKERAGE OFFICE MANAGER) Lipase 94 73 - 393 U/L [facility] Blood specimen (specimen) BLOOD SPECIMEN / Unknown 05/14/2011 9:40 PM BROKERAGE OFFICE MANAGER 05/14/2011 9:44 PM BROKERAGE OFFICE MANAGER Narrative [facility] - 05/14/2011 10:03 PM BROKERAGE OFFICE MANAGER Perform for patients with UPPER abd* Felix Onofre MD LAB - CHEMISTRY ORD ERABLES Performing Organization Address [facility] Co de Phone Number [facility] [address] [place] [address] * (ABNORMAL) COMPREHENSIVE METABOLIC PANEL (05/14/2011 9:40 PM BROKERAGE OFFICE MANAGER) Pathologist [facility] Glucose 93 65 - 105 mg/dl [facility] BUN 14 7.0 - 21.0 mg/dl [facility] Creatinine 0.50 0.5 - 1.3 mg/dl [facility] Sodium 144 136 - 145 mmol/L [facility] Potassium 3.8 3.5 - 5.1 mmol/L [facility] Chloride 107 98 - 107 mmol/L [facility] CO2 27 22 - 30 mmol/L [facility] Calcium 8.8 8.5 - 10.1 mg/dl [facility] Bilirubin Total 0.3 0.2 - 1.0 mg/dl [facility] Alkaline Phosphatase 94 38 - 126 U/L [facility] AST 178(H) 5.0 - 40.0 U/L [facility] ALT 95(H) 12.0 - 78.0 U/L [facility] Protein Total 7.6 6.4 - 8.2 gm/dl [facility] Albumin 3.6 3.4 - 5.0 gm/dl [facility] eGFR By MDRD >60 >60 [facility] Blood specimen (specimen) BLOOD SPECIMEN / Unknown 05/14/2011 9:40 PM BROKERAGE OFFICE MANAGER 05/14/2011 9:44 PM BROKERAGE OFFICE MANAGER Narrative [facility] - 05/14/2011 10:03 PM BROKERAGE OFFICE MANAGER Perform for patients with UPPER abd* Felix Onofre MD LAB - CHEMISTRY ORD ERABLES Performing Organization Address [facility]/ZIP Co de Phone Number [facility] [address] [facility] [place] [address] * CBC W AUTO DIFFERENTIAL (05/14/2011 9:40 PM BROKERAGE OFFICE MANAGER) WBC 9.38 4.0 - 11.0 X(10)9/L [facility] RBC 4.60 3.8 - 5.3 X(10)12/L [facility] Hemoglobin 13.0 12.0 - 16.0 gm/dl [facility] Hematocrit 39.5 36 - 47 % [facility] MCV 85.9 80.0 - 99.0 fl [facility] MCH 28.3 26 - 34 pg [facility] MCHC 32.9 32.0 - 37.0 gm/dl [facility] RDW 13.1 11.5 - 14.5 % [facility] Platelet Count 252 150 - 400 X(10)9/L [facility] MPV 10.4 9.2 - 12.2 fl [facility] Granulocytes % 65.9 43 - 70 % [facility] Granulocytes Absolute 6.17 1.7 - 6.7 X(10)3 [facility] Lymphocytes % 23.1 22 - 41 % [facility] Lymphocytes Absolute 2.17 0.9 - 3.2 X(10)3 [facility] Monocytes % 7.1 2.0 - 11.0 % [facility] Monocytes Absolute 0.67 0.2 - 0.9 X(10)3 [facility] Eosinophils % 3.5 0.0 - 5.0 % [facility] Eosinophils Absolute 0.33 0.0 - 0.4 X(10)3 [facility] Basophils % 0.4 0 - 2 % [facility] Basophils Absolute 0.04 0.0 - 0.2 X(10)3 [facility] Comment Manual Diff Manual Diff Not Indicated [facility] Blood specimen (specimen) BLOOD SPECIMEN / Unknown 05/14/2011 9:40 PM BROKERAGE OFFICE MANAGER 05/14/2011 9:44 PM BROKERAGE OFFICE MANAGER Narrative [facility] - 05/14/2011 9:53 PM BROKERAGE OFFICE MANAGER Perform for patients with UPPER abd* Felix Onofre MD LAB - HEMATOLOGY OR DERABLES [facility] [address] [id number] documented in this encounter Visit Diagnoses Diagnosis Biliary colic Calculus of gallbladder without mention of cholecystitis or obstruction documented in this encounter Administered Medications Inactive Administered Medications - up to 3 most recent administrations Medication Order MAR Action Action Date Dose Rate Site 0.9% NaCl infusion at 125 mL/hr, Intravenous, CONTINUOUS, Starting on Mon05/15/11 at 0145, Until Mon05/17/11 at 0034 $ New Bag/Syringe 05/16/2011 6:56 AM BROKERAGE OFFICE MANAGER 125 mL/hr $ New Bag/Syringe 05/15/2011 10:07 PM BROKERAGE OFFICE MANAGER 125 m L/hr $ New Bag/Syringe 05/15/2011 11:00 AM BROKERAGE OFFICE MANAGER 125 m L/hr hydrocodone-acetaminophen (NORCO) 5-325 MG tablet 1-2 Tab 1-2 tablet, Oral, EVERY 4 HOURS PRN, Pain, Moderate Pain, Starting on Mon05/15/11 at 1337, Until Mon05/17/11 at 0034, For moderate pain (pain scale score of 4-6) $ Given 05/15/2011 4:02 PM BROKERAGE OFFICE MANAGER 1 tablet ketorolac (TORADOL) injection 15 mg 15 mg, Intravenous, EVERY 6 HOURS, 12 doses, First dose on Mon05/15/11 at 1400, Last dose on Mon05/18/11 at 0800, . WASTE DISPOSAL INSTRUCTIONS: Black Bin Disposal required. $ Given 05/16/2011 9:00 AM BROKERAGE OFFICE MANAGER 15 mg $ Given 05/16/2011 4:01 AM BROKERAGE OFFICE MANAGER 15 mg $ Given 05/15/2011 10:08 PM BROKERAGE OFFICE MANAGER 15 mg morphine injection 4 mg 4 mg, Intravenous, ONCE, 1 dose, On 05/14/11 at 2245 $ Given 05/14/2011 10:40 PM BROKERAGE OFFICE MANAGER 4 mg morphine injection 4 mg 4 mg, Intravenous, EVERY 4 HOURS PRN, Pain, Starting on Mon05/15/11 at 0140, Until Mon05/17/11 at 0034, For severe pain (pain scale score 7-10) Pyxis, Pyxis, Pyxis $ Given 05/15/2011 8:18 AM BROKERAGE OFFICE MANAGER 4 mg $ Given 05/15/2011 2:50 AM BROKERAGE OFFICE MANAGER 4 mg ondansetron (ZOFRAN) injection 4 mg 4 mg, Intravenous, ONCE, 1 dose, On 05/14/11 at 2245 $ Given 05/14/2011 10:40 PM BROKERAGE OFFICE MANAGER 4 mg ondansetron (ZOFRAN) injection 4 mg 4 mg, Intravenous, EVERY 4 HOURS PRN, Nausea/Vomiting, Starting on Mon05/15/11 at 0140, Until Mon05/17/11 at 0034, If prochlorperazine or promethazine is not effective $ Given 05/15/2011 2:50 AM BROKERAGE OFFICE MANAGER 4 mg documented in this encounter Active and Recently Administered Medications Times are shown in BROKERAGE OFFICE MANAGER. Scheduled Medication Order 05/14/2011 05/15/2011 05/16/2011 ketorolac (TORADOL) injection 15 mg (CANCELED) 15 mg, Intravenous, EVERY 6 HOURS, 12 doses, First dose on 05/15/11 at 1400, Last dose on Mon05/18/11 at 0800, . WASTE DISPOSAL INSTRUCTIONS: Black Bin Disposal required. 1602 ($ Given - Provider: Evelyn Aaron RN)2208 ($ Given - Provider: Priya Man RN) 0401 ($ Given - Provider: Priya Man, ANA)0900 ($ Given - Provider: Maria R Sears RN) morphine injection 4 mg (COMPLETED) 4 mg, Intravenous, ONCE, 1 dose, On 05/14/11 at 2245 2240 ($ Given - Provider: Heladio Munoz, ANA) ondansetron (ZOFRAN) injection 4 mg (COMPLETED) 4 mg, Intravenous, ONCE, 1 dose, On 05/14/11 at 2245 2240 ($ Given - Provider: Heladio Munoz, ANA) Continuous Medication Order 05/14/2011 05/15/2011 05/16/2011 0.9% NaCl infusion (CANCELED) at 125 mL/hr, Intravenous, CONTINUOUS, Starting on 05/15/11 at 0145, Until Mon05/17/11 at 0034 0231 ($ New Bag/Syringe - Provider: Veronika Person RN)1100 ($ New Bag/Syringe - Provider: Evelyn Aaron RN)2207 ($ New Bag/Syringe - Provider: Priya Man RN) 0656 ($ New Bag/Syringe - Provider: Priya Man RN) PRN Medication Order 05/14/2011 05/15/2011 05/16/2011 hydrocodone-acetaminophen (NORCO) 5-325 MG tablet 1-2 Tab 1-2 tablet, Oral, EVERY 4 HOURS PRN, Pain, Moderate Pain, Starting on 05/15/11 at 1337, Until Mon05/17/11 at 0034, For moderate pain (pain scale score of 4-6) 1602 ($ Given - Provider: Evelyn Aaron RN) morphine injection 4 mg (CANCELED) 4 mg, Intravenous, EVERY 4 HOURS PRN, Pain, Starting on 05/15/11 at 0140, Until Mon05/17/11 at 0034, For severe pain (pain scale score 7-10) Pyxis, Pyxis, Pyxis 0250 ($ Given - Provider: Veronika Person RN)0818 ($ Given - Provider: Evelyn Aaron RN) ondansetron (ZOFRAN) injection 4 mg (CANCELED) 4 mg, Intravenous, EVERY 4 HOURS PRN, Nausea/Vomiting, Starting on 05/15/11 at 0140, Until Mon05/17/11 at 0034, If prochlorperazine or promethazine is not effective 0250 ($ Given - Provider: Veronika Person RN) documented in this encounter Care Teams Dukey Rider Relationship Specialty Start Date End Date Pcp, [place] [address] PCP - General 12/05/09 3 documented as of this encounter
--- OUTSIDE RECORDS SUMMARY | 2024-05-04 14:55 | XMS_ITS | Encounter Summary ---
Author Organization [facility] Health Address [address] [facility] [address] Care Team Providers Care Particle Board Supervisor Name Role Phone Unavailable Primary Care Provider Unavailabl e Reason for Visit * Reason Onset Date Comments Scheduling 01/14/2022 Encounter Details Date Type Department Care Team (Late st Contact Info) Description 01/14/2022 Telephone [facility] [address] [place] [address] Erma Vallejo Scheduling Social History Tobacco Use Types Packs/Day [...] encounter Miscellaneous Notes * Telephone Encounter - Erma Vallejo - 01/14/2022 1:49 PM CDT Contacted patient with details regarding upcoming appointment with M. documented in this encounter Plan of Treatment Not on file documented as of this encounter Visit Diagnoses Not on filedocumented in this encounter
--- OUTSIDE RECORDS SUMMARY | 2024-05-04 14:55 | XMS_ITS | Encounter Summary ---
Author Organization [facility] Health Address [address] [place] [address] Care Team Providers Care Medical File Clerk Name Role Phone Unavailable Primary Care Provider Unavailabl e Reason for Visit * Reason Comments Routine Visit * Auth/Cert Specialty Diagnoses / Procedures Referred By Contac t Referred To Contact Referral ID Status Reason Start Date Expiration Date Visits Re quested Visits Authorized [id number] 1 1 Encounter Details Date Type Department Care Team (Latest Contact Info) Description 06/28/2021 9:50 AM LACE WINDER - 06/28/2021 12:32 PM LACE WINDER Hospital Encounter [facility] MATERNAL/ EVALUATION UNIT [address] [place] [address] Jake cJ MD [address] [facility] [address] [address] [place] [address] Discharge Disposition: Home or Self Care Social [...] Sign Reading Time Taken Comments Blood Pressure 127/86 06/28/2021 10:00 AM LACE WINDER Pulse 76 06/28/2021 10:00 AM LACE WINDER Temperature - - Respiratory Rate - - Oxygen Saturation - - Inhaled Oxygen Concentration - - Weight 189.4 kg (417 lb 9.6 oz) 06/28/2021 9:57 AM LACE WINDER Height - - Body Mass Index 70.57 02/17/2021 10:10 AM CDT documented in this encounter Functional Status Functional [...] as of this encounter Progress Notes * Kayleigh Denny RD/JACKLYN - 06/28/2021 10:34 AM CST Bren Lee is a 31 year old 39w3d Estimated Date of Delivery: 07/02/21. GCT on 05/05/21 was 130 mg/dl GTT: could not complete d/t time 05/24: taught glucometer 05/31: canceled appt 06/07: No show 06/14: No show 06/17: No show 06/21: No show She presents today without glucometer; reports she lost her paper. BG in office was 74 mg/dl at 10:06am. Recalls her levels were running around the 80s-90s, up to the 120s. Reports highest value was 210mg/dl after eating cake. Discussed with Dr. Browne. Patient will be admitted for today. WINDER * Val Browne MD - 06/28/2021 9:44 AM CST PGY3 High Risk Clinic Return Visit 06/28/21 S: Bren Lee is a 31 year old @ 39w3d The patient presents for a appointment. She was last seen in the clinic on 05/24. She reports no significant changes since that appointment. She feels good movement. She denies any contractions. She denies VB or LOF. She denies dyspnea, SOB, N/V, abdominal pain, or LE pain. She has not been checking her BG as planned. She has not had anything to eat since last night and last to drink was water at 0900. Her is c/b: Patient Active Problem List Diagnosis Date Noted [...] Has nasal congestion too. Plan: COVID test O: Vitals: 06/28/21 0957 06/28/21 1000 BP: 127/86 Pulse: 76 Weight: (!) 417 lb 9.6 oz (189.4 kg) FHT 132 bpm per U/S Gen well appearing CV RRR Resp non-labored respirations on RA Abd obese, gravid, difficult to assess size LE symmetric Recent Labs Component Name 06/28/21 1009 GLUCOSEUA Negative A/P: Bren Lee is a 31 year old at 1. Supervision of high risk 1. Datinst trimester US 2. PNL: O+/I/-/-, NR, varicella non-immune 3. Urine culture: E.coli 4. UDS: negative 5. NIPT: negative 6. AFP: negative 7. 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 Pap: NILM, neg HPV 9. 3rd trimester labs: Hb 11.7, HIV NR, RPR NR 10. MOD: repeat CS 11. EPDS: 4 12. Influenza vaccine: s/p 05/04/21 13. Tdap 05/04/21 14. S/p COVID vaccine per patient 2. Abnormal GCT 1. GCT 130 2. S/p CDE at New OB appointment 3. Decision was made to proceed with logs instead of GCT 4. Patient did not check BG, no logs to review 3. Hx of section 1. Breech presentation 2. Recommendation for repeat CS 3. Last CS at [facility], at 37 wks, emergent CS per patient due to FHT, never told she could not have a 4. UTI 1. S/p treatment with 7d course of macrobid 5. Depression 1. Not on medications 6. HSV 1. Denies outbreak in the 2. Currently on acyclovir 7. Morbid obesity 1. BMI [address] Jc. Given that the fetus is breech in the setting of unknown GTT at term, recommendations were made to proceed with repeat CS. The patient was amenable to proceeding to L&D for delivery. She was counseled on the risks of the surgery. She last ate yesterday evening. Nothingto drink apart from water at 0900. Discussed with Dr. Dyer. Val Browne MD 06/28/2021 1:36 PM WINDER Associated attestation - Jake Jc MD - 06/30/2021 10:17 AM LACE WINDER MFM I have reviewed Bren Lee with Dr. Browne. I agree with the above assessment, findings, and plans. I have the following additions: No additions Jake Jc MD documented in this encounter Plan of Treatment Not on file documented as of this encounter Procedures Procedure Name Priority Date/Time Associated Diagnosis Comments URINALYSIS - POCT (IP) BEAKER INTERFACE Routine 06/28/2021 10:09 AM LACE WINDER GLUCOSE - POINT OF CARE Routine 06/28/2021 10:07 AM LACE WINDER documented in this encounter Results * (ABNORMAL) URINALYSIS - POCT (IP) BEAKER INTERFACE (06/28/2021 10:09 AM LACE WINDER) Color UA POCT Dark Yellow Straw, Yellow, Dark Yellow, Light Yellow 06/28/2021 10:10 AM LACE WINDER [facility] Clarity UA POCT Clear Clear 2 10:10 AM LACE WINDER [facility] Specific [place] UA POCT 1.025 1.005 - 1.030 06/28/2021 10:10 AM LACE WINDER [facility] pH UA POCT 6.5 5.0 - 8.0 pH 06/28/2021 10:10 AM LACE WINDER [facility] Protein UA POCT 1+(A) Negative 2 10:10 AM LACE WINDER [facility] Blood UA POCT Negative Negative 06/28/2021 10:10 AM LACE WINDER [facility] Leukocyte UA POCT Negative Negative 06/28/2021 10:10 AM LACE WINDER [facility] Nitrite UA POCT Negative Negative 2 10:10 AM LACE WINDER [facility] Glucose UA POCT Negative Negative 2 10:10 AM LACE WINDER [facility] Ketone UA POCT 1+(A) Negative 06/28/2021 10:10 AM LACE WINDER [facility] Bilirubin UA POCT 1+(A) Negative 06/28/2021 10:10 AM LACE WINDER [facility] Urobilinogen UA POCT 1.0 0.1 - 1.0 EU/dL 06/28/2021 10:10 AM LACE WINDER [facility] Urine URINE / Unknown 06/28/2021 1 0:09 AM LACE WINDER 06/28/2021 10:10 AM LACE WINDER Jake Jc MD LAB - POINT OF CARE ORDERABLES Performing Organization Address [facility] Co de Phone Number [facility] [address] [place] [id number] * GLUCOSE - POINT OF CARE (06/28/2021 10:07 AM LACE WINDER) [facility] Glucose WB/POC 74 70 - 106 mg/dL 06/28/2021 12:56 PM LACE WINDER [facility] Specimen Type Cap Fingerstick 2021 12:56 PM LACE WINDER [facility] Blood BLOOD SPECIMEN / Unknown 06/28/2021 10:07 AM LACE WINDER 06/28/2021 12:56 PM LACE WINDER Jake Jc MD LAB - POINT OF CARE ORDERABLES Performing Organization Address [facility] de Phone Number [facility] [address] [place] [id number] documented in this encounter Visit Diagnoses Not on filedocumented in this encounter
--- OUTSIDE RECORDS SUMMARY | 2024-05-04 14:55 | XMS_ITS | Encounter Summary ---
Author Organization [facility] Health Address [address] [place] [address] Care Team Providers Care Night Club Manager Name Role Phone Unavailable Primary Care Provider Unavailabl e Reason for Visit * Reason Onset Date Comments Scheduling 07/01/2021 Encounter Details Date Type Department Care Team (Late st Contact Info) Description 07/01/2021 Telephone [facility] MATERNAL/ EVALUATION UNIT [address] [place] [address] Erma Vallejo Scheduling Social History Tobacco Use [...] * Telephone Encounter - Erma Vallejo - 07/01/2021 1:53 PM CST LM for patient with details regarding upcoming appointment(s) with M. Appointment reminder lettersent. T SPA DESK documented in this encounter Plan of Treatment Not on file documented as of this encounter Visit Diagnoses Not on filedocumented in this encounter
--- OUTSIDE RECORDS SUMMARY | 2024-05-04 14:55 | XMS_ITS | Encounter Summary ---
Author Organization [facility] Health Address [address] [place] [address] Care Team Providers Care Assistant Case Manager Name Role Phone Imelda Gibson Primary Care Provider [phone] Encounter Details Date Type Department Care Team (Latest Contact Info) Description 07/05/2017 Hospital Outpatient Visit [facility] OUTPATIENT SERVICES [address] [place] [id number] ProviderVonda MD Discharge Disposition: Home or Self Care [...] on filedocumented in this encounter Care Teams Assistant Case Manager Relationship Specialty Start Date End Date Imelda Gibson [address] [address] PCP - General 06/08/12 02/09/21 documented as of this encounter
--- OUTSIDE RECORDS SUMMARY | 2024-05-04 14:55 | XMS_ITS | Encounter Summary ---
Author Organization [facility] Health Address [address] [facility] [address] Care Team Providers Care Dobby Looms Pegger Name Role Phone Unavailable Primary Care Provider Unavailabl e Reason for Visit * Reason Onset Date Comments Pain 07/06/2021 Encounter Details Date Type Department Care Team (Late st Contact Info) Description 07/06/2021 Telephone [facility] MATERNAL/ EVALUATION UNIT [facility] [place] [address] Nanci Ortiz, RN Pain Social History Tobacco Use Types Packs/Day Years [...] Telephone Encounter - Nanci Ortiz RN - 07/06/2021 3:52 PM CST Return call placed to patient Bren Lee. This patient called with severe back pain and no relief s/p her epidural. Lidocaine patches were prescribed and patient is concerned about the cost. ThisRN informed the patient that I will reach out to the clinic providers for plan of care and also informed the patient that she can be seen in the [facility]. Understanding of these instructions verbalized bypt. Pt encouraged to call office for additional questions or concerns and to keep all [facility] appts asscheduled. ----- Message from Arlet Roque sent at 07/06/2021 1:43 PM INSTALLATION ENGINEER ----- Regarding: Pain Rx Request Nanci, Patient is requesting something for back pain. She says tht she hurts so bad that she's unable to properly wipe her bottom. Patient's # is [phone] Preferred Pharmacy: [facility] Thank you. ALLATION ENGINEER documented in this encounter Plan of Treatment Not on file documented as of this encounter Visit Diagnoses Not on filedocumented in this encounter
--- OUTSIDE RECORDS SUMMARY | 2024-05-04 14:55 | XMS_ITS | Encounter Summary ---
Author Organization [facility] Address [address] [place] [address] Care Team Providers Care Price Checker Name Role Phone Unavailable Primary Care Provider Unavailabl e Reason for Referral * OP/Amb RFL Auth (Routine) - Closed Specialty Diagnoses / Procedures Referred By Teddy monroy Referred To Contact Cardiology Diagnoses SOB (shortness of breath) Procedures EKG 12-LEAD Jake Jc MD [address] [place] [address] [facility] Cardiology [address] [id number] Referral ID Status Reason Start Date Expiration Date Visits Re quested Visits Authorized [id number] Closed 05/24/2021 05/24/2022 1 1 CA FILTER OPERATOR * Procedure (Routine) - Closed Specialty Diagnoses / Procedures Referred By Teddy monroy Referred To Contact Diagnoses SOB (shortness of breath) Jake Jc MD [address] [place] [id number] Referral ID Status Reason Start Date Expiration Date V isits Requested Visits Authorized [id number] Closed Specialty Services Required 05/24/2021 05/24/2022 3 3 CA FILTER OPERATOR Reason for Visit * Reason Comments Care Encounter Details Date Type Department Care Team (Latest Contact Info) Description 05/24/2021 8:33 AM SILICA FILTER OPERATOR Hospital Encounter [facility] MATERNAL/ EVALUATION UNIT [address] [place] [address] Jake Jc MD [address] [facility] [address] [place] [address] Discharge Disposition: Home or Self Care Social [...] as of this encounter Progress Notes * Megan Bender - 05/24/2021 3:07 PM CST The referral for this patient has been completed for her Echo. She was scheduled for 05/31/2021, but I could not get in touch with the patient. This patient was seen in the office on today and did not inform the front office agent of any changes when she checked in. Her [phone] phone number was not accepting calls at [phone]. [phone] has a voicemail that is not set up. [phone] phone number is disconnected. The Echo appointment was changed to Monday, June 14, 2021 at 12 noon. A letter will be mailed to the address on file. CA FILTER OPERATOR * Kayleigh Denny RD/LD - 05/24/2021 11:46 AM CST Bren Lee is a 31 year old 34w3d Estimated Date of Delivery: 07/02/21. She was instructed on SMBG today per Dr. Andrea for 1 hour GCT failure. 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 Dr. Andrea provided clinic phone number if patient is able to schedule GTT this week; otherwise, she will keep food/BG logs x 1 week. Today, we reviewed basic GDM patho, importance of blood glucose control, blood glucose testing times, target values, and how to keep food/BG logs. Taught glucometer use, and patient returned demonstration. BG in coaajd=300 mg/dl. She was provided with a glucometer, a food and blood sugar log to detail results, and clinic contact. She is scheduled to RTC in one week for review and further education if needed. E-prescribed: 100 lancets 150 test strips CA FILTER OPERATOR documented in this encounter H&P Notes * Alanna Andrea MD - 05/24/2021 9:32 AM CST PGY4 OB Clinic Initial Visit 05/24/2021 CC: transfer of care for noncompliance, morbid obesity and desires HPI: 31 year old at weeks gestation, dated by 1st trimester US. Estimated Date of Delivery: 07/02/21. care previously: Dr. Vela (now complete transfer of care). Desires repeat CS. Patient denies cramping/contractions/VB/LOF/DFM. Notices blurry vision for long time but needs eye glasses. Hasn't seen doctor in a long time for her eyes. She has one near her house and will make appointment. Has been having vomiting few days. Can't keep much liquids down. Has not been tested for COVID. Also has nasal congestion. Has SOB and trouble breathing sometimes with ambulation. Thinks she snores. Has sometimes at rest. Never has been woken up out of sleep with shortness of breath. Sleeps with 4 pillows sitting up since found out . Complains of chronic back pain. Pain on right side of body for long time. Right leg has numbness on the lateral side and anterior aspect radiating down to the foot. 10-Point Review of Systems was performed: Positive for: see HPI NEGATIVE for headache, fever, chest pain, diarrhea, constipation, dysuria, sore throat, pruritic ormalodorous vaginal discharge, abnormal vaginal bleeding, rashes, joint pain, calf pain, myalgias Obstetrical History: OB History Para Term AB Living 2 1 1 1 SAB IAB Ectopic Multiple Live Births 1 # Outcome Date GA Lbr Bin/2nd Weight Sex Delivery Anes PTL Lv 2 Term 05/22/12 37w0d 2580 g (5 lb 11 oz) F CS-Unspec GARCÍA 1 Obstetric Comments Gynecologic History: Patient denies history of abnormal pap smears. Yes long time ago but doesn't remember results denies biopsy, last pap normal 07/2020 NILM with negative HPV (in media) Denies history of cervical procedures. STIs: herpes, but denies others Medical History: Past Medical History: Diagnosis Date ??? Depression SI/HI ??? Herpes ??? Migraine ??? Morbid obesity ??? Positive GBS test ??? Suppurative hidradenitis currently under left arm and went to ER, it's spontaneously draining ??? UTI (urinary tract infection) taking macrobid, not compliant Denies HTN, diabetes, asthma, bleeding or clotting disorders, thyroid disorders, anxiety, schizophrenia, bipolar disorder. Surgeries: Past Surgical History: Procedure Laterality Date ??? Section Allergies: No Known Allergies Curent Medications: Current Outpatient Medications on File Prior to Encounter Medication Sig Dispense Refill ??? aspirin (ASPIRIN) 81 MG chew tablet Take 81 mg by mouth once daily ??? cetirizine (ZYRTEC) 10 MG tablet Take 10 mg by mouth once daily Reasons: Hayfever ??? cyanocobalamin (VITAMIN B-12) injection Inject 1,000 mcg into muscle every 30 days ??? escitalopram (LEXAPRO) 10 MG tablet Take 10 mg by mouth once daily ??? ferrous sulfate 325 (65 FE) MG tablet Take 325 mg by mouth once daily ??? folic acid (FOLVITE) 1 MG tablet [...] facility-administered medications on file prior to encounter. Family History: Family History Problem Relation Name Age of Onset ??? Diabetes Mother ??? Renal Disease Mother ??? Hypertension Mother ??? Cancer - Breast Mother ??? Cancer - Uterine Neg Hx ??? Cancer - Ovarian Neg Hx ??? Phlebitis/Blood Clot Neg Hx ??? Other - Defects Neg Hx Social History: Social History Socioeconomic History ??? Marital status: [...] Drug use: No ??? Sexual activity: Not Currently Other Topics Concern ??? Not on file Social History Narrative ??? Not on file Social Determinants of Health Financial Resource Strain: Not on file Food Insecurity: Not on file Transportation Needs: Not on file Physical Activity: Not on file Stress: Not on file Social Connections: Not on file Intimate Partner Violence: Not on file Housing Stability: Not on file Objective: Vitals: 05/24/21 0930 05/24/21 0940 BP: 137/83 Pulse: 84 Weight: (!) 416 lb (188.7 kg) BP 137/83 Pulse 84 Wt 416 lb (188.7 kg) BMI 70.3 kg/m2 heart tones: + on US FH: deferred due to body habitus Physical Exam: General: alert, cooperative, no distress Lungs: clear to auscultation bilaterally, no wheezes or crackles Heart: regular rate and rhythm Abdomen: soft, non-tender, no masses Lower Extremities: no edema, non-tender bilaterally Neuro: strength in knee flexion and extension and ankel dorsi- and plantar flexion 5/5 Back: no spinal tenderness, no CVA tenderness, mild pain in right upper back Ultrasounds: CLINICAL SUMMARY Study Number: 4 ?? A single fetus is seen in breech presentation. ??The measurements today are consistent with appropriate size for the ALYSSA provided. ??The ALYSSA is based on a prior ultrasound. ??The amniotic fluid volume is within normal limits. ?? anatomy was limited by position. ?? IMPRESSION: Single, live, intrauterine at 34w3d ?? Appropriate size and interval growth Amniotic fluid volume: within normal limits ?? Incomplete anatomic survey (ductal arch) No major malformations demonstrated within the limits of ultrasound today Reassuring (incidental) 8 point biophysical profile BREECH presentation RECOMMEND: Ultrasound in 2 weeks for weekly 8 point BPP (NST as needed; or sooner or more frequent as clinically indicated) Repeat growth in 3-4 weeks if undelivered Thank you for allowing us the opportunity to care for your patient. ?? Arnaud Saxena MD <Electronic Signature> ??05/24/2021 10:19am Lab Review: Recent Labs Component Name 05/24/21 0943 GLUCOSEUA Negative Assessment/Plan: 31 year old at with Patient Active Problem List Diagnosis Date Noted ??? Second 02/15/2021 Priority: 1. 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 Abnormal O'Juarez glucose challenge test, antepartum 05/24/2021 Priority: 2. GCT 130 Met with diabetes education today. Plan: Will try to measure her blood sugars 4x per day for 1 week. If unable to keep up with this will call clinic and ask to 3hr GTT lab. ??? Orthopnea 05/24/2021 Priority: 3. Echo ordered Heart and lung exam today Plan: consider PP sleep study ??? Hyperlipidemia 05/24/2021 Priority: Not Prioritized ??? Nausea and vomiting 05/24/2021 Priority: Not Prioritized Appears comfortable. Has nasal congestion too. Plan: COVID test ??? Meralgia paresthetica 05/24/2021 Priority: Not Prioritized ??? UTI (urinary tract infection) Priority: Not Prioritized Not compliant. Has antibiotics new bottle at home - will start today. Needs test of cure eventually. Discusses risks of pyelonephritis. ??? Depression Priority: Not Prioritized Denies SI/HI [...] 02/15/2021 Priority: Not Prioritized BPP 12/06 today instructions were given including weight gain, exercise, diet (including intake of fish products with regards to Hg content), sexual activity, and common OTC medication use. Calcium intake of 1200 mg per day and vitamins with folate were recommended. Alcohol and smoking were discussed and advised to avoid during . The course of care was outlined. RTC in 1 week to discuss blood sugars. Seen and discussed with Dr. Jc. Alanna Andrea MD 05/24/2021 5:12 PM CA FILTER OPERATOR Associated attestation - Jake Jc MD - 05/26/2021 10:39 AM SILICA FILTER OPERATOR MFM Attending I have seen, evaluated and examined the patient with Dr. Andrea. I agree with the above assessment, exams and plans. Exam: BP 137/83 Pulse 84 Wt 416 lb (188.7 kg) BMI 70.3 kg/m2 Gen - NAD Abd - NT Ext - NT, no edema FHTs - + per US I have the following to add to the plan: no additions Jake Jc MD [facility] documented in this encounter Plan of Treatment Not on file documented as of this encounter Procedures Procedure Name Priority Date/Time Associated Diagnosis Comments RESPIRATORY PANEL WITH SARS-COV-2 BY PCR (STL) Routine 05/24/2021 10:43 AM SILICA FILTER OPERATOR Nasal congestion SYPHILIS ANTIBODY CASCADING REFLEX Routine 05/24/2021 10:39 AM SILICA FILTER OPERATOR 34 weeks gestation of (HCC) HIV-1 HIV-2 ANTIBODY + HIV P24 AG PANEL Routine 05/24/2021 10:39 AM SILICA FILTER OPERATOR 34 weeks gestation of (HCC) CBC W/O DIFFERENTIAL Routine 05/24/2021 10:39 AM SILICA FILTER OPERATOR 34 weeks gestation of (HCC) documented in this encounter Results * RESPIRATORY PANEL WITH SARS-COV-2 BY PCR (STL) (05/24/2021 10:43 AM SILICA FILTER OPERATOR) Adenovirus PCR Not detected Not detected 05/24/2021 4:07 PM SILICA FILTER OPERATOR [facility] Coronavirus 229E PCR Not detected Not detected 05/24/2021 4:07 PM SILICA FILTER OPERATOR [facility] Coronavirus HKU1 PCR Not detected Not detected 05/24/2021 4:07 PM SILICA FILTER OPERATOR [facility] Coronavirus NL63 PCR Not detected Not detected 05/24/2021 4:07 PM SILICA FILTER OPERATOR [facility] Coronavirus OC43 PCR Not detected Not detected 05/24/2021 4:07 PM SILICA FILTER OPERATOR [facility] COVID-19 PCR Not detected Not detected 05/24/2021 4:07 PM SILICA FILTER OPERATOR [facility] Human Metapneumovirus PCR Not detected Not detected 05/24/2021 4:07 PM SILICA FILTER OPERATOR [facility] Human Rhinovirus/Enterov irus PCR Not detected Not detected 05/24/2021 4:07 PM SILICA FILTER OPERATOR [facility] Influenza A PCR Not detected Not detected 05/24/2021 4:07 PM SILICA FILTER OPERATOR [facility] Influenza B PCR Not detected Not detected 05/24/2021 4:07 PM SILICA FILTER OPERATOR [facility] Parainfluenza Virus 1 PCR Not detected Not detected 05/24/2021 4:07 PM SILICA FILTER OPERATOR [facility] Parainfluenza Virus 2 PCR Not detected Not detected 05/24/2021 4:07 PM SILICA FILTER OPERATOR [facility] Parainfluenza Virus 3 PCR Not detected Not detected 05/24/2021 4:07 PM SILICA FILTER OPERATOR [facility] Parainfluenza Virus 4 PCR Not detected Not detected 05/24/2021 4:07 PM SILICA FILTER OPERATOR [facility] Respiratory Syncytial Virus PCR Not detected Not detected 05/24/2021 4:07 PM SILICA FILTER OPERATOR [facility] Bordetella parapertussis PCR Not detected Not detected 05/24/2021 4:07 PM SILICA FILTER OPERATOR [facility] Bordetella pertussis PCR Not detected Not detected 05/24/2021 4:07 PM SILICA FILTER OPERATOR [facility] Chlamydia pneumoniae PCR Not detected Not detected 05/24/2021 4:07 PM SILICA FILTER OPERATOR [facility] Mycoplasma pneumoniae PCR Not detected Not detected 05/24/2021 4:07 PM [facility] Microbiology SPECIMEN FROM NASOPHARYNGEAL STRUCTURE / Unknown Collection / Unknown 05/24/2021 10:43 AM SILICA FILTER OPERATOR 05/24/2021 10:59 AM SILICA FILTER OPERATOR Narrative [facility] - 05/24/2021 4:07 PM SILICA FILTER OPERATOR This nucleic amplification assay has received FDA authorization via the [employer]. Jake Jc MD LAB - MICROBIOLOGY O RDERABLES [facility] [address] [place] [address], [facility] [phone] * (ABNORMAL) CBC W/O DIFFERENTIAL (05/24/2021 10:39 AM [facility]) Pathologist [facility] WBC 10.1 4.4 - 10.7 x10E9/L 05/24/2021 11:02 AM [facility] RBC 4.15 3.80 - 5.20 x10E12/L 05/24/2021 11:02 AM [facility] Hemoglobin 11.7(L) 12.0 - 15.6 gm/dL 05/24/2021 11:02 AM [facility] Hematocrit 36.6 35.9 - 45.5 % 05/24/2021 11:02 AM [facility] MCV 88.2 80.7 - 98.3 fl 05/24/2021 11:02 AM [facility] MCH 28.2 26.7 - 34.0 pg 05/24/2021 11:02 AM [facility] MCHC 32.0 30.8 - 35.9 gm/dL 05/24/2021 11:02 AM [facility] Platelet Count 250 153 - 416 x10E9/L 05/24/2021 11:02 AM [facility] RDW-CV 13.1 12.1 - 14.9 % 05/24/2021 11:02 AM [facility] MPV 10.0 9.4 - 12.9 fl 05/24/2021 11:02 AM [facility] Blood BLOOD SPECIMEN / Unknown Venipuncture / Unknown 05/24/2021 10:39 AM SILICA FILTER OPERATOR 05/24/2021 10:55 AM [facility] Jake Jc MD LAB - HEMATOLOGY ORD ERABLES [facility] [address] [place] [address] * HIV-1 HIV-2 ANTIBODY + HIV P24 AG PANEL (05/24/2021 10:39 AM [facility]) Pathologist [facility] HIV1/2 Ab + P24 Ag Non Reactive Non Reactive 05/24/2021 12:19 PM [facility] Blood BLOOD SPECIMEN / Unknown Venipuncture / Unknown 05/24/2021 10:39 AM SILICA FILTER OPERATOR 05/24/2021 10:55 AM SILICA FILTER OPERATOR Narrative [facility] - 05/24/2021 12:19 PM SILICA FILTER OPERATOR No Laboratory evidence of HIV infection. Jake Jc MD LAB - CHEMISTRY ORDE NYA Performing Organization Address [facility] Co de Phone Number [facility] [address] [place] [address] * SYPHILIS ANTIBODY CASCADING REFLEX (05/24/2021 10:39 AM SILICA FILTER OPERATOR) Treponema pallidum Antibody Non Reactive Non Reactive 05/24/2021 11:54 AM SILICA FILTER OPERATOR [facility] Comment: No Laboratory evidence of syphilis infection. ?? Note: ??Circulating antibodies may be low or undetectable in early infection. ??If recent exposure is suspected, re-draw sample in 2-4 weeks and repeat testing. Blood BLOOD SPECIMEN / Unknown Venipuncture / Unknown 05/24/2021 10:39 AM SILICA FILTER OPERATOR 05/24/2021 10:55 AM SILICA FILTER OPERATOR Jake Jc MD LAB - SEROLOGY ORDER JOSIAH Performing Organization Address [facility] de Phone Number [facility] [address] [place] [address] documented in this encounter Visit Diagnoses Diagnosis Nausea and vomiting, intractability of vomiting not specified, unspecified vomiting type- Primary Nasal congestion Other diseases of nasal cavity and sinuses SOB (shortness of breath) Shortness of breath 34 weeks gestation of (HCC) state, incidental Orthopnea documented in this encounter
--- OUTSIDE RECORDS SUMMARY | 2024-05-04 14:55 | XMS_ITS | Continuity of Care Document ---
Author Organization [facility] Address [address] [place] [address] Care Team Providers Care Chemical Engineering Teacher Name Role Phone PAIGE MATIAS Primary Care Provider SHIV Nieto Mechanical Detailer Assessment No assessment recorded. Plan of Treatment Reminders Order Date Submit Date Provider Last Modified By Organization Details Last Modified Time Details Appointments None recorded. Lab None recorded. Referral physical therapist referral 2023 [facility] Occupational [facility], [address] [place], [address], 10:53:45 Procedures None recorded. Surgeries None recorded. Imaging XR, knee, 3 view 2023 [facility], [address] [place], [address], 10:06:15 Medication Orders Medrol (Ry) 4 mg tablets in a dose pack 2023 [id number], [address], [place], [place], [id number], 17:34:14 meloxicam 15 mg tablet 2023 [id number], [address], [place], [place], [id number], 17:44:52 Patient TargetsNo targets recorded. Patient Instructions Encounter Date Encounter Id Patient Instructions Last Modified By Organization Details Last Modified Time 01/31/2024 [id number] When You Want to Lose Weight: Care [...] Abnormal Flag Note LastModifiedBy Organization Detail LastModifiedTime 02/05/2002/05/2024 CT, abdom en + pelvi s, w/ contr ast No observ ation record ed. [facility] [address], [address], 02/06/2024 14:23:17 04/28/20 24 04/28/2024 imagi ng/di agnos tic resul t No observ ation record ed. [facility] [address] [place], [address], 04/28/2024 15:44:40 Result Notes None recorded. Problems Name Problem SNOMED Code Status Onset Date Resolution Date Notes Provider Name and Address Organization Details Recorded Time Axillary hidraden itis suppurat roger 262515974 Active 2017 Dena Blevins MA [facility], [place] - [place] 1 12:26:44 Degenera tion of lumbar interver tebral disc 72138724 Active 2015 Paige Matias [facility] Attn: Michael jones,[address] [facility], [place], [address], [place] - [facility] 2 13:37:43 Genital herpes simplex 80720296 Active 2019 Will need order for suppress yessy therapy. Paige Matias [facility] Attn: Michael jones,[address] [facility], [place], [address], [place] [facility] 2 13:37:27 Migraine without aura 18087374 Active 2020 Paige Matias [facility] Attn: Michael jones,[address] [facility], [place], [place], [address] [place] [address], [place] - [facility] 2 13:37:43 Initial prescrip tion of oral contrace ption Completed 202011/03/2021 Paige Matias [facility] Attn: Michael jones,[address] [facility], [place], [address], [place] [facility] 2 13:37:05 Abnormal progeste rebekah 173114603 Active 2020 Paige Matias [facility] Attn: Michael jones,[address] [facility], [place], [address], [place] - [facility] 2 13:37:42 Pregnanc y 72802907 Completed 202007/12/2021 Vangie Lawrence LPN null, [place] [facility] 2 12:36:01 Morbid obesity 228828667 Completed Transfer of care initiate d by previous provider in process. Vangie [place] LPN [place] [facility] 2 12:35:53 Depressi ve disorder 76878235 Completed 2020 Vangie [place] LPN [place] [facility] 2 12:35:53 Genital herpes simplex 66593301 Completed 2019 Will need order for suppress yessy therapy. Vangie [place] L[place] [facility] 2 12:35:52 Past pregnanc y history of section 027562840 Completed 2020 Vangie [place] LPN [place] [facility] 2 12:35:53 Group B Streptoc occus carrier 67095891902 03 Completed 2020 Early test complete by previous provider . Will need 3rd tri testing. Vangie [place] LPN [place] [facility] 2 12:35:52 Requires varicell a vaccinat ion 395407465 Completed 2020 Vangie [place] LPN [place] [facility] 2 12:35:53 Acute urinary tract infectio n 313187166 Completed 202005/05/21 Treating with Macrobid . 2nd recurren ce - plans for suppress yessy therapy to follow. Vangie [place] LPN [place] [facility] 2 12:35:53 Anemia 452831955 Completed 202001/31/2024 Hgb 10.2 05/05/21. Oral iron encourag ed. KEANU Patel Attn: Michael jones,[address] [place], [address], [place] - [facility] 4 17:31:34 Anemia 282885113 Completed 2020 Hgb 10.2 05/05/21. Oral iron encourag ed. 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 KEANU Patel Attn: Michael jones,[address] [facility], [place], [address], [place] [facility] 2 13:36:53 Subcutan eous contrace ptive implant present 875042443 Completed 2020 Plans for removal attempt at next appointm ent. Vangie [place] LPN [place] [facility] 2 12:35:53 Urinary tract infectio n in pregnanc y 007148599 Completed Polo Bowman [place]ave[place] [facility] 2 13:21:08 Postpart um depressi on 08589437 Completed 202101/31/2024 KEANU Patel Attn: Michael robert,[address] [facility], [place], [address], [place] [facility] 4 17:31:34 Obesity 632511066 Completed 09/25/2018 Sheri Areval[place] RN [place] [facility] 9 10:11:35 Upper respirat ory infectio n 71175682 Completed 07/21/2016 Sheri [place]val[place] [facility] 7 11:52:23 Depressi ve disorder 68384613 Completed 09/12/2019 Sheri [place]val[place] [facility] 2 10:17:24 Morbid obesity 015757504 Active Transfer of care initiate d by previous provider in process. KEANU Patel Attn: Michael robert,[address] [facility], [place], [address], [place] [facility] 2 13:37:43 Group B Streptoc occus carrier 57062952467 03 Completed 201607/21/2016 Sheri [place] [facility] 2 10:16:06 Bacteria l vaginosi s 240628885 Completed 201607/21/2016 Sheri [place] [facility] 7 11:52:18 Cholelit hiasis without obstruct ion 16897664 Completed 201609/12/2019 Sheri [place]val[place] 0 16:22:55 Hyperlip idemia 96601717 Active 2016 KEANU Patel Attn: Michael g,[address] [place], [address], [facility] - [facility] 2 13:37:43 Problem Notes None recorded. Procedures Surgical History Date Name Laterality Status Provider Name and Address Organization Details Recorded Time 06/28/19 22 delivery completed Ailyn Cota [place] - [place] 12/01/2021 11:13:56 05/13/19 22 Control Implant Removal completed Polo Cristobal [place] - [place] 05/23/2021 17:41:06 08/19/19 21 Date of Last Pap Smear completed Merari Ferreira MA [place] - [facility] 11/19/2020 08:59:02 07/16/19 16 Control Implant Removal completed KEANU Patel Attn: Accounting,[address] [place], [address], [facility] - [facility] 07/17/2015 12:51:33 05/22/19 13 Caesarean Section completed Sheri Arevalo RN [place] - [facility] 06/01/2015 12:02:09 Imaging Results None recorded. Procedure Notes None recorded. Medical Equipment None Reported. Allergies No known drug allergies Medications Name Sig Start Date Stop Date Status Note LastModified by Organization Details LastModified Time metronida zol tab 500mgmetr onidazole 06/24 completed Not Available Not Available Not Available tramadol hcl tab 50mgtrama dol hcl 03/10 completed Not Available Not Available Not Available smz/tmp ds tab 800-160su lfamethox azole/tri methoprim [...] hours by oral route for 10 days. 05/23 /2017 completed Not Available Not Available Not Available [...] Updated DateTime 4 163.83 cm 66.1 kg/m2 365270. 62 g 98 % 98 % 88 /min 98.6 [degF] 114 mm[Hg] 80 mm[Hg] Janene Betancour t, [place] - [facility] 4 17:17:37 Social History Question Answer Notes LastModified by Organizat ion Details LastModified Time Tobacco Smoking Status Never Smoker Not Available [facility] 03/03/2020 03:43:22 Do You Have An Advance Directive? No [id number] Information not available 03/03/2020 What Is Your Level Of Alcohol Consumption? None Information not available 06/24/2020 Are You Blind Or Do You Have Difficulty Seeing? No Information not available 06/24/2020 Is Blood Transfusion Acceptable In An Emergency? Yes [id number] Information not available 03/03/2020 What Is Your Level Of Caffeine Consumption? Occasional Information not available 06/24/2020 How Much Tobacco Do You Chew? None [id number] Information not available 03/03/2020 In The 14 [...] available 06/24/2020 Are You Currently Employed? No [id number] Information not available 03/03/2020 Are You Deaf Or Do You Have Serious Difficulty Hearing? No Information not available 06/24/2020 What Type Of Diet Are You Following? REGULAR [id number] Information not available 03/03/2020 Which Illicit Or Recreational Drugs Have You Used? None [id number] Information not available 03/03/2020 Do You Or Have You Ever Used E-cigarettes Or Vape? Never Used Electronic Cigarettes [id number] Information not available 03/03/2020 Education 10 Information no t available 06/01/2015 What Is Your Occupation? Unemployed [id number] Information not available 03/03/2020 Are There Any Guns Present In Your Home? No [id number] Information not available 03/03/2020 Hard Of Hearing [...] How Many Children Do You Have? 1 [id number] Information not available 03/03/2020 Performs Monthly Self-breast Exam? No Information no t available 06/01/2015 Do You Use Protection During Sex? Always [id number] Information not available 03/03/2020 What Is Your Relationship Status? Single [id number] Information not available 03/03/2020 Do You Use Your Seat Belt Or Car Seat Routinely? Yes Information not available 06/24/2020 Seat Belts Used Routinely Yes Information not available 06/01/2015 Are You Sexually Active? Yes [id number] Information not available 03/03/2020 Smoke Alarm In Home Yes Information not available 06/01/2015 Do You Have Smoke And Carbon Monoxide Detectors In Your Home? Yes Information not available 06/24/2020 Are You Passively Exposed To Smoke? No Information no t available 06/24/2020 Do You Or Have You Ever Used Smokeless Tobacco? Never Used Smokeless Tobacco [id number] Information not available 03/03/2020 How Much Tobacco Do You Smoke? No [id number] Information not available 03/03/2020 General Stress Level High Information not available 06/01/2015 Do You Feel Stressed (tense, Restless, Nervous, Or Anxious, Or Unable To Sleep At Night)? [id number] Information not available 06/24/2020 Do You Use Any Illicit Or Recreational Drugs? No Information not available 06/24/2020 Do You Use Sunscreen Routinely? Yes [id number] Information not available 03/03/2020 Has Tobacco Cessation [...] 06/24/2020 What is your exercise level? Occasional [id number] Information not available 03/03/2020 Mental Status None [...] High Blood Pressure N Breast Cancer N Kidney or Bladder Problems N Thyroid Problems N GI Problems N Lung Disease N Depression Y Blood Clots N Acne N Eating Disorder N Skin Problems Y Breast Problem N Anemia N Anesthesia Complications N Headaches/Migraines Y Anxiety Disorder N Ovarian Cancer N Diabetes N Muscle, Joint, or Bone Problems N [...] Recorded Time Tdap 3 completed Not Available [facility] 07/[facility]/2022 17:32:02 COVID-19, mRNA, LNP-S, PF, 30 mcg/0.3 mL dose 1 completed Not Available [facility] 07/22/2022 17:32:02 COVID-19, mRNA, LNP-S, PF, 30 mcg/0.3 mL dose 1 completed Not Available [facility] 07/22/2022 17:32:02 HPV, quadrivalent 8 completed Not Available [facility] 07/22/2022 17:32:02 Tdap 7 completed Not Available [facility] 07/22/2022 17:32:02 Hep B, adolescent or pediatric 7 completed Not Available [facility] 07/22/2022 17:32:02 DTaP 3 completed Not Available [facility] 07/22/2022 17:32:03 IPV 3 completed Not Available [facility] 07/22/2022 17:32:02 DTaP 2 completed [facility] 07/22/2022 17:32:03 IPV 5 completed Not Available [facility] 07/22/2022 17:32:02 DTaP 2 completed Not Available [facility] 07/22/2022 17:32:03 IPV 2 completed Not Available [facility] 07/22/2022 17:32:02 MMR 7 completed Not Available [facility] 07/22/2022 17:32:02 Hib (PRP-T) 3 completed Not Available [facility] 07/22/2022 17:32:02 DTaP 5 completed Not Available [facility] 07/22/2022 17:32:03 Hep B, adolescent or pediatric 9 completed Not Available [facility] 07/22/2022 17:32:02 MMR 7 completed Not Available [facility] 07/22/2022 17:32:02 meningococcal MCV4, unspecified formulation 7 completed Not Available [facility] 07/22/2022 17:32:03 IPV 2 completed Not Available [facility] 07/22/2022 17:32:02 IPV 8 completed Not Available [facility] 07/22/2022 17:32:02 Hep B, adolescent or pediatric 7 completed Not Available [facility] 07/22/2022 17:32:02 DTaP 7 completed Not Available [facility] 07/22/2022 17:32:03 IPV 7 completed Not Available [facility] 07/22/2022 17:32:02 HPV, quadrivalent 7 completed Not Available [facility] 07/22/2022 17:32:02 Hib (PRP-T) 2 completed Not Available [facility] 07/22/2022 17:32:03 Influenza, split virus, quadrivalent, preservative 0 completed KATE Moss null, [place] - [facility] 02/28/2020 16:11:26 HPV9 1 completed KEANU Patel Attn: Accounting,[address] [place], [address], [place] [facility] 08/19/2020 12:18:48 Influenza, split virus, quadrivalent, preservative 1 completed Merari Ferreira [place], [place] [facility] 02/11/2021 18:09:05 Tdap 2 completed Polo Cristobal null, [place] [facility] 05/04/2021 18:30:00 Past Encounters Encounter ID Performer Location Encounter Start Date Encounter Closed Date Diagnosis/Indication Diagnosis SNOMED-CT Code Diagnosis ICD10 Code [id number] KEANU Patel [facility] [address], [place] [address] 01/31/2024 17:05:01 02/02/2024 14:48:43 Osteoarthritis of knee 759141972 M17.12 Morbid obesity 554931644 E66.01 Degenerati on of lumbar intervertebral disc 62687901 M51.369 Health Concerns Section Related Observation LastModified by Organization Detai ls LastModified Time None Recorded Concern Status LastModified by Organization Details LastModified Time None Recorded Payers Encounter Date Sequence Insurance Name Policy Number Policy Quach Covered Member ID Quach Member ID Guarantor Name 01/31/2024 1 [facility] ON OR AFTER 10/29/20 (MEDICAID REPLACEMENT - HMO) Bren Lee [id number] Bren Lee Notes Date Note Type Note Provider Name and Address Organization Details Recorded Time 01/31/2024 text/html KneeReported bypatient.Location: left; medial; deep Quality:aching; sharp; deep; constant; worsening [...] no weight loss; no change in bowel/bladder habits;catching/loc arnold;popping/clicki ng;buckling;grindin g;instability Previous Surgery:none Prior Imaging:none Previous Injections:none 34 y/o HF presents for c/o bad knee pain for a few years progressively getting worse. SHe has been seen at [facility] and has been told her knee pain is secondary to her obesity. However, the patient voices that her knee locks sometimes with dorsiflexion or extension. BARBIE Patel-BRYON Attn: Accounting,[address] [place], [address], [facility] - [facility] 02/01/2024 16:22:21 OBGyn Episode No OBEpisode recorded.
--- OUTSIDE RECORDS SUMMARY | 2024-05-04 14:55 | XMS_ITS | Encounter Summary ---
Author Organization [facility] Address [address] [facility] [place] [address] Care Team Providers Care Environmental Health Nurse Name Role Phone Unavailable Primary Care Provider Unavailabl e Reason for Visit * Reason Comments Ultrasound Encounter Details Date Type Department Care Team (Latest Contact Info) Description 05/24/2021 8:15 AM HULL MOLDER - 05/24/2021 8:32 AM HULL MOLDER Hospital Encounter [facility]/ EV[facility] [address] [facility] [place] [address] Jake Jc MD [address] [facility] [address] [place] [address] Discharge Disposition: Home or Self Care Social [...] Associated Diagnosis Comments SONOGRAM - COMPLETE Routine 05/24/2021 8:37 AM HULL MOLDER Previous delivery, antepartum condition or complication (HCC) Morbid obesity with body mass index (BMI) of 60.0 to 69.9 in adult (HCC) Second (HCC) 32 weeks gestation of (HCC) documented in this encounter Results * SONOGRAM - COMPLETE (05/24/2021 8:37 AM HULL MOLDER) Anatomical Region Laterality Modality Other 05/24/2021 8:37 AM HULL MOLDER Narrative 05/24/2021 10:19 AM HULL MOLDER ? [facility] ?PHONE: ??FAX: Pat. Name: ?JACKIE BETTENCOURT. No: ?[id number] Study Date: ?? 05/24/2021 ??8:37am , Age: ? 1990, 31 Pregnancies: ?? 2, Para 1 Height: ? 64 in Weight: ? 407 lb LMP: ?Unknown GA by Base: ?? 34w3d ?? ALYSSA: 07/02/2021 GA by US: ? 33w5d ?? ALYSSA: 07/07/2021 GA Selected: ??34w3d (From [facility]) ALYSSA: ?07/02/2021 Referring MD: Rudi, , [facility] Teles[employer] Consultant: ??Nancy Cruz RDMS CPT4: ? 09117 BMI: ?69.85 Hist/Ind: ? Class IV obesity (BMI 66.6) ?Incomplete anatomic survey ?Prior ?GCT 130 MEASUREMENTS & AGE ? GROWTH EVALUATION Measurement ??GA ? Range ? Srce %for GA Ratios ----- ---- ------- BPD ??8.1 cm 32w3d (78n1b-13h8p) Hadl BPD 5% FL/BPD 0.83 (0.71 - 0.87) HC ??30.1 cm 33w3d (09y5e-35c8z) Hadl HC ??4% FL/AC ??0.22 (0.20 - 0.24) AC ??30.9 cm 34w6d (16k3d-84e9i) Hadl AC ??67% HC/AC ??0.97 (0.94 - 1.13) FL ?? 6.7 cm 34w2d (02n8u-66c0r) Hadl FL ??36% CI ? 0.75 (0.70 - 0.86) HL ?? 5.9 cm 34w1d (60y5v-03g3o) Neville HL ??46% GA for sonogram 33w5d (13l7y-43u2y) ?? Weight Estimate: based on (BPD,HC,AC,FL) Avg ?Weight: 2397 gm (2047-2747gm) Had ? : 5lbs, 4oz ? Normal: 2464 gm (1848- 3080gm) Had ? Wt% ? 42% for 34w3d Heart Rate: 142 bpm Amniotic Fluid Index: 14.7cm (08.0-24.8) Q1: 3.6cm ??Q2: 5.5cm ??Q3: 5.6cm ??Q4: 0.0cm ?? EVAL, PLACENTA Presentation: breech Placenta: posterior Heart Rate: 142 bpm Amniotic Fluid Volume: normal Anatomy!Normal!Abnormal!Suboptimal!Prev. Seen!Comments [...] ? x ?! CLINICAL SUMMARY Study Number: 4 ?? A [...] Arnaud Saxena MD <Electronic Signature> ??05/24/2021 10:19am Polo Cristobal DO MFM ORDERABL ES documented in this encounter Visit Diagnoses Diagnosis Previous delivery, antepartum condition or complication (HCC) Previous delivery, antepartum condition or complication Morbid obesity with body mass index (BMI) of 60.0 to 69.9 in adult (HCC) Second (HCC) state, incidental 32 weeks gestation of (HCC) state, incidental documented in this encounter
--- OUTSIDE RECORDS SUMMARY | 2024-05-04 14:55 | XMS_ITS | Encounter Summary ---
Author Organization [facility] Address [address] [place] [address] Care Team Providers Care Housekeeping/Laundry Name Role Phone Pcp, Unknown Primary Care Provider Unavailabl e Reason for Visit * Reason Comments Swelling Facial C/o lump or swelli ng to right side of face Encounter Details Date Type Department Care Team (Late st Contact Info) Description 04/20/2010 11:44 AM STONEMASON SUPERVISOR - 04/20/2010 2:02 PM STONEMASON SUPERVISOR Emergency ER at [address] [id number] Robert Resendiz MD update address Acute serous otitis media; Parotitis Discharge Disposition: Home or Self Care Social [...] Sign Reading Time Taken Comments Blood Pressure 145/96 04/20/2010 2:00 PM STONEMASON SUPERVISOR Pulse 80 04/20/2010 2:00 PM STONEMASON SUPERVISOR Temperature 36.9 ??C (98.5 ??F) 04/20/2010 2:00 PM CS T Respiratory Rate 18 04/20/2010 2:00 PM STONEMASON SUPERVISOR Oxygen Saturation 98% 04/20/2010 2:00 PM STONEMASON SUPERVISOR Inhaled Oxygen Concentration - - Weight 181.4 kg (400 lb) 04/20/2010 11:54 AM STONEMASON SUPERVISOR Height 162.6 cm (5' 4 ) 04/20/2010 11:54 AM STONEMASON SUPERVISOR Body Mass Index 68.66 04/20/2010 11:54 AM STONEMASON SUPERVISOR documented in this encounter Discharge Instructions * Discharge Instructions* Robert Resendiz MD - 04/20/2010 1:15 PM STONEMASON SUPERVISOR Middle Ear Infection, Adult (Otitis Media, Adult) This infection is in the space behind the eardrum. The medical name for this is otitis media. It may happen after a common cold. It is caused by a germ that starts growing in that space. Your neck may feel puffy (swollen) on the side of the ear infection. AN INFECTION WAS FOUND TODAY IN YOUR: Right Ear, Left Ear or both ears HOME CARE ?? Take all of your medicine even if you start to feel better. ?? Only take medicine as told by your doctor. ?? Nasal decongestant may help the eustachian tube drain better. It may also help with discomfort. ?? Follow up with your doctor in 10 to 14 days or as told by your doctor. This is to make sure the infection is gone. GET HELP RIGHT AWAY IF: ?? You do not start to feel better in 2 to 3 days. ?? You have pain that is not helped with medicine. ?? You feel worse instead of better. ?? You cannot use the medication as directed. ?? You develop swelling, redness or pain around the ear. ?? Your get a stiff neck. MAKE SURE YOU: ?? Understand these instructions. ?? Will watch your condition. ?? Will get help right away if you are not doing well or get worse. Document Released: 10/03/2008 Document Re-Released: 07/14/2009 ExitCare?? Patient Information ??2010 [employer]. Parotitis You have parotitis. This is an inflammation of the saliva gland in front of your ear. Symptoms include swelling and pain, which may get worse when you eat. This condition can be caused by a virus infection, such as mumps, or by a blocked saliva duct. Mucous plugs and small stones can block the flowof saliva, and then the gland can even become infected. Sometimes a salivary stone can be seen on x- ray. Treatment of parotitis depends on the cause. If there is a stone in the duct, sucking on a lemon wedge or sour candies several times daily to produce saliva may help push out the stone. Antibiotic medicine may be needed if the gland becomes infected. Increase your fluid intake and apply warm compresses to the swollen area for 20 minutes 3-4 times daily. Massaging the gland from back to forward may encourage drainage and relieve the blockage. SEEK IMMEDIATE MEDICAL CARE IF YOU DEVELOP: ?? Uncontrolled pain and swelling. ?? A high fever, severe headache, vomiting, or other serious symptoms. Document Released: 05/25/2005 Document Re-Released: 07/14/2009 ExitCare?? Patient Information ??2009 [employer]DA[employer]. EMASON SUPERVISOR * Discharge Instructions* Document, Scanned - 05/13/2010 8:08 PM STONEMASON SUPERVISOR documented in this encounter ED Notes * Nicol Black RN - 04/20/2010 2:01 PM CST No complaints or distress at discharge EMASON SUPERVISOR * Nicol Black RN - 04/20/2010 1:59 PM CST Discussed w/pt that her BP was high her, sts she will follow up with her PCP, DR. Resendiz also notified EMASON SUPERVISOR * Robert Resendiz MD - 04/20/2010 1:00 PM CST Images from the original note were not included. 04/20/2010 1:00 PM Bren Lee [id number] [facility] EMERGENCY [facility]PARTMENT History Chief Complaint Patient presents with ??? Swelling Facial C/o lump or swelling to right side of face HPI Comments: The patient presents with a three week history of swelling of the right face, hearingloss and ear pain. The patient had been seen at a clinic but did not follow-up. The patient has no PMD. Pain Ear The history is provided by the patient. This is a new problem. Episode onset: Three weeks. The problem occurs constantly. The problem has not changed since onset. The problem affects the right side. There has been no fever. The pain is moderate. There has been hearing loss and rhinorrhea. There hasbeen no drainage and no trauma to ear.Past medical history is significant for hearing loss. Past medical history is significant for no chronic ear infection. No past medical history on file. No past surgical history on file. History Social History ??? Marital Status: Single Spouse Name: N/A Number of Children: N/A ??? Years of Education: N/A Occupational History ??? Not on file. Social History Main Topics ??? Tobacco Use: Never ??? Alcohol Use: No ??? Drug Use: No ??? Sexually Active: Not on file Other Topics Concern ??? Not on file Social History Narrative ??? No narrative on file Medications No current outpatient prescriptions on file. Review of Systems Constitutional: Negative for fever and chills. HENT: Positive for hearing loss, ear pain, congestion and rhinorrhea. Eyes: Negative. Respiratory: Negative. Neurological: Negative. Psychiatric/Behavioral: Negative. BP 154/115 Pulse 94 Temp 97.7 ??F Resp 24 Ht 5' 4 (1.626 m) Wt 400 lb (181.439 kg) SpO2 97% Physical Exam Constitutional: She is oriented to person, place, and time. She appears unhealthy. HENT: Head: Atraumatic. Right Ear: Ear canal normal. Tympanic membrane is retracted. Tympanic membrane is not perforated and not erythematous. Tympanic membrane mobility is abnormal. A middle ear effusion is present. Decreased hearing is noted. Left Ear: Hearing, tympanic membrane, external ear and ear canal normal. Nose: Mucosal edema present. Mouth/Throat: Uvula is midline, oropharynx is clear and moist and mucous membranes are normal. Eyes: Conjunctivae are normal. Pupils are equal, round, and reactive to light. Neck: Normal range of motion. Neck supple. Cardiovascular: Normal rate and regular rhythm. Pulmonary/Chest: Effort normal. Lymphadenopathy: She has no cervical adenopathy. Neurological: She is alert and oriented to person, place, and time. GCS score is 15. Skin: Skin is warm and dry. Psychiatric: Mood, memory, affect and judgment normal. Procedures Procedures EKG Interpretation Lab/SPO2 Interpretation Medical Decision Making Progress Notes Discussed the findings and the importance of f/u with the patient. ED Plan/Course:Tia, Augmentin and follow-up with the on-call or a clinic in about a week. Clinical Impression Encounter Diagnoses Name Primary? Acute serous otitis media ??? Parotitis EMASON SUPERVISOR * Nicol Black RN - 04/20/2010 12:24 PM CST Laser Beam Cutter at bedside to eval EMASON SUPERVISOR documented in this encounter Miscellaneous Notes * Miscellaneous Scans - Document, Scanned - 05/13/2010 8:03 PM STONEMASON SUPERVISOR documented in this encounter Plan of Treatment Not on file documented as of this encounter Visit Diagnoses Diagnosis Acute serous otitis media Parotitis Sialoadenitis documented in this encounter Active and Recently Administered Medications Care Teams Housekeeping/Laundry Relationship Specialty Start Date End Date Pcp, Unknown [place] [address] PCP - General 12/05/09 3 documented as of this encounter
--- OUTSIDE RECORDS SUMMARY | 2024-05-04 14:55 | XMS_ITS | Encounter Summary ---
Author Organization [facility] Address [address] [place] [address] Care Team Providers Care Major Gifts Manager Name Role Phone Unavailable Primary Care Provider Unavailabl e Reason for Visit * Reason Onset Date Comments Scheduling 06/08/2021 Encounter Details Date Type Department Care Team (Late st Contact Info) Description 06/08/2021 Telephone [facility] MATERNAL/ EVALUATION UNIT [address] [place] [address] Arlet Roque Scheduling Social History Tobacco Use Types Packs/Day [...] encounter Miscellaneous Notes * Telephone Encounter - Arlet Roque - 06/08/2021 2:26 PM CST Contacted patient about upcoming appointments. Didn't get an answer. Reminder letter sent. CAST PRODUCER documented in this encounter Plan of Treatment Not on file documented as of this encounter Visit Diagnoses Not on filedocumented in this encounter
--- OUTSIDE RECORDS SUMMARY | 2024-05-04 14:55 | XMS_ITS | Encounter Summary ---
Author Organization [facility] Address [address] [place] [address] Care Team Providers Care Fiber Technician Name Role Phone Unavailable Primary Care Provider Unavailabl e Reason for Visit * Reason Onset Date Comments Question 07/30/2021 Encounter Details Date Type Department Care Team (Late st Contact Info) Description 07/30/2021 Telephone [facility] MATERNAL/ EVALUATION UNIT [facility] [place] [address] Nanci Ortiz, RN Question Social History Tobacco Use Types Packs/Day Years [...] Telephone Encounter - Nanci Ortiz RN - 07/30/2021 3:38 PM CDT Return call placed to patient Bren Lee. No Answer. M for patient to call her insurance to get the order sent to our fax at [phone] ----- Message from Arlet Roque sent at 07/30/2021 3:15 PM CDT ----- Regarding: Breast Bump Rx Request Nanci, Patient is requesting a breast pump Rx. She was told by her [facility] Office that she could do so via M. Patient's # is [phone]. Thank you. documented in this encounter Plan of Treatment Not on file documented as of this encounter Visit Diagnoses Not on filedocumented in this encounter
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
--- OUTSIDE RECORDS SUMMARY | 2024-05-04 14:55 | XMS_ITS | Encounter Summary ---
Author Organization [facility] Health Address [address] [place] [address] Care Team Providers Care Park Worker Name Role Phone Unavailable Primary Care Provider Unavailabl e Reason for Visit * Reason Onset Date Comments Pain 07/09/2021 Encounter Details Date Type Department Care Team (Late st Contact Info) Description 07/09/2021 Telephone [facility]/ EVALUATION UNIT [facility] [place] [address] Nanci Ortiz, RN Pain Social History Tobacco [...] Telephone Encounter - Nanci Ortiz RN - 07/09/2021 2:29 PM CST Patient calling again concerning her back pain. Patient has not been able to picker / packer her lidocaine patches as they cost 50$ This RN informed patient that she can get them OTC for 7$. Patient also informed that she can also present to the [facility] for evaluation. Understanding of these instructions verbalized by pt. Pt encouraged to call office for additional questions or concerns and to keep all CC appts as scheduled. 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
--- OUTSIDE RECORDS SUMMARY | 2024-05-04 14:55 | XMS_ITS | Encounter Summary ---
Author Organization [facility] Health Address [address] [facility] [place] [address] Care Team Providers Care Cut To Length Operator Name Role Phone Unavailable Primary Care Provider Unavailabl e Reason for Visit * Auth/Cert Specialty Diagnoses / Procedures Referred By Contac t Referred To Contact Referral ID Status Reason Start Date Expiration Date Visits Re quested Visits Authorized [id number] 1 1 Encounter Details Date Type Department Care Team (Late st Contact Info) Description 06/28/2021 2:55 PM SAILING INSTRUCTOR Anesthesia Event [facility] [address] [place] [address] Rolo Arroyo MD [address] [place], [place] [id number] Eric Dawson APRN-ORCHID SUPERINTENDENT [address] [place] [address] Anesthesia Record Procedure Summary Procedure Name Responsible Anesthesiologist Anesthesia Start Time Anesthesia Stop Time SECTION (EMERGENCY) (Abdomen) Rolo Arroyo MD 06/28/21 1455 06/28/21 1611 Events Date Time Event Comment 06/28/2021 1455 An Start 1455 An Start Data 1455 PT Reassessment 1500 Anes Timeout 1500 Quick Note BP cuff changed to FA cuff due to incorrect data 1501 Spinal In 1521 Timeout Anesthesia part icipated in timeout at the time documented in the record by nursing. 1521 Doc Sen Level 1528 Uterine Incision 1530 Baby Delivered 1610 an stop data 1610 Electnc Sig This record is electronically signed by the providers listed under staff. 1611 An Stop Meds Name Total phenylephrine 1000 mcg/10mL injection 1, 000 mcg ePHEDrine injection 50 mg ketorolac 30 mg/ml injection 30 mg ondansetron 4 mg/2mL injection 8 mg dexMEDETOmidine (PRECEDEX) 200 mcg/2ml i njection 40 mcg lidocaine (XYLOCAINE) 1 % injection 3 mL bupivacaine 0.75 % in dextrose (SENSORCA INE) injection 15 mg ceFAZolin 3,000 mg IVPB 3 g oxytocin (PITOCIN) infusion - FIXED Dose 1,000 mL lactated ringers infusion 1,000 mL * Agents Name Insp. N2O Exp. N2O O2 N2O * Blood No blood administrations on file. Lines, Drains, and Airways Type Details Placement Removal Peripheral IV Date: 06/28/21; Time: 1305; Orientation: Anterior, Right; Placed By: Jarrett Dang RNC; Tolerance: Well 06/28/21 1305 by Lazara Dang RN 06/29/21 0328 by Jojo Baker RN Urethral Catheter 06/28/21; 1310; Jarrett Dang RNC; Latex; No; 16; 10 mL; Yes, Seal Intact; Well; 06/29/21; 0025; Per order; Iveth Baker RN 06/28/21 1310 by Lazara Dang RN 06/29/21 0025 by Jojo Baker, ANA Procedural Site (Incision) 06/28/21; 1522; Lower; Abdomen; 07/02/21; 0043 06/28/21 1522 by Lazara Dang RN 07/02/21 0043 by farmbuy, Auto Release documented in this encounter Social History Tobacco [...] No 06/28/2021 documented as of this encounter Progress Notes * Lori Montes De Oca APRN-ORCHID SUPERINTENDENT - 06/29/2021 7:13 AM CST ANESTHESIA POSTOP EVALUATION NOTE Procedure: SECTION (EMERGENCY) (N/A Abdomen) Bren Lee is a 31 year old female Patient Vitals for the past 6 hrs: BP Temp Pulse Resp SpO2 Pain Rating Score #1 Pain Scale/Observation 06/29/21 0237 -- -- -- -- -- 7 N 06/29/21 0326 145/84 98.2 ??F (36.8 ??C) 72 17 100 % 5 N 06/29/21 0420 -- -- -- -- -- 5 N 06/29/21 0604 -- -- -- -- -- 6 N 06/29/21 0640 -- -- -- -- -- 2 N Anesthesia Type: spinal * No Diagnosis Codes entered * Mental Status: awake and sufficiently recovered from acute administration of anesthesia to participate in the evaluation Neuro Status: No numbess, tingling or visual disturbances Respiratory Function: natural Cardiac Function: stable Postop Hydration: adequate Postop Nausea: none Assessment: no apparent anesthetic complications, patient tolerated procedure well and no evidence of recall Patient Disposition: Release from Anesthesia Care COMPLICATIONS: No complications documented. ING INSTRUCTOR * Eric Dawson APRN-ORCHID SUPERINTENDENT - 06/28/2021 1:45 PM CST ANESTHESIA PREOPERATIVE EVALUATION NOTE Procedure: SECTION (EMERGENCY) (N/A Abdomen) Vitals: Patient Vitals for the past 6 hrs: BP Temp Resp SpO2 Pain Rating Score #1 06/28/21 1341 -- -- -- -- 0 06/28/21 1241 136/83 97.9 ??F (36.6 ??C) 15 -- -- 06/28/21 1240 -- -- -- -- 0 06/28/21 1237 -- -- -- 97 % -- ANESTHESIA PRE-EVALUATION NOTE The patient is a current non-smoker. Physical Exam: Orientation X3 Airway/Mallampati Score: II Mouth Opening Distance: 3 fingerwidths Neck ROM: full TM Distance: > 3 FB Teeth: normal Heart: normal - S1 S2 Lungs: clear to ausculation bilaterally Abdomen Exam: obese Review of Systems: History of anesthetic complications: No Sleep Apnea Risk: Yes, Large neck circumference GERD: No Poor Exercise Tolerance: Yes Recent Chest Pain: No Shortness of Breath: No AICD/Pacemaker: No Renal Disease: No ANESTHESIA PLAN ASA Score: 3 (bmi 70) NPO Status: No solids since midnight and No liquids within 2 hours Anesthesia Plan: spinal Planned Postop Destination: OB Anesthetic plan was discussed with: patient Anesthetic Plan discussion was: Consented The patient's procedural Anesthetic Plan was discussed with the ORCHID SUPERINTENDENT and anesthesiologist. BMI, Height, Weight Tobacco History Estimated body mass index is 70.47 kg/m?? as calculated from the following: Height as of this encounter: 1.638 m (5' 4.5 ). Weight as of this encounter: 189.1 kg (417 lb). Social History Tobacco Use Smoking Status Never Smoker Smokeless Tobacco Never Used Alcohol History Drug History Social History Substance and Sexual Activity Alcohol Use No Social History Substance and Sexual Activity Drug Use No Outpatient Medications: Inpatient Medications: Outpatient Medications Marked as Taking for the 06/28/21 encounter (Hospital Encounter) Medication Sig Last Dose ??? acyclovir Take 1 (one) tablet by mouth 3 times daily 06/26/2021 at Unknown time ??? aspirin Take 81 mg by mouth once daily 06/27/2021 at Unknown time ??? OneTouch Verio To monitor blood glucose (sugar) 4x daily- fasting and 1 hour after meals Past Month at Unknown time ??? cetirizine Take 10 mg by mouth once daily Reasons: Hayfever 06/26/2021 at Unknown time ??? cyanocobalamin Inject 1,000 mcg into muscle every 30 days 06/26/2021 at Unknown time ??? escitalopram Take 10 mg by mouth once daily 06/26/2021 at Unknown time ??? ferrous sulfate Take 325 mg by mouth once daily 06/26/2021 at Unknown time ??? folic acid Take 4 mg by mouth once daily Reasons: Defects of the Neural Tube 06/26/2021 atUnknown time ??? ONETOUCH DELICA PLUS 33G EXTRA FINE LANCET To monitor blood glucose (sugar) 4x daily- fasting and 1 hour after meals Past Month at Unknown time ??? ondansetron Take 4 mg by mouth every 6 hours as needed for Nausea/Vomiting 06/26/2021 at Unknowntime ??? vitamin with iron Take 1 tablet by mouth once daily 06/26/2021 at Unknown time Current Facility-Administered Medications Medication Dose Last Admin ??? 0.9% NaCl 3 mL 3 mL at 06/28/21 1305 And ??? 0.9% NaCl 1-10 mL ??? acyclovir 400 mg ??? ceFAZolin 3 g ??? escitalopram 10 mg ??? sod citrate-citric acid 30 mL ??? tranexamic acid 1,000 mg Allergies: No Known Allergies Relevant Problems No relevant active problems Problem List: Patient Active Problem List Diagnosis Date Noted [...] in adult 02/15/2021 Priority: Not Prioritized BPP / today ??? Second 02/15/2021 Priority: Not Prioritized [...] Has nasal congestion too. Plan: COVID test Medical History: Past Medical History: Diagnosis Date ??? Depression SI/HI ??? Herpes ??? Migraine ??? Morbid obesity ??? Positive GBS test ??? Suppurative hidradenitis currently under left arm and went to ER, it's spontaneously draining ??? UTI (urinary tract infection) taking macrobid, not compliant Surgical History: Past Surgical History: Procedure Laterality Date ??? Section Covid Vaccine: Lab Results: Recent Labs Component Name 05/24/21 1043 SARSCOV2 Not detected Recent Labs Base Name 06/28/21 1308 [id number] SPECIMENTYPE Venous Recent Labs Component Name 05/24/21 1039 WBC 10.1 RBC 4.15 HCT 36.6 HGB 11.7* PLTCOUNT 250 MCV 88.2 MCH 28.2 MCHC 32.0 MPV 10.0 No results found for requested labs within last 120 days. No results found for requested labs within last 120 days. ING INSTRUCTOR documented in this encounter Procedure Notes * Shanti August APRN-ORCHID SUPERINTENDENT - 06/28/2021 3:06 PM CSTAssociated Order(s): Neuraxial Block Neuraxial Block Note Pre-Procedure: Procedure Name: Neuraxial Block Patient Location: OB Indications: surgical anesthesia Pre-Anesthetic Checklist: Patient identified, IV Checked, Risks and benefits discussed, Surgical consent verified, Monitors and equipment, Site examined, Pre-op evaluation done, Time-out performed, Informed consent obtained, Questions answered/anesthesia questions answered and Allergies reviewed Anticoagulation/ Anti-thrombosis status confirmed? Yes Supplemental O2: room air Monitors: BP and continuous pluse ox Patient Condition: awake Patient Sedated? No Procedure: Block Type: Spinal Prep: Betadine Sterile Field: mask, cap/hat, sterile established and sterile gloves Approach: midline Skin was localized? Yes Skin localized with: lidocaine (XYLOCAINE) 1 % injection, 3 mL Spinal Block: Needle Type: spinal needle Needle Gauge: 24 Needle Length: 102 mm Placement Site: L3-4 Number of Attempts: 1 CSF: free flow, aspiration before injection, aspiration during injection Local anesthetics used? Yes Spinal local anesthetics/Additives: bupivacaine 0.75 % in dextrose (SENSORCAINE) injection, 15 mg Degree of difficulty: none Procedure Tolerance: tolerated well Sensory Level: T4 Motor Blockade: Yes Position post procedure: left uterine displacement Vital Signs: Vital signs monitored and stable throughout. See anesthesia record for details. Staff: Anesthesia Provider: Shanti August APRN-CRNA - performed the procedure ING INSTRUCTOR documented in this encounter Miscellaneous Notes * Anesthesia Transfer of Care - Eric Dawson APRN-CRNA - 06/28/2021 4:11 PM CST ANESTHESIA TRANSFER OF CARE NOTE Today's Date: 06/28/2021 Date of : 1990 Patient: Bren Lee Procedure(s): SECTION (EMERGENCY) Surgeon(s): Primary: Meir Reese DO Resident - Assisting: Azra Dewitt MD; Melody Dyer MD Fellow: Twila Rodriguez MD Preop Diagnosis: * No Diagnosis Codes entered * Pre-op Meds (From admission, onward) Start Stop Status Route Frequency Ordered 06/28/211999 *Hold/Avoid Anticoagulants and Antiplatelet agents -- Dispensed OTHER EVERY 12 HOURS (08 and 20) 06/28/21 1518 02/28/22 2000 *Hold/Avoid Medication -- Dispensed OTHER EVERY 12 HOURS (08 and 20) 06/28/21 1518 06/28/21 1323 0.9% NaCl injection 1-10 mL And Linked Group Details -- Dispensed IK PRN 06/28/21 1323 06/28/21 1400 0.9% NaCl injection 3 mL And Linked Group Details -- Dispensed IK EVERY 8 HOURS 06/28/21 1323 06/28/21 1330 acetaminophen (Tylenol) tablet 1,000 mg 06/28 1341 Completed PO ONCE 06/28/21 1323 06/28/21 1415 acyclovir (Zovirax) capsule 400 mg -- Dispensed PO 3 TIMES DAILY 06/28/21 1339 06/28/21 1506 bupivacaine 0.75 % in dextrose (Sensorcaine) injection 06/28 1506 Completed INTRASPINAL 06/28/21 1507 06/28/21 1503 ceFAZolin (Ancef) 3,000 mg in 100 mL IVPB -- Sent IV PRN 06/28/21 1509 06/28/21 1400 ceFAZolin (Ancef) 3,000 mg in 115 mL IVPB 06/29 0159 Verified IV ONCE 06/28/21 1344 06/28/21 1455 dexmedeTOMIDine (Precedex) injection -- Sent IV PRN 06/28/21 1508 06/28/21 1504 ePHEDrine injection -- Sent IV PRN 06/28/21 1509 06/28/21 1345 escitalopram (Lexapro) tablet 10 mg Note to Pharmacy: OP sig: Take 10 mg by mouth once daily -- Verified PO DAILY 06/28/21 1313 06/28/21 1517 HYDROmorphone (Dilaudid) injection 0.5 mg -- Verified IV EVERY 3 HOURS PRN 06/28/21 1518 06/28/21 1552 ketorolac (Toradol) injection -- Sent IV PRN 06/28/21 1552 06/28/21 1455 lactated ringers infusion -- Sent IV CONTINUOUS PRN 06/28/21 1508 06/28/21 1329 lactated ringers infusion ADS Med Note to Pharmacy: Created by cabinet override 06/28 1448 Completed 06/28/21 1329 06/28/21 1506 lidocaine (Xylocaine) 1 % injection 06/28 1506 Completed INFILTRATION 06/28/21 1507 06/28/21 1517 naloxone (Narcan) injection 0.2 mg -- Verified IV PRN 06/28/21 1518 06/28/21 1456 Ondansetron HCl (Zofran) injection -- Sent IV PRN 06/28/21 1508 06/28/21 1531 oxytocin (Pitocin) 30 units in 500 mL -- Sent IV CONTINUOUS PRN 06/28/21 1539 06/28/21 1502 phenylephrine 100 mcg/mL injection -- Sent IV PRN 06/28/21 1509 06/28/21 1330 sodium citrate-citric acid 500-334 mg/5 mL oral solution 06/28 1438 Completed PO ONCE 06/28/21 1323 06/28/21 1323 tranexamic acid (Cyklokapron) injection 1,000 mg -- Verified IV ONCE PRN 06/28/21 1323 * No Diagnosis Codes entered * . No Known Allergies Vitals: Patient Vitals for the past 3 hrs: Pain Rating Score #1 06/28/21 1430 0 06/28/21 1341 0 06/28/21 1330 0 Lines, Drains, and Airways Type Details Placement Removal Peripheral IV Date: 06/28/21; Time: 1305; Orientation: Anterior, Right; Location: Wrist; Placed By:FRANCESCO Elizalde; Gauge: 18 Gauge; Locals: None; Tolerance: Well 06/28/21 1305 by Lazara Dang RN Intraprocedure I/O Totals Intake oxytocin (PITOCIN) infusion - FIXED Dose 1000.00 mL lactated ringers infusion 1000.00 mL Total Intake 2000 mL Output Urine 100 mL Total Output 100 mL Net Net Volume 1900 mL Patient Transfer Location: Obstetrics Transport Airway: spontaneous respirations Complications: None Handoff Given? Yes Checklist or Protocol - The mcneal handoff elements that must be included in the transfer of care checklist include: 1. Identification of patient. 2. Identification of responsible practitioner (PACU nurse or advanced practitioner). 3. Discussion of pertinent medical history. 4. Discussion of the surgical/procedure course (procedure, reason for surgery, procedure performed). 5. Intraoperative anesthetic management and issue/concerns. 6. Expectations/Plans for the early post-procedure period. 7. Opportunity for questions and acknowledgement of understanding of report from the receiving PACUteam. MARIETTA Velez ING INSTRUCTOR documented in this encounter Plan of Treatment Not on file documented as of this encounter Procedures Procedure Name Priority Date/Time Associated Diagnosis Comments NEURAXIAL BLOCK Routine 06/28/2021 3:06 PM SAILING INSTRUCTOR documented in this encounter Results * Neuraxial Block (06/28/2021 3:06 PM SAILING INSTRUCTOR) Narrative Shanti August APRN-CRNA - 06/28/2021 3:06 PM SAILING INSTRUCTOR Shanti August APRN-CRNA ? 06/28/2021 ??3:07 PM Neuraxial Block Note [...] details. Staff: ?? Anesthesia Provider: ??Shanti August, FRACISCO-ORCHID SUPERINTENDENT ?? - ?? performed the procedure Rolo Arroyo MD GENERAL ANESTHESIA ORDERABLES documented in this encounter Visit Diagnoses Not on filedocumented in this encounter Administered Medications Inactive Administered Medications - up to 3 most recent administrations Medication Order MAR Action Action Date Dose Rate Site bupivacaine 0.75 % in dextrose (Sensorcaine) injection Intraspinal, Starting on Mon06/28/21 at 1506, Until Mon06/28/21 at 1506, Anesthesia Intra-op $ Given 06/28/2021 3:06 PM SAILING INSTRUCTOR 15 mg ceFAZolin (Ancef) 3,000 mg in 100 mL IVPB Intravenous, PRN, Starting on Mon06/28/21 at 1503, Until Mon06/28/21 at 1611, Anesthesia Intra-op $ Given 06/28/2021 3:03 PM SAILING INSTRUCTOR 3 g dexmedeTOMIDine (Precedex) injection Intravenous, PRN, Starting on Mon06/28/21 at 1455, Until Mon06/28/21 at 1611, Anesthesia Intra-op $ Given 06/28/2021 3:37 PM SAILING INSTRUCTOR 20 mcg $ Given 06/28/2021 3:01 PM SAILING INSTRUCTOR 5 mcg $ Given 06/28/2021 2:55 PM SAILING INSTRUCTOR 15 mcg ePHEDrine injection Intravenous, PRN, Starting on Mon06/28/21 at 1504, Until Mon06/28/21 at 1611, Anesthesia Intra-op $ Given 06/28/2021 3:37 PM SAILING INSTRUCTOR 10 mg $ Given 06/28/2021 3:29 PM SAILING INSTRUCTOR 10 mg $ Given 06/28/2021 3:23 PM SAILING INSTRUCTOR 10 mg ketorolac (Toradol) injection Intravenous, PRN, Starting on Mon06/28/21 at 1552, Until Mon06/28/21 at 1611, Anesthesia Intra-op $ Given 06/28/2021 3:52 PM SAILING INSTRUCTOR 30 mg lactated ringers infusion Intravenous, CONTINUOUS PRN, Starting on Mon06/28/21 at 1455, Until Mon06/28/21 at 1611, Anesthesia Intra-op $ New Bag/Syringe 06/28/2021 4:10 PM SAILING INSTRUCTOR $ New Bag/Syringe 06/28/2021 2:55 PM SAILING INSTRUCTOR lidocaine (Xylocaine) 1 % injection Infiltration, Starting on Mon06/28/21 at 1506, Until Mon06/28/21 at 1506, Anesthesia Intra-op $ Given 06/28/2021 3:06 PM SAILING INSTRUCTOR 3 mL Ondansetron HCl (Zofran) injection Intravenous, PRN, Starting on Mon06/28/21 at 1456, Until Mon06/28/21 at 1611, Anesthesia Intra-op $ Given 06/28/2021 2:56 PM SAILING INSTRUCTOR 8 mg oxytocin (Pitocin) 30 units in 500 mL Intravenous, CONTINUOUS PRN, Starting on Mon06/28/21 at 1531, Until Mon06/28/21 at 1611, Anesthesia Intra-op $ New Bag/Syringe 06/28/2021 3:37 PM SAILING INSTRUCTOR $ New Bag/Syringe 06/28/2021 3:31 PM SAILING INSTRUCTOR phenylephrine 100 mcg/mL injection Intravenous, PRN, Starting on Mon06/28/21 at 1502, Until Mon06/28/21 at 1611, Anesthesia Intra-op $ Given 06/28/2021 3:35 PM SAILING INSTRUCTOR 100 mcg $ Given 06/28/2021 3:29 PM SAILING INSTRUCTOR 100 mcg $ Given 06/28/2021 3:23 PM SAILING INSTRUCTOR 100 mcg documented in this encounter
--- OUTSIDE RECORDS SUMMARY | 2024-05-04 14:55 | XMS_ITS | Referral Summary ---
Author Organization [facility] Health Address [address] [place] [address] Care Team Providers Care Police Cadet Name Role Phone Unavailable Primary Care Provider Unavailabl e Source Comments [facility],non-owned Affiliates and Associated Physician Practices is amultiple site organization consisting of ambulatory clinics and hospital sitesin [place], [place], [place] and [place]. This disclosure is being madepursuant to the Care Everywhere program and may not contain all information available regarding this patient. Last updated 18.[facility] 8020select Allergies No known active allergies Medications * [...] migh t be different from the original. [employer] form completed. Diapers given. 06/28/2021, [...] 69.9 in adult 02/15/2021 Overview (05/24/2021): BPP 12/06 today Second 02/15/2021 Overview (05/24/2021): Datinst trimester [...] 07/01/2021 Overview (05/24/2021): Positive in media 11/19/20 Social History Tobacco Use Types Packs/Day Years [...] Comments Blood Pressure 135/85 07/05/2021 9:08 AM MICA MINER Pulse 75 07/05/2021 9:08 AM MICA MINER Temperature 37 ??C (98.6 ??F) 07/01/2021 9:25 AM MICA MINER Respiratory Rate 18 07/01/2021 9:25 AM MICA MINER Oxygen Saturation 98% 07/01/2021 9:25 AM MICA MINER Inhaled Oxygen Concentration - - Weight 184.6 kg (407 lb) 07/05/2021 9:08 AM MICA MINER Height 163.8 cm (5' 4.5 ) 06/28/2021 12:42 PM CS T Body Mass Index 68.78 06/28/2021 12:42 PM MICA MINER Functional Status Functional Status Response Date of [...] person have difficulty concentrating/remembering/making decisions? No 06/28/2021 Plan of Treatment Not on file Procedures Procedure Name Priority Date/Time Associated Diagnosis Comments HIV-1 HIV-2 ANTIBODY + HIV P24 AG PANEL Routine 05/24/2021 10:39 AM MICA MINER 34 weeks gestation of (HCC) from Last 3 Months or Most Recently Relevant to Health Maintenance Results * HIV-1 HIV-2 ANTIBODY + HIV P24 AG PANEL (05/24/2021 10:39 AM MICA MINER) [facility] Signature HIV1/2 Ab + P24 Ag Non Reactive Non Reactive 05/24/2021 12:19 PM MICA MINER [facility] Blood BLOOD SPECIMEN / Unknown Venipuncture / Unknown 05/24/2021 10:39 AM MICA MINER 05/24/2021 10:55 AM MICA MINER Narrative [facility] - 05/24/2021 12:19 PM MICA MINER No Laboratory evidence of HIV infection. Jake Jc MD LAB - CHEMISTRY LEATHA FAY [facility] [address] [place] [address] from Last 3 Months or Most Recently Relevant to Health Maintenance Advance Directives * Full Code (Latest Code Status on File) Date Activated Date Inactivated Comments 06/28/2021 1:23 PM 07/01/2021 7:43 PM * FULL RESUSCITATION Date Activated Date Inactivated Comments 05/15/2011 1:40 AM 05/17/2011 12:34 AM
--- OUTSIDE RECORDS SUMMARY | 2024-05-04 14:56 | XMS_ITS | Continuity of Care Document ---
Author Organization [facility] Address [address] [place] [address] Phone Care Team Providers Care Soccer Commentator Name Role Phone Kena Murillo Unavailable Unavailable Procedures Procedure Date Voided Encounter Advance Directives Directive Yes / No Effective Date File Name No Information Encounters Encounter Description Practice Location Reason(s) For Visit Diagnoses Date Provider Providers Copied on Encounter [facility] , [address], [place], [place], [id number], [place] tel:[phone] Urgent Care No Information Tom Escudero. [address], [place], [place], [id number], [place]. tel:[phone] Family History Family Member Type Diagnosis Age At Onset No Information Payers Payer name Insurance type Covered alliance party ID Authoriza tion(s) No Information Social History Type Description Quantity Date Captured Comments Sex Female Smoking Status No Information Chief Complaint And Reason For Visit No Information Reason For Referral Reason For Referral No Information History Of Present Illness Encounter Date Complaint History Of Prese nt Illness No Information Functional Status Date Functional Assessmen t No Information Instructions Date Instruction Additional Infor mation No Information Assessments Type Assessment Date No Information Patient Care Teams Name Effective Dates (start - stop) Status Members No Information
--- OUTSIDE RECORDS SUMMARY | 2024-05-04 14:56 | XMS_ITS | CONTINUITY OF CARE DOCUMENT ---
Author Name arturo morris Address Unknown Organization [facility] Address [address] [place] [address] Phone [phone] Care Team Providers Care Criminal Justice Social Worker Name Role Phone Dylon FLOR, Samantha Unavailable [phone] MARIO POST MD Unavailable MARIO POST MD Unavailable INSURANCE PROVIDERS Payer name Policy type / Coverage type [employer] red green party ID [employer] Medicaid 0 [id number]
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
== END 2024-04-27 15:18 | disposition home or self-care (01) ==
PROVIDERS: Emergency Provider Emergency Medicine
DX: H57.10 Ocular pain, unspecified eye (principal)
CPT/HCPCS: 99283; A9270

== ENCOUNTER 2024-07-25 17:57 | Emergency (ER) | payer OTHER, SELFPAY ==
[2024-07-25] VITALS (18 sets, daily range): BP systolic 108–159; BP diastolic 75–140; PULSE 72–83; RESP 15–19; TEMP 36.5; O2SAT 97–100
--- NOTE | ~2024-07-25 | CT_ITS ---
CT abdomen pelvis w con Ordering provider: Nani Muñoz PA-C History: 34 years Female with . LUQ abd pain . Comparison: February 05, 2024 Technique: CT abdomen and pelvis with IV and without oral contrast. Automated exposure control and it erative reconstruction technique were employed. The dose-length product was 1763.01 mGy-cm. 100 ML Om nipaque 350 was given IV. Findings: VISUALIZED LOWER CHEST: 5 mm nodule is seen in the right middle lobe. 6 months follow-up CT is advise d. UPPER ABDOMINAL ORGANS: Liver: Hepatomegaly Gallbladder: Normal. Spleen: Normal. Stomach/duodenum: Normal. Pancreas: Normal. Adrenals: Normal. Kidneys: Normal. PELVIC ORGANS: The bladder is normal. BOWEL AND MESENTERY: Colon: Minimal fat stranding is seen adjacent to the descending colon suggestive of diverticulitis. N o abscess formation or free air is seen. . Normal appendix. Small Bowel: Normal. No obstruction. Peritoneum/mesentery: No free air or free fluid. No mesenteric lymphadenopathy. RETROPERITONEUM: Normal aorta. No retroperitoneal lymphadenopathy. MUSCULOSKELETAL: Superficial soft tissues: Fat containing umbilical hernia. Otherwise, The superficial soft tissues ar e normal. Bones: Age appropriate degenerative changes of the spine. Bilateral sacroiliitis. IMPRESSION: 1. Focal diverticulitis in the descending colon. No abscess formation or free air is seen. 2. Hepatomegaly. Reviewed, dictated and finalized at location A.
--- OUTSIDE RECORDS SUMMARY | 2024-07-25 17:59 | XMS_ITS | Data Portability ---
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 Plan of Treatment Reminders Order Date Submit Date Provider Last Modified By Organization Details Last Modified Time Details Appointments ANY 15 2024 01:45P M Unassigned Not available Not available Not available Lab RPR (rapid plasma reagin) , serum 2022 023 [facility], [address] [place] [address], [address], [place], [address], 08/31/2022 22:07:34 HIV 1 + 2, meaning ful use set 2022 023 [facility], [address] [place] [address], [address], [place], [address], 08/31/2022 22:07:35 chlamyd ia trachom atis + neisser ia gonorrh oeae + trichom onas vaginal is DNA panel, JARRELL+pro be, unspeci fied specime n 2022 023 [facility], [address] [place] [address], [address], [place], [address], 08/31/2022 22:07:32 HBsAg (hepati tis B surface Ag), EIA, serum 2022 023 [facility], [address], [address], [place], [address], 08/31/2022 22:07:33 pregnan cy test, urine 2022 023 [facility] In-Office Order, Internal Use Only DO Not Attach Compendium DO Not Attach Compendium, Do Not Delete/merge, [id number] 06/16/2022 13:32:07 prolact in, serum 2022 023 [facility], [address], [address], [place], [address], 06/17/2022 08:23:12 TSH + free T4, serum 2022 023 [facility], [address], [address], [place], [address], 06/17/2022 08:23:11 Referral physica l therapi st referra l 2023 024 [facility], [address] [place], [address], 07/01/2024 10:14:28 Procedures None recorde d. Surgeries None recorde d. Imaging XR, knee, 3 view 2023 024 [facility], [address] [place], [address], 05/28/2024 11:21:56 XR, ankle - L ankle pain for 4 months 2023 024 [facility], [address] [place], [address], 09/08/2023 13:53:56 US, breast, bilater al 2022 023 [facility], [address] [place], [address], 07/06/2022 09:44:58 US, abdomen - Bulge above belly button 2022 023 [facility], [address], [place], [address], 06/09/2023 12:31:49 Medication Orders Medrol (Ry) 4 mg tablets in a dose pack 2023 024 [id number], [address], [place], [place], [id number], 01/31/2024 17:34:14 meloxic am 15 mg tablet 2023 024 [facility] #08594, [address], [place], [place], [id number], 01/31/2024 17:44:52 meloxic am 15 mg tablet 2023 024 [facility] #61669, [address], [place], [place], [id number], 09/01/2023 12:33:06 acyclov ir 400 mg tablet 2022 023 [facility] #82497, [address], [place], [place], [id number], 08/30/2022 13:13:37 ibuprof en 400 mg tablet 2022 023 [facility] #40124, [address], [place], [place], [id number], 06/16/2022 13:21:11 cephale natalie 500 mg capsule 2022 023 [facility] #13416, [address], [place], [place], [id number], 01/31/2024 17:43:29 Patient TargetsNo targets recorded. Patient Instructions Encounter Date Encounter Id Patient Instructions Last Modified By Organization Details Last Modified Time 06/08/2022 [id number] When You Want to Lose Weight: Care Instructions yarauz Not available 06/08/2022 11:59:10 A healthy lifestyle: care instructions yarauz Not available 06/08/2022 11:59:10 continue fluoxetine and f/u as directed yarauz Not available 06/08/2022 16:54:41 get abd u/s as directed possible hernia yarauz Not available 06/08/2022 16:55:04 06/16/2022 [id number] galactorrhea: care instructions yarauz Not available 06/16/2022 13:23:32 When You Want to Lose Weight: Care Instructions yarauz Not available 06/16/2022 13:21:05 A healthy lifestyle: care instructions yarauz Not available 06/16/2022 13:21:05 get breast u/s yarauz Not available 0 06/16/2022 13:20:56 08/30/2022 [id number] genital herpes: care instructions yarauz Not available 08/30/2022 13:13:30 std risks condoms with every sexual act no sex during treatment yarauz Not available 08/30/2022 13:12:23 09/01/2023 [id number] ankle sprain: rehab exercises yarauz Not available [...] juan a Not available 09/01/2023 14:27:52 01/31/2024 [id number] When You Want to Lose Weight: Care Instructions juan a Not available 01/31/2024 17:34:07 R est your leg while you have pain, and avoid standing for long periods of time. P rop up your leg at or above the level of your heart when possible. M agata sure you are eating a balanced diet that is rich in calcium, potassium, and magnesium, especially if you are . P ut ice or a cold pack on the area for 10 to 20 minutes at a time. Put a thin cloth between the ice and your skin. Y our leg may be in a splint, a [...] uIU/m L 0.450- 4.500 Not Available [facility] ([facility]) [address], [place], [place], [address], 06/17/2022 08:23:11 06/16/1906/17/2022 TSH+F REE T4 T4,free(dire ct) 1.39 NG/dL 0.82-1 .77 Not Available [facility] ([facility]) [address], [place], [place], [address], 06/17/2022 08:23:11 06/16/19 23 06/17/2022 PROLA CTIN prolactin 8.0 NG/mL 4.8-23 .3 Not Available [facility] ([facility]) [address], [place], [place], [address], 06/17/2022 08:23:12 06/16/19 23 06/16/2022 pregn kimmie test, urine HCG negati ve Not Available In-Office Order Internal Use Only DO Not Attach Compendium DO Not Attach Compendium, Do Not Delete/merge, [id number] 06/16/2022 13:23:26 08/31/19 23 08/31/2022 CT, NG, TRICH VAG BY JARRELL chlamydia by JARRELL Negati ve negati ve Not Available [facility] ([facility]) [address], [place], [place], [address], 08/31/2022 22:07:32 08/31/19 23 08/31/2022 CT, NG, TRICH VAG BY JARRELL gonococcus by JARRELL Negati ve negati ve Not Available [facility] ([facility]) [address], [place], [place], [address], 08/31/2022 22:07:32 08/31/19 23 08/31/2022 CT, NG, TRICH VAG BY JARRELL trich vag by JARRELL Negati ve negati ve Not Available [facility] ([facility]) [address] [place], [address], 08/31/2022 22:07:32 08/31/19 23 08/31/2022 HBSAG SCREE N HBsAg screen Negati ve negati ve Not Available [facility] ([facility]) [address] [place], [address], 08/31/2022 22:07:33 08/31/19 23 08/31/2022 RPR, RFX QN RPR/C ONFIR M TP RPR Non Reacti ve nonrea ctive Not Available [facility] ([facility]) [address], [place], [place], [address], 08/31/2022 22:07:34 08/31/19 23 08/31/2022 HIV AB/P2 4 AG WITH REFLE X HIV Ab/P24 Ag screen Non Reacti ve nonrea ctive HIV Negat yessy HIV-1 /HIV- 2 antib odies and HIV-1 p24 antig en were NOT detec bisi. There is no labor atory evide nce of HIV infec tion. Not Available [facility] ([facility]) [address], [place], [place], [address], 08/31/2022 22:07:35 09/08/19 24 09/08/2023 XR, ankle No observ ation record ed. [facility] [address] [place], [address], 01/31/2024 17:29:21 12/21/19 24 12/20/2023 XR, chest , 2 view No observ ation record ed. [facility] [address] [place], [address], 01/31/2024 17:29:21 02/05/20 24 02/05/2024 CT, abdom en + pelvi s, w/ contr ast No observ ation record ed. [place] [address], [place], [address], 02/06/2024 14:23:17 04/28/20 24 04/28/2024 XR, chest , 2 view No observ ation record ed. [facility] [address] [place], [address], 05/07/2024 12:35:35 Result Notes None recorded. Problems Name Problem SNOMED Code Status Onset Date Resolution Date Notes Provider Name and Address Organization Details Recorded Time Axillary aileenen itis suppurat roger 510492353 Active 2017 Dena Blevins [place] null, [place] - [facility] 1 12:26:44 Degenera tion of lumbar interver tebral disc 86913244 Active 2015 [facility] Attn: Michael jones,[address] [facility], [place], [place], [address] [place] [address] 2, [facility] - [facility] 2 13:37:43 Genital herpes simplex 87889291 Active 2019 Will need order for suppress yessy therapy. [facility] Attn: Michael jones,[address] [facility], [place], [place], [address] [place] [address] 2, [facility] - SI 2 13:37:27 Migraine without aura 08760669 Active 2020 [facility] Attn: Michael jones,[address] [facility], [place], [address] [place] [address] 2, [facility] - [facility] 2 13:37:43 Initial prescrip tion of oral contrace ption Completed 202011/03/2021 [facility] Attn: Michael jones,[address] [facility], [place], [address] [place] [address] 2, [facility] - SI 2 13:37:05 Abnormal progeste rebekah 304269676 Active 2020 [facility] Attn: Michael jones,[address] [facility], [place], [place], [address] [place] [address] 2, [facility] - [facility] 2 13:37:42 Pregnanc y 29394846 Completed 202007/12/2021 Vangie Lawrence LPN [place], [place] [facility] 2 12:36:01 Morbid obesity 343941037 Completed Transfer of care initiate d by previous provider in process. Vangie [place] LPN [place] [facility] 2 12:35:53 Depressi ve disorder 65948541 Completed 2020 Vangie [place] LPN [place], [place] [facility] 2 12:35:53 Genital herpes simplex 85937119 Completed 2019 Will need order for suppress yessy therapy. 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 Will need 3rd tri testing. Vangie [place] LPN [place] [facility] 2 12:35:52 Requires varicell a vaccinat ion 305397189 Completed 2020 Vangie [place] LPN [place] [facility] 2 12:35:53 Acute urinary tract infectio n 175029736 Completed 202005/05/21 Treating with Macrobid . 2nd recurren ce - plans for suppress yessy therapy to follow. Vangie [place] LPN [place] [facility] 2 12:35:53 Anemia 220612511 Completed 202001/31/2024 Hgb 10.2 05/05/21. Oral iron encourag ed. BARBIE Patel-BRYON Attn: Michael jones,[address] [place], [address], [place] - [facility] 4 17:31:34 Anemia 718980790 Completed 2020 Hgb 10.2 05/05/21. Oral iron encourag ed. 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 KEANU Patel Attn: Michael jones,[address] [facility], [place], [address], [place] - [facility] 2 13:36:53 Subcutan eous contrace ptive implant present 767067436 Completed 2020 Plans for removal attempt at next appointm ent. Vangie [place] LPN [place] [facility] 2 12:35:53 Urinary tract infectio n in pregnanc y 448393391 Completed Polo freitask [place] [facility] 2 13:21:08 Postpart um depressi on 56526928 Completed 202101/31/2024 KEANU Patel Attn: Michael robert,[address] [facility], [place], [address], [place] [facility] 4 17:31:34 Obesity 319956774 Completed 09/25/2018 Sheri Areval[place] [facility] 9 10:11:35 Upper respirat ory infectio n 41427522 Completed 07/21/2016 Sheri [place]val[place] [facility] 7 11:52:23 Depressi ve disorder 38808913 Completed 09/12/2019 Sheri [place]val[place] [facility] 2 10:17:24 Morbid obesity 814464251 Active Transfer of care initiate d by previous provider in process. KEANU Patel Attn: Michael robert,[address] [facility], [place], [address], [place] [facility] 2 13:37:43 Group B Streptoc occus carrier 58678549162 03 Completed 201607/21/2016 Sheri [place] [facility] 2 10:16:06 Bacteria l vaginosi s 797355301 Completed 201607/21/2016 Sheir Arevalo RN null, [facility] 7 11:52:18 Cholelit hiasis without obstruct ion 24418238 Completed 201609/12/2019 Sheri Arevalo RN null, [facility] 0 16:22:55 Hyperlip idemia 93732380 Active 2016 KEANU Patel Attn: Michael jones,[address] [facility], [place], [address], [facility] - SI 2 13:37:43 Problem Notes None recorded. Procedures Surgical History Date Name Laterality Status Provider Name and Address Organization Details Recorded Time 06/28/19 22 delivery completed Ailyn Cota MA [facility] 12/01/2021 11:13:56 05/13/19 22 Control Implant Removal completed Polo Cristobal [facility] 05/23/2021 17:41:06 08/19/19 21 Date of Last Pap Smear completed Merari Ferreira MA [facility] 11/19/2020 08:59:02 07/16/19 16 Control Implant Removal completed KEANU Patel Attn: Sally,[address] [facility], [place], [address], [facility] 07/17/2015 12:51:33 05/22/19 13 Caesarean Section completed Sheri Arevalo RN [facility] 06/01/2015 12:02:09 Imaging Results Imaging Date Name Status LastModified by [facility] Details LastModified Time 09/08/2023 XR, ankle completed [facility] [address] [place], [address], 01/31/2024 17:29:21 12/20/2023 XR, chest, 2 view completed [facility] [address] [place], [address], 01/31/2024 17:29:21 02/05/2024 CT, abdomen + pelvis, w/ contrast completed [facility] [address], [place], [address], 02/06/2024 14:23:17 04/28/2024 XR, chest, 2 view completed [facility] [address], [place], [address], 05/07/2024 12:35:35 Procedure Notes None recorded. Medical Equipment None [...] completed Not Available Not Available Not Available Se- 19 29 mg iron-1 mg tablet TAKE [...] Updated DateTime 3 163.83 cm 62.1 kg/m2 567683. 2 g 98.3 [degF] 98 % 98 % 68 /min 130 mm[Hg] 90 mm[Hg] Janene monroy MA [facility] 3 11:41:39 Date Recorded Body height Provider Name an d Address Organization Details Last Updated DateTime 06/16/2022 163.83 cm Ailyn farris MA [facility] 06/16/2022 12:38:13 Date Recorded Body mass index (BMI) Body weight Body temperature Heart rate Oxygen saturation Oxygen saturation in Arterial blood by Pulse oximetry Systolic blood pressure Diastolic blood pressure Provider Name and Address Organization Details Last Updated DateTime 3 62 kg/m2 937926. 4 g 98.1 [degF] 70 /min 98 % 98 % 128 mm[Hg] 86 mm[Hg] Janene monroy MA [facility] 3 12:45:36 Date Recorded Body height Provider Name an d Address Organization Details Last Updated DateTime 08/30/2022 163.83 cm Sheri Arevalo RN [facility] 2022 12:06:46 Date Recorded Body mass index (BMI) Body weight Oxygen saturation Oxygen saturation in Arterial blood by Pulse oximetry Heart rate Body temperature Systolic blood pressure Diastolic blood pressure Provider Name and Address Organization Details Last Updated DateTime 3 63 kg/m2 034979. 95 g 99 % 99 % 72 /min 98.2 [degF] 126 mm[Hg] 82 mm[Hg] Janene monroy MA [facility] 3 12:24:06 Date Recorded Body weight Body mass index (BMI) Body height Provider Name and Address Organization Details Last Updated DateTime 09/01/2023 430276.5 g 68.6 kg/m2 163.83 cm KEANU Patel Attn: Accounting,[address] [place], [address], [facility] 09/01/2023 12:33:38 Date Recorded Heart rate Systolic blood pressure Diastolic blood pressure Provider Name and Address Organization Details Last Updated DateTime 09/01/2023 72 /min 110 mm[Hg] 77 mm[Hg] Sheri Arevalo RN [facility] 09/01/2023 12:38:14 Date Recorded Body height Body mass index (BMI) Body weight Oxygen saturation Oxygen saturation in Arterial blood by Pulse oximetry Heart rate Body temperature Systolic blood pressure Diastolic blood pressure Provider Name and Address Organization Details Last Updated DateTime 4 163.83 cm 66.1 kg/m2 526797. 62 g 98 % 98 % 88 /min 98.6 [degF] 114 mm[Hg] 80 mm[Hg] Janene monroy MA [facility] 4 17:17:37 Social History Question Answer Notes LastModified by Organizat ion Details LastModified Time Tobacco Smoking Status Never Smoker Not Available [facility] 03/03/2020 03:43:22 Do You Have An Advance Directive? No [id number] Information not available 03/03/2020 What Is Your Level Of Alcohol Consumption? None Information not available 06/24/2020 Are You Blind Or Do You Have Difficulty Seeing? No Information not available 06/24/2020 Is Blood Transfusion Acceptable In An Emergency? Yes [id number] Information not available 03/03/2020 What Is Your Level Of Caffeine Consumption? Occasional Information not available 06/24/2020 How Much Tobacco Do You Chew? None [id number] Information not available 03/03/2020 In The 14 [...] available 06/24/2020 Are You Currently Employed? No [id number] Information not available 03/03/2020 Are You Deaf Or Do You Have Serious Difficulty Hearing? No Information not available 06/24/2020 What Type Of Diet Are You Following? REGULAR [id number] Information not available 03/03/2020 Which Illicit Or Recreational Drugs Have You Used? None [id number] Information not available 03/03/2020 Do You Or Have You Ever Used E-cigarettes Or Vape? Never Used Electronic Cigarettes [id number] Information not available 03/03/2020 Education 10 Information no t available 06/01/2015 What Is Your Occupation? Unemployed [id number] Information not available 03/03/2020 Are There Any Guns Present In Your Home? No [id number] Information not available 03/03/2020 Hard Of Hearing [...] How Many Children Do You Have? 1 [id number] Information not available 03/03/2020 Performs Monthly Self-breast Exam? No Information no t available 06/01/2015 Do You Use Protection During Sex? Always [id number] Information not available 03/03/2020 What Is Your Relationship Status? Single [id number] Information not available 03/03/2020 Do You Use Your Seat Belt Or Car Seat Routinely? Yes Information not available 06/24/2020 Seat Belts Used Routinely Yes Information not available 06/01/2015 Are You Sexually Active? Yes [id number] Information not available 03/03/2020 Smoke Alarm In Home Yes Information not available 06/01/2015 Do You Have Smoke And Carbon Monoxide Detectors In Your Home? Yes Information not available 06/24/2020 Are You Passively Exposed To Smoke? No Information no t available 06/24/2020 Do You Or Have You Ever Used Smokeless Tobacco? Never Used Smokeless Tobacco [id number] Information not available 03/03/2020 How Much Tobacco Do You Smoke? No [id number] Information not available 03/03/2020 General Stress Level High Information not available 06/01/2015 Do You Feel Stressed (tense, Restless, Nervous, Or Anxious, Or Unable To Sleep At Night)? [id number] Information not available 06/24/2020 Do You Use Any Illicit Or Recreational Drugs? No Information not available 06/24/2020 Do You Use Sunscreen Routinely? Yes [id number] Information not available 03/03/2020 Has Tobacco Cessation [...] 06/24/2020 What is your exercise level? Occasional [id number] Information not available 03/03/2020 Mental Status None [...] Problems N Kidney or Bladder Problems N Lung Disease N GI Problems N Depression Y Blood Clots N Acne N Skin Problems Y Eating Disorder N Breast Problem N Anemia N Anesthesia Complications N Headaches/Migraines Y Ovarian Cancer N Diabetes N Anxiety Disorder N Muscle, Joint, or Bone Problems N [...] Immunizations Vaccine Type Date Status Note Provider Ceferino salas and Address Organization Details Recorded Time Tdap 3 completed Not Available [facility] 07/22/2022 17:32:02 COVID-19, mRNA, LNP-S, PF, 30 mcg/0.3 mL dose 1 completed Not Available [facility] 07/22/2022 17:32:02 COVID-19, mRNA, LNP-S, PF, 30 [...] adolescent or pediatric 7 completed Not Available [facility] 07/22/2022 17:32:02 DTaP 7 completed Not Available [facility] 07/22/2022 17:32:03 IPV 7 completed Not Available [facility] 07/22/2022 17:32:02 HPV, quadrivalent 7 completed Not Available [facility] 07/22/2022 17:32:02 Hib (PRP-T) 2 completed Not Available [facility] 07/22/2022 17:32:03 Influenza, split virus, quadrivalent, preservative 0 completed KATE Moss null, [place] - [facility] 02/28/2020 16:11:26 HPV9 1 completed [facility] Attn: Accounting,[address] [place], [address], [facility] - [facility] 08/19/2020 12:18:48 Influenza, split virus, quadrivalent, preservative 1 completed Merari Ferreira [place], [place] [facility] 02/11/2021 18:09:05 Tdap 2 completed Polo Cristobal [place], [place] [facility] 05/04/2021 18:30:00 Past Encounters Encounter ID Performer Location Encounter Start Date Encounter Closed Date Diagnosis/Indication Diagnosis SNOMED-CT Code Diagnosis ICD10 Code Diagnosis Note [id number] [facility] [address] [place] [address] 06/01/2015 11:38:10 06/03/2015 16:58:35 Adult health examination 107802371 Z00.00 Obesity 544145221 E66.9 Upper resp iratory infection 59655577 J06.9 Depressive disorder 3548 9007 F32.9 Subcutaneo us contraceptive implant present 955295502 Z30.42 will need to have imaging done to look for implant as it is not palpable [id number] [facility] [address], [place] [address] 07/16/2015 10:45:37 07/16/2015 17:01:14 Subcutaneous contraceptive implant present 940418106 Z97.8 Left Humerus Xray did not show Nexplanon Implant Family sophia nning surveillance 052504272 Z30.09 Morbid obesity 371836086 E66.01 [id number] Killian Vela McKinley ([employer]PER[employer]) [address] [place] [address] 06/09/2016 10:38:20 06/09/2016 16:12:01 Gynecologic examination 60035898 Z01.419 Morbid obesity 497353066 E66.01 Subcutaneo us contraceptive implant palpable 400723728 Z30.49 Depressive disorder 3548 9007 F32.9 Family sophia nning surveillance 152927876 Z30.09 [id number] [facility] [address] 4 07/21/2016 11:42:44 08/02/2016 15:53:27 Chronic abdominal pain 425968768 R10.9 Morbid obesity 776651996 E66.01 [id number] [facility] [address] [address] 07/28/2016 16:04:15 07/31/2016 15:09:34 Helicobacter pylori gastrointestinal tract infection 356700900 B96.81 Upper resp iratory infection 70606501 J06.9 increase fluids Axillary h idradenitis suppurativa 577970490 L73.2 [id number] [facility] [address] [place] [address] 09/20/2016 15:56:30 09/23/2016 15:02:49 Chronic abdominal pain 318589649 R10.9 Patient needs to follow up with GI/See for appt as directed JERMAINE Morbid obesity 368462051 E66.01 Patient has order for BARIATRIC SURGERY from [employer] Helicobact er pylori gastrointestinal tract infection 702254379 B96.81 Patient completed triple therapy Cholelithi asis without obstruction 61002610 K80.20 Hyperlipidemia 31664187 E78.5 Chronic gastritis 316580 9 K29.50 [id number] Paige Matias [facility] [address], [place] [address] 06/20/2017 12:22:42 06/21/2017 12:25:05 Pain in left knee 7999595348 02470 M25.562 Pain in lower limb 84875 006 M79.605 Follow-up visit 72851062 9 Z09 [id number] [facility] [address], [place] [address] 08/07/2017 13:57:27 08/10/2017 12:29:55 Migraine 74235845 G43.909 frequent migraine headachess tart imitrex 25mg PRN-discus sed intended use for PRN only, max 4 tabs per weekstart topamax 25mg daily for one weekthen increase to BID daily usediscuss ed must take daily for benefits of prevention of headachedi scussed common side effects including GI upset, numbness and tingling, confusion, weight losskeep headache diary of symptomsre turn in 4-6 weeks for f/u Com[place]one 243278101 L70.0 asked pt to wash behind ears with otc acne wash more thoroughly f/u as needed Body mass index 40+ - severely obese 957835183 Z68.44 work on limiting calorie intakewalk for exerciseto pamax may aide in weight loss [id number] MAURISIO ALVARADO [facility] [address], [place] [address] 08/15/2017 10:42:37 08/17/2017 17:52:03 Axillary hidradenitis suppurativa 672779843 L73.2 axilla lesions x one yeartry clindamyci n gel to axilla lesions-le sions limited to axilla, no need for oral abxavoid picking at themuse dial or hibiclens soap, bathe dailyf/u if not improving after one week or worsening [id number] Paige Matias [facility] [address], [place] [address] 01/09/2018 12:34:10 01/10/2018 17:34:43 Follow-up visit 766359188 Z09 symptoms about the same Axillary h idradenitis suppurativa 923241848 L73.2 try clindamyci n gel to axilla lesions-le sions limited to axillaavoi d picking at themuse dial or hibiclens soap, bathe daily Hidradenit is suppurativa 72476393 L73.2 [id number] [facility] [address] [place] [address] 09/25/2018 10:07:18 09/26/2018 09:34:59 Axillary hidradenitis suppurativa 550365341 L73.2 try clindamyci n gel to axilla lesions-le sions limited to axillaavoi d picking at themuse dial or hibiclens soap, bathe daily Subcutaneo us contraceptive implant present 672733287 Z97.8 Nexplanon inserted in 201206/15/2015 Left Humerus Xray did not show Nexplanon Implant08/30 Left upper arm U/S identified Nexplanon and was marked. However, pt was not seen again until annual with Dr vela [employer] on 06/09/2016 who sent the patient for humerus xray on 06/16/2016 but nexplanon was not identified on this xray. [facility] n[facility] surveillance 868448769 Z30.09 Nexplanon Detection Morbid obesity 819134987 E66.01 Patient has order for BARIATRIC SURGERY from [facility] Degenerati on of lumbar intervertebral disc 66432815 M51.36 chronic problem loose weight stretching exercises may need to see Pain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 [address] 11/19/2020 HIV and other routine tests [place] [address] 11/19/2020 Risk factors identif ied by history [place] [address] 11/19/2020 [facility]2020 [facility]2020 [facility] 11/19/2020 Use of any medicatio ns (including supplements, vitamins, herbs, or OTC drugs) [place] [address] 11/19/2020 [place] [address] 11/19/2020 Sexual activity [place] [address] 11/19/2020 Tobacco/smoking cess ation counseling (ask, advise, assess, assist, and arrange) [place] [address] 11/19/2020 Illicit/recreational drugs [place] [address] 11/19/2020 Dental care [place] [address] 11/19/2020 Travel [place] [address] 11/19/2020 Seat belt use [place] [address] 11/19/2020 Indications for ultrasonography [place] [address] 11/19/2020 Avoidance of saunas or hot tubs [place] [address] 11/19/2020 Toxoplasmosis precautions (cats/raw meat) [place] [address] Second Trimester Discussed Date Discussion Item Discussion Note Discuss ed By 01/14/2021 Selecting a care provider [place] [address] 01/14/[address] anning/tubal sterilization [place] [address] 01/14/2021 Depression screening (when indicated) [place] [address] 01/14/2021 Abnormal lab values [place] [address] 01/14/2021 Signs and symptoms of labor [place] [address] 01/14/2021 Intimate partner violence jorge alberto ortopass 01/14/2021 Tobacco/smoking cess ation counseling (ask, advise, assess, assist, and arrange) [place] [address] Third Trimester Discussed Date Discussion Item Discussion [...] Domestic Partner Domestic Partner Phone Father Name City Planning Aide Status 06/01/19 16 1 CLOSED Fetus Data First Name Last Name Admitted to NICU Weight (g) Sex Living Outcome Pediatric Complications Fetus ID Race Codes Race Delivery Type 2579.57 7704 F Full Term [id number] Grant Calculation Initial Grant Date Initial Exam Date Initial Exam Provider Initial Ultrasound Date Last Menstrual Period Date Ultra Sound Weeks Gestation 0 Eighteen To Twenty Week Grant Update Ultra Sound Date Fundal Height At Umbil Quickening Date Ultra Sound Latest Weeks Gestation Final Grant Confirmed By Final Grant Confirmed Date Final Grant Date Ultra Sound Latest Days Gestation 0 [...]
--- OUTSIDE RECORDS SUMMARY | 2024-07-25 17:59 | XMS_ITS | Continuity of Care Document ---
Author Organization [facility] [facility] Address [address] [place] [address] Phone Care Team Providers Care Occupational Ther Name Role Phone Kena Murillo Unavailable Unavailable Procedures Procedure Date Voided Encounter Advance Directives Directive Yes / No Effective Date File Name No Information Encounters Encounter Description Practice Location Reason(s) For Visit Diagnoses Date Provider Providers Copied on Encounter [facility] , [address], [place], [place], [address], [place] tel:[phone] Urgent Care No Information Tom Escudero. [address], [place], [place], [address], [place]. tel:[phone] Family History Family Member Type Diagnosis Age At Onset No Information Payers Payer name Insurance type Covered democrat ID Authoriza tion(s) No Information Social History [...]
--- OUTSIDE RECORDS SUMMARY | 2024-07-25 17:59 | XMS_ITS | Clinical Summary ---
Author Organization [facility] Address [address] [place] [address] Care Team Providers Care Tension Worker Name Role Phone Unavailable Primary Care Provider Unavailabl e Source Comments [facility],non-owned Affiliates and Associated Physician Practices is amultiple site organization consisting of ambulatory clinics and hospital sitesin [place], [place], [place] and [place]. This disclosure is being madepursuant to the Care Everywhere program and may not contain all information available regarding this patient. Last updated 18.[facility] Allergies No known active allergies Medications * [...] migh t be different from the original. [place] [employer] form completed. Diapers given. 06/28/2021, [...] Comments Blood Pressure 135/85 07/05/2021 9:08 AM STEP DOWN SPECIALIST Pulse 75 07/05/2021 9:08 AM STEP DOWN SPECIALIST Temperature 37 C (98.6 F) 07/01/2021 9:25 AM STEP DOWN SPECIALIST Respiratory Rate 18 07/01/2021 9:25 AM STEP DOWN SPECIALIST Oxygen Saturation 98% 07/01/2021 9:25 AM STEP DOWN SPECIALIST Inhaled Oxygen Concentration - - Weight 184.6 kg (407 lb) 07/05/2021 9:08 AM STEP DOWN SPECIALIST Height 163.8 cm (5' 4.5 ) 06/28/2021 12:42 PM CS T Body Mass Index 68.78 06/28/2021 12:42 PM STEP DOWN SPECIALIST Plan of Treatment Health Maintenance Due Date Last Done Comments PAP SMEAR 1991 HEPATITIS C SCREENING 01/23/2009 DTAP/TDAP/TD VACCINES (1 - Tdap) 2010 HEPATITIS B VACCINE (1 of 3 - 19+ 3-dose series) 2010 COVID-19 VACCINE ( - 2023-2 5 season) 2023 11/29/2020, 11/07/2020 INFLUENZA VACCINE (#1) 2023 DEPRESSION SCREENING 05/01/2024 ZOSTER VACCINE (1 of 2) 2041 HIV SCREENING Completed 05/24/2021 HIB VACCINE Aged Out No longer eligi ble based on patient's age to complete this topic HPV VACCINE Aged Out No longer eligi ble based on patient's age to complete this topic MENINGOCOCCAL (Group B) VACCINE SHARED DECISION-MAKING Aged Out No longer eligible based on patient's age to complete this topic MENINGOCOCCAL GROUPS A/C/Y/W VACCINE Aged Out No longer eligible b ased on patient's age to complete this topic PNEUMOCOCCAL VACCINE Aged Out No long er eligible based on patient's age to complete this topic Procedures Procedure Name Priority Date/Time Associated Diagnosis Comments HIV-1 HIV-2 ANTIBODY + HIV P24 AG PANEL Routine 05/24/2021 10:39 AM STEP DOWN SPECIALIST 34 weeks gestation of from Last 3 Months or Most Recently Relevant to Health Maintenance Results * HIV-1 HIV-2 ANTIBODY + HIV P24 AG PANEL (05/24/2021 10:39 AM STEP DOWN SPECIALIST) HIV1/2 Ab + P24 Ag Non Reactive Non Reactive 05/24/2021 12:19 PM STEP DOWN SPECIALIST [facility] Blood BLOOD SPECIMEN / Unknown Venipuncture / Unknown 05/24/2021 10:39 AM STEP DOWN SPECIALIST 05/24/2021 10:55 AM STEP DOWN SPECIALIST Narrative [facility] - 05/24/2021 12:19 PM STEP DOWN SPECIALIST No Laboratory evidence of HIV infection. Jake Jc MD LAB - CHEMISTRY LEATHA FAY Performing Organization Address City/State/[facility] Co de Phone Number [facility] [address] [place] [address] from Last 3 Months or Most Recently Relevant to Health Maintenance Advance Directives * Full Code (Latest Code Status on File) Date Activated Date Inactivated Comments 06/28/2021 1:23 PM 07/01/2021 7:43 PM * FULL RESUSCITATION Date Activated Date Inactivated Comments 05/15/2011 1:40 AM 05/17/2011 12:34 AM
--- OUTSIDE RECORDS SUMMARY | 2024-07-25 17:59 | XMS_ITS | CONTINUITY OF CARE DOCUMENT ---
Author Name arturo morris Address Unknown Organization [facility] Address [address] [place] [address] Phone [phone] Care Team Providers Care Regulatory Affairs Internship Name Role Phone Dylon FLOR, Samantha Unavailable SEJAL FLOR, MARIO Unavailable [phone] MARIO POST MD Unavailable [phone] INSURANCE PROVIDERS Payer name Policy type / Coverage type Ayleen red republican ID BAB[place] MEDICAID (2) Medicaid [id number]
--- NOTE | 2024-07-25 18:19 | ED_ITS ---
HPI - Abdominal Pain General Chief Complaint: Abdominal Pain Stated Complaint: abd pain Time Seen by Provider: 07/25/24 18:11 History of Present Illness HPI narrative: 34 y/o F presents to the ED for LUQ and LLQ abdominal pain x1 week. Patient states that time the pain radiates to her back. She reports nausea, no vomiting or diarrhea. Denies dysuria hematuria, fever. No prior abdominal surgeries. No history of kidney stones. Related Data Home Medications ?Medication ?Instructions ?Recorded ?Confirmed ?Last Taken ?Type vits no.126-ferrous fum 1 tablet PO DAILY 05/05/21 05/05/21 Unknown History 28 mg iron-folic acid 800 mcg tablet (Classic ) Allergies Allergy/AdvReac Type Severity Reaction Status Date / Time No Known Allergies Allergy Verified 07/25/24 18:00 Review of Systems 2 Review of Systems: All systems reviewed & are unremarkable except as noted in HPI and below PMFSH Past Medical History Medical History Healthy female adult Surgical History Surgical History No history of previous surgery Exam 2 Narrative: GENERAL: Well-appearing, well-nourished, and in no acute distress. HEAD: Normocephalic, atraumatic. EYES: EOMI. ENT: Nares clear, no rhinorrhea or epistaxis. Mucous membranes moist. NECK: Supple. CHEST: Clear to auscultation. No respiratory distress. HEART: Regular rate and rhythm. No murmur heard. Normal peripheral pulses. ABDOMEN: Normoactive bowel sounds. Abdomen soft with tenderness in the left upper quadrant, epigastrium and left lower quadrant no rebound, guarding or rigidity. Bilateral CVA tenderness EXTREMITIES: Normal range of motion. No edema. SKIN: Warm, dry, no rash. NEURO: No focal deficits. Alert and oriented x3 Course Vital Signs Vital signs: Vital Signs Temperature 97.7 F 07/25/24 18:09 Pulse Rate 81 07/25/24 18:09 Respiratory Rate 15 07/25/24 18:09 Blood Pressure 154/84 H 07/25/24 18:09 Pulse Oximetry 100 07/25/24 18:09 Oxygen Delivery Room Air 07/25/24 18:09 Temperature 97.7 F 07/25/24 18:09 Pulse Rate 72 07/25/24 20:05 Respiratory Rate 18 07/25/24 20:05 Blood Pressure 144/75 H 07/25/24 20:05 Pulse Oximetry 100 07/25/24 20:05 Oxygen Delivery Room Air 07/25/24 18:09 MDM - Abdominal Pain MDM Narrative Medical decision making narrative: 34-year-old female presents emergency department for abdominal pain for the past week. Vitals with elevated blood pressure. Patient is afebrile and nontoxic appearing. Exam is significant for the above. Lab work shows no leukocytosis or anemia. Chemistries are unremarkable. Lipase is normal. UA without UTI or hematuria. is negative. CT abdomen pelvis shows focal diverticulitis in the descending colon, no abscess formation or free air seen, hepatomegaly. Patient updated on results. She received IV fluids, Zofran and morphine. She is endorsing persistent pain was given a dose of Toradol. On re-evaluation she states her pain is not improved. I did offer admission at this time for pain control, however patient states she would like to be discharged home. She is tolerating po intake. She was given a dose of Dilaudid and 1st dose of Augmentin prior to discharge. Augmentin, [place] and Zofran sent to pharmacy. Discussed follow-up with PCP, follow-up with GI for outpatient colonoscopy in the next few weeks and strict ED return precautions. Advised clear liquid diet with slow advancement to bland diet. She is agreeable with the plan verbalized understanding. Discharged in stable condition. Lab Data 07/25/24 18:25 07/25/24 18:25 Labs: Lab Results 07/25/24 07/25/24 07/25/24 Range/Units 18:12 18:25 18:31 WBC 8.7 (4.5-10.0) K/mm3 RBC 4.42 (4.2-5.4) M/mm3 Hgb 12.4 (12.0-15.0) g/dL Hct 39.2 (37.0-47.0) % MCV 88.7 (80-100) fl MCH 28.1 (26-34) pg MCHC 31.6 L (32-36) g/dl RDW 12.8 (11.5-14.5) % Plt Count 255 (150-375) k/mm3 MPV 9.6 (7.4-10.4) fl Immature Gran % (Auto) 0.3 (0-0.5) % Neut % (Auto) 55.5 (45.5-73.1) % Lymph % (Auto) 32.9 (18.3-44.2) % Mellette % (Auto) 7.4 (2.6-8.5) % Eos % (Auto) 3.3 (0-4.4) % Baso % (Auto) 0.6 (0.2-1.2) % Lymph # (Auto) 2.87 (0.9-3.2) K/mm3 Mellette # (Auto) 0.7 H (0.1-0.6) K/mm3 Eos # (Auto) 0.3 (0-0.3) K/mm3 Baso # (Auto) 0.1 (0.0-0.1) K/mm3 Abs Immat Gran (auto) 0.03 (0.00-0.031) K/mm3 Absolute Neuts (auto) 4.8 (1.3-6.7) K/mm3 Absolute Nucleated RBC 0.000 (0.0-0.012) K/mm3 Nucleated RBC % 0.0 (0.0-0.2) % Sodium 139 (137-145) mmol/L Potassium 4.3 (3.4-5.0) mmol/L Chloride 103 (98-107) mmol/L Carbon Dioxide 25 (22-30) mmol/L Anion Gap 11 (4-12) mmol/L BUN 9 (7-17) mg/dL Creatinine 0.54 L (0.7-1.0) mg/dL Estim Creat Clear Calc 214 ml/min Estimated GFR > 60 (59 - ) Glucose 79 (65-110) mg/dL Calcium 9.1 (8.4-10.2) mg/dL Total Bilirubin 0.2 (0.2-1.3) mg/dL AST 24 (14-36) U/L ALT 21 (6-35) U/L Alkaline Phosphatase 80 (38-126) U/L Total Protein 8.0 (6.3-8.2) g/dL Albumin 4.1 (3.5-5.1) g/dL Lipase 33 (23-300) U/L Urine Color Yellow (Yellow) Urine Appearance Clear (Clear) Urine pH 6.0 (5.0-9.0) Ur Specific [place] 1.007 (1.001-1.035) Urine Protein Negative (Negative) mg/dL Urine Glucose (UA) Negative (Negative) mg/dL Urine Ketones Negative (Negative) mg/dL Ur Blood (Man) Negative (Negative) Urine Nitrate Negative (Negative) Urine Bilirubin Negative (Negative) Urine Urobilinogen 0.2 (<2.0) mg/dL Leukocyte Esterase Rfl Negative (Negative) TORREY/UL POC Urine HCG, Qual Negative (Negative) Imaging Data Radiologist's impression: ITS Impressions Abdomen/Pelvis CT 07/25/24 19:48 IMPRESSION: 1. Focal diverticulitis in the descending colon. No abscess formation or free air is seen. 2. Hepatomegaly. Discharge Plan Discharge Clinical Impression: Diverticulitis, Hepatomegaly Patient Disposition: Home, Self-Care Condition: Stable Instructions: Antibiotic Form, Diverticulitis (DC), Diverticulitis Diet (ED) Additional Instructions: Please drink a clear liquid diet including water, Gatorade, Pedialyte. When your symptoms have improved he can slowly advance to a bland diet including bananas, rice, applesauce and toast, then advanced to regular diet. Please take the medications as directed as needed and follow closely with her primary care provider and with GI as you will need a outpatient colonoscopy in the next few weeks for further evaluation. Return to the emergency department if you develop a fever, uncontrollable pain, you are unable to tolerate food or fluids, or other concerning symptoms. Also follow-up with her primary care provider regarding your enlarged liver as this will need more testing. Patient Language: Greenlandic Prescriptions: New amoxicillin-pot clavulanate 875-125 mg tablet 1 tablet PO Q8H 7 Days Qty: 21 0RF ondansetron 4 mg tablet,disintegrating 4 mg PO Q8H Qty: 14 0RF hydrocodone-acetaminophen 5-325 mg tablet 1 tablet PO Q8H PRN (Reason: pain) Qty: 14 0RF No Action Classic 28 mg iron- 800 mcg Tablet 1 tablet PO DAILY amoxicillin-pot clavulanate 875-125 mg tablet 1 tablet PO Q12H Qty: 20 0RF ondansetron 4 mg tablet,disintegrating 4 mg PO Q6H PRN (Reason: nausea and vomiting) Qty: 10 0RF famotidine 20 mg tablet 20 mg PO DAILY Qty: 14 0RF Follow-up/Referrals: Peterson Jacinto MD [Physician] - UNKNOWN,DOCTOR [Primary Care Provider] -
--- NOTE | 2024-07-25 18:29 | PC.NURSE ---
patient to bathroom with a cup for urine sample at this time.
[2024-07-25 18:34] LABS: BEDSIDEPREGUCG Negative (Negative)
[2024-07-25 18:35] LABS: Basophils Absolute Auto 0.1 K/mm3 (0.0-0.1); Basophils Percent Auto 0.6 % (0.2-1.2); Eosinophils Absolute Auto 0.3 K/mm3 (0-0.3); Eosinophils Percent Auto 3.3 % (0-4.4); Hematocrit 39.2 % (37.0-47.0); Hemoglobin 12.4 g/dL (12.0-15.0); Immature Granulocyte Absolute 0.03 K/mm3 (0.00-0.031); Immature Granulocyte Percent A 0.3 % (0-0.5); Lymphocytes Absolute Auto 2.87 K/mm3 (0.9-3.2); Lymphocytes Percent Auto 32.9 % (18.3-44.2); Mean Corpuscular HGB Conc 31.6 g/dl (32-36); Mean Corpuscular Hemoglobin 28.1 pg (26-34); Mean Corpuscular Volume 88.7 fl (80-100); Mean Platelet Volume 9.6 fl (7.4-10.4); Monocytes Absolute Auto 0.7 K/mm3 (0.1-0.6); Monocytes Percent Auto 7.4 % (2.6-8.5); Neutrophils Absolute Auto 4.8 K/mm3 (1.3-6.7); Neutrophils Percent Auto 55.5 % (45.5-73.1); Platelet Count Result 255 k/mm3 (150-375); Red Blood Count 4.42 M/mm3 (4.2-5.4); Red Cell Distribution Width 12.8 % (11.5-14.5); White Blood Count 8.7 K/mm3 (4.5-10.0)
[2024-07-25] MEDS: ONDANSETRON INJ 4 MG/2 ML VIAL IV PUSH (18:35)
[2024-07-25] MEDS: MORPHINE SULFATE (*CRX) 4 MG/ML INJ IV PUSH (18:35)
[2024-07-25 18:46] LABS: Alanine Aminotransferase 21 U/L (6-35); Albumin Level 4.1 g/dL (3.5-5.1); Alkaline Phosphatase 80 U/L (38-126); Anion Gap 11 mmol/L (4-12); Aspartate Amino Transferase 24 U/L (14-36); Bilirubin,Total 0.2 mg/dL (0.2-1.3); Blood Urea Nitrogen 9 mg/dL (7-17); Calcium 9.1 mg/dL (8.4-10.2); Carbon Dioxide 25 mmol/L (22-30); Chloride 103 mmol/L (98-107); Estimated CRCL calculation 214 ml/min; Estimated Glomerular Filt Rate > 60; Glucose 79 mg/dL (65-110); Lipase 33 U/L (23-300); Potassium 4.3 mmol/L (3.4-5.0); Sodium 139 mmol/L (137-145)
[2024-07-25 18:47] LABS: Add Urine Microscopic? NO; Appearance Urine Clear (Clear); Bilirubin Urine Negative (Negative); Blood Urine Negative (Negative); Color Urine Yellow (Yellow); Glucose Urine UA Negative (Negative); Ketones Urine Negative (Negative); Leukocyte Esterase Ur Negative LEU/UL (Negative); Nitrate Urine Negative (Negative); Protein Urine Negative (Negative); Specific Grav Ur 1.007 (1.001-1.035); Urobilinogen Urine 0.2 mg/dL (<2.0)
--- OUTSIDE RECORDS SUMMARY | 2024-07-25 19:22 | XMS_ITS | CONTINUITY OF CARE DOCUMENT ---
Author Name arturo morris Address Unknown Organization [facility] Address [address] [place] [address] Phone [phone] Care Team Providers Care Oracle Wms Consultant Name Role Phone Dylon FLOR, Samantha Unavailable [phone] SEJAL FLOR, MARIO Unavailable [phone] MARIO POST MD Unavailable [phone] INSURANCE PROVIDERS Payer name Policy type / Coverage type Ayleen red green party ID BAB[place] MEDICAID (2) Medicaid [id number]
--- OUTSIDE RECORDS SUMMARY | 2024-07-25 19:22 | XMS_ITS | Continuity of Care Document ---
Author Organization [facility] Address [address] [place] [address] Phone Care Team Providers Care Community Center Director Name Role Phone Kena Murillo Unavailable Unavailable Procedures Procedure Date Voided Encounter Advance Directives Directive Yes / No Effective Date File Name No Information Encounters Encounter Description Practice Location Reason(s) For Visit Diagnoses Date Provider Providers Copied on Encounter [facility] , [address], [place], [place], [address], [place] tel:[phone] Urgent Care No Information Tom Escudero. [address], [place], [place], [address], [place]. tel:[phone] Family History Family Member Type Diagnosis Age At Onset No Information Payers Payer name Insurance type Covered libertarian ID Authoriza tion(s) No Information Social History [...]
--- OUTSIDE RECORDS SUMMARY | 2024-07-25 19:22 | XMS_ITS | Clinical Summary ---
Author Organization [facility] Address [address] [place] [address] Care Team Providers Care Teacher Preschool Name Role Phone Unavailable Primary Care Provider Unavailabl e Source Comments [facility],non-owned Affiliates and Associated Physician Practices is amultiple site organization consisting of ambulatory clinics and hospital sitesin [place], [place], [place] and [place]. This disclosure is being madepursuant to the Care Everywhere program and may not contain all information available regarding this patient. Last updated 18.[facility] Allergies No known active allergies Medications * [...] migh t be different from the original. [place] [employer] form completed. Diapers given. 06/28/2021, [...] Comments Blood Pressure 135/85 07/05/2021 9:08 AM PEPPER PICKER Pulse 75 07/05/2021 9:08 AM PEPPER PICKER Temperature 37 C (98.6 F) 07/01/2021 9:25 AM PEPPER PICKER Respiratory Rate 18 07/01/2021 9:25 AM PEPPER PICKER Oxygen Saturation 98% 07/01/2021 9:25 AM PEPPER PICKER Inhaled Oxygen Concentration - - Weight 184.6 kg (407 lb) 07/05/2021 9:08 AM PEPPER PICKER Height 163.8 cm (5' 4.5 ) 06/28/2021 12:42 PM CS T Body Mass Index 68.78 06/28/2021 12:42 PM PEPPER PICKER Plan of Treatment Health Maintenance Due Date [...] P24 AG PANEL Routine 05/24/2021 10:39 AM PEPPER PICKER 34 weeks gestation of from Last 3 Months or Most Recently Relevant to Health Maintenance Results * HIV-1 HIV-2 ANTIBODY + HIV P24 AG PANEL (05/24/2021 10:39 AM PEPPER PICKER) HIV1/2 Ab + P24 Ag Non Reactive Non Reactive 05/24/2021 12:19 PM PEPPER PICKER [facility] Blood BLOOD SPECIMEN / Unknown Venipuncture / Unknown 05/24/2021 10:39 AM PEPPER PICKER 05/24/2021 10:55 AM PEPPER PICKER Narrative [facility] - 05/24/2021 12:19 PM PEPPER PICKER No Laboratory evidence of HIV infection. Jake Jc MD LAB - CHEMISTRY LEATHA FAY Performing Organization Address City/State/[facility] Co de Phone Number [facility] [address] [place] [address] from Last 3 Months or Most Recently Relevant to Health Maintenance Advance Directives * Full Code (Latest Code Status on File) Date Activated Date Inactivated Comments 06/28/2021 1:23 PM 07/01/2021 7:43 PM * FULL RESUSCITATION Date Activated Date Inactivated Comments 05/15/2011 1:40 AM 05/17/2011 12:34 AM
[2024-07-25] MEDS: KETOROLAC 15 MG/ML VIAL (*BKC) IV PUSH (20:52)
[2024-07-25] MEDS: AMOXICILLIN/CLAVULANATE K 875-125 MG TAB 1 TABLET PO (21:30)
[2024-07-25] MEDS: HYDROmorphone HCL INJ (*CRX) 1 MG/ML SYR 0.5 MG IV PUSH (21:30)
--- NOTE | 2024-07-25 21:38 | PC.NURSE ---
Pt PO challenged by this RN per ANU Cardoza orders at this time. Pt tolerated drinking water well. ANU cardoza made aware.
--- NOTE | 2024-07-25 21:55 | PC.NURSE ---
pt provided with crackers and juice for PO challenge
== END 2024-07-25 22:11 | disposition home or self-care (01) ==
PROVIDERS: Student in an Organized Health Care Education/Training Program; Emergency Provider Physician Assistant
DX: K57.32 Diverticulitis of large intestine without perforation or abscess without bleeding (principal); R16.0 Hepatomegaly, not elsewhere classified
CPT/HCPCS: 36415; 74177; 80053; 81003; 81025; 83690; 85025; 96374; 96375; 99284; A9270; J1171; J1885; J2270; J2405; Q9967